=== PATIENT | female | born 1955 | race Caucasian/White ===

== ENCOUNTER 2016-06-28 21:19 | Observation (INO) ==
--- NOTE | 2016-06-28 23:43 | Emergency Department Note ---
Disposition Clinical Impression: Bite by animal Cellulitis Qualifiers: Site of cellulitis: extremity Site of cellulitis of extremity: lower extremity Laterality: left Qualified Code(s): L03.116 - Cellulitis of left lower limb Disposition: Admitted As Inpatient Condition: Fair Time of Disposition: 00:00 Animal Bite HPI - General Chief Complaint: ED Skin/Abscess/Foreign Body Stated Complaint: Cat Scratch~ L Leg Time Seen by Provider: 06/28/16 22:06 Source: patient Limitations: no limitations Nursing Notes Reviewed: Yes Vital Signs Reviewed: Yes - History of Present Illness HPI Narrative: 61-year-old female presents after a Bite at home 2 days ago. Patient reports nausea, vomiting, fever, chills, rigor. Patient has significant tenderness to palpation of the left calf and distal lower extremity as well as large amount of erythema. - Related Data Previous Rx's Medication Instructions Recorded Albuterol Sulfate [Albuterol 1 puff IH Q6HR #1 hfa.aer.ad 02/25/15 Inhaler] Doxycycline 100 mg PO BID #20 capsule 02/25/15 GuaiFENesin ER [Mucinex] 600 mg PO BID #20 tbbp.12hr 02/25/15 PredniSONE 40 mg PO DAILY #4 tablet 02/25/15 Allergies Allergy/AdvReac Type Severity Reaction Status Date / Time codeine Allergy Itching Verified 02/25/15 11:37 doxycycline AdvReac Nausea Verified 07/20/15 12:49 Penicillins AdvReac See Verified 07/20/15 12:49 Comments All systems ED: reviewed and negative except as stated. Constitutional: Reports: fever, weakness. Denies: chills ENT ED: Denies: ear pain, throat pain Cardiovascular: Denies: chest pain, palpitations Respiratory: Denies: cough, dyspnea, wheezes, hemoptysis Gastrointestinal: Reports: nausea, vomiting. Denies: abdominal pain, diarrhea Past Medical History - Past Medical History Attestation: Yes The following information was validated with the patient. Medical history: Reports: arthritis, hepatitis, liver disease, other Surgical history: Reports: , cholecystectomy, orthopedic, other Psychiatric history: Reports: no psych history - Social History Smoking Status: Current every day smoker Smokeless Tobacco Status: No Alcohol use: Reports: none Drug use: Reports: none Physical Exam General: Alert and in no acute distress Skin: Warm, dry, puncture wound to the left anterior distal lower extremity surrounded by significant amount of cellulitis without evidence of induration or fluctuance or crepitus Head: Normocephalic and atraumatic Neck: Supple, trachea midline and no tenderness Cardiovascular: RRR, no murmur, normal perfusion Respiratory: CTAB, no wheezing, cough, or respiratory distress Musculoskeletal: Normal strength, no tenderness, swelling or deformity GI: Soft, nontender, nondistended. Bowel sounds present Neuro: A&O to person, place, time and situation. No focal deficits noted on exam Psychiatric: cooperative and appropriate mood and affect. - General Limitations: no limitations General appearance: alert, in no apparent distress Course Vital Signs Temperature 99.3 F 06/28/16 21:52 Pulse Rate 94 06/28/16 21:52 Respiratory Rate 16 06/28/16 21:52 Blood Pressure 140/87 06/28/16 21:52 O2 Sat by Pulse Oximetry 93 06/28/16 21:52 Temperature 99.3 F 06/28/16 21:52 Pulse Rate 94 06/28/16 21:52 Respiratory Rate 16 06/29/16 00:45 Blood Pressure 135/85 06/29/16 00:45 O2 Sat by Pulse Oximetry 93 06/28/16 21:52 Oxygen Delivery Oxygen Delivery Room Air Animal Bite - MDM Narrative Medical decision making narrative: Patient is allergic to penicillins and doxycycline and will be started on levofloxacin and metronidazole which her second line antibiotics for cat bite. Patient unable to tolerate by mouth intake at home. She will be admitted for IV antibiotics and further observation. - Medical Records Medical records reviewed: Yes I reviewed the patient's medical records. - Lab Data Lab results reviewed: Yes I reviewed the patient's lab results. Result diagrams: 06/29/16 00:03 06/29/16 00:03 Lab Results 06/29/16 06/29/16 Range/Units 00:03 00:03 WBC 9.5 (4.3-11.1) K/mcL RBC 4.77 (3.82-4.97) M/mcL Hgb 15.0 (11.5-15.4) g/dL Hct 45.0 H (35.3-44.9) % MCV 94.3 (83.0-100.0) fL MCH 31.4 (28.0-33.3) pg MCHC 33.3 (31.6-35.5) g/dL RDW 14.6 H (11.5-14.5) % Plt Count 49 L (140-400) K/mcL MPV 11.5 (9.4-12.4) fL Immature Gran % 0.3 (0-4) % Seg Neutrophils % 80.4 % Lymphocytes % 13.1 % Monocytes % 5.7 % Eosinophils % 0.4 % Basophils % 0.1 % Neutrophils # 7.6 (1.6-8.9) K/mcL Lymphocytes # 1.2 (0.6-4.6) K/mcL Monocytes # 0.5 (0.0-1.3) K/mcL Eosinophils # 0.0 (0.0-0.6) K/mcL Basophils # 0.0 (0.0-0.2) K/mcL Sodium 139 (136-145) mEq/L Potassium 3.6 (3.5-4.5) mEq/L Chloride 105 (98-109) mEq/L Carbon Dioxide 25 (19-29) mEq/L BUN 18 (7-20) mg/dL Creatinine 0.68 (0.57-1.11) mg/dL Est GFR ( Amer) > 60 (> 60) Est GFR (Non-Af Amer) > 60 (> 60) BUN/Creatinine Ratio 26 (6-26) Glucose 102 H (70-99) mg/dL Calculated Osmolality 290 (280-300) Calcium 9.0 (8.6-10.8) mg/dL
[2016-06-28] MEDS ORDERED: Levofloxacin 750 MG/150 ML 750 MG/150 ML BAG IVPB ONE (23:51)
[2016-06-28] MEDS ORDERED: 0.9 % Sodium Chloride 1,000 ML IVC ONE (23:51)
[2016-06-28] MEDS ORDERED: MetroNIDAZOLE 500 MG/100 ML 500 MG/100 ML BAG IVPB ONE (23:51)
[2016-06-28] MEDS ORDERED: Td (TENIVAC) Vaccine 0.5 ML VIAL IM ONE (23:51)
[2016-06-28] MEDS ORDERED: *HR* Morphine 2 MG/ML SYRINGE IVP ONE (23:51)
[2016-06-29] MEDS ORDERED: Ondansetron 4 MG/2 ML VIAL IV ONE (00:04)
[2016-06-29 00:11] LABS: Basophils % 0.1 %; Eosinophils % 0.4 %; Immature Granulocytes % 0.3 % (0-4); Lymphocytes % 13.1 %; Mean Corpuscular HGB Conc 33.3 g/dL (31.6-35.5); Mean Corpuscular Hemoglobin 31.4 pg (28.0-33.3); Mean Corpuscular Volume 94.3 fL (83.0-100.0); Mean Platelet Volume 11.5 fL (9.4-12.4); Monocytes # 0.5 K/mcL (0.0-1.3); Monocytes % 5.7 %; Red Blood Count 4.77 M/mcL (3.82-4.97); Red Cell Distribution Width 14.6 % (11.5-14.5); Segmented Neutrophils % 80.4 %
[2016-06-29 00:12] LABS: Lymphocytes # 1.2 K/mcL (0.6-4.6); Neutrophils # 7.6 K/mcL (1.6-8.9); Platelet Count 49 K/mcL (140-400)
[2016-06-29] MEDS ORDERED: Tdap (Boostrix) Vaccine 0.5 ML SYRINGE IM ONE (00:13)
[2016-06-29 00:23] LABS: BUN/Creatinine Ratio 26 (6-26); Blood Urea Nitrogen 18 mg/dL (7-20); Carbon Dioxide 25 mEq/L (19-29); Chloride 105 mEq/L (98-109); Glucose 102 mg/dL (70-99); Osmolality,Calculated 290 (280-300); Potassium 3.6 mEq/L (3.5-4.5); Sodium 139 mEq/L (136-145); eGFR For African Americans > 60 (> 60); eGFR For Non-African Americans > 60 (> 60)
[2016-06-29] MEDS ORDERED: Naloxone 0.4 MG/ML INJ IVP PRN (03:29)
--- NOTE | 2016-06-29 03:51 | Internal Med History&Physical ---
Date of Encounter: 06/29/16 Time of Encounter: 03:00 Assessment and Plan (1) Cellulitis Current visit: Yes Status: Acute Pt has left lower leg cellulitis, secondary to cat bite. Pt was given tetanus vaccine, levofloxacin and metronidazole in emergency department. If the pt is agreeable, will consider vancomycin and zosyn (pt reports yeast infection with penicillins). Qualifiers: Site of cellulitis: extremity Site of cellulitis of extremity: lower extremity Laterality: left Qualified Code(s): L03.116 - Cellulitis of left lower limb (2) Bite by animal Current visit: Yes Status: Acute Pt had a cat bite - cat was apparently not vaccinated. Patient was given tetanus vaccine in the emergency department. (3) Abscess of foot Current visit: Yes Status: Suspected CT scan of the left lower extremity reported 0.8 cm fluid-filled collection with minimal surrounding inflammation along the dorsal lateral aspect of the cuboid - thiw may represent a small abscess. Will consult podiatry for possible intervention. 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 Qualifiers: Hepatic cirrhosis type: unspecified hepatic cirrhosis Ascites presence: with ascites Qualified Code(s): K74.60 - Unspecified cirrhosis of liver (5) Thrombocytopenia Current visit: Yes Status: Chronic Possibly related to cellulitis / infection versus cirrhosis of the liver. Monitor platelet count - if further worsening, consider hematology / oncology consult (6) DVT prophylaxis Current visit: Yes Status: Acute Arixtra, due to thrombocytopenia Internal Medicine - H&P: HPI Chief complaint: Cat bite; Admitted From: Emergency Dept Plans for Post Hospital Care: Home History of present illness: Ms. Sousa is a 61 year old female with h/o Hepatitis and cirrhosis of liver. Apparently her cat (which she has for 8 years and not vaccinated), bit her over the left lower leg on 06/26/16. The following day, she evidently had episodes of nausea and vomiting. On 06/28/16, she noticed redness and subjective fevers and pain. She denies chest pain, shortness of breath, cough, expectation, abdominal pain, dysuria, hematuria, change in bowels. She was evaluated in the ER and was noted to have cellulitis and CT scan of the leg was negative for soft tissue gas - was given levofloxacin and metronidazole. (pt has penicillin listed as allergy, but reports that it causes yeast infection). She is admitted to the hospitalist service for further management. Past Med Surg Social Fam HX - Past Medical History Medical history: arthritis, hepatitis, liver disease, other Psychiatric history: no psych history - Past Surgical History Surgical History: , cholecystectomy, orthopedic, other - Social History Smoking Status: Current every day smoker Packs per day: .5 Smokeless Tobacco Status: No Alcohol use: none Drug use: none - Family History Father Living Status: Hx Family Respiratory Disorders: Yes (COPD) Internal Medicine - H&P: Meds Albuterol Sulfate [Albuterol Inhaler] 1 puff IH Q6HR #1 hfa.aer.ad 02/25/15 [Rx] Doxycycline 100 mg PO BID #20 capsule 02/25/15 [Rx] GuaiFENesin ER [Mucinex] 600 mg PO BID #20 tbbp.12hr 02/25/15 [Rx] PredniSONE 40 mg PO DAILY #4 tablet 02/25/15 [Rx] Allergies codeine Allergy (Verified 02/25/15 11:37) Itching doxycycline Adverse Reaction (Verified 07/20/15 12:49) Nausea Penicillins Adverse Reaction (Verified 07/20/15 12:49) See Comments yeast infection All Systems PM: A 10-system review of systems was performed and is negative for pertinent findings except as documented above in the HPI. - Constitutional Vitals: Temp Pulse Resp BP Pulse Ox 98.8 F 86 15 144/74 94 06/29/16 01:25 06/29/16 01:25 06/29/16 01:25 06/29/16 01:25 06/29/16 01:25 Exam: General: Not in acute distress at the time of my evaluation. Obese HEENT: Oral mucosa is moist. No conjunctival palor or scleral icterus Neck: No obvious neck swellings Lungs: Clear to auscultation Cardiac: Regular rate and rhythm. No significant murmurs Abdomen: Distended - suspect ascites. Bowel sounds present Genitourinary: No fernandes catheter Neurological: Alert and oriented. No gross localizing deficits Psych: Not aggressive or agitated Extremities: B/L Lower extremity edema present. There is redness on the anterior and lateral aspect of the left leg, local warmth and tenderness present. There is bite larry present Skin: No generalized rash Internal Med - H&P Results - Labs CBC & Chem 7: 06/29/16 00:03 06/29/16 00:03 - Impressions ITS Impressions Lower Extremity CT 06/29/16 00:02 IMPRESSION: 1. Subcutaneous edema/inflammation and skin thickening along the anterior aspect of the leg. Please correlate with clinical symptoms of cellulitis. 2. Along the dorsal lateral aspect of the cuboid, there is a 0.8 cm fluid collection with minimal surrounding inflammation. Please correlate with site of patient's bite injury. If that is the site of patient's injury, this may represent a small abscess. 3. No evidence of soft tissue gas. 4. No acute osseous finding. D/ / Stevenson Atkins MD / Stevenson Atkins MD Interpreting Provider: Stevenson Atkins MD
[2016-06-29] MEDS: *HR* Fondaparinux 2.5 MG/0.5 ML SYRINGE SQ SCH (06:04)
[2016-06-29] MEDS: MetroNIDAZOLE 500 MG/100 ML 500 MG/100 ML BAG IVPB SCH ×2 (08:28→15:53)
[2016-06-29] MEDS: Lactobacillus 1 EACH CAP.SPRINK PO SCH ×2 (08:50→20:32)
[2016-06-29] MEDS: Acetaminophen 325 MG TABLET PO PRN ×2 (08:50→18:22)
[2016-06-29] MEDS ORDERED: *HR* Morphine 2 MG/ML SYRINGE IVP PRN (15:06)
--- NOTE | 2016-06-29 15:49 | Event Note ---
Date of Encounter: 06/29/16 Time of Encounter: 09:30 Patient seen and examined. On examination, patient resting asleep in bed. She awakened easily to voice and was alert and oriented 3. She stated she was very tired and wanted to rest. She states pain in her leg is much better. We will continue levofloxacin and Flagyl. On examination, there is no evidence of an abscess noted at this time. Erythema has receded slightly from the pen line from admission. Lower extremity CT consistent with cellulitis. Patient complaining of chronic low back pain and her home medications have been resumed , her OARRS report checked out fine. We will observe overnight and possibly discharge as early as tomorrow pending clinical outcomes. ITS Impressions Lower Extremity CT 06/29/16 00:02 IMPRESSION: 1. Subcutaneous edema/inflammation and skin thickening along the anterior aspect of the leg. Please correlate with clinical symptoms of cellulitis. 2. Along the dorsal lateral aspect of the cuboid, there is a 0.8 cm fluid collection with minimal surrounding inflammation. Please correlate with site of patient's bite injury. If that is the site of patient's injury, this may represent a small abscess. 3. No evidence of soft tissue gas. 4. No acute osseous finding. D/ / 06/29/2016 07:15:09 Stevenson Atkins MD / Alma Rosa Spencer Interpreting Provider: Stevenson Atkins MD
[2016-06-29] MEDS: *HR* OxyCODONE Immed Rel 5 MG TABLET PO SCH (20:32)
[2016-06-30] MEDS: Acetaminophen 325 MG TABLET PO PRN ×2 (00:22→15:29)
[2016-06-30] MEDS ORDERED: Levofloxacin 750 MG/150 ML 750 MG/150 ML BAG IVPB SCH (02:00)
[2016-06-30] MEDS: *HR* Fondaparinux 2.5 MG/0.5 ML SYRINGE SQ SCH (05:45)
[2016-06-30] MEDS: Lactobacillus 1 EACH CAP.SPRINK PO SCH (08:05)
[2016-06-30] MEDS: *HR* OxyCODONE Immed Rel 5 MG TABLET PO SCH (08:05)
[2016-06-30] MEDS: MetroNIDAZOLE 500 MG/100 ML 500 MG/100 ML BAG IVPB SCH ×2 (08:05)
[2016-06-30] MEDS ORDERED: Tiotropium 18 MCG inhalation IH SCH (09:00)
[2016-06-30 11:41] VITALS: BP 143/85
--- NOTE | 2016-06-30 13:51 | Discharge Summary ---
Date of Encounter: 06/30/16 Time of Encounter: 12:30 - Discharge Diagnosis (1) Cellulitis Priority: Primary Status: Acute Comments: Vital left lower extremity. Treated with levofloxacin and Flagyl while admitted. Blood cultures negative. Vital signs remained stable, no indication of sepsis, osteomyelitis, or abscess. She has allergies/intolerances to Doxy- nausea, penicillins-yeast infection. We will send home on Bactrim. Qualifiers: Site of cellulitis: extremity Site of cellulitis of extremity: lower extremity Laterality: left Qualified Code(s): L03.116 - Cellulitis of left lower limb (2) Bite by animal Priority: Primary Status: Acute (3) Chronic pain Priority: Secondary Status: Chronic Comments: OARRS report checked out okay, we will send with short supply pain medication for leg pain (4) Tobacco abuse Priority: Secondary Status: Chronic Comments: Declined counseling (5) Cirrhosis of liver Priority: Secondary Status: Chronic Qualifiers: Hepatic cirrhosis type: unspecified hepatic cirrhosis Ascites presence: with ascites Qualified Code(s): K74.60 - Unspecified cirrhosis of liver (6) Thrombocytopenia Priority: Secondary Status: Chronic Comments: Acute on chronic, follow-up outpatient (7) DVT prophylaxis Priority: Primary Status: Acute Comments: on Arixtra (8) Morbid obesity with BMI of 45.0-49.9, adult Priority: Secondary Status: Chronic - Discharge Medications Prescriptions: OxyCODONE Immed Rel [Roxicodone 5 MG] 5 mg PO BID PRN #12 tablet PRN Reason: Pain Sulfamethoxazole/Trimeth DS [Bactrim DS] 1 each PO BID #20 tablet Home Medications: Albuterol Sulfate [Proair Hfa] 2 puff IH Q4H PRN 06/29/16 [History] Cyclobenzaprine HCl 10 mg PO TID PRN 06/29/16 [History] Oxycodone HCl [Oxaydo] 5 mg PO BID 06/29/16 [History] Tiotropium [Spiriva] 1 cap IH DAILY 06/29/16 [History] OxyCODONE Immed Rel [Roxicodone 5 MG] 5 mg PO BID PRN #12 tablet 06/30/16 [Rx] Sulfamethoxazole/Trimeth DS [Bactrim DS] 1 each PO BID #20 tablet 06/30/16 [Rx] Allergies/Adverse Reactions: Allergies codeine Allergy (Verified 12/19/15 11:37) Itching doxycycline Adverse Reaction (Verified 07/20/15 12:49) Nausea Penicillins Adverse Reaction (Verified 07/20/15 12:49) See Comments yeast infection Date of admission: 06/29/16 00:30 Primary care physician: Zakia Bowie CNP Discharging clinician: Mackenzie Hall Anticipated date of discharge: 06/30/16 - Patient Status Disposition: Home, Self-Care Condition: Fair Functional capacity at discharge: independent ambulation Overall status at discharge: patient is back to baseline - Discharge Instructions Follow Up With: Zakia Bowie CNP [Primary Care Provider] - Additional Instructions: Follow-up with primary care provider within one to 2 weeks - Diet and Activity Activity: increase activity as tolerated Diet: low fat, low cholesterol Hospital course: Ms. Sousa is a 61 year old female with past medical history of hepatitis, cirrhosis. Patient sustained a cat bite from her cat to her left lower leg on . The following day, patient had episodes of nausea and vomiting and 2 days later, she noticed redness with subjective fevers and pain to her left lower extremity. Of note, her cat is 8 years old and has not been vaccinated. Patient denied chest pain, shortness of breath, abdominal pain. Lower extremity CT in the emergency department consistent with cellulitis. No indication of abscess or osteomyelitis. Patient was started on levofloxacin and Flagyl and admitted to the hospitalist service for further evaluation and management. Blood cultures were negative. No leukocytosis. Vital signs remained stable. Thrombocytopenia noted which is chronic for this patient. She was admitted and observed over the course of 2 days. Erythema and edema have lessened greatly on the discharge. She was discharged home on Bactrim. She was discharged home in stable condition with close outpatient follow-up recommended. ITS Impressions Lower Extremity CT 06/29/16 00:02 IMPRESSION: 1. Subcutaneous edema/inflammation and skin thickening along the anterior aspect of the leg. Please correlate with clinical symptoms of cellulitis. 2. Along the dorsal lateral aspect of the cuboid, there is a 0.8 cm fluid collection with minimal surrounding inflammation. Please correlate with site of patient's bite injury. If that is the site of patient's injury, this may represent a small abscess. 3. No evidence of soft tissue gas. 4. No acute osseous finding. D/ / 06/29/2016 07:15:09 Stevenson Atkins MD / Alma Roas Spencer Interpreting Provider: Stevenson Atkins MD - Time Spent with Patient Total time spent providing and/or coordinating discharge services: - Constitutional Vitals: Temp Pulse Resp BP Pulse Ox 97.7 F 77 16 143/85 94 06/30/16 11:38 06/30/16 11:38 06/30/16 11:38 06/30/16 11:38 06/30/16 11:38 General appearance: Present: A&O X 3, morbidly obese, pleasant, no acute distress, answers questions appropriately - Head Head exam: Present: atraumatic, normocephalic - Eye Eye exam: Present: PERRL, conjuntiva pink, sclera anicteric Pupils: Present: PERRL - Neck Neck exam general surgery: Present: supple, trachea midline. Absent: lymphadenopathy - Respiratory Respiratory exam: Present: CTAB. Absent: accessory muscle use, rales, respiratory distress, rhonchi, wheezes - Cardiovascular Cardiovascular exam: Present: RRR, +S1, +S2. Absent: diastolic murmur, gallop, rubs, systolic murmur - GI/Abdominal GI/Abdominal exam: Present: normal bowel sounds, soft, no peritoneal signs. Absent: distended, tenderness - Extremities Exam Extremities exam: Present: warm, radial pulses palpable and symetrical. Absent : calf tenderness, cyanotic, pedal edema - Expanded Lower Extremities Exam Lower Leg exam: Present: erythema, swelling, tenderness Ankle exam: Present: erythema, swelling, tenderness Foot/Toe exam: Present: erythema, swelling, tenderness Neuro vascular tendon exam: Present: no vascular compromise Gait: Present: antalgic - Neurological Exam Neurological exam: Present: alert, CN II-XII intact, oriented X3, no focal deficits, strengths equal and symetr throughout. Absent: pronater drift, facial droop, speech deficit - Skin Skin exam: Present: dry, intact, normal color, warm
== END 2016-06-30 17:57 | disposition home or self-care (01) ==
LOC: EMEROO 21:19 → 3BNU 21:19
PROVIDERS: ADMIT Internal Medicine; ATTEND Nurse Practitioner Family

== ENCOUNTER 2017-04-30 16:34 | Inpatient (IN) ==
[~2017-04-30 16:34] MED LIST: Aminoglycoside Consult 1 EACH MC ONE
[2017-04-30 17:47] LABS: Basophils % 0.4 %; Eosinophils % 0.4 %; Hematocrit 48.9 % (35.3-44.9); Hemoglobin 15.9 g/dL (11.5-15.4); Immature Granulocytes % 0.4 % (0-4); Lymphocytes # 0.4 K/mcL (0.6-4.6); Lymphocytes % 18.4 %; Mean Corpuscular HGB Conc 32.5 g/dL (31.6-35.5); Mean Corpuscular Hemoglobin 31.2 pg (28.0-33.3); Mean Corpuscular Volume 95.9 fL (83.0-100.0); Mean Platelet Volume 11.5 fL (9.4-12.4); Monocytes # 0.2 K/mcL (0.0-1.3); Monocytes % 9.2 %; Neutrophils # 1.7 K/mcL (1.6-8.9); Red Cell Distribution Width 15.6 % (11.5-14.5); Segmented Neutrophils % 71.2 %
[2017-04-30 17:49] LABS: Platelet Count 47 K/mcL (140-400)
[2017-04-30 17:59] LABS: Albumin 3.5 g/dL (3.5-5.7); Bilirubin,Direct 0.4 mg/dL (0.0-0.2); Bilirubin,Total 1.4 mg/dL (0.3-1.0); Calcium 9.4 mg/dL (8.6-10.3); Carbon Dioxide 27 mEq/L (23-29); Chloride 104 mEq/L (98-107); Potassium 4.2 mEq/L (3.5-5.1); Sodium 134 mEq/L (136-145)
[2017-04-30 18:04] LABS: Platelet Estimate Decreased (Normal)
[2017-04-30 18:05] LABS: Alanine Aminotransferase 15 Units/L (7-52); Albumin/Globulin Ratio 0.8 (1.1-2.2); Alkaline Phosphatase 79 Units/L (34-104); Aspartate Amino Transferase 40 Units/L (13-39); BUN/Creatinine Ratio 22 (6-26); Blood Urea Nitrogen 12 mg/dL (8-23); Globulin 4.3 g/dL (2.4-3.5); Glucose 105 mg/dL (70-105); Lipase 27 Units/L (11-82); Osmolality,Calculated 278 (280-300); Total Protein 7.8 g/dL (6.4-8.9); eGFR For African Americans > 60 (> 60); eGFR For Non-African Americans > 60 (> 60)
[2017-04-30] MEDS ORDERED: Ibuprofen 800 MG TABLET PO ONE (19:06)
--- NOTE | 2017-04-30 19:38 | Emergency Department Note ---
Disposition Clinical Impression: Right lower lobe pneumonia, Ascites, Cirrhosis, Leukopenia Disposition: Admitted As Inpatient Condition: Fair Referrals: Lakisha Cunha CNP [Primary Care Provider] - Time of Disposition: 19:47 General Adult HPI - General Chief complaint: ED General Medical Stated complaint: Back Pain/SOB/fever/abd large Time Seen by Provider: 04/30/17 18:43 Source: patient Limitations: no limitations Nursing Notes Reviewed: Yes Vital Signs Reviewed: Yes - History of Present Illness HPI Narrative: 62 Yo F here for cough. Patient states she has been ill for the past 3 days. She admits to cough but no significant sputum production. Sometimes it is clear in color. She admits to some upper back pain associated with the cough but that did not start until today. She denies any chest pain. She denies any syncope or passing out spells. She does have a history of hepatitis with cirrhosis. She is a history of significant ascites that required drainage recently. She admits to some chronic diarrhea issues. Intermittent nausea and vomiting. No other complaints at this time. Pain Scale: 10 - Related Data Home Medications Medication Instructions Recorded Confirmed Albuterol Sulfate [Proair Hfa] 2 puff IH Q4H PRN 06/29/16 06/29/16 Cyclobenzaprine HCl 10 mg PO TID PRN 06/29/16 06/29/16 Oxycodone HCl [Oxaydo] 5 mg PO BID 06/29/16 06/29/16 Tiotropium [Spiriva] 1 cap IH DAILY 06/29/16 06/29/16 Previous Rx's Medication Instructions Recorded OxyCODONE Immed Rel [Roxicodone 5 5 mg PO BID PRN #12 tablet 06/30/16 MG] Sulfamethoxazole/Trimeth DS 1 each PO BID #20 tablet 06/30/16 [Bactrim DS] Allergies Allergy/AdvReac Type Severity Reaction Status Date / Time codeine Allergy Itching Verified 02/25/15 11:37 doxycycline AdvReac Nausea Verified 07/20/15 12:49 Penicillins AdvReac See Verified 07/20/15 12:49 Comments Constitutional: Reports: fever, chills, weakness Eyes: Reports: as per HPI ENT ED: Reports: as per HPI Cardiovascular: Reports: as per HPI, dyspnea on exertion. Denies: chest pain Respiratory: Reports: cough, dyspnea Gastrointestinal: Reports: nausea, vomiting, diarrhea. Denies: abdominal pain Genitourinary: Reports: as per HPI Musculoskeletal: Reports: back pain Integumentary: Reports: as per HPI Neurological: Reports: as per HPI, headache Psychiatric: Reports: as per HPI Endocrine: Reports: as per HPI, fatigue Hematological/Lymphatic: Reports: as per HPI Allergic/Immunologic: Reports: as per HPI Past Medical History - Past Medical History Medical history: Reports: arthritis, hepatitis, liver disease, other Surgical history: Reports: , cholecystectomy, orthopedic, other Psychiatric history: Reports: no psych history - Social History Smoking Status: Current every day smoker Smokeless Tobacco Status: No Alcohol use: Reports: none Drug use: Reports: none Physical Exam - General Limitations: no limitations General appearance: alert - Head Head exam: atraumatic, normocephalic - Eye Eye exam: Present: normal appearance - ENT ENT exam: normal exam - Neck Neck exam: Present: normal inspection - Chest Chest inspection: Present: normal inspection, symmetric chest wall rise - Respiratory Respiratory exam: Present: other (Patient has some crackles and rhonchi heard in the right lung pleitez.) - Cardiovascular Cardiovascular exam: Present: regular rate, normal rhythm, normal heart sounds - Abdominal Exam Abdominal exam: Present: soft, distention, organomegaly (Patient has hepatosplenomegaly. Positive for ascites) - Extremities Exam Extremities exam: Present: normal capillary refill, pedal edema. Absent: calf tenderness - Expanded Lower Extremity Exam Hip/Pelvis exam: Present: normal inspection - Back Exam Back exam: Present: normal inspection - Neurological Exam Neurological exam: Present: alert, oriented X3 - Psychiatric Psychiatric exam: Present: normal affect, normal mood - Skin Skin exam: Present: warm, dry, intact Course Vital Signs Temperature 101.5 F H 04/30/17 17:04 Pulse Rate 95 04/30/17 17:04 Respiratory Rate 18 04/30/17 17:04 Blood Pressure 125/86 04/30/17 17:04 O2 Sat by Pulse Oximetry 95 04/30/17 17:04 Temperature 101.2 F H 04/30/17 19:02 Pulse Rate 95 04/30/17 19:02 Respiratory Rate 16 04/30/17 19:02 Blood Pressure 120/82 04/30/17 19:02 O2 Sat by Pulse Oximetry 96 04/30/17 19:02 Oxygen Delivery Oxygen Delivery Room Air Medical Decision Making - MDM Narrative Medical decision making narrative: Spoke with the hospitalist in regards to admission. Patient has evidence of a right lower lobe pneumonia with a right pleural effusion. Blood cultures ordered. She does have a low white count. I ordered vancomycin and cefepime due to her low white count as well as high fevers in in the setting of cirrhosis. Her vitals are stable. She was given Motrin for fevers. Patient will be admitted to a telemetry bed.. - Medical Records Medical records reviewed: Yes I reviewed the patient's medical records. - Lab Data Lab results reviewed: Yes I reviewed the patient's lab results. Result diagrams: 04/30/17 17:38 04/30/17 17:38 Lab Results 04/30/17 04/30/17 04/30/17 Range/Units 17:38 17:38 17:38 WBC 2.4 L (4.3-11.1) K/mcL RBC 5.10 H (3.82-4.97) M/mcL Hgb 15.9 H (11.5-15.4) g/dL Hct 48.9 H (35.3-44.9) % MCV 95.9 (83.0-100.0) fL MCH 31.2 (28.0-33.3) pg MCHC 32.5 (31.6-35.5) g/dL RDW 15.6 H (11.5-14.5) % Plt Count 47 L (140-400) K/mcL MPV 11.5 (9.4-12.4) fL Immature Gran % 0.4 (0-4) % Seg Neutrophils % 71.2 % Lymphocytes % 18.4 % Monocytes % 9.2 % Eosinophils % 0.4 % Basophils % 0.4 % Neutrophils # 1.7 (1.6-8.9) K/mcL Lymphocytes # 0.4 L (0.6-4.6) K/mcL Monocytes # 0.2 (0.0-1.3) K/mcL Eosinophils # 0.0 (0.0-0.6) K/mcL Basophils # 0.0 (0.0-0.2) K/mcL Platelet Estimate Decreased L (Normal) Sodium 134 L (136-145) mEq/L Potassium 4.2 (3.5-5.1) mEq/L Chloride 104 (98-107) mEq/L Carbon Dioxide 27 (23-29) mEq/L BUN 12 (8-23) mg/dL Creatinine 0.55 L (0.60-1.20) mg/dL Est GFR ( Amer) > 60 (> 60) Est GFR (Non-Af Amer) > 60 (> 60) BUN/Creatinine Ratio 22 (6-26) Glucose 105 (70-105) mg/dL Calculated Osmolality 278 L (280-300) Lactic Acid 0.9 (0.5-2.2) mmol/L Calcium 9.4 (8.6-10.3) mg/dL Total Bilirubin 1.4 H (0.3-1.0) mg/dL Direct Bilirubin 0.4 H (0.0-0.2) mg/dL Indirect Bilirubin 1.0 (0.0-1.2) mg/dL AST 40 H (13-39) Units/L ALT 15 (7-52) Units/L Alkaline Phosphatase 79 (34-104) Units/L Troponin I (< 0.04) ng/mL B-Natriuretic Peptide (Less than 100) pg/mL Serum Total Protein 7.8 (6.4-8.9) g/dL Albumin 3.5 (3.5-5.7) g/dL Globulin 4.3 H (2.4-3.5) g/dL Albumin/Globulin Ratio 0.8 L (1.1-2.2) Lipase 27 (11-82) Units/L 04/30/17 04/30/17 Range/Units 17:38 17:38 WBC (4.3-11.1) K/mcL RBC (3.82-4.97) M/mcL Hgb (11.5-15.4) g/dL Hct (35.3-44.9) % MCV (83.0-100.0) fL MCH (28.0-33.3) pg MCHC (31.6-35.5) g/dL RDW (11.5-14.5) % Plt Count (140-400) K/mcL MPV (9.4-12.4) fL Immature Gran % (0-4) % Seg Neutrophils % % Lymphocytes % % Monocytes % % Eosinophils % % Basophils % % Neutrophils # (1.6-8.9) K/mcL Lymphocytes # (0.6-4.6) K/mcL Monocytes # (0.0-1.3) K/mcL Eosinophils # (0.0-0.6) K/mcL Basophils # (0.0-0.2) K/mcL Platelet Estimate (Normal) Sodium (136-145) mEq/L Potassium (3.5-5.1) mEq/L Chloride (98-107) mEq/L Carbon Dioxide (23-29) mEq/L BUN (8-23) mg/dL Creatinine (0.60-1.20) mg/dL Est GFR ( Amer) (> 60) Est GFR (Non-Af Amer) (> 60) BUN/Creatinine Ratio (6-26) Glucose (70-105) mg/dL Calculated Osmolality (280-300) Lactic Acid (0.5-2.2) mmol/L Calcium (8.6-10.3) mg/dL Total Bilirubin (0.3-1.0) mg/dL Direct Bilirubin (0.0-0.2) mg/dL Indirect Bilirubin (0.0-1.2) mg/dL AST (13-39) Units/L ALT (7-52) Units/L Alkaline Phosphatase (34-104) Units/L Troponin I < 0.03 (< 0.04) ng/mL B-Natriuretic Peptide 163 H (Less than 100) pg/mL Serum Total Protein (6.4-8.9) g/dL Albumin (3.5-5.7) g/dL Globulin (2.4-3.5) g/dL Albumin/Globulin Ratio (1.1-2.2) Lipase (11-82) Units/L - Radiology Data Radiology results reviewed: Yes I reviewed the patient's radiology results. - EKG Data EKG #1 EKG results narrative: EKG shows a rate of 94. No sinus rhythm. Normal axis. MS interval 155. QRS 86. QTC 408.
--- NOTE | 2017-04-30 19:56 | Internal Med History&Physical ---
Date of Encounter: 04/30/17 Time of Encounter: 19:48 Assessment and Plan (1) Sepsis Current visit: Yes Status: Acute Meets sepsis criteria with fever, heart rate in the 90s, leukopenia and pneumonia. Treatment is as below. Lactic acid is normal. Qualifiers: Sepsis type: sepsis due to unspecified organism Qualified Code(s): A41.9 - Sepsis, unspecified organism (2) Community acquired pneumonia Current visit: Yes Status: Acute We will treat as community acquired pneumonia. We will start the patient on Levaquin. She has received vancomycin and cefepime in the ED. Hold off on IV fluids given history of ascites and liver cirrhosis. Lactic acid is normal. We will add nebulizers. O2 as needed. Qualifiers: Laterality: right Lung location: lower lobe of lung Qualified Code(s): J18.1 - Lobar pneumonia, unspecified organism (3) Cirrhosis of liver Current visit: Yes Status: Chronic Due to hepatitis C and B. Does not really follow with anyone from GI. Says she sees someone at [facility] but seems to have not had follow ups for a few years. Not complaint with diuretics as it interferes with work. She is not even sure which diuretic she is on. Continue to monitor. May benefit from outpatient GI evaluation. Qualifiers: Hepatic cirrhosis type: other cirrhosis Qualified Code(s): K74.69 - Other cirrhosis of liver (4) Thrombocytopenia Current visit: No Status: Chronic Chronic. No signs of bleeding. Likely due to cirrhosis. (5) Ascites Current visit: Yes Status: Acute Status post 12.5 L paracentesis on 04/10. Seems to be re-accumulating again. Will order for IR therapeutic paracentesis for tomorrow. Check PT/INR in am. Qualifiers: Ascites type: other type Qualified Code(s): R18.8 - Other ascites (6) Pleural effusion Current visit: Yes Status: Acute right sided. Likely hepatic hyrothoax. Needs liver cirrhosis and ascites better manages or she will continue to have pleural effusion on the right. (7) DVT prophylaxis Current visit: No Status: Acute SCDs Internal Medicine - H&P: HPI Chief complaint: Shortness of breath Admitted From: Home Plans for Post Hospital Care: Home History of present illness: Ms. Sousa is a 62 year old female liver cirrhosis, hepatitis B,C, thrombocytopenia, ascites with recent paracentesis of 12.5 L on 04/10, chronic back pain with previous back epidural injections, who presents with worsening shortness of breath for the last 3-4 days. There is associated nonproductive cough, upper back pain from coughing, and fever. She says the shortness of breath has progressively gotten worse over the last couple days she is unable to do any activity including walking. She also noticed abdominal distention that has worsened over the course of the last week. In the ED, work up including CXR showed new infiltrate. WBC count of 2.4. Platelets of 47 which is chronic. Normal Lactic acid. Given vancomycin and cefepimie in the ED and we were called to admit. Denies headache, blurry vision, nausea, vomiting, chest pain, abdominal pain, urinary symptoms, or neurological symptoms. Past Med Surg Social Fam HX - Past Medical History Medical history: arthritis, hepatitis, liver disease, other Psychiatric history: no psych history - Past Surgical History Surgical History: , cholecystectomy, orthopedic, other - Social History Smoking Status: Current every day smoker Smokeless Tobacco Status: No Alcohol use: none Drug use: none - Family History Father Living Status: Hx Family Respiratory Disorders: Yes (COPD) Internal Medicine - H&P: Meds Albuterol Sulfate [Proair Hfa] 2 puff IH Q4H PRN 06/29/16 [History] Cyclobenzaprine HCl 10 mg PO TID PRN 06/29/16 [History] Oxycodone HCl [Oxaydo] 5 mg PO BID 06/29/16 [History] Tiotropium [Spiriva] 1 cap IH DAILY 06/29/16 [History] OxyCODONE Immed Rel [Roxicodone 5 MG] 5 mg PO BID PRN #12 tablet 06/30/16 [Rx] Sulfamethoxazole/Trimeth DS [Bactrim DS] 1 each PO BID #20 tablet 06/30/16 [Rx] 3 Allergy/AdvReac Type Severity Reaction Status Date / Time codeine Allergy Itching Verified 02/25/15 11:37 doxycycline AdvReac Nausea Verified 07/20/15 12:49 Penicillins AdvReac See Verified 07/20/15 12:49 Comments All Systems PM: A 10-system review of systems was performed and is negative for pertinent findings except as documented above in the HPI. Review of systems: All systems reviewed are negative except for what is mentioned above - Constitutional Vitals: Temp Pulse Resp BP Pulse Ox 101.2 F H 95 16 120/82 96 04/30/17 19:02 04/30/17 19:02 04/30/17 19:02 04/30/17 19:02 04/30/17 19:02 Exam: GEN: NAD HEENT: AT, NC, No cyanosis, oral mucosa is moist, No JVD Lymphatics: No lymphadenoapthy Eyes: Extrocular muscles intact, anicteric CVS:RRR. S1, S2, No m/r/g RESP: Diminished with bibasilar coarse breath sounds ABD: Soft, NT, Distended with flnak dullness. +BS EXT: trace LE edema, No rashes, 2+ DP NEURO: Nonfocal, CN II-XII intact, No focal motor or sensory deficits Psych: Cooperative, Not anxious or depressed Internal Med - H&P Results - Labs CBC & Chem 7: 04/30/17 17:38 04/30/17 17:38 Labs: Short CBC 04/30/17 Range/Units 17:38 WBC 2.4 L (4.3-11.1) K/mcL Hgb 15.9 H (11.5-15.4) g/dL Hct 48.9 H (35.3-44.9) % Plt Count 47 L (140-400) K/mcL Neutrophils # 1.7 (1.6-8.9) K/mcL BMP 04/30/17 17:38 Sodium 134 L Potassium 4.2 Chloride 104 Carbon Dioxide 27 BUN 12 Creatinine 0.55 L Glucose 105 Calcium 9.4 Cardiac Enzymes 04/30/17 Range/Units 17:38 Troponin I < 0.03 (< 0.04) ng/mL Liver Function 04/30/17 Range/Units 17:38 Total Bilirubin 1.4 H (0.3-1.0) mg/dL Direct Bilirubin 0.4 H (0.0-0.2) mg/dL AST 40 H (13-39) Units/L ALT 15 (7-52) Units/L Alkaline Phosphatase 79 (34-104) Units/L Albumin 3.5 (3.5-5.7) g/dL - Impressions ITS Impressions Chest X-Ray 04/30/17 17:14 IMPRESSION: Right lower lobe pneumonia with a right pleural effusion. Follow-up is recommended to ensure resolution D/ / Michael Robertson MD / Michael Robertson MD Interpreting Provider: Michael Robertson MD
[2017-04-30] MEDS ORDERED: Cefepime HCl 2,000 MG in Water for inj. (sterile) 20 ML IVP SCH (20:00)
[2017-04-30] MEDS ORDERED: Cefepime HCl 2,000 MG in Water for inj. (sterile) 20 ML IVP ONE (20:00)
[2017-04-30] MEDS ORDERED: Naloxone 0.4 MG/ML INJ IVP PRN (20:00)
[2017-04-30] MEDS: Ipratropium/Albuterol Neb 3 ML IH SCH ×2 (21:03→23:10)
[2017-04-30 23:08] LABS: Adenovirus Not Detected (Not Detect); Bordetella Pertussis Not Detected (Not Detect); Chlamydophila pneumoniae Not Detected (Not Detect); Coronavirus 229E Not Detected (Not Detect); Coronavirus HKU1 Not Detected (Not Detect); Coronavirus NL63 Not Detected (Not Detect); Coronavirus OC43 Not Detected (Not Detect); Human Metapneumovirus Not Detected (Not Detect); Human Rhinovirus/Enterovirus Not Detected (Not Detect); Influenza A Subtype 2009 H1 Not Detected (Not Detect); Influenza A Untypeable Not Detected (Not Detect); Influenza B Not Detected (Not Detect); Mycoplasma pneumoniae Not Detected (Not Detect); Parainfluenza Virus 1 Not Detected (Not Detect); Parainfluenza Virus 2 Not Detected (Not Detect); Parainfluenza Virus 3 Not Detected (Not Detect); Parainfluenza Virus 4 Not Detected (Not Detect); Respiratory Syncytial Virus Not Detected (Not Detect)
[2017-05-01] MEDS ORDERED: Ketorolac 15 MG/ML VIAL IVP ONE (02:59)
[2017-05-01] MEDS ORDERED: *HR* Promethazine 25 MG/ML VIAL IVP PRN (04:41)
[2017-05-01] MEDS ORDERED: Ondansetron 4 MG/2 ML VIAL IVP ONE (04:42)
[2017-05-01] MEDS: Ipratropium/Albuterol Neb 3 ML IH SCH ×4 (04:57→20:08)
[2017-05-01 06:42] LABS: Hematocrit 42.4 % (35.3-44.9); Red Blood Count 4.51 M/mcL (3.82-4.97); Red Cell Distribution Width 15.9 % (11.5-14.5)
[2017-05-01 06:44] LABS: INR 1.5; Immature Platelets 6.8 % (1.1-6.1); Mean Platelet Volume 11.6 fL (9.4-12.4); Prothrombin Time 16.2 Seconds (9.4-12.1)
[2017-05-01 07:09] LABS: BUN/Creatinine Ratio 30 (6-26); Blood Urea Nitrogen 14 mg/dL (8-23); Calcium 8.8 mg/dL (8.6-10.3); Carbon Dioxide 26 mEq/L (23-29); Chloride 107 mEq/L (98-107); Glucose 125 mg/dL (70-105); Magnesium 1.7 mg/dL (1.6-2.6); Osmolality,Calculated 288 (280-300); Potassium 3.7 mEq/L (3.5-5.1); Sodium 138 mEq/L (136-145); eGFR For African Americans > 60 (> 60); eGFR For Non-African Americans > 60 (> 60)
--- NOTE | 2017-05-01 07:53 | Internal Med Progress Note ---
Date of Encounter: 05/01/17 Time of Encounter: 16:10 - Assessment and plan (1) Community acquired pneumonia Current Visit: Yes Status: Acute Assessment and plan: No organism has been identified. Continue levofloxacin. Follow culture results. Qualifiers: Laterality: right Lung location: lower lobe of lung Qualified Code(s): J18.1 - Lobar pneumonia, unspecified organism (2) Ascites Current Visit: Yes Status: Acute Assessment and plan: Paracentesis planned for today but Postponed for tomorrow due to low platelets per IR recommendations. Resume diuretics. Qualifiers: Ascites type: other type Qualified Code(s): R18.8 - Other ascites (3) Cirrhosis of liver Current Visit: Yes Status: Chronic Assessment and plan: With portal hypertension and splenomegaly along with thrombocytopenia. Chronic condition. Advised to follow up with gastroenterology as outpatient. Patient had previously been following up with debt collection specialist in [place] but has not been able to see them due to distance of travel. Encouraged to reestablish care especially the patient wants to be on the liver transplant list. Qualifiers: Hepatic cirrhosis type: other cirrhosis Qualified Code(s): K74.69 - Other cirrhosis of liver (4) DVT prophylaxis Current Visit: No Status: Acute (5) Pleural effusion Current Visit: Yes Status: Acute Assessment and plan: Right-sided pleural effusion. Concern for parapneumonic effusion versus other etiologies. Consulted IR for possible thoracentesis depending on ultrasound findings. (6) Right lower lobe pneumonia Current Visit: Yes Status: Suspected Assessment and plan: Continue levofloxacin. Qualifiers: Pneumonia type: due to Pneumococcus Qualified Code(s): J13 - Pneumonia due to Streptococcus pneumoniae (7) Sepsis Current Visit: Yes Status: Acute Assessment and plan: On IV antibiotics. Qualifiers: Sepsis type: sepsis due to unspecified organism Qualified Code(s): A41.9 - Sepsis, unspecified organism (8) Thrombocytopenia Current Visit: Yes Status: Chronic Assessment and plan: Platelets 40. Given planned procedure, will transfuse 1 unit packed platelets. - Subjective Interval history: Patient is doing better at this time. Denies any chest pain. Continues to have significant abdominal distention. Shortness of breath is improving. No fever or chills reported overnight. No palpitations. - Constitutional Vitals: Temp Pulse Resp BP Pulse Ox 97.9 F 74 18 113/75 94 05/01/17 06:54 02/22/18 06:54 05/01/17 06:54 05/01/17 06:54 05/01/17 06:54 General appearance: Present: cooperative, A&O X 3, answers questions appropriately - Neck Neck exam general surgery: Present: supple, trachea midline. Absent: lymphadenopathy - Respiratory Respiratory exam: Present: decreased breath sounds (Especially at right base). Absent: accessory muscle use, rales, rhonchi, wheezes - Cardiovascular Cardiovascular exam: Present: RRR, +S1, +S2. Absent: diastolic murmur, gallop, rubs, systolic murmur - GI/Abdominal GI/Abdominal exam: Present: distended, normal bowel sounds, soft, no peritoneal signs. Absent: tenderness Additional comments: Large abdominal ascites - Extremities Exam Extremities exam: Present: warm, radial pulses palpable and symmetrical. Absent : calf tenderness, cyanotic, pedal edema - Neurological Exam Neurological exam: Present: CN II-XII intact, oriented X3, no focal deficits. Absent: facial droop, speech deficit - Skin Skin exam: Present: dry, intact Internal Medicine: Result - Labs CBC & Chem 7: 05/01/17 06:08 05/01/17 06:08 Labs: BMP 05/01/17 06:08 Sodium 138 Potassium 3.7 Chloride 107 Carbon Dioxide 26 BUN 14 Creatinine 0.47 L Glucose 125 H Calcium 8.8 - ABG Interpretation ABG results: PT/INR, D-dimer PT 16.2 Seconds (9.4-12.1) H 05/01/17 06:08 Consult Discharge Plan - Plan Referrals: Lakisha Cunha CNP [Primary Care Provider] -
[2017-05-01 08:04] LABS: Platelet Count 40 K/mcL (140-400)
[2017-05-01 08:55] LABS: Lymphocytes # 0.7 K/mcL (0.6-4.6); Monocytes # 0.1 K/mcL (0.0-1.3); Neutrophils # 1.5 K/mcL (1.6-8.9); Reactive Lymphocytes Present (Not Present)
[2017-05-01 08:57] LABS: Platelet Estimate Decreased (Normal)
[2017-05-01] MEDS ORDERED: Levofloxacin 500 MG/100 ML 500 MG/100 ML BAG IVPB SCH (09:00)
[2017-05-01] MEDS: Levofloxacin 750 MG/150 ML 750 MG/150 ML BAG IVPB SCH (10:15)
[2017-05-01] MEDS: Acetaminophen 325 MG TABLET PO PRN (13:24)
--- NOTE | 2017-05-01 15:22 | Electrocardiograph Report ---
[place] [id number] Test Date: 2017-04-30 Pat Name: Cong Sousa Department: 104 Room: [facility] Gender: F Corporate Travel Coordinator: : 1955 Requested By: Di See Order Number: [id number] Reading MD: Junie Arce Measurements Intervals [place] Rate: 96 P: -6 DC: 168 QRS: 23 QRSD: 84 T: -1 QT: 344 QTc: 398 Interpretive Statements SINUS RHYTHM NONSPECIFIC ST ABNORMALITIES ARTIFACT INFERIOR AND HIGH LATERAL LEADS Electronically Signed On 05-01-2017 15:20:54 EST by Junie Arce
[2017-05-01] MEDS ORDERED: 0.9 % Sodium Chloride 250 ML ONE (18:09)
[2017-05-01] MEDS: Furosemide 20 MG/2 ML VIAL IVP SCH (18:17)
[2017-05-01] MEDS: Spironolactone 25 MG TABLET PO SCH (18:17)
[2017-05-01] MEDS ORDERED: hydrOXYzine pamoate 25 MG CAPSULE PO PRN (18:44)
[2017-05-01] MEDS ORDERED: Albuterol 2.5 MG/3 ML NEBULIZER IH PRN (19:39)
[2017-05-02] MEDS: Ipratropium/Albuterol Neb 3 ML IH SCH ×4 (03:30→22:06)
[2017-05-02 05:20] LABS: Basophils % 0.4 %; Eosinophils % 0.4 %; Immature Granulocytes % 0.4 % (0-4); Mean Corpuscular Hemoglobin 31.3 pg (28.0-33.3); Red Blood Count 4.47 M/mcL (3.82-4.97); Red Cell Distribution Width 15.9 % (11.5-14.5)
[2017-05-02 05:22] LABS: Hematocrit 42.4 % (35.3-44.9); Immature Platelets 8.1 % (1.1-6.1); Lymphocytes # 0.3 K/mcL (0.6-4.6); Lymphocytes % 12.9 %; Mean Corpuscular Volume 94.9 fL (83.0-100.0); Mean Platelet Volume 11.5 fL (9.4-12.4); Monocytes # 0.2 K/mcL (0.0-1.3); Monocytes % 10.3 %; Segmented Neutrophils % 75.6 %
[2017-05-02 05:25] LABS: Neutrophils # 1.7 K/mcL (1.6-8.9); Platelet Count 38 K/mcL (140-400)
[2017-05-02 05:43] LABS: BUN/Creatinine Ratio 33 (6-26); Blood Urea Nitrogen 15 mg/dL (8-23); Calcium 8.8 mg/dL (8.6-10.3); Carbon Dioxide 29 mEq/L (23-29); Chloride 105 mEq/L (98-107); Glucose 114 mg/dL (70-105); Osmolality,Calculated 286 (280-300); Potassium 3.6 mEq/L (3.5-5.1); Sodium 137 mEq/L (136-145); eGFR For African Americans > 60 (> 60); eGFR For Non-African Americans > 60 (> 60)
[2017-05-02 06:02] LABS: Large Platelets Present (Not Present); Platelet Estimate Decreased (Normal); Reactive Lymphocytes Present (Not Present)
[2017-05-02] MEDS ORDERED: 0.9 % Sodium Chloride 250 ML ONE ×2 (08:45→14:57)
[2017-05-02] MEDS: Acetaminophen 325 MG TABLET PO PRN ×2 (11:28→21:12)
[2017-05-02] MEDS: Spironolactone 25 MG TABLET PO SCH (11:28)
[2017-05-02] MEDS: Levofloxacin 750 MG/150 ML 750 MG/150 ML BAG IVPB SCH (11:29)
[2017-05-02] MEDS: Furosemide 20 MG/2 ML VIAL IVP SCH ×2 (11:29→17:07)
--- NOTE | 2017-05-02 12:26 | Internal Med Progress Note ---
Date of Encounter: 05/02/17 Time of Encounter: 08:45 - Assessment and plan (1) Community acquired pneumonia Current Visit: Yes Status: Acute Assessment and plan: Continue current antibiotics. Cultures have been negative. We will continue to follow. Thoracentesis is planned for today. We will look for any signs of empyema. Qualifiers: Laterality: right Lung location: lower lobe of lung Qualified Code(s): J18.1 - Lobar pneumonia, unspecified organism (2) Ascites Current Visit: Yes Status: Acute Assessment and plan: Paracentesis planned for today. We will get cell count and culture. Qualifiers: Ascites type: other type Qualified Code(s): R18.8 - Other ascites (3) Cirrhosis of liver Current Visit: Yes Status: Chronic Assessment and plan: Chronic. With splenomegaly and thrombocytopenia. Placed patient on Lasix and spironolactone along with fluid restriction. Qualifiers: Hepatic cirrhosis type: other cirrhosis Qualified Code(s): K74.69 - Other cirrhosis of liver (4) Pleural effusion Current Visit: Yes Status: Acute Assessment and plan: Right-sided pleural effusion. Thoracentesis plan for today. Parapneumonic effusion versus transudate versus empyema. (5) Right lower lobe pneumonia Current Visit: Yes Status: Suspected Assessment and plan: No organism identified so far. Continue levofloxacin. Qualifiers: Pneumonia type: due to Pneumococcus Qualified Code(s): J13 - Pneumonia due to Streptococcus pneumoniae (6) DVT prophylaxis Current Visit: No Status: Acute Assessment and plan: On SCDs. (7) Sepsis Current Visit: Yes Status: Acute Assessment and plan: Improving. Continue current antibiotics. Await culture results. Qualifiers: Sepsis type: sepsis due to unspecified organism Qualified Code(s): A41.9 - Sepsis, unspecified organism (8) Thrombocytopenia Current Visit: Yes Status: Chronic - Subjective Interval history: Complaining of shortness of breath today. Mostly due to pressure from distended abdomen. Paracentesis was scheduled for today. Patient continues to have low platelet counts. Denies any overt bleeding. - Constitutional Vitals: Temp Pulse Resp BP Pulse Ox 98.2 F 84 16 128/70 93 05/02/17 09:36 05/02/17 09:36 05/02/17 09:36 05/02/17 09:36 05/02/17 09:36 General appearance: Present: cooperative, A&O X 3, answers questions appropriately - Respiratory Respiratory exam: Present: decreased breath sounds (At right base). Absent: accessory muscle use, rales, rhonchi, wheezes - Cardiovascular Cardiovascular exam: Present: RRR, +S1, +S2. Absent: diastolic murmur, gallop, rubs, systolic murmur - GI/Abdominal GI/Abdominal exam: Present: distended ( abdominal ascites), normal bowel sounds , soft, no peritoneal signs. Absent: tenderness - Extremities Exam Extremities exam: Present: warm, radial pulses palpable and symmetrical. Absent : calf tenderness, cyanotic, pedal edema - Neurological Exam Neurological exam: Present: CN II-XII intact, oriented X3, no focal deficits. Absent: facial droop, speech deficit Internal Medicine: Result - Labs CBC & Chem 7: 05/02/17 05:13 05/02/17 05:13 Labs: Short CBC 05/02/17 Range/Units 05:13 WBC 2.3 L (4.3-11.1) K/mcL Hgb 14.0 (11.5-15.4) g/dL Hct 42.4 (35.3-44.9) % Plt Count 38 L (140-400) K/mcL Neutrophils # 1.7 (1.6-8.9) K/mcL BMP 05/02/17 05:13 Sodium 137 Potassium 3.6 Chloride 105 Carbon Dioxide 29 BUN 15 Creatinine 0.46 L Glucose 114 H Calcium 8.8 - ABG Interpretation ABG results: PT/INR, D-dimer PT 16.2 Seconds (9.4-12.1) H 05/01/17 06:08 - Impressions Impressions Chest X-Ray 05/02/17 11:02 IMPRESSION: Small right pleural effusion with slight improvement. The area is associated with right lower lobe airspace disease. No evidence of pneumothorax status post thoracocentesis. Stable prominence of the interstitial markings. D/ : / 05/02/2017 11:29:01 Austen Martinez MD / sandy Interpreting Provider: Austen Martinez MD - VTE Documentation of Mechanical Device: Intermittent pneumatic compression device Consult Discharge Plan - Plan Referrals: Lakisha Cunha, REAL ESTATE SALESPERSON [Primary Care Provider] -
[2017-05-02 12:43] LABS: Hematocrit 42.9 % (35.3-44.9); Hemoglobin 14.3 g/dL (11.5-15.4); Immature Platelets 6.7 % (1.1-6.1); Mean Corpuscular HGB Conc 33.3 g/dL (31.6-35.5); Mean Corpuscular Hemoglobin 31.4 pg (28.0-33.3); Mean Corpuscular Volume 94.1 fL (83.0-100.0); Mean Platelet Volume 10.8 fL (9.4-12.4); Red Blood Count 4.56 M/mcL (3.82-4.97); Red Cell Distribution Width 15.9 % (11.5-14.5)
--- NOTE | 2017-05-02 13:00 | IR Procedure Note ---
Date of procedure: 05/02/17 Consent Obtained: Written consent Timeout: Correct patient and procedure verified, Correct site verified, Time out performed, Skin prep completed Indications: rt effusion Procedure Performed: rt thoracentesis Was there an orthopedic assistant present: Yes Motion Picture Camera Lens Technician: Vikram Solis Site/Technique: right, bloody Results/Findings: moderate, bloody Estimated blood loss (cc): 2 Complications: None; Tolerated procedure well Post Procedure Treatment Plan: CXR Specimen: none
[2017-05-02 13:03] LABS: RBC,Peritoneal Fluid 0.002 M/mcL
[2017-05-02 14:14] LABS: Appearance of Peritoneal Fl CLEAR (Clear)
[2017-05-02 14:15] LABS: Appearance of Body Fluid Clear (Clear)
[2017-05-02 14:26] LABS: Volume of Body Fluid 2000 mL
[2017-05-02] MEDS: Albumin 25% 25gram/100mL 25 GM/100 ML IV.SOLN IVPB SCH (15:36)
--- NOTE | 2017-05-02 18:01 | Electrocardiograph Report ---
[place] [id number] Test Date: 2017-04-30 Pat Name: Cong Sousa Department: 104 Room: [facility] Gender: F Nurse Specialist: : 1955 Requested By: Temo Zhao Order Number: [id number] Reading MD: Vince Gonzalez DO Measurements Intervals [place] Rate: 94 P: 0 WI: 155 QRS: 12 QRSD: 86 T: 1 QT: 356 QTc: 408 Interpretive Statements SINUS RHYTHM Electronically Signed On 05-02-2017 17:59:46 EST by Vince Gonzalez DO
[2017-05-02] MEDS ORDERED: Methyl Salicylate/Menthol 28 GM TUBE TP PRN (23:21)
[2017-05-03] MEDS: Albumin 25% 25gram/100mL 25 GM/100 ML IV.SOLN IVPB SCH (00:19)
[2017-05-03] MEDS: Sennosides 8.6 MG TABLET PO SCH ×2 (00:24→08:06)
[2017-05-03] MEDS: Ipratropium/Albuterol Neb 3 ML IH SCH ×2 (04:20→09:35)
[2017-05-03] MEDS: Acetaminophen 325 MG TABLET PO PRN (04:55)
[2017-05-03] MEDS: Furosemide 20 MG/2 ML VIAL IVP SCH (08:05)
[2017-05-03] MEDS: Spironolactone 25 MG TABLET PO SCH (08:06)
[2017-05-03 08:31] LABS: Basophils % 0.5 %; Eosinophils % 1.4 %; Immature Granulocytes % 0.5 % (0-4)
[2017-05-03 08:32] LABS: Hematocrit 40.3 % (35.3-44.9); Hemoglobin 13.2 g/dL (11.5-15.4); Immature Platelets 7.5 % (1.1-6.1); Lymphocytes # 0.4 K/mcL (0.6-4.6); Lymphocytes % 19.9 %; Mean Corpuscular HGB Conc 32.8 g/dL (31.6-35.5); Mean Corpuscular Hemoglobin 30.9 pg (28.0-33.3); Mean Corpuscular Volume 94.4 fL (83.0-100.0); Mean Platelet Volume 11.7 fL (9.4-12.4); Monocytes # 0.2 K/mcL (0.0-1.3); Monocytes % 10.9 %; Neutrophils # 1.4 K/mcL (1.6-8.9); Nucleated Red Blood Cells 0.9 /100 WBC (0); Red Blood Count 4.27 M/mcL (3.82-4.97); Red Cell Distribution Width 15.8 % (11.5-14.5); Segmented Neutrophils % 66.8 %
[2017-05-03 08:36] LABS: Platelet Count 37 K/mcL (140-400)
[2017-05-03 08:57] LABS: BUN/Creatinine Ratio 29 (6-26); Blood Urea Nitrogen 12 mg/dL (8-23); Carbon Dioxide 31 mEq/L (23-29); Chloride 101 mEq/L (98-107); Potassium 3.3 mEq/L (3.5-5.1); Sodium 138 mEq/L (136-145)
[2017-05-03 08:58] LABS: Glucose 111 mg/dL (70-105); Osmolality,Calculated 286 (280-300); eGFR For African Americans > 60 (> 60); eGFR For Non-African Americans > 60 (> 60)
[2017-05-03] MEDS ORDERED: levoFLOXacin 750 MG TABLET PO SCH (09:00)
[2017-05-03 09:13] LABS: Platelet Estimate Decreased (Normal)
--- NOTE | 2017-05-03 10:02 | Discharge Summary ---
- NOTES TO OUTPATIENT PROVIDER Notes to Outpatient Provider: Referred patient to gastroenterology. She also has previously followed with a rental sales associate in [place] but has not been able to make it to her appointments due to distance involved. Orders not resulted at time of discharge: Pending orders 05/02/17 10:00 Culture,Body Fluid [RM] Stat Date of Encounter: 05/03/17 Time of Encounter: 10:00 - Discharge Diagnosis (1) Community acquired pneumonia Priority: Primary Status: Acute Qualifiers: Laterality: right Lung location: lower lobe of lung Qualified Code(s): J18.1 - Lobar pneumonia, unspecified organism (2) Ascites Priority: Secondary Status: Acute Qualifiers: Ascites type: other type Qualified Code(s): R18.8 - Other ascites (3) Cirrhosis of liver Priority: Secondary Status: Chronic Qualifiers: Hepatic cirrhosis type: other cirrhosis Qualified Code(s): K74.69 - Other cirrhosis of liver (4) Pleural effusion Priority: Secondary Status: Acute (5) Right lower lobe pneumonia Priority: Secondary Status: Acute Qualifiers: Pneumonia type: due to unspecified organism Qualified Code(s): J18.1 - Lobar pneumonia, unspecified organism (6) DVT prophylaxis Priority: Secondary Status: Acute (7) Sepsis Priority: Secondary Status: Acute Qualifiers: Sepsis type: sepsis due to unspecified organism Qualified Code(s): A41.9 - Sepsis, unspecified organism (8) Thrombocytopenia Priority: Secondary Status: Chronic Hospital course: Ms. Sousa is a 62 year old female patient with history of cirrhosis of the liver , COPD was hospitalized here with pneumonia and increased abdominal ascites. She was started on treatment with IV antibiotics. She also had right lower lobe pleural effusion. Patient underwent thoracentesis and paracentesis yesterday. Pleural and peritoneal fluid analysis so far do not show any signs of acute infection. Patient is clinically feeling much better. She is stable to be discharged home on oral antibiotics. She is advised to follow up with gastroenterology and hematology to further manage her cirrhosis. She will be discharged on diuretic agents and on fluid restriction diet. Patient also has thrombocytopenia related to his liver cirrhosis. She did receive platelet transfusion here due to procedures done here. Discharge discussed with: patient - Time Spent with Patient Total time spent providing and/or coordinating discharge services: Greater than 30 minutes (32 min) - Discharge Medications Prescriptions: Furosemide [Lasix] 20 mg PO BID #60 tablet levoFLOXacin [Levaquin] 750 mg PO DAILY #10 tablet Spironolactone [Aldactone] 25 mg PO DAILY #30 tablet Home Medications: Albuterol Sulfate [Proair Hfa] 2 puff IH Q4H PRN 06/29/16 [History] Acetaminophen [Tylenol] 500 mg PO Q6H PRN 04/30/17 [History] Budesonide/Formoterol 160/4.5 [Symbicort 160/4.5] 2 puff IH BIDR 04/30/17 [ History] Furosemide [Lasix] 20 mg PO BID #60 tablet 05/03/17 [Rx] Spironolactone [Aldactone] 25 mg PO DAILY #30 tablet 05/03/17 [Rx] levoFLOXacin [Levaquin] 750 mg PO DAILY #10 tablet 05/03/17 [Rx] Allergies/Adverse Reactions: 3 Allergy/AdvReac Type Severity Reaction Status Date / Time codeine Allergy Itching Verified 02/25/15 11:37 doxycycline AdvReac Nausea Verified 07/20/15 12:49 Penicillins AdvReac See Verified 07/20/15 12:49 Comments Date of admission: 04/30/17 20:27 Primary care physician: Lakisha Cunha CNP Consults: 04/30/17 23:11 Consult to Nutrition [CONS] Routine Comment: Consulting Provider: NUTRITION Reason for Dietary Consult: MST Score 05/02/17 07:00 Consult to Interventional Radiology [CONS] Routine Consulting Provider: Radiology Interventional Cols Reason for Consult: possible paracentesis Call Completed: Yes Consult to Interventional Radiology [CONS] Routine Consulting Provider: Radiology Interventional Cols Reason for Consult: possible thoracentesis Call Completed: Yes Discharging clinician: Temo Zhao Anticipated date of discharge: 05/03/17 - Constitutional Vitals: Temp Pulse Resp BP Pulse Ox 97.8 F 78 12 94/62 93 05/03/17 06:39 05/03/17 06:39 05/03/17 09:37 05/03/17 06:39 05/03/17 09:37 General appearance: Present: cooperative, A&O X 3, answers questions appropriately - Neck Neck exam general surgery: Present: supple, trachea midline. Absent: lymphadenopathy - Respiratory Respiratory exam: Present: prolonged expiratory phase, wheezes. Absent: accessory muscle use, rales, rhonchi - Cardiovascular Cardiovascular exam: Present: RRR, +S1, +S2. Absent: diastolic murmur, gallop, rubs, systolic murmur - GI/Abdominal GI/Abdominal exam: Present: distended, normal bowel sounds, soft, no peritoneal signs. Absent: tenderness Additional comments: Abdominal ascites - Extremities Exam Extremities exam: Present: warm, radial pulses palpable and symmetrical. Absent : calf tenderness, cyanotic, pedal edema - Patient Status Disposition: Home, Self-Care Condition: Good Functional capacity at discharge: independent ambulation Overall status at discharge: patient is progressing back to baseline - Discharge Instructions Instructions: Pneumonia (DC) Follow Up With: Lakisha Cunha CNP [Primary Care Provider] - (web request sent on 05/02/17 ) Yue Quigley MD [Partnered Physician] - (Within one week for ascites and cirrhosis) - Diet and Activity Activity: increase activity as tolerated Diet: low fat, low cholesterol, low salt diet - VTE Documentation of Mechanical Device: Graduated compression elastic hosiery
[2017-05-03 10:41] VITALS: BP 104/70
== END 2017-05-03 13:15 | disposition home or self-care (01) | DRG 871 ==
LOC: EMEROO 16:34 → 2ANU 20:27
PROVIDERS: ADMIT Pediatrics; ATTEND Internal Medicine

== ENCOUNTER 2017-07-04 11:27 | Inpatient (IN) ==
[2017-07-04] MEDS ORDERED: Aspirin 81 MG TAB.CHEW PO ONE (11:43)
--- NOTE | 2017-07-04 12:04 | Emergency Department Note ---
Disposition Clinical Impression: Hepatic encephalopathy, Increased ammonia level Disposition: Admitted As Inpatient Condition: Good Time of Disposition: 16:56 General Adult HPI - General Chief complaint: ED General Medical Stated complaint: doesnt feel good Time Seen by Provider: 07/04/17 11:31 Source: patient, EMS Limitations: no limitations Nursing Notes Reviewed: Yes Vital Signs Reviewed: Yes - History of Present Illness HPI Narrative: Complaining of chest pain. Pain in the center of her chest. States it feels like she has been hit. No radiation. Began last night. Did try Suboxone help with the pain but states it still there. I did whenever she was at rest. Pain Scale: 7 - Related Data Home Medications Medication Instructions Recorded Confirmed Albuterol Sulfate [Proair Hfa] 2 puff IH Q4H PRN 06/29/16 07/04/17 Budesonide/Formoterol 160/4.5 2 puff IH BIDR 04/30/17 07/04/17 [Symbicort 160/4.5] Lactulose 30 ml PO BID 05/08/17 07/04/17 Cholecalciferol (Vitamin D3) 50,000 unit PO QWEEK 07/04/17 07/04/17 [Vitamin D3] Furosemide [Lasix] 40 mg PO BID 07/04/17 07/04/17 Spironolactone [Aldactone] 50 mg PO BID 07/04/17 07/04/17 Tenofovir Disoproxil Fumarate 300 mg PO DAILY 07/04/17 07/04/17 [Viread] Zinc Sulfate 220 mg PO TID 07/04/17 07/04/17 Allergies Allergy/AdvReac Type Severity Reaction Status Date / Time doxycycline AdvReac Nausea Verified 05/14/17 09:06 Penicillins AdvReac See Verified 05/14/17 09:06 Comments All systems ED: reviewed and negative except as stated. Constitutional: Denies: fever, chills ENT ED: Denies: congestion Cardiovascular: Reports: chest pain. Denies: palpitations, dyspnea on exertion , edema Respiratory: Reports: cough, dyspnea Gastrointestinal: Denies: abdominal pain, nausea, vomiting, diarrhea Musculoskeletal: Denies: back pain, neck pain Neurological: Reports: weakness Past Medical History - Past Medical History Attestation: Yes The following information was validated with the patient. Source: patient Medical history: Reports: arthritis, cirrhosis, COPD, hepatitis, liver disease, other Surgical history: Reports: , cholecystectomy, orthopedic, other Psychiatric history: Reports: no psych history - Social History Smoking Status: Current every day smoker Smokeless Tobacco Status: No Alcohol use: Reports: none Drug use: Reports: none Physical Exam - General Limitations: no limitations General appearance: alert, in no apparent distress - Head Head exam: atraumatic, normocephalic, normal inspection - Eye Eye exam: Present: normal appearance, PERRL, EOMI, other (Pupils are constricted.) - ENT ENT exam: normal exam, normal oropharynx, mucous membranes moist - Neck Neck exam: Present: normal inspection, full ROM, trachea midline - Chest Chest inspection: Present: normal inspection, symmetric chest wall rise - Respiratory Respiratory exam: Present: normal lung sounds bilaterally - Cardiovascular Cardiovascular exam: Present: normal rhythm, tachycardia, normal heart sounds - Abdominal Exam Abdominal exam: Present: soft, Non-Tender, other (She has a soft palpable mass approximately an inch below her umbilicus. This is approximately 3 inches in diameter. It is mobile. Patient states is been there for several years.). Absent: distention, guarding, rigidity, organomegaly - Extremities Exam Extremities exam: Present: normal inspection, full ROM, normal capillary refill. Absent: tenderness, pedal edema - Neurological Exam Neurological exam: Present: alert, oriented X3 - Psychiatric Psychiatric exam: Present: normal affect, normal mood - Skin Skin exam: Present: warm, dry, intact, normal color. Absent: rash Course Course Narrative: Female patient but in by EMS for chest pain. Patient states this started last night. Denies any radiation but does report dyspnea. She states that her shortness of breath is chronic. She states that she did take part of her daughter Suboxone to help with the pain. He is also reporting generalized weakness. She states that occasionally she feels dizzy. Patient is alert and oriented 3 at this time. Her speech is sluggish. Her pupils are constricted but do react to light. She has an NIH of 0. Lung sounds are clear heart is normal. Her abdomen is soft and nontender. Patient does have history of hepatic disease. Patient reports the pain is in the center of her chest as an aching nature. She was able to sleep even though it was present last night. She states she was at rest whenever it began. We will get a chest x-ray and professional basic lab work. Her EKG shows no signs of acute ischemia. We will also get a CT patient's head due to her stating that she feels like she falls to the left greater she is walking. He has good heel to [place]. She is acting appropriate at this time however his speech is sluggish. - Reevaluation(s) Reevaluation #1: Reevaluated. She denies any chest pain at this time however she quickly falls asleep while talking to me. Easily aroused by painful stimuli. She startles on arousal. Time: 13:12 Reevaluation #2: Given 2 mg of Narcan. Her pupils are still constricted. She is insistent she took nothing other than a quarter of a Suboxone. She is unaware of what the Suboxone dose was. She quickly falls asleep on talking to her. She is easily aroused by light touch to her leg. However when she falls asleep she does have periods of apnea. Has no lateralizing deficits Her head CT was normal. We will add on an ammonia level and get an ABG. Time: 13:23 Reevaluation #3: Patient's ammonia levels are elevated. Will start patient on lactulose and admit her to the hospital. Time: 15:59 - Consultations Consultation #1: Dr Burton accepted Pt in stable condition. Time: 16:15 Vital Signs Temperature 98.2 F 07/04/17 11:30 Pulse Rate 110 07/04/17 11:30 Respiratory Rate 12 07/04/17 11:30 Blood Pressure 115/104 07/04/17 11:30 O2 Sat by Pulse Oximetry 94 07/04/17 11:30 Temperature 98.2 F 07/04/17 11:30 Pulse Rate 85 07/04/17 16:22 Respiratory Rate 16 07/04/17 16:22 Blood Pressure 120/86 07/04/17 16:22 O2 Sat by Pulse Oximetry 96 07/04/17 16:22 Oxygen Delivery Oxygen Delivery Nasal Cannula Medical Decision Making - Lab Data Lab results reviewed: Yes I reviewed the patient's lab results. Result diagrams: 07/04/17 12:04 07/04/17 12:04 Lab Results 07/04/17 07/04/17 07/04/17 Range/Units 12:04 12:04 12:04 WBC 4.0 L (4.3-11.1) K/mcL RBC 4.52 (3.82-4.97) M/mcL Hgb 14.8 (11.5-15.4) g/dL Hct 44.9 (35.3-44.9) % MCV 99.3 (83.0-100.0) fL MCH 32.7 (28.0-33.3) pg MCHC 33.0 (31.6-35.5) g/dL RDW 15.9 H (11.5-14.5) % Plt Count 62 L (140-400) K/mcL MPV 11.6 (9.4-12.4) fL Immature Gran % 0.0 (0-4) % Seg Neutrophils % 70.1 % Lymphocytes % 21.8 % Monocytes % 6.9 % Eosinophils % 1.0 % Basophils % 0.2 % Neutrophils # 2.8 (1.6-8.9) K/mcL Lymphocytes # 0.9 (0.6-4.6) K/mcL Monocytes # 0.3 (0.0-1.3) K/mcL Eosinophils # 0.0 (0.0-0.6) K/mcL Basophils # 0.0 (0.0-0.2) K/mcL Immature Plt Fraction 4.7 (1.1-6.1) % PT 13.8 H (9.4-12.1) Seconds INR 1.3 APTT 29.9 (26.0-36.0) Seconds Sample Site ABG pH (7.32-7.45) pH Units ABG pCO2 (35-45) mmHg ABG pO2 (85-104) mmHg ABG HCO3 (21-27) mEq/L ABG Total CO2 (20-26) mEq/L ABG O2 Saturation (95-98) % ABG Base Excess (-2 to 3) mEq/L Gilmer Test O2 Delivery Device Inspired O2 (1-15=lpm [id number]=%) Sodium 138 (136-145) mEq/L Potassium 4.1 (3.5-5.1) mEq/L Chloride 106 (98-107) mEq/L Carbon Dioxide 28 (23-29) mEq/L BUN 18 (8-23) mg/dL Creatinine 0.71 (0.60-1.20) mg/dL Est GFR ( Amer) > 60 (> 60) Est GFR (Non-Af Amer) > 60 (> 60) BUN/Creatinine Ratio 25 (6-26) Glucose 174 H (70-105) mg/dL Calculated Osmolality 292 (280-300) Calcium 9.2 (8.6-10.3) mg/dL Total Bilirubin 0.8 (0.3-1.0) mg/dL Direct Bilirubin 0.2 (0.0-0.2) mg/dL Indirect Bilirubin 0.6 (0.0-1.2) mg/dL AST 39 (13-39) Units/L ALT 25 (7-52) Units/L Alkaline Phosphatase 76 (34-104) Units/L Ammonia (16-53) mcmol/L Troponin I < 0.03 (< 0.04) ng/mL Serum Total Protein 7.0 (6.4-8.9) g/dL Albumin 3.2 L (3.5-5.7) g/dL Globulin 3.8 H (2.4-3.5) g/dL Albumin/Globulin Ratio 0.8 L (1.1-2.2) Specimen Rejected 07/04/17 07/04/17 07/04/17 Range/Units 13:40 14:20 15:03 WBC (4.3-11.1) K/mcL RBC (3.82-4.97) M/mcL Hgb (11.5-15.4) g/dL Hct (35.3-44.9) % MCV (83.0-100.0) fL MCH (28.0-33.3) pg MCHC (31.6-35.5) g/dL RDW (11.5-14.5) % Plt Count (140-400) K/mcL MPV (9.4-12.4) fL Immature Gran % (0-4) % Seg Neutrophils % % Lymphocytes % % Monocytes % % Eosinophils % % Basophils % % Neutrophils # (1.6-8.9) K/mcL Lymphocytes # (0.6-4.6) K/mcL Monocytes # (0.0-1.3) K/mcL Eosinophils # (0.0-0.6) K/mcL Basophils # (0.0-0.2) K/mcL Immature Plt Fraction (1.1-6.1) % PT (9.4-12.1) Seconds INR APTT (26.0-36.0) Seconds Sample Site R Radial ABG pH 7.35 (7.32-7.45) pH Units ABG pCO2 57 H (35-45) mmHg ABG pO2 115 H (85-104) mmHg ABG HCO3 31 H (21-27) mEq/L ABG Total CO2 33 H (20-26) mEq/L ABG O2 Saturation 98 (95-98) % ABG Base Excess 4 H (-2 to 3) mEq/L Gilmer Test Positive O2 Delivery Device Cannula Inspired O2 32.0 (1-15=lpm [id number]=%) Sodium (136-145) mEq/L Potassium (3.5-5.1) mEq/L Chloride (98-107) mEq/L Carbon Dioxide (23-29) mEq/L BUN (8-23) mg/dL Creatinine (0.60-1.20) mg/dL Est GFR ( Amer) (> 60) Est GFR (Non-Af Amer) (> 60) BUN/Creatinine Ratio (6-26) Glucose (70-105) mg/dL Calculated Osmolality (280-300) Calcium (8.6-10.3) mg/dL Total Bilirubin (0.3-1.0) mg/dL Direct Bilirubin (0.0-0.2) mg/dL Indirect Bilirubin (0.0-1.2) mg/dL AST (13-39) Units/L ALT (7-52) Units/L Alkaline Phosphatase (34-104) Units/L Ammonia 94 H (16-53) mcmol/L Troponin I (< 0.04) ng/mL Serum Total Protein (6.4-8.9) g/dL Albumin (3.5-5.7) g/dL Globulin (2.4-3.5) g/dL Albumin/Globulin Ratio (1.1-2.2) Specimen Rejected Hemolyzed - Radiology Data Radiology results reviewed: Yes I reviewed the patient's radiology results. Chest X-Ray 07/04/17 11:43 IMPRESSION: Small right pleural effusion with right basilar atelectasis or infiltrate. D/ / 07/04/2017 12:35:09 Ramakrishna Zuniga MD / [email or web address] Interpreting Provider: Ramakrishna Zuniga MD - EKG Data EKG #1 EKG attestation: Yes I reviewed and interpreted this EKG. EKG results narrative: Sinus tachycardia at a rate of 111. CA interval is 160. Fenestration is 86. QT is 331. QTC is 397. No signs of acute ischemia. Good R-wave progression. No change from previous EKG dated 04/30/2017.
--- NOTE | 2017-07-04 12:14 | Emergency Department Note ---
START Narrative - START START: Bedside ultrasound preformed at the request of Dr. Mistry and Dr. Zaman. Images uploaded to PACS. Please see their note for further patient information. Procedure: Ultrasound of soft tissue of abdomen Indication: lesion to abdomen / soft small raised area concerning for possible hernia. Located infraumbilical and midline. 3 cm x3 cm soft, non erythematous and nonreducible. Has been present for "years" per patient. Views: soft tissue of abdomen as well as brief evaluation of ascites Findings: Prominent arterial and venous blood vessels underlying the area in question. No evidence of anurysm seen on exam. No cobblestoning or abcess identified. Small amount of ascites in the RUQ. No significant ascites in the lower quadrants. Impression: Skin lesion with no acute sign of infection; underlying prominent blood vessels Minimal ascites
[2017-07-04 12:20] LABS: Basophils % 0.2 %; Hematocrit 44.9 % (35.3-44.9); Hemoglobin 14.8 g/dL (11.5-15.4); Immature Platelets 4.7 % (1.1-6.1); Lymphocytes # 0.9 K/mcL (0.6-4.6); Lymphocytes % 21.8 %; Mean Corpuscular Hemoglobin 32.7 pg (28.0-33.3); Mean Corpuscular Volume 99.3 fL (83.0-100.0); Mean Platelet Volume 11.6 fL (9.4-12.4); Monocytes # 0.3 K/mcL (0.0-1.3); Monocytes % 6.9 %; Red Blood Count 4.52 M/mcL (3.82-4.97); Red Cell Distribution Width 15.9 % (11.5-14.5)
[2017-07-04 12:22] LABS: INR 1.3; Prothrombin Time 13.8 Seconds (9.4-12.1)
[2017-07-04 12:25] LABS: Activated Partial Thrombo Time 29.9 Seconds (26.0-36.0)
[2017-07-04 12:30] LABS: Neutrophils # 2.8 K/mcL (1.6-8.9); Platelet Count 62 K/mcL (140-400); Segmented Neutrophils % 70.1 %
[2017-07-04 12:35] LABS: Troponin I < 0.03 ng/mL (< 0.04)
[2017-07-04 12:38] LABS: BUN/Creatinine Ratio 25 (6-26); Blood Urea Nitrogen 18 mg/dL (8-23); Calcium 9.2 mg/dL (8.6-10.3); Carbon Dioxide 28 mEq/L (23-29); Chloride 106 mEq/L (98-107); Glucose 174 mg/dL (70-105); Osmolality,Calculated 292 (280-300); Potassium 4.1 mEq/L (3.5-5.1); Sodium 138 mEq/L (136-145); eGFR For African Americans > 60 (> 60); eGFR For Non-African Americans > 60 (> 60)
[2017-07-04 13:43] LABS: ABG Base Excess 4 mEq/L (-2 to 3); ABG HCO3 31 mEq/L (21-27); ABG Oxygen Saturation 98 % (95-98); ABG PCO2 57 mmHg (35-45); ABG PH 7.35 pH Units (7.32-7.45); ABG PO2 115 mmHg (85-104); ABG TCO2 33 mEq/L (20-26)
[2017-07-04 14:42] LABS: Alanine Aminotransferase 25 Units/L (7-52); Albumin 3.2 g/dL (3.5-5.7); Albumin/Globulin Ratio 0.8 (1.1-2.2); Alkaline Phosphatase 76 Units/L (34-104); Aspartate Amino Transferase 39 Units/L (13-39); Bilirubin,Direct 0.2 mg/dL (0.0-0.2); Bilirubin,Indirect 0.6 mg/dL (0.0-1.2); Bilirubin,Total 0.8 mg/dL (0.3-1.0); Globulin 3.8 g/dL (2.4-3.5)
[2017-07-04] MEDS ORDERED: Lactulose Oral Soln 20 GM/30 ML UDC PO ONE (15:57)
--- NOTE | 2017-07-04 17:28 | Emergency Department Note ---
Disposition Clinical Impression: Hepatic encephalopathy, Increased ammonia level Disposition: Admitted As Inpatient Condition: Good General Adult HPI - General Chief complaint: ED General Medical Stated complaint: doesnt feel good Time Seen by Provider: 07/04/17 11:31 Source: patient, EMS Limitations: no limitations - History of Present Illness Pain Scale: 7 - Related Data Home Medications Medication Instructions Recorded Confirmed Albuterol Sulfate [Proair Hfa] 2 puff IH Q4H PRN 06/29/16 07/04/17 Budesonide/Formoterol 160/4.5 2 puff IH BIDR 04/30/17 07/04/17 [Symbicort 160/4.5] Lactulose 30 ml PO BID 05/08/17 07/04/17 Cholecalciferol (Vitamin D3) 50,000 unit PO QWEEK 07/04/17 07/04/17 [Vitamin D3] Furosemide [Lasix] 40 mg PO BID 07/04/17 07/04/17 Spironolactone [Aldactone] 50 mg PO BID 07/04/17 07/04/17 Tenofovir Disoproxil Fumarate 300 mg PO DAILY 07/04/17 07/04/17 [Viread] Zinc Sulfate 220 mg PO TID 07/04/17 07/04/17 Allergies Allergy/AdvReac Type Severity Reaction Status Date / Time doxycycline AdvReac Nausea Verified 05/14/17 09:06 Penicillins AdvReac See Verified 05/14/17 09:06 Comments Constitutional: Denies: fever, chills ENT ED: Denies: congestion Cardiovascular: Reports: chest pain. Denies: palpitations, dyspnea on exertion , edema Respiratory: Reports: cough, dyspnea Gastrointestinal: Denies: abdominal pain, nausea, vomiting, diarrhea Musculoskeletal: Denies: back pain, neck pain Neurological: Reports: weakness Past Medical History - Past Medical History Medical history: Reports: arthritis, cirrhosis, COPD, hepatitis, liver disease, other Surgical history: Reports: , cholecystectomy, orthopedic, other Psychiatric history: Reports: no psych history - Social History Smoking Status: Current every day smoker Smokeless Tobacco Status: No Alcohol use: Reports: none Drug use: Reports: none Physical Exam - General Limitations: no limitations General appearance: alert, in no apparent distress Course Vital Signs Temperature 98.2 F 07/04/17 11:30 Pulse Rate 110 07/04/17 11:30 Respiratory Rate 12 07/04/17 11:30 Blood Pressure 115/104 07/04/17 11:30 O2 Sat by Pulse Oximetry 94 07/04/17 11:30 Temperature 98.2 F 07/04/17 11:30 Pulse Rate 85 07/04/17 16:22 Respiratory Rate 16 07/04/17 16:22 Blood Pressure 120/86 07/04/17 16:22 O2 Sat by Pulse Oximetry 96 07/04/17 16:22 Oxygen Delivery Oxygen Delivery Nasal Cannula Medical Decision Making - Lab Data Result diagrams: 07/04/17 12:04 07/04/17 12:04 Lab Results 07/04/17 07/04/17 07/04/17 Range/Units 12:04 12:04 12:04 WBC 4.0 L (4.3-11.1) K/mcL RBC 4.52 (3.82-4.97) M/mcL Hgb 14.8 (11.5-15.4) g/dL Hct 44.9 (35.3-44.9) % MCV 99.3 (83.0-100.0) fL MCH 32.7 (28.0-33.3) pg MCHC 33.0 (31.6-35.5) g/dL RDW 15.9 H (11.5-14.5) % Plt Count 62 L (140-400) K/mcL MPV 11.6 (9.4-12.4) fL Immature Gran % 0.0 (0-4) % Seg Neutrophils % 70.1 % Lymphocytes % 21.8 % Monocytes % 6.9 % Eosinophils % 1.0 % Basophils % 0.2 % Neutrophils # 2.8 (1.6-8.9) K/mcL Lymphocytes # 0.9 (0.6-4.6) K/mcL Monocytes # 0.3 (0.0-1.3) K/mcL Eosinophils # 0.0 (0.0-0.6) K/mcL Basophils # 0.0 (0.0-0.2) K/mcL Immature Plt Fraction 4.7 (1.1-6.1) % PT 13.8 H (9.4-12.1) Seconds INR 1.3 APTT 29.9 (26.0-36.0) Seconds Sample Site ABG pH (7.32-7.45) pH Units ABG pCO2 (35-45) mmHg ABG pO2 (85-104) mmHg ABG HCO3 (21-27) mEq/L ABG Total CO2 (20-26) mEq/L ABG O2 Saturation (95-98) % ABG Base Excess (-2 to 3) mEq/L Gilmer Test O2 Delivery Device Inspired O2 (1-15=lpm lh21-180=%) Sodium 138 (136-145) mEq/L Potassium 4.1 (3.5-5.1) mEq/L Chloride 106 (98-107) mEq/L Carbon Dioxide 28 (23-29) mEq/L BUN 18 (8-23) mg/dL Creatinine 0.71 (0.60-1.20) mg/dL Est GFR ( Amer) > 60 (> 60) Est GFR (Non-Af Amer) > 60 (> 60) BUN/Creatinine Ratio 25 (6-26) Glucose 174 H (70-105) mg/dL Calculated Osmolality 292 (280-300) Calcium 9.2 (8.6-10.3) mg/dL Total Bilirubin 0.8 (0.3-1.0) mg/dL Direct Bilirubin 0.2 (0.0-0.2) mg/dL Indirect Bilirubin 0.6 (0.0-1.2) mg/dL AST 39 (13-39) Units/L ALT 25 (7-52) Units/L Alkaline Phosphatase 76 (34-104) Units/L Ammonia (16-53) mcmol/L Troponin I < 0.03 (< 0.04) ng/mL Serum Total Protein 7.0 (6.4-8.9) g/dL Albumin 3.2 L (3.5-5.7) g/dL Globulin 3.8 H (2.4-3.5) g/dL Albumin/Globulin Ratio 0.8 L (1.1-2.2) Specimen Rejected 07/04/17 07/04/17 07/04/17 Range/Units 13:40 14:20 15:03 WBC (4.3-11.1) K/mcL RBC (3.82-4.97) M/mcL Hgb (11.5-15.4) g/dL Hct (35.3-44.9) % MCV (83.0-100.0) fL MCH (28.0-33.3) pg MCHC (31.6-35.5) g/dL RDW (11.5-14.5) % Plt Count (140-400) K/mcL MPV (9.4-12.4) fL Immature Gran % (0-4) % Seg Neutrophils % % Lymphocytes % % Monocytes % % Eosinophils % % Basophils % % Neutrophils # (1.6-8.9) K/mcL Lymphocytes # (0.6-4.6) K/mcL Monocytes # (0.0-1.3) K/mcL Eosinophils # (0.0-0.6) K/mcL Basophils # (0.0-0.2) K/mcL Immature Plt Fraction (1.1-6.1) % PT (9.4-12.1) Seconds INR APTT (26.0-36.0) Seconds Sample Site R Radial ABG pH 7.35 (7.32-7.45) pH Units ABG pCO2 57 H (35-45) mmHg ABG pO2 115 H (85-104) mmHg ABG HCO3 31 H (21-27) mEq/L ABG Total CO2 33 H (20-26) mEq/L ABG O2 Saturation 98 (95-98) % ABG Base Excess 4 H (-2 to 3) mEq/L Gilmer Test Positive O2 Delivery Device Cannula Inspired O2 32.0 (1-15=lpm al40-238=%) Sodium (136-145) mEq/L Potassium (3.5-5.1) mEq/L Chloride (98-107) mEq/L Carbon Dioxide (23-29) mEq/L BUN (8-23) mg/dL Creatinine (0.60-1.20) mg/dL Est GFR ( Amer) (> 60) Est GFR (Non-Af Amer) (> 60) BUN/Creatinine Ratio (6-26) Glucose (70-105) mg/dL Calculated Osmolality (280-300) Calcium (8.6-10.3) mg/dL Total Bilirubin (0.3-1.0) mg/dL Direct Bilirubin (0.0-0.2) mg/dL Indirect Bilirubin (0.0-1.2) mg/dL AST (13-39) Units/L ALT (7-52) Units/L Alkaline Phosphatase (34-104) Units/L Ammonia 94 H (16-53) mcmol/L Troponin I (< 0.04) ng/mL Serum Total Protein (6.4-8.9) g/dL Albumin (3.5-5.7) g/dL Globulin (2.4-3.5) g/dL Albumin/Globulin Ratio (1.1-2.2) Specimen Rejected Hemolyzed Attestation Statement - Attestation Attestation: I examined this patient and my medical decision-making was reviewed with the Resident Physician. I agree with the documented findings, disposition and treatment plan as described except to the extent set forth below. Patient to the ED with a chief complaint of chest pain. She has had some dyspnea associated with it as well. Started yesterday. States she took a family member Suboxone for the pain. On arrival here the patient appears drowsy with small pupils. Lungs clear heart regular. Plan. The patient's workup here is unremarkable for any cardiac condition. No ischemic changes on EKG. Patient received a dose of Narcan with no response. She was arousable. We decided check an ammonia level and ABG. ABG does not show hypercapnia but she does have an elevated ammonia level from her chronic liver disease. She will be given some lactulose and admitted to medicine.
--- NOTE | 2017-07-04 18:56 | Electrocardiograph Report ---
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
--- NOTE | 2017-07-04 19:21 | Internal Med History&Physical ---
Date of Encounter: 07/04/17 Time of Encounter: 19:35 Internal Medicine - H&P: HPI Admitted From: Home Plans for Post Hospital Care: Home History of present illness: Ms. Sousa is a 62 year old female with hx of hepatitis and ascites. Pt reports she had paracentesis in apr and in may. She presented to ED today due to AMS. Pt presented with AMS. She apparently took one of her daughter's suboxone due to chest pain. Past Med Surg Social Fam HX - Past Medical History Medical history: arthritis, cirrhosis, COPD, hepatitis, liver disease, other Psychiatric history: no psych history - Past Surgical History Surgical History: , cholecystectomy, orthopedic, other - Social History Smoking Status: Current every day smoker Smokeless Tobacco Status: No Alcohol use: none Drug use: none - Family History Father Living Status: Hx Family Respiratory Disorders: Yes (COPD) Internal Medicine - H&P: Meds Albuterol Sulfate [Proair Hfa] 2 puff IH Q4H PRN 06/29/16 [History] Budesonide/Formoterol 160/4.5 [Symbicort 160/4.5] 2 puff IH BIDR 04/30/17 [ History] Lactulose 30 ml PO BID 05/08/17 [History] Cholecalciferol (Vitamin D3) [Vitamin D3] 50,000 unit PO QWEEK 07/04/17 [History ] Furosemide [Lasix] 40 mg PO BID 07/04/17 [History] Spironolactone [Aldactone] 50 mg PO BID 07/04/17 [History] Tenofovir Disoproxil Fumarate [Viread] 300 mg PO DAILY 07/04/17 [History] Zinc Sulfate 220 mg PO TID 07/04/17 [History] 3 Allergy/AdvReac Type Severity Reaction Status Date / Time doxycycline AdvReac Nausea Verified 05/14/17 09:06 Penicillins AdvReac See Verified 05/14/17 09:06 Comments All Systems PM: A 10-system review of systems was performed and is negative for pertinent findings except as documented above in the HPI. - Constitutional Vitals: Temp Pulse Resp BP Pulse Ox 97.8 F 90 16 110/72 96 07/04/17 19:02 07/04/17 19:02 07/04/17 19:02 07/04/17 19:02 07/04/17 19:02 General appearance: Present: A&O X 3 Exam: Pt drowsy but coherent when she is awake. - Head Head exam: Present: atraumatic, normocephalic - Eye Eye exam: Present: PERRL, conjuntiva pink, sclera anicteric Pupils: Present: PERRL - Neck Neck exam general surgery: Present: supple, trachea midline. Absent: lymphadenopathy - Respiratory Respiratory exam: Absent: accessory muscle use, rales, rhonchi, wheezes Additional comments: Bi-basilar crackles - Cardiovascular Cardiovascular exam: Present: RRR, +S1, +S2. Absent: diastolic murmur, gallop, rubs, systolic murmur - GI/Abdominal GI/Abdominal exam: Present: normal bowel sounds, soft, no peritoneal signs. Absent: distended, tenderness - Extremities Exam Extremities exam: Present: pedal edema. Absent: tenderness - Neurological Exam Neurological exam: Present: CN II-XII intact, oriented X3, no focal deficits. Absent: pronater drift, facial droop, speech deficit - Skin Skin exam: Present: dry, intact Internal Med - H&P Results - Labs CBC & Chem 7: 07/04/17 12:04 07/04/17 12:04 - Assessment and plan (1) Hepatic encephalopathy Current Visit: Yes Status: Acute Assessment and plan: Will check abdominal US to see if pt needs therapeutic paracentesis. Given lactulose in ED and will check ammonia level in am. (2) Cirrhosis of liver Current Visit: No Status: Chronic Assessment and plan: Hx hepatitis. Follow up out pt with PCP. Qualifiers: Hepatic cirrhosis type: other cirrhosis Qualified Code(s): K74.69 - Other cirrhosis of liver (3) Ascites Current Visit: No Status: Acute Assessment and plan: Will check abdominal US Qualifiers: Ascites type: other type Qualified Code(s): R18.8 - Other ascites (4) Increased ammonia level Current Visit: Yes Status: Acute Assessment and plan: Given lactulose in ED and will check ammonia level in am. (5) Thrombocytopenia Current Visit: No Status: Chronic Assessment and plan: Will monitor BMP daily - Time Spent With Patient Total time spent is greater than 50% in coordination of care (as documented) at patient's floor/unit and/or counseling patient:
[2017-07-04] MEDS ORDERED: Naloxone 0.4 MG/ML INJ IVP PRN (19:30)
[2017-07-04] MEDS: Furosemide 40 MG TABLET PO SCH (21:04)
[2017-07-04] MEDS: Zinc Sulfate 220 MG CAPSULE PO SCH (21:04)
[2017-07-04] MEDS: Lactulose Oral Soln 20 GM/30 ML UDC PO SCH (21:04)
[2017-07-04] MEDS: Budesonide/Formoterol 160/4.5 MDI IH SCH (22:46)
[2017-07-05] MEDS ORDERED: Acetaminophen 325 MG TABLET PO PRN (03:01)
[2017-07-05] MEDS ORDERED: Acetaminophen 325 MG TABLET PO ONE (04:25)
[2017-07-05 06:08] LABS: ABG Base Excess 7 mEq/L (-2 to 3); ABG HCO3 34 mEq/L (21-27); ABG Oxygen Saturation 94 % (95-98); ABG PCO2 54 mmHg (35-45); ABG PH 7.41 pH Units (7.32-7.45); ABG PO2 74 mmHg (85-104); ABG TCO2 36 mEq/L (20-26)
[2017-07-05 06:38] LABS: Basophils % 0.5 %
[2017-07-05 06:40] LABS: Eosinophils # 0.1 K/mcL (0.0-0.6); Eosinophils % 2.6 %; Hematocrit 42.4 % (35.3-44.9); Hemoglobin 13.9 g/dL (11.5-15.4); Immature Granulocytes % 0.2 % (0-4); Immature Platelets 3.6 % (1.1-6.1); Lymphocytes # 1.1 K/mcL (0.6-4.6); Lymphocytes % 26.4 %; Mean Corpuscular HGB Conc 32.8 g/dL (31.6-35.5); Mean Corpuscular Hemoglobin 33.3 pg (28.0-33.3); Mean Corpuscular Volume 101.4 fL (83.0-100.0); Mean Platelet Volume 11.1 fL (9.4-12.4); Monocytes # 0.4 K/mcL (0.0-1.3); Neutrophils # 2.6 K/mcL (1.6-8.9); Red Blood Count 4.18 M/mcL (3.82-4.97); Red Cell Distribution Width 16.5 % (11.5-14.5); Segmented Neutrophils % 61.3 %
[2017-07-05 06:47] LABS: Platelet Count 55 K/mcL (140-400)
[2017-07-05 06:56] LABS: Alanine Aminotransferase 23 Units/L (7-52); Albumin/Globulin Ratio 0.8 (1.1-2.2); Alkaline Phosphatase 74 Units/L (34-104); Aspartate Amino Transferase 37 Units/L (13-39); BUN/Creatinine Ratio 24 (6-26); Bilirubin,Direct 0.3 mg/dL (0.0-0.2); Bilirubin,Indirect 0.5 mg/dL (0.0-1.2); Bilirubin,Total 0.8 mg/dL (0.3-1.0); Blood Urea Nitrogen 16 mg/dL (8-23); Calcium 8.9 mg/dL (8.6-10.3); Carbon Dioxide 30 mEq/L (23-29); Chloride 104 mEq/L (98-107); Globulin 3.8 g/dL (2.4-3.5); Glucose 131 mg/dL (70-105); Osmolality,Calculated 289 (280-300); Potassium 3.9 mEq/L (3.5-5.1); Sodium 138 mEq/L (136-145); Total Protein 6.8 g/dL (6.4-8.9); eGFR For African Americans > 60 (> 60); eGFR For Non-African Americans > 60 (> 60)
[2017-07-05] MEDS: Lactulose Oral Soln 20 GM/30 ML UDC PO SCH ×4 (09:10→20:21)
[2017-07-05] MEDS: Zinc Sulfate 220 MG CAPSULE PO SCH ×3 (09:10→20:21)
[2017-07-05] MEDS: Tenofovir Disoproxil Fumarate 300 MG TABLET PO SCH (10:28)
[2017-07-05] MEDS: Furosemide 40 MG TABLET PO SCH ×2 (10:28→17:38)
[2017-07-05] MEDS: Budesonide/Formoterol 160/4.5 MDI IH SCH ×2 (11:11→20:18)
--- NOTE | 2017-07-05 12:00 | Internal Med Progress Note ---
Date of Encounter: 07/05/17 Time of Encounter: 11:45 - Assessment and plan (1) Hepatic encephalopathy Current Visit: Yes Status: Acute Assessment and plan: Suspect hepatic encephalopathy as the etiology of reported confusion on admission. We will increase the lactulose to 4 times a day and selective twice as she is not making much bowel movements. Other etiology to consider is Suboxone or substance abuse. Urine toxicology will be sent. (2) Cirrhosis of liver Current Visit: No Status: Chronic Assessment and plan: Evidence of portal hypertension. Plan: continue Lasix and spironolactone. She will follow with GI outpatient record Qualifiers: Hepatic cirrhosis type: other cirrhosis Qualified Code(s): K74.69 - Other cirrhosis of liver (3) Hepatitis C Current Visit: Yes Status: Acute Qualifiers: Viral hepatitis chronicity: chronic Hepatic coma status: with hepatic coma Qualified Code(s): B18.2 - Chronic viral hepatitis C (4) Musculoskeletal chest pain Current Visit: Yes Status: Acute Assessment and plan: Pain is exacerbated by movement. Prior CTA chest shows aneurysmal dilatation of the ascending aorta. Given clinical stability, ascending aortic dissection is unlikely. - Time Spent With Patient Total time spent is greater than 50% in coordination of care (as documented) at patient's floor/unit and/or counseling patient: 25 - 35 minutes - Subjective Interval history: She reports no new complaints but falls asleep during this interview. No events noted. Per her nurse, she is more communicative now. On further questioning, patient reports substernal pain exacerbated by movement for which she took Suboxone. She was noted to be pale at work and advised to go to the hospital. He denies any new complaints. - Constitutional Vitals: Temp Pulse Resp BP Pulse Ox 98.1 F 84 16 106/73 93 07/05/17 11:30 07/05/17 11:30 07/05/17 11:30 07/05/17 11:30 07/05/17 11:30 General appearance: Present: A&O X 3 Exam: Physical exam Gen: Comfortable, laying in bed, in no visible distress, somnolent HEENT: Normocephalic, atraumatic. No conjunctival icterus. Moist oral mucosa. Neck: Supple Lungs: Clear to auscultation, no foreign sounds Heart: Normal S1-S2, no murmurs rubs or gallops Abdomen: Normoactive bowel sounds, distended, no guarding rigidity or tenderness Extremities: No edema clubbing or cyanosis Neuro: Alert oriented 3, no focal deficits Skin: No skin lesions Internal Medicine: Result - Labs CBC & Chem 7: 07/05/17 06:25 07/05/17 06:25 Labs: Short CBC 07/05/17 07/05/17 07/05/17 Range/Units 06:04 06:25 06:25 WBC 4.2 L (4.3-11.1) K/mcL RBC 4.18 (3.82-4.97) M/mcL Hgb 13.9 (11.5-15.4) g/dL Hct 42.4 (35.3-44.9) % MCV 101.4 H (83.0-100.0) fL MCH 33.3 (28.0-33.3) pg MCHC 32.8 (31.6-35.5) g/dL RDW 16.5 H (11.5-14.5) % Plt Count 55 L (140-400) K/mcL MPV 11.1 (9.4-12.4) fL Immature Gran % 0.2 (0-4) % Seg Neutrophils % 61.3 % Lymphocytes % 26.4 % Monocytes % 9.0 % Eosinophils % 2.6 % Basophils % 0.5 % Neutrophils # 2.6 (1.6-8.9) K/mcL Lymphocytes # 1.1 (0.6-4.6) K/mcL Monocytes # 0.4 (0.0-1.3) K/mcL Eosinophils # 0.1 (0.0-0.6) K/mcL Basophils # 0.0 (0.0-0.2) K/mcL Immature Plt Fraction 3.6 (1.1-6.1) % Sample Site R Radial ABG pH 7.41 (7.32-7.45) pH Units ABG pCO2 54 H (35-45) mmHg ABG pO2 74 L (85-104) mmHg ABG HCO3 34 H (21-27) mEq/L ABG Total CO2 36 H (20-26) mEq/L ABG O2 Saturation 94 L (95-98) % ABG Base Excess 7 H (-2 to 3) mEq/L Inspired O2 21.0 (1-15=lpm dp34-255=%) Sodium 138 (136-145) mEq/L Potassium 3.9 (3.5-5.1) mEq/L Chloride 104 (98-107) mEq/L Carbon Dioxide 30 H (23-29) mEq/L BUN 16 (8-23) mg/dL Creatinine 0.68 (0.60-1.20) mg/dL Est GFR ( Amer) > 60 (> 60) Est GFR (Non-Af Amer) > 60 (> 60) BUN/Creatinine Ratio 24 (6-26) Glucose 131 H (70-105) mg/dL Calculated Osmolality 289 (280-300) Calcium 8.9 (8.6-10.3) mg/dL Total Bilirubin 0.8 (0.3-1.0) mg/dL Direct Bilirubin 0.3 H (0.0-0.2) mg/dL Indirect Bilirubin 0.5 (0.0-1.2) mg/dL AST 37 (13-39) Units/L ALT 23 (7-52) Units/L Alkaline Phosphatase 74 (34-104) Units/L Ammonia (16-53) mcmol/L Serum Total Protein 6.8 (6.4-8.9) g/dL Albumin 3.0 L (3.5-5.7) g/dL Globulin 3.8 H (2.4-3.5) g/dL Albumin/Globulin Ratio 0.8 L (1.1-2.2) 07/05/17 Range/Units 06:25 WBC (4.3-11.1) K/mcL RBC (3.82-4.97) M/mcL Hgb (11.5-15.4) g/dL Hct (35.3-44.9) % MCV (83.0-100.0) fL MCH (28.0-33.3) pg MCHC (31.6-35.5) g/dL RDW (11.5-14.5) % Plt Count (140-400) K/mcL MPV (9.4-12.4) fL Immature Gran % (0-4) % Seg Neutrophils % % Lymphocytes % % Monocytes % % Eosinophils % % Basophils % % Neutrophils # (1.6-8.9) K/mcL Lymphocytes # (0.6-4.6) K/mcL Monocytes # (0.0-1.3) K/mcL Eosinophils # (0.0-0.6) K/mcL Basophils # (0.0-0.2) K/mcL Immature Plt Fraction (1.1-6.1) % Sample Site ABG pH (7.32-7.45) pH Units ABG pCO2 (35-45) mmHg ABG pO2 (85-104) mmHg ABG HCO3 (21-27) mEq/L ABG Total CO2 (20-26) mEq/L ABG O2 Saturation (95-98) % ABG Base Excess (-2 to 3) mEq/L Inspired O2 (1-15=lpm ye29-764=%) Sodium (136-145) mEq/L Potassium (3.5-5.1) mEq/L Chloride (98-107) mEq/L Carbon Dioxide (23-29) mEq/L BUN (8-23) mg/dL Creatinine (0.60-1.20) mg/dL Est GFR ( Amer) (> 60) Est GFR (Non-Af Amer) (> 60) BUN/Creatinine Ratio (6-26) Glucose (70-105) mg/dL Calculated Osmolality (280-300) Calcium (8.6-10.3) mg/dL Total Bilirubin (0.3-1.0) mg/dL Direct Bilirubin (0.0-0.2) mg/dL Indirect Bilirubin (0.0-1.2) mg/dL AST (13-39) Units/L ALT (7-52) Units/L Alkaline Phosphatase (34-104) Units/L Ammonia 106 H (16-53) mcmol/L Serum Total Protein (6.4-8.9) g/dL Albumin (3.5-5.7) g/dL Globulin (2.4-3.5) g/dL Albumin/Globulin Ratio (1.1-2.2) BMP 07/05/17 06:25 Sodium 138 Potassium 3.9 Chloride 104 Carbon Dioxide 30 H BUN 16 Creatinine 0.68 Glucose 131 H Calcium 8.9 Liver Function 07/05/17 Range/Units 06:25 Total Bilirubin 0.8 (0.3-1.0) mg/dL Direct Bilirubin 0.3 H (0.0-0.2) mg/dL AST 37 (13-39) Units/L ALT 23 (7-52) Units/L Alkaline Phosphatase 74 (34-104) Units/L Albumin 3.0 L (3.5-5.7) g/dL - ABG Interpretation ABG results: ABG ABG pH 7.41 pH Units (7.32-7.45) 07/05/17 06:04 ABG pCO2 54 mmHg (35-45) H 07/05/17 06:04 ABG pO2 74 mmHg (85-104) L 07/05/17 06:04 ABG O2 Saturation 94 % (95-98) L 07/05/17 06:04 PT/INR, D-dimer PT 13.8 Seconds (9.4-12.1) H 07/04/17 12:04 - Impressions Impressions Abdomen Ultrasound 07/05/17 06:00 IMPRESSION: Redemonstration of cirrhosis. Trace ascites identified in the left lower quadrant. D/ / 07/05/2017 11:34:52 Curtis Medrano MD / isabel Interpreting Provider: Curtis Medrano MD Consult Discharge Plan - Plan Referrals: Lakisha Cunha, [employer] [Primary Care Provider] -
[2017-07-05 14:03] LABS: Bilirubin,Urine Negative (Negative); Blood,Urine Negative (Negative); Clarity,Urine Clear (Clear); Color,Urine Yellow (Yellow); Glucose,Urine (UA) Normal (Normal); Ketones,Urine Negative (Negative); Leukocyte Esterase,Urine Negative (Negative); Nitrite,Urine Negative (Negative); PH,Urine 5.5 pH Units (5.0-8.0); Protein,Urine Negative (Neg-Trace); Specific Gravity,Urine 1.018 (1.010-1.025); Urobilinogen,Urine Normal (Normal)
[2017-07-05 15:22] LABS: Amphetamine Screen,Urine Negative ng/mL (Cutoff=1000); Barbiturate Screen,Urine Negative ng/mL (Cutoff=200); Benzodiazepines Screen,Urine Negative ng/mL (Cutoff=200); Cannabinoid Screen,Urine Positive ng/mL (Cutoff = 50); Cocaine Screen,Urine Negative ng/mL (Cutoff= 300); Opiate Screen,Urine Negative ng/mL (Cutoff=300); Phencyclidine Screen,Urine Negative ng/mL (Cutoff=25)
[2017-07-06 05:57] LABS: Hematocrit 41.9 % (35.3-44.9); Mean Corpuscular Volume 100.2 fL (83.0-100.0); Red Blood Count 4.18 M/mcL (3.82-4.97); Red Cell Distribution Width 15.9 % (11.5-14.5)
[2017-07-06 05:59] LABS: Eosinophils # 0.1 K/mcL (0.0-0.6); Hemoglobin 13.8 g/dL (11.5-15.4); Immature Granulocytes % 0.2 % (0-4); Immature Platelets 4.4 % (1.1-6.1); Lymphocytes % 21.9 %; Mean Corpuscular HGB Conc 32.9 g/dL (31.6-35.5); Mean Platelet Volume 11.5 fL (9.4-12.4); Monocytes # 0.4 K/mcL (0.0-1.3); Monocytes % 7.7 %; Neutrophils # 3.1 K/mcL (1.6-8.9); Segmented Neutrophils % 68.2 %
[2017-07-06 06:03] LABS: Platelet Count 51 K/mcL (140-400)
[2017-07-06 06:17] LABS: Alanine Aminotransferase 21 Units/L (7-52); Albumin 2.9 g/dL (3.5-5.7); Albumin/Globulin Ratio 0.8 (1.1-2.2); Alkaline Phosphatase 70 Units/L (34-104); Aspartate Amino Transferase 36 Units/L (13-39); BUN/Creatinine Ratio 22 (6-26); Bilirubin,Direct 0.3 mg/dL (0.0-0.2); Bilirubin,Indirect 0.8 mg/dL (0.0-1.2); Bilirubin,Total 1.1 mg/dL (0.3-1.0); Blood Urea Nitrogen 13 mg/dL (8-23); Carbon Dioxide 34 mEq/L (23-29); Chloride 103 mEq/L (98-107); Globulin 3.7 g/dL (2.4-3.5); Glucose 102 mg/dL (70-105); Osmolality,Calculated 290 (280-300); Potassium 4.4 mEq/L (3.5-5.1); Sodium 140 mEq/L (136-145); Total Protein 6.6 g/dL (6.4-8.9); eGFR For African Americans > 60 (> 60); eGFR For Non-African Americans > 60 (> 60)
[2017-07-06] MEDS: Budesonide/Formoterol 160/4.5 MDI IH SCH ×2 (07:38→20:52)
[2017-07-06] MEDS: Zinc Sulfate 220 MG CAPSULE PO SCH ×3 (08:49→21:16)
[2017-07-06] MEDS: Tenofovir Disoproxil Fumarate 300 MG TABLET PO SCH (08:49)
[2017-07-06] MEDS: Furosemide 40 MG TABLET PO SCH ×2 (08:49→17:58)
[2017-07-06] MEDS: Lactulose Oral Soln 20 GM/30 ML UDC PO SCH ×5 (08:49→21:24)
--- NOTE | 2017-07-06 10:49 | Discharge Summary ---
- NOTES TO OUTPATIENT PROVIDER Notes to Outpatient Provider: Dr. Tolbert within the next month Date of Encounter: 07/06/17 Time of Encounter: 10:30 - Discharge Diagnosis (1) Hepatic encephalopathy Priority: Primary Status: Acute Assessment and Plan: Suspect hepatic encephalopathy as the etiology of reported confusion on admission. We will increase the lactulose to 4 times a day and titrate to 2 bowel movements per day. Other etiology to consider is Suboxone or substance abuse with marijuana in urine toxicology. (2) Marijuana abuse Priority: Primary Status: Acute (3) Cirrhosis of liver Priority: Secondary Status: Chronic Assessment and Plan: Evidence of portal hypertension. Plan: continue Lasix and spironolactone. She will follow with GI outpatient ( Dr. Tolbert). Qualifiers: Hepatic cirrhosis type: other cirrhosis Qualified Code(s): K74.69 - Other cirrhosis of liver (4) Hepatitis C Priority: Secondary Status: Acute Qualifiers: Viral hepatitis chronicity: chronic Hepatic coma status: with hepatic coma Qualified Code(s): B18.2 - Chronic viral hepatitis C (5) Musculoskeletal chest pain Priority: Secondary Status: Acute Assessment and Plan: Pain is exacerbated by movement. Prior CTA chest shows aneurysmal dilatation of the ascending aorta. Given clinical stability, ascending aortic dissection is unlikely. Hospital course: Ms. Sousa is a 62 year old female with known hepatitis C and cirrhosis with portal hypertension requiring multiple prior paracentesis presented to the emergency room after she was noted to be lethargic and pale at work. She had been experiencing chest pain exacerbated by movement for which she took her daughter Suboxone prior to her presentation. In addition, she is on lactulose for hepatic encephalopathy and was not having adequate bowel movements. In the emergency room, her encephalopathy was suspected but urine toxicology was sent as well. Urine toxicology showed marijuana. It is possible that Suboxone could cause the reported lethargy as well as she would metabolize any drugs slowly. Date of hospitalization we have increased the lactulose 4 times a day to target to bowel movements in 24 hours. Her mental status has cleared and she is medically stable for discharge. We have recommended close follow-up with Dr. Tolbert in clinic for her cirrhosis and hepatitis C. Discharge discussed with: patient - Time Spent with Patient Total time spent providing and/or coordinating discharge services: Greater than 30 minutes - Discharge Medications Home Medications: Albuterol Sulfate [Proair Hfa] 2 puff IH Q4H PRN 06/29/16 [History] Budesonide/Formoterol 160/4.5 [Symbicort 160/4.5] 2 puff IH BIDR 04/30/17 [ History] Lactulose 30 ml PO QID 05/08/17 [History] Cholecalciferol (Vitamin D3) [Vitamin D3] 50,000 unit PO QWEEK 07/04/17 [History ] Furosemide [Lasix] 40 mg PO BID 07/04/17 [History] Spironolactone [Aldactone] 50 mg PO BID 07/04/17 [History] Tenofovir Disoproxil Fumarate [Viread] 300 mg PO DAILY 07/04/17 [History] Zinc Sulfate 220 mg PO TID 07/04/17 [History] Allergies/Adverse Reactions: 3 Allergy/AdvReac Type Severity Reaction Status Date / Time doxycycline AdvReac Nausea Verified 05/14/17 09:06 Penicillins AdvReac See Verified 05/14/17 09:06 Comments Date of admission: 07/04/17 16:44 Primary care physician: Lakisha Cunha CNP Discharging clinician: Paz Villavicencio Anticipated date of discharge: 07/06/17 - Constitutional Vitals: Temp Pulse Resp BP Pulse Ox 97.4 F L 72 14 101/67 93 07/06/17 07:25 07/06/17 07:25 07/06/17 07:25 07/06/17 07:25 07/06/17 07:25 General appearance: Present: A&O X 3 Exam: Physical exam Gen: Comfortable, laying in bed, in no visible distress HEENT: Normocephalic, atraumatic. No conjunctival icterus. Moist oral mucosa. Neck: Supple Lungs: Clear to auscultation, no foreign sounds Heart: Normal S1-S2, no murmurs rubs or gallops Abdomen: Normoactive bowel sounds, distended, no guarding rigidity or tenderness Extremities: No edema clubbing or cyanosis Neuro: Alert oriented 3, no focal deficits Skin: No skin lesions - Patient Status Disposition: Home, Self-Care Condition: Good Functional capacity at discharge: independent ambulation Overall status at discharge: patient is back to baseline - Discharge Instructions Follow Up With: Lakisha Cunha CNP [Primary Care Provider] - Matt Tolbert MD [Partnered Physician] - Additional Instructions: Follow-up with Dr. Tolbert within next 4 weeks. Use lactulose 2-4 times a day to target 2 bowel movements over 24 hours. - Diet and Activity Activity: resume usual activities as tolerated Diet: advance to your usual diet
[2017-07-07 07:28] VITALS: BP 96/63
[2017-07-07] MEDS: Budesonide/Formoterol 160/4.5 MDI IH SCH (07:43)
[2017-07-07] MEDS ORDERED: *HR* Enoxaparin 40 MG/0.4 ML SYRINGE SQ ONE (09:35)
--- NOTE | 2017-07-07 09:48 | Internal Med Progress Note ---
Date of Encounter: 07/07/17 Time of Encounter: 09:30 - Assessment and plan (1) Hepatic encephalopathy Current Visit: Yes Status: Acute Assessment and plan: Suspect hepatic encephalopathy as the etiology of reported confusion on admission. We will increase the lactulose to 4 times a day and titrate to 2 bowel movements per day. Other etiology to consider is Suboxone or substance abuse with marijuana in urine toxicology. Patient wishes to go home today. She was medically stable stable for discharge yesterday but refused discharge. Feeling better and wants to go home. Please see discharge summary from yesterday. (2) Marijuana abuse Current Visit: Yes Status: Acute (3) Cirrhosis of liver Current Visit: No Status: Chronic Qualifiers: Hepatic cirrhosis type: other cirrhosis Qualified Code(s): K74.69 - Other cirrhosis of liver (4) Hepatitis C Current Visit: Yes Status: Acute Qualifiers: Viral hepatitis chronicity: chronic Hepatic coma status: with hepatic coma Qualified Code(s): B18.2 - Chronic viral hepatitis C (5) Musculoskeletal chest pain Current Visit: Yes Status: Acute - Time Spent With Patient Total time spent is greater than 50% in coordination of care (as documented) at patient's floor/unit and/or counseling patient: less than 15 minutes - Subjective Interval history: She reports feeling better and wishes to go home today. - Constitutional Vitals: Temp Pulse Resp BP Pulse Ox 97.6 F 77 17 96/63 97 07/07/17 07:26 07/07/17 07:26 07/07/17 07:43 07/07/17 07:26 07/07/17 07:43 General appearance: Present: A&O X 3 Exam: Physical exam Gen: Comfortable, laying in bed, in no visible distress, somnolent HEENT: Normocephalic, atraumatic. No conjunctival icterus. Moist oral mucosa. Neck: Supple Lungs: Clear to auscultation, no foreign sounds Heart: Normal S1-S2, no murmurs rubs or gallops Abdomen: Normoactive bowel sounds, distended, no guarding rigidity or tenderness Extremities: No edema clubbing or cyanosis Neuro: Alert oriented 3, no focal deficits Skin: No skin lesions Internal Medicine: Result - Labs CBC & Chem 7: 07/06/17 05:42 07/06/17 05:42 - ABG Interpretation ABG results: ABG ABG pH 7.41 pH Units (7.32-7.45) 07/05/17 06:04 ABG pCO2 54 mmHg (35-45) H 07/05/17 06:04 ABG pO2 74 mmHg (85-104) L 07/05/17 06:04 ABG O2 Saturation 94 % (95-98) L 07/05/17 06:04 PT/INR, D-dimer PT 13.8 Seconds (9.4-12.1) H 07/04/17 12:04 Consult Discharge Plan - Plan Instructions: Lactulose (By mouth), Cirrhosis (DC) Additional Instructions: Follow-up with Dr. Tolbert within next 4 weeks. Use lactulose 2-4 times a day to target 2 bowel movements over 24 hours. Referrals: Matt Tolbert MD [Partnered Physician] - Lakisha Cunha CNP [Primary Care Provider] -
[2017-07-07] MEDS: Lactulose Oral Soln 20 GM/30 ML UDC PO SCH (10:22)
[2017-07-07] MEDS: Tenofovir Disoproxil Fumarate 300 MG TABLET PO SCH (10:22)
[2017-07-07] MEDS: Zinc Sulfate 220 MG CAPSULE PO SCH (10:22)
[2017-07-07] MEDS: Furosemide 40 MG TABLET PO SCH (10:22)
== END 2017-07-07 14:25 | disposition home or self-care (01) | DRG 442 ==
LOC: EMEROO 11:27 → 2ANU 11:27
PROVIDERS: ADMIT Internal Medicine; ATTEND Internal Medicine

== ENCOUNTER 2017-12-01 18:38 | Inpatient (IN) ==
--- NOTE | 2017-12-01 19:14 | Emergency Department Note ---
Disposition Clinical Impression: Ascites, Chronic hepatitis, SOB (shortness of breath), Pleural effusion Disposition: Admitted As Inpatient Condition: Fair Time of Disposition: 20:37 SOB HPI - General Chief Complaint: ED Shortness of Breath/Dyspnea Stated Complaint: ELLIS Time Seen by Provider: 12/01/17 19:01 Nursing Notes Reviewed: Yes Vital Signs Reviewed: Yes - History of Present Illness 62-year-old female with history of ascites and COPD presents for evaluation of dyspnea. Onset 3 days ago. Patient describes feeling of abdominal fullness and the need to make a concerted effort to take a deep inspiration. Her daughter at bedside notes a change in her chronic cough which is now productive with discolored sputum and worsening of her wheeze. PMH: Hepatitis, cirrhosis, COPD ROS: Positive: As above Negative: fever, chills, nausea, vomiting, chest pain, palpitations, unusual back pain, dysuria, diarrhea - Related Data Home Medications Medication Instructions Recorded Confirmed Albuterol Sulfate [Proair Hfa] 2 puff IH Q4H PRN 06/29/16 12/01/17 Budesonide/Formoterol 160/4.5 2 puff IH BIDR 04/30/17 12/01/17 [Symbicort 160/4.5] Lactulose 30 ml PO QID 05/08/17 12/01/17 Cholecalciferol (Vitamin D3) 50,000 unit PO QWEEK 07/04/17 12/01/17 [Vitamin D3] Furosemide [Lasix] 40 mg PO BID 07/04/17 12/01/17 Spironolactone [Aldactone] 50 mg PO BID 07/04/17 12/01/17 Zinc Sulfate 220 mg PO TID 07/04/17 12/01/17 Allergies Allergy/AdvReac Type Severity Reaction Status Date / Time doxycycline AdvReac Nausea Verified 05/14/17 09:06 Penicillins AdvReac See Verified 05/14/17 09:06 Comments All systems ED: reviewed and negative except as stated. Review of Systems: As Per HPI Past Medical History - Past Medical History Medical history: Reports: arthritis, cirrhosis, COPD, hepatitis, liver disease, other Surgical history: Reports: , cholecystectomy, orthopedic, other Psychiatric history: Reports: no psych history - Social History Smoking Status: Current every day smoker Smokeless Tobacco Status: No Alcohol use: Reports: none Drug use: Reports: none Physical Exam Vital Signs Reviewed General: Patient is alert, oriented, and in no acute distress. Head: atraumatic, normocephalic Eye: normal appearance, no scleral icterus, no conjunctival injection ENT: mucous membranes moist, normal external ear exam Neck: normal inspection, trachea midline, full ROM Chest: normal inspection, symmetric chest rise Respiratory: Good respiratory effort. Prolonged respiratory phase. Air entry equal bilaterally with scattered wheeze. No crackles or rhonchi. Cardiovascular: Regular rate and rhythm. No clicks, rubs, gallops, or murmors. Normal heart sounds. Abdomen: Bowel sounds present normoactive x-4 quadrants. Abdomen is soft, nondistended, and nontender. No guarding or rebound. Fluid wave is present. Musculoskeletal: Spontaneously moving all extremities. Skin: warm, dry, intact. Neuro: Alert and oriented x4. Sensation light touch intact. Psych: Patient's affect is appropriate for situation. Course Course Narrative: Clinical concern is for ascites limiting diaphragmatic excursion. We will also evaluate cardiopulmonary for alternate expirations or dyspnea. Serum hematology shows leukocytopenia. Patient does have thrombocytopenia which is expected given her chronic hepatic disease. Albumin is low. Slight elevation of bilirubin. No elevation in hepatic enzymes. Normal INR. Chest x-ray read by radiology as small right pleural effusion. Low clinical suspicion for pneumonia. I discussed the above the patient. She did want to go home. We discussed the option of doing nothing or doing something. If nothing were to be done, she would go home and her symptoms would not improve likely resulting in a return to the emergency department. If she were to do something, recommend admission for interventional radiology paracentesis tomorrow. Other strong clinical suspicion that her abdominal ascites is causing her to have poor diaphragmatic excursion as the primary cause of her dyspnea. Patient agrees. She agrees to admission for continued evaluation and management. I discussed the above with the admitting hospitalist. He agrees to accept the patient for continued evaluation monitoring. I placed consultation to interventional radiology Chest X-Ray 12/01/17 18:47 IMPRESSION: Small moderate-sized right pleural effusion, new when compared to the previous exam, with adjacent airspace disease. Pneumonia with a parapneumonic effusion would be the primary differential consideration. Asymmetric edema remains a less likely consideration. D/ / Raymond Braga MD / Raymond Braga MD Interpreting Provider: Raymond Braga MD Vital Signs Temperature 98.5 F 12/01/17 18:43 Pulse Rate 89 12/01/17 18:43 Respiratory Rate 15 12/01/17 18:43 Blood Pressure 132/81 12/01/17 18:43 O2 Sat by Pulse Oximetry 95 12/01/17 18:43 Temperature 98.6 F 12/01/17 23:54 Pulse Rate 80 12/01/17 23:54 Respiratory Rate 15 12/01/17 23:54 Blood Pressure 129/89 12/01/17 23:54 O2 Sat by Pulse Oximetry 94 12/01/17 23:54 Oxygen Delivery Oxygen Delivery Room Air Shortness of Breath/Dyspnea - Lab Data Result diagrams: 12/01/17 19:52 12/01/17 19:52 Lab Results 12/01/17 12/01/17 12/01/17 Range/Units 19:52 19:52 19:52 WBC 3.2 L (4.3-11.1) K/mcL RBC 4.72 (3.82-4.97) M/mcL Hgb 15.3 (11.5-15.4) g/dL Hct 45.9 H (35.3-44.9) % MCV 97.2 (83.0-100.0) fL MCH 32.4 (28.0-33.3) pg MCHC 33.3 (31.6-35.5) g/dL RDW 14.6 H (11.5-14.5) % Plt Count 42 L (140-400) K/mcL MPV 11.2 (9.4-12.4) fL Immature Plt Fraction 8.4 H (1.1-6.1) % PT (9.4-12.1) Seconds INR Sodium 139 (136-145) mEq/L Potassium 4.2 (3.5-5.1) mEq/L Chloride 106 (98-107) mEq/L Carbon Dioxide 30 H (23-29) mEq/L BUN 17 (8-23) mg/dL Creatinine 0.45 L (0.60-1.20) mg/dL Est GFR ( Amer) > 60 (> 60) Est GFR (Non-Af Amer) > 60 (> 60) BUN/Creatinine Ratio 38 H (6-26) Glucose 116 H (70-105) mg/dL Calculated Osmolality 291 (280-300) Lactic Acid 1.1 (0.5-2.2) mmol/L Calcium 9.3 (8.6-10.3) mg/dL Total Bilirubin 1.3 H (0.3-1.0) mg/dL Direct Bilirubin 0.4 H (0.0-0.2) mg/dL Indirect Bilirubin 0.9 (0.0-1.2) mg/dL AST 27 (13-39) Units/L ALT 12 (7-52) Units/L Alkaline Phosphatase 64 (34-104) Units/L Troponin I < 0.03 (< 0.04) ng/mL B-Natriuretic Peptide (Less than 100) pg/mL Serum Total Protein 6.8 (6.4-8.9) g/dL Albumin 3.2 L (3.5-5.7) g/dL Globulin 3.6 H (2.4-3.5) g/dL Albumin/Globulin Ratio 0.9 L (1.1-2.2) 12/01/17 12/01/17 Range/Units 19:52 19:52 WBC (4.3-11.1) K/mcL RBC (3.82-4.97) M/mcL Hgb (11.5-15.4) g/dL Hct (35.3-44.9) % MCV (83.0-100.0) fL MCH (28.0-33.3) pg MCHC (31.6-35.5) g/dL RDW (11.5-14.5) % Plt Count (140-400) K/mcL MPV (9.4-12.4) fL Immature Plt Fraction (1.1-6.1) % PT 14.2 H (9.4-12.1) Seconds INR 1.3 Sodium (136-145) mEq/L Potassium (3.5-5.1) mEq/L Chloride (98-107) mEq/L Carbon Dioxide (23-29) mEq/L BUN (8-23) mg/dL Creatinine (0.60-1.20) mg/dL Est GFR ( Amer) (> 60) Est GFR (Non-Af Amer) (> 60) BUN/Creatinine Ratio (6-26) Glucose (70-105) mg/dL Calculated Osmolality (280-300) Lactic Acid (0.5-2.2) mmol/L Calcium (8.6-10.3) mg/dL Total Bilirubin (0.3-1.0) mg/dL Direct Bilirubin (0.0-0.2) mg/dL Indirect Bilirubin (0.0-1.2) mg/dL AST (13-39) Units/L ALT (7-52) Units/L Alkaline Phosphatase (34-104) Units/L Troponin I (< 0.04) ng/mL B-Natriuretic Peptide 219 H (Less than 100) pg/mL Serum Total Protein (6.4-8.9) g/dL Albumin (3.5-5.7) g/dL Globulin (2.4-3.5) g/dL Albumin/Globulin Ratio (1.1-2.2)
--- NOTE | 2017-12-01 20:09 | Emergency Department Note ---
Disposition Clinical Impression: Ascites, Chronic hepatitis, SOB (shortness of breath), Pleural effusion Disposition: Admitted As Inpatient Condition: Fair Referrals: Lakisha Cunha CNP [Primary Care Provider] - Forms: ED Satisfaction Letter General Adult HPI - General Chief complaint: ED Shortness of Breath/Dyspnea Stated complaint: ELLIS Time Seen by Provider: 12/01/17 19:01 - History of Present Illness Pain Scale: 0 - Related Data Home Medications Medication Instructions Recorded Confirmed Albuterol Sulfate [Proair Hfa] 2 puff IH Q4H PRN 06/29/16 12/01/17 Budesonide/Formoterol 160/4.5 2 puff IH BIDR 04/30/17 12/01/17 [Symbicort 160/4.5] Lactulose 30 ml PO QID 05/08/17 12/01/17 Cholecalciferol (Vitamin D3) 50,000 unit PO QWEEK 07/04/17 12/01/17 [Vitamin D3] Furosemide [Lasix] 40 mg PO BID 07/04/17 12/01/17 Spironolactone [Aldactone] 50 mg PO BID 07/04/17 12/01/17 Zinc Sulfate 220 mg PO TID 07/04/17 12/01/17 Allergies Allergy/AdvReac Type Severity Reaction Status Date / Time doxycycline AdvReac Nausea Verified 05/14/17 09:06 Penicillins AdvReac See Verified 05/14/17 09:06 Comments Past Medical History - Past Medical History Medical history: Reports: arthritis, cirrhosis, COPD, hepatitis, liver disease, other Surgical history: Reports: , cholecystectomy, orthopedic, other Psychiatric history: Reports: no psych history - Social History Smoking Status: Current every day smoker Smokeless Tobacco Status: No Alcohol use: Reports: none Drug use: Reports: none Course Vital Signs Temperature 98.5 F 12/01/17 18:43 Pulse Rate 89 12/01/17 18:43 Respiratory Rate 15 12/01/17 18:43 Blood Pressure 132/81 12/01/17 18:43 O2 Sat by Pulse Oximetry 95 12/01/17 18:43 Temperature 98.5 F 12/01/17 20:41 Pulse Rate 89 12/01/17 20:41 Respiratory Rate 15 12/01/17 20:41 Blood Pressure 132/81 12/01/17 20:41 O2 Sat by Pulse Oximetry 95 12/01/17 20:41 Oxygen Delivery Oxygen Delivery Room Air Medical Decision Making - Lab Data Result diagrams: 12/01/17 19:52 12/01/17 19:52 Lab Results 12/01/17 12/01/17 12/01/17 Range/Units 19:52 19:52 19:52 WBC 3.2 L (4.3-11.1) K/mcL RBC 4.72 (3.82-4.97) M/mcL Hgb 15.3 (11.5-15.4) g/dL Hct 45.9 H (35.3-44.9) % MCV 97.2 (83.0-100.0) fL MCH 32.4 (28.0-33.3) pg MCHC 33.3 (31.6-35.5) g/dL RDW 14.6 H (11.5-14.5) % Plt Count 42 L (140-400) K/mcL MPV 11.2 (9.4-12.4) fL Immature Plt Fraction 8.4 H (1.1-6.1) % PT (9.4-12.1) Seconds INR Sodium 139 (136-145) mEq/L Potassium 4.2 (3.5-5.1) mEq/L Chloride 106 (98-107) mEq/L Carbon Dioxide 30 H (23-29) mEq/L BUN 17 (8-23) mg/dL Creatinine 0.45 L (0.60-1.20) mg/dL Est GFR ( Amer) > 60 (> 60) Est GFR (Non-Af Amer) > 60 (> 60) BUN/Creatinine Ratio 38 H (6-26) Glucose 116 H (70-105) mg/dL Calculated Osmolality 291 (280-300) Lactic Acid 1.1 (0.5-2.2) mmol/L Calcium 9.3 (8.6-10.3) mg/dL Total Bilirubin 1.3 H (0.3-1.0) mg/dL Direct Bilirubin 0.4 H (0.0-0.2) mg/dL Indirect Bilirubin 0.9 (0.0-1.2) mg/dL AST 27 (13-39) Units/L ALT 12 (7-52) Units/L Alkaline Phosphatase 64 (34-104) Units/L Troponin I < 0.03 (< 0.04) ng/mL B-Natriuretic Peptide (Less than 100) pg/mL Serum Total Protein 6.8 (6.4-8.9) g/dL Albumin 3.2 L (3.5-5.7) g/dL Globulin 3.6 H (2.4-3.5) g/dL Albumin/Globulin Ratio 0.9 L (1.1-2.2) 12/01/17 12/01/17 Range/Units 19:52 19:52 WBC (4.3-11.1) K/mcL RBC (3.82-4.97) M/mcL Hgb (11.5-15.4) g/dL Hct (35.3-44.9) % MCV (83.0-100.0) fL MCH (28.0-33.3) pg MCHC (31.6-35.5) g/dL RDW (11.5-14.5) % Plt Count (140-400) K/mcL MPV (9.4-12.4) fL Immature Plt Fraction (1.1-6.1) % PT 14.2 H (9.4-12.1) Seconds INR 1.3 Sodium (136-145) mEq/L Potassium (3.5-5.1) mEq/L Chloride (98-107) mEq/L Carbon Dioxide (23-29) mEq/L BUN (8-23) mg/dL Creatinine (0.60-1.20) mg/dL Est GFR ( Amer) (> 60) Est GFR (Non-Af Amer) (> 60) BUN/Creatinine Ratio (6-26) Glucose (70-105) mg/dL Calculated Osmolality (280-300) Lactic Acid (0.5-2.2) mmol/L Calcium (8.6-10.3) mg/dL Total Bilirubin (0.3-1.0) mg/dL Direct Bilirubin (0.0-0.2) mg/dL Indirect Bilirubin (0.0-1.2) mg/dL AST (13-39) Units/L ALT (7-52) Units/L Alkaline Phosphatase (34-104) Units/L Troponin I (< 0.04) ng/mL B-Natriuretic Peptide 219 H (Less than 100) pg/mL Serum Total Protein (6.4-8.9) g/dL Albumin (3.5-5.7) g/dL Globulin (2.4-3.5) g/dL Albumin/Globulin Ratio (1.1-2.2) Attestation Statement - Attestation Attestation: 62-year-old female with a history of hepatitis and cirrhosis presents to the ER for difficulty breathing and increasing abdominal distention. She has had previous paracentesis in the past. She states now affecting her breathing and came to the ER for evaluation. She thought she might need her belly drained again. She had been following at the [facility]. She is been compliant with her medications. She states she has had her ascites fluid drained from the hospital before. She denies fevers. She denies any new abdominal pain complaints. She is able to get around okay at home. She is able to walk more than 20 foot without getting short of breath. We will check screening lab work. Her chest x-rays shows haziness in the costophrenic angles bilaterally consistent with most likely pleural effusion.
[2017-12-01 20:12] LABS: Hematocrit 45.9 % (35.3-44.9); Hemoglobin 15.3 g/dL (11.5-15.4); Immature Platelets 8.4 % (1.1-6.1); Mean Corpuscular HGB Conc 33.3 g/dL (31.6-35.5); Mean Corpuscular Hemoglobin 32.4 pg (28.0-33.3); Mean Corpuscular Volume 97.2 fL (83.0-100.0); Mean Platelet Volume 11.2 fL (9.4-12.4); Red Blood Count 4.72 M/mcL (3.82-4.97); Red Cell Distribution Width 14.6 % (11.5-14.5)
[2017-12-01 20:18] LABS: INR 1.3; Prothrombin Time 14.2 Seconds (9.4-12.1)
[2017-12-01 20:33] LABS: Alanine Aminotransferase 12 Units/L (7-52); Albumin 3.2 g/dL (3.5-5.7); Albumin/Globulin Ratio 0.9 (1.1-2.2); Alkaline Phosphatase 64 Units/L (34-104); Aspartate Amino Transferase 27 Units/L (13-39); BUN/Creatinine Ratio 38 (6-26); Bilirubin,Direct 0.4 mg/dL (0.0-0.2); Bilirubin,Indirect 0.9 mg/dL (0.0-1.2); Bilirubin,Total 1.3 mg/dL (0.3-1.0); Blood Urea Nitrogen 17 mg/dL (8-23); Calcium 9.3 mg/dL (8.6-10.3); Carbon Dioxide 30 mEq/L (23-29); Chloride 106 mEq/L (98-107); Globulin 3.6 g/dL (2.4-3.5); Glucose 116 mg/dL (70-105); Osmolality,Calculated 291 (280-300); Potassium 4.2 mEq/L (3.5-5.1); Sodium 139 mEq/L (136-145); Total Protein 6.8 g/dL (6.4-8.9); eGFR For Non-African Americans > 60 (> 60)
[2017-12-01] MEDS ORDERED: Levofloxacin 750 MG/150 ML 750 MG/150 ML BAG IVPB STA (20:35)
[2017-12-01 20:41] LABS: Troponin I < 0.03 ng/mL (< 0.04)
[2017-12-02] MEDS: traMADol 50 MG TABLET PO PRN ×3 (00:41→17:52)
--- NOTE | 2017-12-02 07:54 | Internal Med History&Physical ---
Date of Encounter: 12/02/17 Time of Encounter: 07:51 Internal Medicine - H&P: HPI Chief complaint: Shortness of Breath Admitted From: Home Plans for Post Hospital Care: Home History of present illness: Ms. Sousa is a 62 year old female who presented to the emergency department with chief complaint of shortness of breath. The patient had been experiencing worsening shortness of breath for approximately 3-4 days associated with a productive cough with yellow sputum. The patient states that her ascites has been reaccumulating and is to the point where it is limiting her breathing currently. The patient is required paracentesis in the past. Chest x-ray revealed a small to moderate-sized right-sided pleural effusion and adjacent airspace disease due to this in conjunction with the patient's history the patient was started on IV antibiotics for pneumonia. Patient denies any abdominal pain, nausea, vomiting, diarrhea. Patient denies any chest pain, palpitations, blurry vision, double vision, headache. IR has been counseled to for paracentesis. Patient denies any fevers, sick contacts, recent travel. Patient's she follows up with Dr. Tolbert for her hepatitis and cirrhosis. Past Med Surg Social Fam HX - Past Medical History Medical history: arthritis, cirrhosis, COPD, hepatitis, liver disease, other Additional medical history: hep.C&B Psychiatric history: no psych history - Past Surgical History Surgical History: , cholecystectomy, orthopedic, other Additional surgical history: bilateral knees - Social History Smoking Status: Current every day smoker Smokeless Tobacco Status: No Alcohol use: none Drug use: none - Family History Father History Unknown: Yes Name: Alvin Family Member Ethnicity: Non- Living Status: Age at : 85 Hx Family Respiratory Disorders: Yes (copd) Mother Name: Vero Age: 80 Family Member Ethnicity: Non- Living Status: Still Living Internal Medicine - H&P: Meds Albuterol Sulfate [Proair Hfa] 2 puff IH Q4H PRN 06/29/16 [History] Budesonide/Formoterol 160/4.5 [Symbicort 160/4.5] 2 puff IH BIDR 04/30/17 [ History] Lactulose 30 ml PO QID 05/08/17 [History] Cholecalciferol (Vitamin D3) [Vitamin D3] 50,000 unit PO QWEEK 07/04/17 [History ] Furosemide [Lasix] 40 mg PO BID 07/04/17 [History] Spironolactone [Aldactone] 50 mg PO BID 07/04/17 [History] Zinc Sulfate 220 mg PO TID 07/04/17 [History] 3 Allergy/AdvReac Type Severity Reaction Status Date / Time doxycycline AdvReac Nausea Verified 05/14/17 09:06 Penicillins AdvReac See Verified 05/14/17 09:06 Comments All Systems PM: A 10-system review of systems was performed and is negative for pertinent findings except as documented above in the HPI. Review of systems: 10 point review of systems is obtained and is otherwise negative other than described in history of present illness - Constitutional Vitals: Temp Pulse Resp BP Pulse Ox 97.8 F 84 18 131/84 94 12/02/17 07:35 12/02/17 07:35 12/02/17 07:35 12/02/17 07:35 12/02/17 07:35 Exam: Constitutional: No acute distress, Alert Psych: AAO x 3 HEENT: NCAT, EOMI Neck: supple, no JVD Cardio: regular rate and rhythm, +s1s2, no murmurs/rubs/gallops, no JVD Resp: decreased breath sounds in right base with faint expiratory wheezes Abd: soft, non tender, distended, protuberant with positive fluid wave, positive bowel sounds, no gaurding/reboud/ridgitity Extremities: no clubbing/cyanosis/edema appreciated Neuro: no focal deficits appreciated Lymph: no cervical/supraclavicular adenopahty apprecitated Internal Med - H&P Results - Labs CBC & Chem 7: 12/01/17 19:52 12/01/17 19:52 - Assessment and plan (1) Community acquired bacterial pneumonia Current Visit: Yes Status: Acute Assessment and plan: -3 to 4 day history of progressive shortness of breath with productive cough and imaging findings consistent with pneumonia and possible parapneumonic effusion -Continue IV Levaquin -Order sputum culture -May need thoracentesis for pleural effusion however will evaluate post paracentesis -If thoracentesis not performed there will need repeat imaging as an outpatient post antibiotic treatment to ensure resolution (2) Ascites Current Visit: Yes Status: Acute Assessment and plan: -Patient with recurrent ascites that is limiting her diaphragmatic excursion that is contributing to her shortness of breath -Parecentesis ordered with appropriate labs/cytology Qualifiers: Ascites type: other type Qualified Code(s): R18.8 - Other ascites (3) Pleural effusion Current Visit: Yes Status: Acute Assessment and plan: -right sided effusion -likely parapneumonic versus due to cirrhosis -Continue antibiotics for pneumonia -Evaluate need for thoracentesis tomorrow, may not need if symptoms improve after paracentesis however will need imaging to ensure resolution post antibiotic treatment (4) Chronic hepatitis Current Visit: Yes Status: Acute Assessment and plan: -Chronic -follows with Dr. Tolbert (5) Morbid obesity with BMI of 45.0-49.9, adult Current Visit: No Status: Chronic Assessment and plan: -lifestyle modifications encouraged (6) Thrombocytopenia Current Visit: No Status: Chronic Assessment and plan: -chronic due to cirrhosis -stable (7) Tobacco abuse Current Visit: No Status: Chronic Assessment and plan: -tobacco cessation encouraged (8) DVT prophylaxis Current Visit: No Status: Acute Assessment and plan: sub q heparin - Time Spent With Patient Total time spent is greater than 50% in coordination of care (as documented) at patient's floor/unit and/or counseling patient: Greater than 35 minutes
[2017-12-02] MEDS: Furosemide 40 MG TABLET PO SCH (08:53)
[2017-12-02] MEDS: Cholecalciferol (D-3) 1,000 UNIT TABLET PO SCH (08:53)
[2017-12-02] MEDS: Zinc Sulfate 220 MG CAPSULE PO SCH ×2 (09:00→16:14)
[2017-12-02] MEDS: Lactulose Oral Soln 20 GM/30 ML UDC PO SCH ×3 (09:00→16:14)
[2017-12-02] MEDS: Budesonide/Formoterol 160/4.5 1 PUFF INH IH SCH ×2 (11:07→19:52)
[2017-12-02] MEDS: *HR* Heparin 5,000 UNIT/ML VIAL SQ SCH (17:52)
[2017-12-02] MEDS: Levofloxacin 750 MG/150 ML 750 MG/150 ML BAG IVPB SCH (20:00)
[2017-12-03] MEDS: Zinc Sulfate 220 MG CAPSULE PO SCH ×2 (00:15→09:19)
[2017-12-03] MEDS: Furosemide 40 MG TABLET PO SCH ×2 (00:16→09:19)
[2017-12-03] MEDS: Lactulose Oral Soln 20 GM/30 ML UDC PO SCH ×5 (00:16→22:21)
[2017-12-03] MEDS ORDERED: Neosporin OINT 1 APPL PACKET TP ONE (00:55)
[2017-12-03 03:24] LABS: Basophils % 0.3 %; Mean Corpuscular HGB Conc 33.7 g/dL (31.6-35.5); Mean Platelet Volume 11.7 fL (9.4-12.4); Red Cell Distribution Width 14.5 % (11.5-14.5)
[2017-12-03 03:25] LABS: Eosinophils # 0.1 K/mcL (0.0-0.6); Eosinophils % 1.6 %; Hematocrit 42.7 % (35.3-44.9); Hemoglobin 14.4 g/dL (11.5-15.4); Immature Granulocytes % 0.3 % (0-4); Immature Platelets 8.9 % (1.1-6.1); Lymphocytes # 0.6 K/mcL (0.6-4.6); Lymphocytes % 18.9 %; Mean Corpuscular Hemoglobin 32.4 pg (28.0-33.3); Mean Corpuscular Volume 96.2 fL (83.0-100.0); Monocytes # 0.3 K/mcL (0.0-1.3); Monocytes % 9.6 %; Neutrophils # 2.2 K/mcL (1.6-8.9); Red Blood Count 4.44 M/mcL (3.82-4.97); Segmented Neutrophils % 69.3 %
[2017-12-03 03:26] LABS: Platelet Count 36 K/mcL (140-400)
[2017-12-03 03:45] LABS: BUN/Creatinine Ratio 21 (6-26); Blood Urea Nitrogen 12 mg/dL (8-23); Calcium 8.9 mg/dL (8.6-10.3); Carbon Dioxide 30 mEq/L (23-29); Chloride 103 mEq/L (98-107); Glucose 110 mg/dL (70-105); Magnesium 1.7 mg/dL (1.6-2.6); Osmolality,Calculated 284 (280-300); Phosphorous 3.6 mg/dL (2.7-4.5); Potassium 3.9 mEq/L (3.5-5.1); Sodium 137 mEq/L (136-145); eGFR For Non-African Americans > 60 (> 60)
[2017-12-03] MEDS: traMADol 50 MG TABLET PO PRN ×2 (04:15→15:46)
[2017-12-03] MEDS: *HR* Heparin 5,000 UNIT/ML VIAL SQ SCH (06:49)
[2017-12-03] MEDS: Budesonide/Formoterol 160/4.5 1 PUFF INH IH SCH ×2 (08:07→21:47)
[2017-12-03] MEDS: Cholecalciferol (D-3) 1,000 UNIT TABLET PO SCH (09:22)
[2017-12-03] MEDS: Levofloxacin 750 MG/150 ML 750 MG/150 ML BAG IVPB SCH (09:22)
[2017-12-03 14:28] LABS: Hematocrit 37.7 % (35.3-44.9); Hemoglobin 13.1 g/dL (11.5-15.4)
[2017-12-03] MEDS: Ondansetron 4 MG/2 ML VIAL IVP PRN ×2 (15:38→19:28)
[2017-12-03] MEDS ORDERED: SODIUM CHLORIDE/NAHCO3/KCL/PEG 4,000 ML SOLN.RECON PO ONE (16:51)
[2017-12-03] MEDS ORDERED: Polyethylene Glycol 3350 255 GM POWDER PO PRN (16:53)
[2017-12-03] MEDS ORDERED: Furosemide 40 MG TABLET PO SCH (17:00)
[2017-12-03] MEDS ORDERED: 0.9 % Sodium Chloride 1,000 ML ONE ×4 (17:13→20:06)
[2017-12-03] MEDS ORDERED: 0.9 % Sodium Chloride 250 ML ONE (17:30)
[2017-12-03] MEDS ORDERED: Pantoprazole 40 MG VIAL IVP ONE (17:32)
[2017-12-03 17:55] LABS: Eosinophils % 0.4 %; Red Cell Distribution Width 14.9 % (11.5-14.5)
[2017-12-03 17:57] LABS: Basophils % 0.1 %; Hematocrit 31.8 % (35.3-44.9); Hemoglobin 10.3 g/dL (11.5-15.4); Immature Granulocytes % 0.9 % (0-4); Immature Platelets 11.7 % (1.1-6.1); Lymphocytes # 1.6 K/mcL (0.6-4.6); Lymphocytes % 14.1 %; Mean Corpuscular HGB Conc 32.4 g/dL (31.6-35.5); Mean Corpuscular Hemoglobin 31.7 pg (28.0-33.3); Mean Corpuscular Volume 97.8 fL (83.0-100.0); Monocytes # 0.5 K/mcL (0.0-1.3); Monocytes % 4.9 %; Neutrophils # 8.8 K/mcL (1.6-8.9); Platelet Count 101 K/mcL (140-400); Red Blood Count 3.25 M/mcL (3.82-4.97); Segmented Neutrophils % 79.6 %
[2017-12-03 18:00] LABS: INR 1.7; Prothrombin Time 18.9 Seconds (9.4-12.1)
[2017-12-03] MEDS ORDERED: 0.9 % Sodium Chloride 2,000 ML ONE (18:20)
[2017-12-03] MEDS ORDERED: Octreotide 50 MCG/ML SYRINGE IVP ONE (18:46)
[2017-12-03] MEDS: Norepinephrine 4 MG in D5% in Water 250 ML IVC SCH (19:00)
--- NOTE | 2017-12-03 19:08 | General Surgery Procedure Note ---
Date of procedure: 12/03/17 Pre-op diagnosis: Acute GI hemorrhage, hypotension; request for central line Post-op diagnosis: same Procedure: Placement 16 cm, 7-Indonesian, 3 lumen central line via right subclavian vein Complications: None apparent Anesthesia: local (5 mL 1% lidocaine) Surgeon: Donnie Aviles Estimated blood loss (cc): 0 Pathology: none sent Condition: critical Disposition: ICU (Called urgently for central venous access for this acutely hypotensive patient. Surgical consent was obtained from the patient's daughter. The patient was in steep Trendelenburg. The patient was awake and alert enough to give verbal consent for the procedure. The right infraclavicular chest was prepped and draped in usual sterile fashion. The surgeon was gowned, gloved, capped and mask. A whole body drape was placed. 5 mL of 1% lidocaine with 1 100,000 epinephrine was infiltrated into the infraclavicular chest. Using an 18-gauge needle, the right subclavian vein was located without difficulty. At no time was aspirated. The technique described by Seldinger, a guidewire was inserted, the needle extracted. Contract was incised and dilated. A 16 cm, 7Fr, 3 lumen central venous catheter was passed over the guidewire. The catheter was secured to the infraclavicular chest with 3-0 silk. The guidewire was extracted. The 3 ports aspirated easily for blood and were flushed with saline. A dry sterile dressing was applied. The patient had bilateral equal breath sounds at the completion of the line placement. Chest x-ray was also obtained demonstrating no evidence of a pneumothorax with appropriate positioning of the central venous line.)
[2017-12-03] MEDS: Octreotide 400 MCG in 0.9 % Sodium Chloride 100 ML IVC SCH (19:15)
[2017-12-03] MEDS: Pantoprazole 40 MG in 0.9 % Sodium Chloride Mini Bag 100 ML IVC SCH ×2 (19:30→23:30)
[2017-12-03 19:52] LABS: BUN/Creatinine Ratio 16 (6-26); Blood Urea Nitrogen 16 mg/dL (8-23); Calcium 7.6 mg/dL (8.6-10.3); Carbon Dioxide 25 mEq/L (23-29); Chloride 109 mEq/L (98-107); Glucose 133 mg/dL (70-105); Osmolality,Calculated 293 (280-300); Potassium 4.5 mEq/L (3.5-5.1); Sodium 140 mEq/L (136-145); eGFR For Non-African Americans 54 (> 60)
[2017-12-03] MEDS ORDERED: 0.9 % Sodium Chloride 500 ML ONE ×2 (20:05→21:48)
[2017-12-03] MEDS ORDERED: *HR* Promethazine 25 MG/ML VIAL ONE (20:53)
[2017-12-03] MEDS ORDERED: *HR* Promethazine 25 MG/ML VIAL IVP ONE (20:55)
--- NOTE | 2017-12-03 20:58 | Event Note ---
Date of Encounter: 12/03/17 Time of Encounter: 17:00 Notified by nursing staff approximately 1700 that patient was hypotensive; IV fluid bolus was ordered. Nurse shortly thereafter reported that she seemed lethargic. On assessment of the patient she was found on the toilet incoherent, pale and appeared diaphoretic with bloody stool; a rapid response was called. Patient was fluid resuscitated and patient placed in the Trendelenburg position. IV fluid resuscitation was continued and patient was transfused blood due to drop in hemoglobin which was now 10.3 from 13.1 earlier this morning. General surgery was curbside for a stat central line which was placed and Levophed was started due to hemorrhagic shock secondary to lower GI bleed. Patient was transferred to the ICU and GI was notified of patients deteriorating condition due to lower GI bleed. In the ICU, patient received over 5 L of fluids, 4 units of packed red blood cells, 6 packs of platelets and 2 FFP while on vasopressor Levophed.
--- NOTE | 2017-12-03 20:58 | Internal Med Progress Note ---
Hospitalist Progress Note - Encounter Date of Encounter: 12/03/17 Time of Encounter: 11:00 - Subjective Interval History: Patient this morning complaining of right lower abdominal discomfort. Nurse also reported of a new onset of bloody diarrhea this morning. Discussed with GI with recommendations for colonoscopy on 12/04/17. - Exam Vitals: Temp Pulse Resp BP Pulse Ox 98.1 F 116 15 88/54 96 12/03/17 20:47 12/03/17 20:47 12/03/17 20:47 12/03/17 20:47 12/03/17 20:47 Exam: Gen.: Nonacute distress, alert and oriented 3 ENT: Mucosal membranes moist Respiratory: Lungs are clear to auscultation bilaterally without any wheezing rhonchi or rales Cardiovascular: Normal S1 and S2 regular rate rhythm no murmurs rubs or gallops Abdomen: Soft, distended with right lower quadrant tenderness to palpation Extremities: No lower extremity edema Skin: Pale - Assessment and Plan (1) Lower GI hemorrhage Current Visit: Yes Status: Acute Assessment and Plan: Nurse reported earlier this morning of a new onset of bloody diarrhea Hemoglobin was 13.1 Discussed with GI with recommendations for colonoscopy on 12/04/17 (2) Ascites Current Visit: Yes Status: Acute Assessment and Plan: Abdominal ultrasound on 12/02/17 showed no significant ascites No further intervention at this time Patient to continue Lasix and Aldactone (3) Thrombocytopenia Current Visit: No Status: Chronic Assessment and Plan: Secondary to chronic cirrhosis; platelets stable Continue to monitor (4) Chronic hepatitis Current Visit: Yes Status: Acute Assessment and Plan: Patient with history of hepatitis B and C per daughter who is at bedside (5) Community acquired bacterial pneumonia Current Visit: Yes Status: Acute Assessment and Plan: Chest x-ray showed small moderate size right pleural effusion and adjacent airspace disease with concerns for pneumonia Patient without leukocytosis and afebrile without any upper respiratory symptoms Continue IV Levaquin (6) Pleural effusion Current Visit: Yes Status: Acute Assessment and Plan: Right sided effusion as aboves Continue antibiotics for pneumonia Continue to monitor (7) Tobacco abuse Current Visit: No Status: Chronic Assessment and Plan: Tobacco cessation encouraged (8) Morbid obesity with BMI of 45.0-49.9, adult Current Visit: No Status: Chronic Assessment and Plan: Lifestyle modifications encouraged (9) DVT prophylaxis Current Visit: No Status: Acute Assessment and Plan: sub q heparin - Time Spent with Patient Total time spent is greater than 50% in coordination of care (as documented) at patient's floor/unit and/or counseling patient: Internal Medicine: Result - Labs CBC & Chem 7: 12/04/17 06:50 12/03/17 19:04 Labs: Short CBC 12/03/17 12/03/17 12/03/17 Range/Units 02:39 13:59 17:42 WBC 3.1 L 11.1 D (4.3-11.1) K/mcL Hgb 14.4 13.1 10.3 L D (11.5-15.4) g/dL Hct 42.7 37.7 31.8 L (35.3-44.9) % Plt Count 36 L 101 L D (140-400) K/mcL Neutrophils # 2.2 8.8 (1.6-8.9) K/mcL BMP 12/03/17 12/03/17 02:39 19:04 Sodium 137 140 Potassium 3.9 4.5 Chloride 103 109 H Carbon Dioxide 30 H 25 BUN 12 16 Creatinine 0.58 L 1.03 Glucose 110 H 133 H Calcium 8.9 7.6 L - ABG Interpretation ABG results: PT/INR, D-dimer PT 18.9 Seconds (9.4-12.1) H 12/03/17 17:42 - Impressions Impressions Chest X-Ray 12/03/17 18:35 IMPRESSION: Central line as described. No pneumothorax Asymmetric interstitial prominence, right greater than left. This is age indeterminate D/ / Justin Maloney / Justin Maloney Interpreting Provider: Justin Maloney Consult Discharge Plan - Plan Referrals: Lakisha Cunha, TMR TEACHER [Primary Care Provider] - (2) Ascites Qualifiers: Ascites type: other type Qualified Code(s): R18.8 - Other ascites
[2017-12-03 21:44] LABS: ABG Base Excess -7 mEq/L (-2 to 3); ABG HCO3 20 mEq/L (21-27); ABG Oxygen Saturation 90 % (95-98); ABG PCO2 44 mmHg (35-45); ABG PH 7.26 pH Units (7.32-7.45); ABG PO2 66 mmHg (85-104); ABG TCO2 21 mEq/L (20-26)
[2017-12-03] MEDS ORDERED: Ringers Solution, Lactated 1,000 ML IVC ONE (22:19)
[2017-12-03] MEDS: *HR* Buprenorphine HCl 2 MG SUBLINGUAL TABLET SL SCH (22:21)
--- NOTE | 2017-12-04 00:33 | Procedure Note ---
Date of procedure: 12/04/17 Pre-op diagnosis: Hypotension, GI bleed Post-op diagnosis: same Procedure: Arterial line placement: Written consent was obtained from the patient. The left and right wrists were surveyed using ultrasound and the right wrist was deemed to be suitable target. The patient was cleaned and draped in the usual sterile fashion. Under ultrasound guidance the introducer needle was advanced into the right radial artery. Bright red, pulsatile blood flow was returned. The guidewire was advanced through the needle and into the artery without resistance. A small breezy in the skin was made and the arterial line catheter was advanced over the guidewire and into the artery. The guidewire was removed intact. The catheter was hooked up to a pressure transduction system which revealed an arterial waveform. The catheter was then sutured in place and sterile dressing was applied. The patient tolerated the procedure well, there were no immediate competitions. Dr. Megan Garcia assisted with the procedure. Anesthesia: local (3cc 1% lidocaine) Surgeon: Michael Duran Was there an research program assistant present: Yes Internet Marketing Consultant: Megan Garcia Estimated blood loss (cc): 5 Specimen: none Condition: critical Disposition: ICU
[2017-12-04 01:33] LABS: INR 1.6; Prothrombin Time 17.9 Seconds (9.4-12.1)
[2017-12-04] MEDS ORDERED: Ringers Solution, Lactated 1,000 ML IVC ONE ×2 (02:54→06:26)
[2017-12-04] MEDS ORDERED: Ringers Solution, Lactated 1,000 ML ONE ×2 (03:05→06:27)
[2017-12-04] MEDS: Pantoprazole 40 MG in 0.9 % Sodium Chloride Mini Bag 100 ML IVC SCH ×5 (04:40→23:13)
[2017-12-04 07:05] LABS: Hematocrit 26.1 % (35.3-44.9); Hemoglobin 8.9 g/dL (11.5-15.4)
[2017-12-04] MEDS: Levofloxacin 750 MG/150 ML 750 MG/150 ML BAG IVPB SCH (08:18)
--- NOTE | 2017-12-04 08:54 | Gastroenterology Consult Note ---
<Natalya Naqvi - Last Filed: 12/04/17 15:19> Date of Encounter: 12/04/17 Time of Encounter: 08:20 - Assessment and plan (1) Lower GI hemorrhage Current Visit: Yes Status: Acute Assessment and plan: G.I. bleed in setting of liver cirrhosis, hepatitis B and C. Etiology may be diverticulosis. Unlikely ischemic colitis or varicele bleed. Yesterday hemoglobin dropped from 13.1 to 10.3. She had had a large bloody bowel movement and was noted to be hypotensive requiring stat central line placement and started on levophed then transferred to the ICU. She received 5 L of IVF, 4 units PRBC, 2 packs of plasma, 1 pack of platelets. She was started on octreotide drip and protonix drip. While receiving the blood transfusions she was noted to have another large bloody bowel movement and 2 small bloody bowel movements. HSe had non bloody emesis yesterday. -Colonoscopy 07/05/[address] Quigley: 1 nonbleeding polyp in ascending colon and 2 nonbleeding polyps in sigmoid colon. -Hemoglobin 8.9 and hematocrit 26.1 -INR 1.6 PT 17.9 -lactic acid 1.5 (2.7) -BP 97/59 tachycardic 106, no longer requiring vasopressor support -1 moderate sized liquid bright red blood stool this morning Plan: -will observe the patient today and monitor for continued bleeding. EGD tomorrow , NPO midnight. Colonoscopy Friday. -clear liquid diet -STAT nuclear medicine bleeding scan to determine where the bleeding is. -ordered 1 unit PRBC -ordered 2 units FFP -continue Protonix -stop octreotide -monitor H&H, transfuse as needed -hold NSAIDs (2) Anemia Current Visit: Yes Status: Acute Assessment and plan: Normocytic anemia secondary to G.I. bleed Hemoglobin 8.9 and hematocrit 26.1 -Plan as above Qualifiers: Anemia type: unspecified type Qualified Code(s): D64.9 - Anemia, unspecified (3) Thrombocytopenia Current Visit: No Status: Chronic Assessment and plan: Thrombocytopenia secondary to liver cirrhosis. Platelets 101 transfused 1 unit platelets -will continue to monitor (4) Ascites Current Visit: Yes Status: Acute Assessment and plan: Likely secondary to his liver cirrhosis. Not concerning for SPB. No fever, chills, abdominal pain. Abdominal ultrasound demonstrated a small amount of ascites. s/p Paracentesis by interventional radiology -peritoneal fluid studies pending -Continue Aldactone and Lasix Qualifiers: Ascites type: other type Qualified Code(s): R18.8 - Other ascites (5) Cirrhosis of liver Current Visit: No Status: Chronic Assessment and plan: Cirrhosis of liver secondary to hepatitis B & C. She has a hepatology at the [facility] in [place] for which she is on the liver transplant list. MELD score 10 AST 27 ALT 12 alkaline phosphatase 64 INR 1.6 PT 17.9 total bilirubin 1.3 direct bilirubin 0.4 and direct bilirubin 0.9 -Continue Aldactone and Lasix Qualifiers: Hepatic cirrhosis type: unspecified hepatic cirrhosis Ascites presence: with ascites Qualified Code(s): K74.60 - Unspecified cirrhosis of liver; R18.8 - Other ascites (6) Increased ammonia level Current Visit: No Status: Acute Assessment and plan: Secondary to liver cirrhosis. Elevated ammonia level 125. Patient is alert and oriented times 3 with no hepatic encephalopathy. -Continue lactulose (7) Chronic hepatitis Current Visit: Yes Status: Acute Assessment and plan: Patient reported known history of hepatitis B and C. 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 She denies current use of drugs. -The patient did report that she takes Subutex a few times a week that she gets from a friend. She is not prescribed this. She should not be taking this as she is on the liver transplant list. (8) Community acquired bacterial pneumonia Current Visit: Yes Status: Acute Assessment and plan: Chest x-ray demonstrated pneumonia with right pleural effusion currently being treated with antibiotics. -Management per primary team - Time Spent With Patient Total time spent is greater than 50% in coordination of care (as documented) at patient's floor/unit and/or counseling patient: GI History of Present Illness - Data of Consult Patient: known to practice within the last 3 years Consult date: 12/03/17 Requesting Physician: John Mo - Consult Narrative Reason for consult: new bright red rectal bleeding History of present illness: Ms. Sousa is a 62 year old female with a PMH of COPD, cirrhosis, hepatitis B&C who presented to [facility] due to shortness of breath and cough and was found to have pneumonia with right-sided pleural effusion. Gastroenterology was consulted 12/03/2017 due to hemorrhagic shock secondary to new onset bright red rectal bleeding yesterday from for G.I. bleed. At that time she had a bloody bowel movement and her hemoglobin dropped from 13.1 to 10.3, and she was noted to be hypotensive requiring stat central line placement and started on levophed then transferred to the ICU. She received 5 L of IVF, 4 units PRBC, 2 packs of plasma, 1 pack of platelets. While receiving the blood transfusions she was noted to have another large bloody bowel movement and 2 small bloody bowel movements. Abdominal ultrasound demonstrated ascites for which interventional radiology performed a paracentesis with peritoneal studies pending. Upon examination of the patient she stated that she has never had melena or hematechezia before. She reported that she felt fine today and denied dizziness , lightheadedness, abdominal pain, nausea, vomiting, fever, chills. The patient sees a display director at the [facility] in [place] and is on the liver transplant list. She denies taking NSAIDS, alcohol. She does admit to taking subutex a few times a week that she gets from a friend and is not prescribed it. She denies current drug use but 30 years ago she used to use IV drugs injecting cocaine. Last colonoscopy was on 07/05/[address] Quigley which demonstrated one non-bleeding polyp in the ascending colon, to nonbleeding polyps in the sigmoid colon. Colonoscopy: 07/05/2015 Past Med Surg Social Fam HX - Past Medical History Attestation: Yes The following information was validated with the patient. Source: patient Medical history: arthritis, cirrhosis, COPD, hepatitis, liver disease, other Additional medical history: hep.C&B Psychiatric history: no psych history - Past Surgical History Surgical History: , cholecystectomy, orthopedic, other Additional surgical history: bilateral knees - Social History Smoking Status: Current every day smoker Smokeless Tobacco Status: No Alcohol use: none Drug use: none - Family History Father History Unknown: Yes Name: Alvin Family Member Ethnicity: Non- Living Status: Age at : 85 Hx Family Respiratory Disorders: Yes (copd) Mother Name: Vero Age: 80 Family Member Ethnicity: Non- Living Status: Still Living - Gastrointestinal Gastrointestinal: Present: hematochezia. Absent: abdominal pain, coffee ground emesis, hematemesis - Constitutional Constitutional: fatigue - Respiratory Respiratory IM: Present: cough, dyspnea, wheezing. Absent: hemoptysis - Neurological ROS Neurological GI: Absent: confusion, headache(s) - Hematologic/Lymphatic Hematologic/Lymphatic pediatric: Absent: easy bleeding - Musculoskeletal Musculoskeletal ROS GI: Present: back pain - Integumentary Integumentary GI: Absent: jaundice, rash - Endocrine Endocrine IM: Present: fatigue - Constitutional Vitals: Temp Pulse Resp BP Pulse Ox 99.4 F 104 12 91/60 97 12/04/17 08:00 12/04/17 08:00 12/04/17 08:00 12/04/17 08:00 12/04/17 08:00 Exam: Gen.: Vitals noted. No acute distress. AAOx3 HEENT: oropharynx clear, Normocephalic, atraumatic, no jaundice or scleral icterus Neck: Supple. No adenopathy. Cardiac: tachycardic, systolic murmur Pulmonary: bilaterally rales and rhonchi, equal chest expansion Abdomen: soft, nontender, Bowel sounds noted, no guarding Extremities: non pitting BLE edema, nontender calf Neuro: A&Ox3, moves all extremities, no focal deficits Psych: Appropriate mood and behavior Results - Labs CBC & Chem 7: 12/04/17 06:50 12/03/17 19:04 Labs: Last Result Calcium 7.6 mg/dL (8.6-10.3) L 12/03/17 19:04 Troponin I < 0.03 ng/mL (< 0.04) 12/01/17 19:52 Entire Visit Hgb 8.9 g/dL (11.5-15.4) L D 12/04/17 06:50 Hct 26.1 % (35.3-44.9) L 12/04/17 06:50 PT 17.9 Seconds (9.4-12.1) H 12/04/17 01:07 Total Bilirubin 1.3 mg/dL (0.3-1.0) H 12/01/17 19:52 AST 27 Units/L (13-39) 12/01/17 19:52 ALT 12 Units/L (7-52) 12/01/17 19:52 - ABG ABG results: ABG ABG pH 7.26 pH Units (7.32-7.45) L 12/03/17 21:40 ABG pCO2 44 mmHg (35-45) 12/03/17 21:40 ABG pO2 66 mmHg (85-104) L 12/03/17 21:40 ABG O2 Saturation 90 % (95-98) L 12/03/17 21:40 PT/INR, D-dimer PT 17.9 Seconds (9.4-12.1) H 12/04/17 01:07 - Impressions Impressions Chest X-Ray 12/03/17 18:35 IMPRESSION: Central line as described. No pneumothorax Asymmetric interstitial prominence, right greater than left. This is age indeterminate D/ / Justin Maloney / Justin Maloney Interpreting Provider: Justin Maloney Consult Discharge Plan - Plan Referrals: Lakisha Cunha, AUDIO VIDEO TECHNICIAN [Primary Care Provider] - <Matt Tolbert - Last Filed: 12/08/17 00:37> Date of Encounter: 12/04/17 - Time Spent With Patient Total time spent is greater than 50% in coordination of care (as documented) at patient's floor/unit and/or counseling patient: GI History of Present Illness - Data of Consult Patient: known to practice within the last 3 years Requesting Physician: John Mo - Consult Narrative History of present illness: Ms. Sousa is a 62 year old female - Constitutional Vitals: Temp Pulse Resp BP Pulse Ox 98.1 F 93 18 105/77 98 12/07/17 16:31 12/07/17 16:31 12/07/17 20:01 12/07/17 16:31 12/07/17 20:01 Results - Labs CBC & Chem 7: 12/07/17 11:50 12/07/17 11:50 Labs: Last Result Calcium 8.5 mg/dL (8.6-10.3) L 12/07/17 11:50 Troponin I < 0.03 ng/mL (< 0.04) 12/01/17 19:52 Entire Visit Hgb 9.6 g/dL (11.5-15.4) L 12/07/17 11:50 Hct 29.4 % (35.3-44.9) L 12/07/17 11:50 PT 17.9 Seconds (9.4-12.1) H 12/04/17 01:07 Total Bilirubin 1.3 mg/dL (0.3-1.0) H 12/01/17 19:52 AST 27 Units/L (13-39) 12/01/17 19:52 ALT 12 Units/L (7-52) 12/01/17 19:52 Ammonia 116 mcmol/L (16-53) H 12/06/17 06:34 - ABG ABG results: ABG ABG pH 7.26 pH Units (7.32-7.45) L 12/03/17 21:40 ABG pCO2 44 mmHg (35-45) 12/03/17 21:40 ABG pO2 66 mmHg (85-104) L 12/03/17 21:40 ABG O2 Saturation 90 % (95-98) L 12/03/17 21:40 PT/INR, D-dimer PT 17.9 Seconds (9.4-12.1) H 12/04/17 01:07 - Attending Attestation Patient presented with shortness of breath and hematochezia but, then developed several episodes of hematochezia and then hypotension on pressor support and transfer to ICU. She has cirrhosis and has had an extensive workup at the [facility] in [place] a few months ago. Bleeding appears to be LGI in origin. Plan closely monitor today and plan EGD friday and colonoscopy on Friday. 4 units of packed cells (eventually a total of 5) 2 units of FFP initially - will recommend two more today for elevated INR given to patient. Ischemic colitis, neoplasm, AVM, C difficile in differential.. I examined this patient and my medical decision-making was reviewed with the Resident Physician. I agree with the documented findings, disposition and treatment plan as described except to the extent set forth below.
[2017-12-04] MEDS: Cholecalciferol (D-3) 1,000 UNIT TABLET PO SCH (09:07)
[2017-12-04] MEDS: Lactulose Oral Soln 20 GM/30 ML UDC PO SCH ×5 (09:07→19:44)
[2017-12-04] MEDS: Zinc Sulfate 220 MG CAPSULE PO SCH (09:07)
[2017-12-04] MEDS: *HR* Buprenorphine HCl 2 MG SUBLINGUAL TABLET SL SCH (09:07)
[2017-12-04] MEDS: Octreotide 400 MCG in 0.9 % Sodium Chloride 100 ML IVC SCH (09:23)
[2017-12-04] MEDS: Budesonide/Formoterol 160/4.5 1 PUFF INH IH SCH ×2 (09:27→21:18)
[2017-12-04] MEDS ORDERED: 0.9 % Sodium Chloride 1,000 ML ONE (09:47)
--- NOTE | 2017-12-04 10:03 | Pulmonology History & Physical ---
Date of Encounter: 12/04/17 History of Present Illness HPI: Ms. Sousa is a 62 year old female Past Med Surg Social Fam HX - Past Medical History Medical history: arthritis, cirrhosis, COPD, hepatitis, liver disease, other Additional medical history: hep.C&B Psychiatric history: no psych history - Past Surgical History Surgical History: , cholecystectomy, orthopedic, other Additional surgical history: bilateral knees - Social History Smoking Status: Current every day smoker Smokeless Tobacco Status: No Alcohol use: none Drug use: none - Family History Father History Unknown: Yes Name: Alvin Family Member Ethnicity: Non- Living Status: Age at : 85 Hx Family Respiratory Disorders: Yes (copd) Mother Name: Vero Age: 80 Family Member Ethnicity: Non- Living Status: Still Living Medications and Allergies Albuterol Sulfate [Proair Hfa] 2 puff IH Q4H PRN 06/29/16 [History] Budesonide/Formoterol 160/4.5 [Symbicort 160/4.5] 2 puff IH BIDR 04/30/17 [ History] Lactulose 30 ml PO QID 05/08/17 [History] Cholecalciferol (Vitamin D3) [Vitamin D3] 50,000 unit PO QWEEK 07/04/17 [History ] Furosemide [Lasix] 40 mg PO BID 07/04/17 [History] Spironolactone [Aldactone] 50 mg PO BID 07/04/17 [History] Zinc Sulfate 220 mg PO DAILY 07/04/17 [History] 3 Allergy/AdvReac Type Severity Reaction Status Date / Time doxycycline AdvReac Nausea Verified 05/14/17 09:06 Penicillins AdvReac See Verified 05/14/17 09:06 Comments All Systems: The remainder of the systems were reviewed and are negative Physical Examination Vital Signs: Vital Signs, Last 4 Hours Temp Pulse Resp BP Pulse Ox 12/04/17 10:00 106 12 89/55 96 12/04/17 09:28 14 96 12/04/17 09:00 108 14 89/63 96 12/04/17 08:00 99.4 F 104 12 91/60 97 12/04/17 07:00 102 12 97/65 98 Results - Laboratory Findings CBC and BMP: 12/04/17 06:50 12/03/17 19:04 ABG ABG pH 7.26 pH Units (7.32-7.45) L 12/03/17 21:40 ABG pCO2 44 mmHg (35-45) 12/03/17 21:40 ABG pO2 66 mmHg (85-104) L 12/03/17 21:40 ABG O2 Saturation 90 % (95-98) L 12/03/17 21:40 PT/INR, D-dimer PT 17.9 Seconds (9.4-12.1) H 12/04/17 01:07 Abnormal lab findings: Abnormal lab results RBC 3.25 M/mcL (3.82-4.97) L 12/03/17 17:42 Hgb 8.9 g/dL (11.5-15.4) L D 12/04/17 06:50 Hct 26.1 % (35.3-44.9) L 12/04/17 06:50 RDW 14.9 % (11.5-14.5) H 12/03/17 17:42 Plt Count 101 K/mcL (140-400) L D 12/03/17 17:42 Immature Plt Fraction 11.7 % (1.1-6.1) H 12/03/17 17:42 PT 17.9 Seconds (9.4-12.1) H 12/04/17 01:07 ABG pH 7.26 pH Units (7.32-7.45) L 12/03/17 21:40 ABG pO2 66 mmHg (85-104) L 12/03/17 21:40 ABG HCO3 20 mEq/L (21-27) L 12/03/17 21:40 ABG O2 Saturation 90 % (95-98) L 12/03/17 21:40 ABG Base Excess -7 mEq/L (-2 to 3) L 12/03/17 21:40 Chloride 109 mEq/L (98-107) H 12/03/17 19:04 Est GFR (Non-Af Amer) 54 (> 60) L 12/03/17 19:04 Glucose 133 mg/dL (70-105) H 12/03/17 19:04 POC Glucose 135 mg/dL (70-99) H 12/04/17 04:09 Calcium 7.6 mg/dL (8.6-10.3) L 12/03/17 19:04 Total Bilirubin 1.3 mg/dL (0.3-1.0) H 12/01/17 19:52 Direct Bilirubin 0.4 mg/dL (0.0-0.2) H 12/01/17 19:52 Ammonia 125 mcmol/L (16-53) H 12/04/17 09:12 Albumin 2.9 g/dL (3.5-5.7) L 12/02/17 07:58 Globulin 3.6 g/dL (2.4-3.5) H 12/01/17 19:52 Albumin/Globulin Ratio 0.9 (1.1-2.2) L 12/01/17 19:52
--- NOTE | 2017-12-04 10:46 | Pulmonology Consult Note ---
<Terrance Conde S - Last Filed: 12/04/17 16:28> Date of Encounter: 12/04/17 Time of Encounter: 08:30 Assessment and Plan (1) Lower GI hemorrhage Current Visit: Yes Status: Acute Hgb 12 > 8.9 INR 1.6 BP 97/59, HR 109 Gastroenterology on consult Ordered nuclear med scan to see source of bleeding Likely EGD tomorrow with colonoscopy to follow NPO at midnight Ordered 1 unit PRBC Ordered 2 units FFP Continue protonix Discontinued octreotide hold NSAIDS (2) Hypotension Current Visit: Yes Status: Acute BP 105/74 Likely 2/2 GI bleed Nuclear med scan to determine source of bleed Continue levophed Will give IV fluids if needed Qualifiers: Hypotension type: hypotension due to hypovolemia Qualified Code(s): I95.89 - Other hypotension; E86.1 - Hypovolemia (3) Ascites Current Visit: Yes Status: Acute IR was consulted for paracentesis upon arrival Patient has history of ascites with paracentesis in April 2017 Qualifiers: Ascites type: other type Qualified Code(s): R18.8 - Other ascites (4) Chronic hepatitis Current Visit: Yes Status: Acute Patient has history of Hep B and C Gastroenterology on consult Ammonia elevated at 125 Continue lactulose AST and ALT within normal limits No jaundice or scleral icterus on exam (5) Pleural effusion Current Visit: Yes Status: Acute CXR consistent with right sided small/moderate pleural effusion Patient saturating at 98% on 2L nasal cannula Patient denies SOB now Will continue to monitor for now, may consider thoracentesis if condition worsens (6) SOB (shortness of breath) Current Visit: Yes Status: Acute Patient on 2L NC saturating at 98% Continue albuterol PRN Continue symbicort BID Patient denies SOB now (7) Community acquired pneumonia Current Visit: No Status: Acute Chief complaint of SOB with productive cough CXR showed right sied pleural effusion with adjacent airspace disease WBC 11.1 today On IV levaquin day 3 Qualifiers: Laterality: right Lung location: lower lobe of lung Qualified Code(s): J18.1 - Lobar pneumonia, unspecified organism (8) Thrombocytopenia Current Visit: No Status: Chronic Likely secondary to cirrhosis Platelets 101 Transfused 1 unit of platelets Continue to monitor (9) Systolic murmur Current Visit: Yes Status: Acute Ordered echo Patient on 2L NC Denies SOB, CP (10) Anemia Current Visit: Yes Status: Acute Hgb 12 > 8.9 today Likely 2/2 acute GI bleed Ordered 1 unit PRBCs Qualifiers: Anemia type: unspecified type Qualified Code(s): D64.9 - Anemia, unspecified (11) DVT prophylaxis Current Visit: No Status: Acute SCDs History of Present Illness Consult date: 12/04/17 Requesting physician: Vick Masters Reason for consult: other (GI bleed with hypotension) Chief complaint: Shortness of breath History of present illness: 62 year old female with PMHx of liver cirrhosis, hep B + C, history of ascites with paracentesis (04/27), and COPD presented to ED with chief complaint of SOB on 12/01. CXR showed small/moderate right side pleural effusion. Patient was started on IV antibiotics for pneumonia. Patient has recurrence of ascites, and IR was consulted for paracentesis. On patient's second day in hospital, she became acutely hypotensive and was given 1L fluid bolus. Nurse noted later patient was diaphoretic with large amount of blood in stool. Surgery consulted for placement of central line and started patient on levophed. Patient was transferred to ICU, and patient received over 5 liters of IV fluids, 4 units of packed red blood cells, 6 packs of platelets, and 2 FFP. GI was consulted for acute GI hemorrhage and started on octreotide and protonix. Patient is lethargic but arousable in ICU. She is resting well on 2L NC. She admits to generalized fatigue. She denies fevers/chills, WILL, SOB, CP, abdominal pain, n/v, and numbness/tingling. Past Med Surg Social Fam HX - Past Medical History Medical history: arthritis, cirrhosis, COPD, hepatitis, liver disease, other Additional medical history: hep.C&B Psychiatric history: no psych history - Past Surgical History Surgical History: , cholecystectomy, orthopedic, other Additional surgical history: bilateral knees - Social History Smoking Status: Current every day smoker Smokeless Tobacco Status: No Alcohol use: none Drug use: none - Family History Father History Unknown: Yes Name: Alvin Family Member Ethnicity: Non- Living Status: Age at : 85 Hx Family Respiratory Disorders: Yes (copd) Mother Name: Vero Age: 80 Family Member Ethnicity: Non- Living Status: Still Living Medications and Allergies Albuterol Sulfate [Proair Hfa] 2 puff IH Q4H PRN 06/29/16 [History] Budesonide/Formoterol 160/4.5 [Symbicort 160/4.5] 2 puff IH BIDR 04/30/17 [ History] Lactulose 30 ml PO QID 05/08/17 [History] Cholecalciferol (Vitamin D3) [Vitamin D3] 50,000 unit PO QWEEK 07/04/17 [History ] Furosemide [Lasix] 40 mg PO BID 07/04/17 [History] Spironolactone [Aldactone] 50 mg PO BID 07/04/17 [History] Zinc Sulfate 220 mg PO DAILY 07/04/17 [History] 3 Allergy/AdvReac Type Severity Reaction Status Date / Time doxycycline AdvReac Nausea Verified 05/14/17 09:06 Penicillins AdvReac See Verified 05/14/17 09:06 Comments All Systems: The remainder of the systems were reviewed and are negative - Constitutional Constitutional: fatigue - Gastrointestinal Gastrointestinal: hematochezia Physical Examination Vital Signs: Vital Signs, Last 4 Hours Temp Pulse Resp BP Pulse Ox 12/04/17 10:00 106 12 89/55 96 12/04/17 09:55 98.3 F 106 12 97/59 97 12/04/17 09:28 14 96 12/04/17 09:00 108 14 89/63 96 12/04/17 08:00 99.4 F 104 12 91/60 97 12/04/17 07:00 102 12 97/65 98 General appearance: lethargic Eyes: nonicteric Effort: normal Auscultation: bilateral: rales Cardiovascular: regular rate and rhythm, murmur noted (Systolic) Gastrointestinal: non-tender, other (distended abdomen) Integumentary: normal Extremities: no cyanosis, edema (+1 pitting edema in lower extremities bilaterally) Musculoskeletal: no deformities normal mental status mood appropriate, affect normal Results - Laboratory Findings CBC and BMP: 12/04/17 06:50 12/03/17 19:04 ABG ABG pH 7.26 pH Units (7.32-7.45) L 12/03/17 21:40 ABG pCO2 44 mmHg (35-45) 12/03/17 21:40 ABG pO2 66 mmHg (85-104) L 12/03/17 21:40 ABG O2 Saturation 90 % (95-98) L 12/03/17 21:40 PT/INR, D-dimer PT 17.9 Seconds (9.4-12.1) H 12/04/17 01:07 Abnormal lab findings: Abnormal lab results RBC 3.25 M/mcL (3.82-4.97) L 12/03/17 17:42 Hgb 8.9 g/dL (11.5-15.4) L D 12/04/17 06:50 Hct 26.1 % (35.3-44.9) L 12/04/17 06:50 RDW 14.9 % (11.5-14.5) H 12/03/17 17:42 Plt Count 101 K/mcL (140-400) L D 12/03/17 17:42 Immature Plt Fraction 11.7 % (1.1-6.1) H 12/03/17 17:42 PT 17.9 Seconds (9.4-12.1) H 12/04/17 01:07 ABG pH 7.26 pH Units (7.32-7.45) L 12/03/17 21:40 ABG pO2 66 mmHg (85-104) L 12/03/17 21:40 ABG HCO3 20 mEq/L (21-27) L 12/03/17 21:40 ABG O2 Saturation 90 % (95-98) L 12/03/17 21:40 ABG Base Excess -7 mEq/L (-2 to 3) L 12/03/17 21:40 Chloride 109 mEq/L (98-107) H 12/03/17 19:04 Est GFR (Non-Af Amer) 54 (> 60) L 12/03/17 19:04 Glucose 133 mg/dL (70-105) H 12/03/17 19:04 POC Glucose 135 mg/dL (70-99) H 12/04/17 04:09 Calcium 7.6 mg/dL (8.6-10.3) L 12/03/17 19:04 Total Bilirubin 1.3 mg/dL (0.3-1.0) H 12/01/17 19:52 Direct Bilirubin 0.4 mg/dL (0.0-0.2) H 12/01/17 19:52 Ammonia 125 mcmol/L (16-53) H 12/04/17 09:12 Albumin 2.9 g/dL (3.5-5.7) L 12/02/17 07:58 Globulin 3.6 g/dL (2.4-3.5) H 12/01/17 19:52 Albumin/Globulin Ratio 0.9 (1.1-2.2) L 12/01/17 19:52 - Diagnostic Findings Chest x-ray: report reviewed, image reviewed - Clinical Findings Intake & Output: Intake & Output 12/03/17 12/04/17 12/04/17 23:59 07:59 15:59 Intake Total 7853.1 / 7853.1 1100 / 1100 204 / 204 Output Total 470 / 470 150 / 150 Balance 7853.1 / 7853.1 630 / 630 54 / 54 Weight 95.2 kg Consult Discharge Plan - Plan Referrals: Lakisha Cunha, LEAD APPLICATIONS DEVELOPER [Primary Care Provider] - <Vick Masters - Last Filed: 12/04/17 20:33> Date of Encounter: 12/04/17 All Systems: The remainder of the systems were reviewed and are negative Physical Examination Vital Signs: Vital Signs, Last 4 Hours Temp Pulse Resp BP Pulse Ox 12/04/17 10:00 106 12 89/55 96 12/04/17 09:55 98.3 F 106 12 97/59 97 12/04/17 09:28 14 96 12/04/17 09:00 108 14 89/63 96 12/04/17 08:00 99.4 F 104 12 91/60 97 12/04/17 07:00 102 12 97/65 98 Results - Laboratory Findings CBC and BMP: 12/04/17 18:10 12/03/17 19:04 ABG ABG pH 7.26 pH Units (7.32-7.45) L 12/03/17 21:40 ABG pCO2 44 mmHg (35-45) 12/03/17 21:40 ABG pO2 66 mmHg (85-104) L 12/03/17 21:40 ABG O2 Saturation 90 % (95-98) L 12/03/17 21:40 PT/INR, D-dimer PT 17.9 Seconds (9.4-12.1) H 12/04/17 01:07 Abnormal lab findings: Abnormal lab results RBC 3.25 M/mcL (3.82-4.97) L 12/03/17 17:42 Hgb 8.9 g/dL (11.5-15.4) L D 12/04/17 06:50 Hct 26.1 % (35.3-44.9) L 12/04/17 06:50 RDW 14.9 % (11.5-14.5) H 12/03/17 17:42 Plt Count 101 K/mcL (140-400) L D 12/03/17 17:42 Immature Plt Fraction 11.7 % (1.1-6.1) H 12/03/17 17:42 PT 17.9 Seconds (9.4-12.1) H 12/04/17 01:07 ABG pH 7.26 pH Units (7.32-7.45) L 12/03/17 21:40 ABG pO2 66 mmHg (85-104) L 12/03/17 21:40 ABG HCO3 20 mEq/L (21-27) L 12/03/17 21:40 ABG O2 Saturation 90 % (95-98) L 12/03/17 21:40 ABG Base Excess -7 mEq/L (-2 to 3) L 12/03/17 21:40 Chloride 109 mEq/L (98-107) H 12/03/17 19:04 Est GFR (Non-Af Amer) 54 (> 60) L 12/03/17 19:04 Glucose 133 mg/dL (70-105) H 12/03/17 19:04 POC Glucose 135 mg/dL (70-99) H 12/04/17 04:09 Calcium 7.6 mg/dL (8.6-10.3) L 12/03/17 19:04 Total Bilirubin 1.3 mg/dL (0.3-1.0) H 12/01/17 19:52 Direct Bilirubin 0.4 mg/dL (0.0-0.2) H 12/01/17 19:52 Ammonia 125 mcmol/L (16-53) H 12/04/17 09:12 Albumin 2.9 g/dL (3.5-5.7) L 12/02/17 07:58 Globulin 3.6 g/dL (2.4-3.5) H 12/01/17 19:52 Albumin/Globulin Ratio 0.9 (1.1-2.2) L 12/01/17 19:52 - Clinical Findings Intake & Output: Intake & Output 12/03/17 12/04/17 12/04/17 23:59 07:59 15:59 Intake Total 7853.1 / 7853.1 1100 / 1100 204 / 204 Output Total 470 / 470 150 / 150 Balance 7853.1 / 7853.1 630 / 630 54 / 54 Weight 95.2 kg - Attending Attestation I examined this patient and my medical decision-making was reviewed with the Resident Physician. I agree with the documented findings, disposition and treatment plan as described except to the extent set forth below. Patient seen and examined. Labs, radiology, chart personally reviewed. 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 GI: Nutrition per dietary and GI prophylaxis per routine. Discussed with GI and bleeding scan and also to have endoscopy, upper and lower. Heme: DVT prophylaxis per routine. Monitor H&H and mechanical DVT prophylaxis because of the bleeding. ID: Continue antibiotics and plan to de-escalation. Empiric treatment with antibiotic can improve the outcome. Renal; urine out put and renal funtion reviewed Endorcine: blood glucose is monitored Lines: all lines checked and no evidence of infections Skin: skin care to prevent pressure ulcers per nursing routine care Thanks for consultation.
[2017-12-04] MEDS: Ondansetron 4 MG/2 ML VIAL IVP PRN (13:13)
[2017-12-04] MEDS: traMADol 50 MG TABLET PO PRN (16:25)
[2017-12-04 18:29] LABS: Hematocrit 26.7 % (35.3-44.9)
[2017-12-04] MEDS: Norepinephrine 4 MG in D5% in Water 250 ML IVC SCH (19:44)
[2017-12-04 23:33] LABS: Hematocrit 26.3 % (35.3-44.9); Hemoglobin 8.8 g/dL (11.5-15.4)
[2017-12-05] MEDS: traMADol 50 MG TABLET PO PRN ×3 (00:16→16:01)
[2017-12-05] MEDS: Pantoprazole 40 MG in 0.9 % Sodium Chloride Mini Bag 100 ML IVC SCH ×4 (04:03→22:00)
[2017-12-05] MEDS: Ondansetron 4 MG/2 ML VIAL IVP PRN (04:07)
[2017-12-05 06:14] LABS: Hematocrit 25.1 % (35.3-44.9); Hemoglobin 8.4 g/dL (11.5-15.4)
--- NOTE | 2017-12-05 07:10 | Pulmonology Progress Note ---
<GuerreroVick M - Last Filed: 12/05/17 10:10> Date of Encounter: 12/05/17 Objective PUL Vital signs: Last Vital Signs Temp 98.2 F 12/05/17 03:33 Pulse 92 12/05/17 06:00 Resp 16 12/05/17 07:30 BP 111/61 12/05/17 06:00 Pulse Ox 95 12/05/17 07:30 Results - Laboratory Findings CBC and BMP: 12/05/17 05:50 12/05/17 07:45 ABG ABG pH 7.26 pH Units (7.32-7.45) L 12/03/17 21:40 ABG pCO2 44 mmHg (35-45) 12/03/17 21:40 ABG pO2 66 mmHg (85-104) L 12/03/17 21:40 ABG O2 Saturation 90 % (95-98) L 12/03/17 21:40 PT/INR, D-dimer PT 17.9 Seconds (9.4-12.1) H 12/04/17 01:07 Abnormal lab findings: Abnormal lab results RBC 2.83 M/mcL (3.82-4.97) L 12/05/17 05:50 Hgb 8.4 g/dL (11.5-15.4) L 12/05/17 05:50 Hct 25.1 % (35.3-44.9) L 12/05/17 05:50 RDW 17.0 % (11.5-14.5) H 12/05/17 05:50 Plt Count 44 K/mcL (140-400) L D 12/05/17 05:50 PT 17.9 Seconds (9.4-12.1) H 12/04/17 01:07 ABG pH 7.26 pH Units (7.32-7.45) L 12/03/17 21:40 ABG pO2 66 mmHg (85-104) L 12/03/17 21:40 ABG HCO3 20 mEq/L (21-27) L 12/03/17 21:40 ABG O2 Saturation 90 % (95-98) L 12/03/17 21:40 ABG Base Excess -7 mEq/L (-2 to 3) L 12/03/17 21:40 BUN 25 mg/dL (8-23) H 12/05/17 07:45 BUN/Creatinine Ratio 35 (6-26) H 12/05/17 07:45 Glucose 116 mg/dL (70-105) H 12/05/17 07:45 POC Glucose 135 mg/dL (70-99) H 12/04/17 04:09 Calcium 8.4 mg/dL (8.6-10.3) L 12/05/17 07:45 Total Bilirubin 1.3 mg/dL (0.3-1.0) H 12/01/17 19:52 Direct Bilirubin 0.4 mg/dL (0.0-0.2) H 12/01/17 19:52 Ammonia 125 mcmol/L (16-53) H 12/04/17 09:12 Albumin 2.9 g/dL (3.5-5.7) L 12/02/17 07:58 Globulin 3.6 g/dL (2.4-3.5) H 12/01/17 19:52 Albumin/Globulin Ratio 0.9 (1.1-2.2) L 12/01/17 19:52 - Clinical Findings Intake & Output: Intake & Output 12/04/17 12/05/17 12/05/17 23:59 07:59 15:59 Intake Total 860 / 860 100 / 100 100 / 100 Output Total 750 / 750 300 / 300 Balance 110 / 110 -200 / -200 100 / 100 Weight 100.9 kg Consult Discharge Plan - Plan Referrals: Lakisha Cunha, FIRE TRUCK DRIVER [Primary Care Provider] - - Attending Attestation I examined this patient and my medical decision-making was reviewed with the Resident Physician. I agree with the documented findings, disposition and treatment plan as described except to the extent set forth below. Patient seen and examined. Labs, radiology, chart personally reviewed. 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 Patient endoscopy by GI and liver cirrhosis management deferred to GI team. Patient remained stable to be transferred to the floor Heme: DVT prophylaxis per routine. H&H remain relatively stable.. Mechanical DVT prophylaxis. Thrombocytopnea, will need transfusion. ID: Continue antibiotics and plan to de-escalation. Start pt on Rifaxmin Renal; urine out put and renal funtion reviewed Endorcine: blood glucose is monitored Lines: all lines checked and no evidence of infections Skin: skin care to prevent pressure ulcers per nursing routine care <Terrance Conde S - Last Filed: 12/05/17 11:36> Date of Encounter: 12/05/17 Time of Encounter: 09:00 Assessment and Plan (1) Lower GI hemorrhage Current Visit: Yes Status: Acute Hgb 8.9 > 8.4 Platelets 101 > 44, transfused 2 units of platelets INR 1.6 BP 99/58, HR 96 Gastroenterology on consult Nuclear med scan was negative for active bleed EGD showed small varices with no active bleed Colonoscopy tomorrow NPO at midnight Had 1 unit PRBC yesterday Had 2 units FFP yesterday Continue protonix Discontinued octreotide hold NSAIDS Will be transferred to floor (2) Hypotension Current Visit: Yes Status: Acute BP 105/74 Likely 2/2 GI bleed Nuclear med scan negative EGD negative for bleed Colonoscopy scheduled for tomorrow Patient didn't need levophed yesterday Will give IV fluids if needed Qualifiers: Hypotension type: hypotension due to hypovolemia Qualified Code(s): I95.89 - Other hypotension; E86.1 - Hypovolemia (3) Ascites Current Visit: Yes Status: Acute IR was consulted for paracentesis upon arrival Patient has history of ascites with paracentesis in April 2017 May do paracentesis in ICU if warranted Qualifiers: Ascites type: other type Qualified Code(s): R18.8 - Other ascites (4) Chronic hepatitis Current Visit: Yes Status: Acute Patient has history of Hep B and C Gastroenterology on consult Ammonia elevated at 125 Patient refusing to take lactulose Added rifaximin 600 mg BID AST and ALT within normal limits No jaundice or scleral icterus on exam (5) Pleural effusion Current Visit: Yes Status: Acute CXR (12/03) consistent with right sided small/moderate pleural effusion Patient saturating at 96% on 1L nasal cannula Patient denies SOB now Will continue to monitor for now (6) SOB (shortness of breath) Current Visit: Yes Status: Acute Patient on 1L NC saturating at 96% Continue albuterol PRN Continue symbicort BID Patient denies SOB now (7) Community acquired pneumonia Current Visit: No Status: Acute Chief complaint of SOB with productive cough CXR showed right sied pleural effusion with adjacent airspace disease WBC 6.7 today On IV levaquin day 4 Qualifiers: Laterality: right Lung location: lower lobe of lung Qualified Code(s): J18.1 - Lobar pneumonia, unspecified organism (8) Thrombocytopenia Current Visit: No Status: Chronic Likely secondary to cirrhosis Platelets 101 > 44 today Transfused 2 unit of platelets today (1 unit transfused yesterday) Continue to monitor (9) Systolic murmur Current Visit: Yes Status: Acute Echo showed EF >70%, mild L vent hypertrophy, mild mitral regurgitation Denies SOB, CP (10) Anemia Current Visit: Yes Status: Acute Hgb 8.8 > 8.4 today Likely 2/2 acute GI bleed Given 1 unit PRBCs this morning Qualifiers: Anemia type: unspecified type Qualified Code(s): D64.9 - Anemia, unspecified (11) DVT prophylaxis Current Visit: No Status: Acute SCDs Subjective Principal diagnosis: GI hemorrhage Interval history: 62 year old female with PMHx of Hep B + C, liver cirrhosis, ascites s/p paracentesis (04/2017), and COPD presented to [place] with CC of SOB. Patient was transferred to ICU after episode of acute GI hemorrhage and hypotension. Patient had bloody stool yesterday evening and another bloody stool this AM. Patient had EGD this morning. Patient is still very drowsy from procedure this morning. She is resting well on 1L NC. She denies SOB. Objective PUL Vital signs: Last Vital Signs Temp 98.2 F 12/05/17 03:33 Pulse 92 12/05/17 06:00 Resp 12 12/05/17 06:00 BP 111/61 12/05/17 06:00 Pulse Ox 97 12/05/17 06:00 General appearance: no acute distress, asleep Eyes: nonicteric Effort: normal Auscultation: bilateral: rales Cardiovascular: regular rate and rhythm Gastrointestinal: soft, non-tender, other (distended) Integumentary: normal Extremities: no cyanosis, no edema Musculoskeletal: no deformities normal mental status Results - Laboratory Findings CBC and BMP: 12/05/17 05:50 12/05/17 07:45 ABG ABG pH 7.26 pH Units (7.32-7.45) L 12/03/17 21:40 ABG pCO2 44 mmHg (35-45) 12/03/17 21:40 ABG pO2 66 mmHg (85-104) L 12/03/17 21:40 ABG O2 Saturation 90 % (95-98) L 12/03/17 21:40 PT/INR, D-dimer PT 17.9 Seconds (9.4-12.1) H 12/04/17 01:07 Abnormal lab findings: Abnormal lab results RBC 3.25 M/mcL (3.82-4.97) L 12/03/17 17:42 Hgb 8.4 g/dL (11.5-15.4) L 12/05/17 05:50 Hct 25.1 % (35.3-44.9) L 12/05/17 05:50 RDW 14.9 % (11.5-14.5) H 12/03/17 17:42 Plt Count 101 K/mcL (140-400) L D 12/03/17 17:42 Immature Plt Fraction 11.7 % (1.1-6.1) H 12/03/17 17:42 PT 17.9 Seconds (9.4-12.1) H 12/04/17 01:07 ABG pH 7.26 pH Units (7.32-7.45) L 12/03/17 21:40 ABG pO2 66 mmHg (85-104) L 12/03/17 21:40 ABG HCO3 20 mEq/L (21-27) L 12/03/17 21:40 ABG O2 Saturation 90 % (95-98) L 12/03/17 21:40 ABG Base Excess -7 mEq/L (-2 to 3) L 12/03/17 21:40 Chloride 109 mEq/L (98-107) H 12/03/17 19:04 Est GFR (Non-Af Amer) 54 (> 60) L 12/03/17 19:04 Glucose 133 mg/dL (70-105) H 12/03/17 19:04 POC Glucose 135 mg/dL (70-99) H 12/04/17 04:09 Calcium 7.6 mg/dL (8.6-10.3) L 12/03/17 19:04 Total Bilirubin 1.3 mg/dL (0.3-1.0) H 12/01/17 19:52 Direct Bilirubin 0.4 mg/dL (0.0-0.2) H 12/01/17 19:52 Ammonia 125 mcmol/L (16-53) H 12/04/17 09:12 Albumin 2.9 g/dL (3.5-5.7) L 12/02/17 07:58 Globulin 3.6 g/dL (2.4-3.5) H 12/01/17 19:52 Albumin/Globulin Ratio 0.9 (1.1-2.2) L 12/01/17 19:52 - Clinical Findings Intake & Output: Intake & Output 12/04/17 12/04/17 12/05/17 15:59 23:59 07:59 Intake Total 438 / 1092 860 / 860 100 / 100 Output Total 750 / 750 300 / 300 Balance 438 / 942 110 / 110 -200 / -200 Weight 100.9 kg
[2017-12-05] MEDS: Budesonide/Formoterol 160/4.5 1 PUFF INH IH SCH ×2 (08:05→22:50)
[2017-12-05] MEDS: Cholecalciferol (D-3) 1,000 UNIT TABLET PO SCH (08:08)
[2017-12-05] MEDS: Lactulose Oral Soln 20 GM/30 ML UDC PO SCH ×5 (08:08→22:52)
[2017-12-05] MEDS: Zinc Sulfate 220 MG CAPSULE PO SCH (08:08)
[2017-12-05] MEDS: Levofloxacin 750 MG/150 ML 750 MG/150 ML BAG IVPB SCH (08:09)
--- NOTE | 2017-12-05 08:13 | Pre-Sedation Evaluation ---
Pre-sedation evaluation - Pre-sedation checklist Date of procedure: 12/04/17 Procedure: radio frequency ablation Recent Vitals: Last Vital Signs Temp 98.2 F 12/05/17 03:33 Pulse 92 12/05/17 06:00 Resp 16 12/05/17 07:30 BP 111/61 12/05/17 06:00 Pulse Ox 95 12/05/17 07:30 H&P (including ROS) documented in medical record: Yes Previous reaction to sedatives/anesthetics: No Dietary Status: NPO 6 hours prior to procedure Dentition: dentures removed ASA Classification *see protocol: CLASS III-Severe systemic disease Plan of Care: Pt appropriate candidate for procedure/moderate/conscious sedation , Risks/benefits of procedure/sedation discussed w/ patient/family Cardiac Registry (Cardio Only) - Functional Capacity - Clincal Frailty Scale
[2017-12-05] MEDS ORDERED: Tetracaine/Benzocaine/Butamben 1 SPRAY AEROSOL MM ONE (08:14)
[2017-12-05] MEDS ORDERED: *HR* Midazolam HCl 5 MG/5 ML VIAL IVP ONE ×2 (08:14→08:18)
[2017-12-05] MEDS ORDERED: *HR* FentaNYL (PF) 100 MCG/2 ML VIAL IVP ONE (08:14)
[2017-12-05] MEDS ORDERED: Simethicone 40 MG/0.6 ML MLS IR ONE (08:14)
[2017-12-05] MEDS ORDERED: *HR* FentaNYL (PF) 100 MCG/2 ML VIAL ONE (08:18)
[2017-12-05 08:24] LABS: BUN/Creatinine Ratio 35 (6-26); Blood Urea Nitrogen 25 mg/dL (8-23); Calcium 8.4 mg/dL (8.6-10.3); Carbon Dioxide 29 mEq/L (23-29); Chloride 107 mEq/L (98-107); Glucose 116 mg/dL (70-105); Osmolality,Calculated 295 (280-300); Potassium 4.1 mEq/L (3.5-5.1); Sodium 140 mEq/L (136-145); eGFR For Non-African Americans > 60 (> 60)
[2017-12-05 09:03] LABS: Mean Corpuscular HGB Conc 32.6 g/dL (31.6-35.5); Mean Corpuscular Hemoglobin 30.7 pg (28.0-33.3); Mean Corpuscular Volume 94.3 fL (83.0-100.0); Red Blood Count 2.83 M/mcL (3.82-4.97)
[2017-12-05 09:04] LABS: Basophils % 0.3 %; Eosinophils # 0.1 K/mcL (0.0-0.6); Eosinophils % 1.3 %; Lymphocytes # 1.3 K/mcL (0.6-4.6); Lymphocytes % 19.1 %; Mean Platelet Volume 12.1 fL (9.4-12.4); Monocytes # 0.6 K/mcL (0.0-1.3); Monocytes % 8.8 %; Neutrophils # 4.7 K/mcL (1.6-8.9); Platelet Count 44 K/mcL (140-400); Segmented Neutrophils % 69.8 %
[2017-12-05] MEDS ORDERED: 0.9 % Sodium Chloride 250 ML ONE ×2 (10:24→13:33)
[2017-12-05] MEDS ORDERED: SODIUM CHLORIDE/NAHCO3/KCL/PEG 4,000 ML SOLN.RECON PO ONE ×2 (11:00→15:30)
[2017-12-05] MEDS ORDERED: Ondansetron 4 MG/2 ML VIAL IVP PRN (14:16)
[2017-12-05] MEDS ORDERED: Polyethylene Glycol 3350 255 GM POWDER PO PRN (14:16)
[2017-12-06] MEDS: Pantoprazole 40 MG in 0.9 % Sodium Chloride Mini Bag 100 ML IVC SCH ×3 (03:14→18:49)
[2017-12-06] MEDS: Budesonide/Formoterol 160/4.5 1 PUFF INH IH SCH ×2 (08:15→20:25)
[2017-12-06 08:46] LABS: Mean Platelet Volume 11.2 fL (9.4-12.4); Red Cell Distribution Width 16.4 % (11.5-14.5)
[2017-12-06 08:48] LABS: Basophils % 0.3 %; Eosinophils # 0.2 K/mcL (0.0-0.6); Eosinophils % 2.4 %; Hematocrit 31.8 % (35.3-44.9); Hemoglobin 10.4 g/dL (11.5-15.4); Immature Granulocytes % 0.3 % (0-4); Immature Platelets 6.1 % (1.1-6.1); Lymphocytes # 1.8 K/mcL (0.6-4.6); Lymphocytes % 28.4 %; Mean Corpuscular HGB Conc 32.7 g/dL (31.6-35.5); Mean Corpuscular Hemoglobin 30.7 pg (28.0-33.3); Mean Corpuscular Volume 93.8 fL (83.0-100.0); Monocytes # 0.5 K/mcL (0.0-1.3); Monocytes % 7.1 %; Neutrophils # 3.9 K/mcL (1.6-8.9); Nucleated Red Blood Cells 0.3 /100 WBC (0); Red Blood Count 3.39 M/mcL (3.82-4.97); Segmented Neutrophils % 61.5 %
--- NOTE | 2017-12-06 08:54 | Internal Med Progress Note ---
Hospitalist Progress Note - Encounter Date of Encounter: 12/06/17 Time of Encounter: 11:00 - Subjective Interval History: Patient scheduled for colonoscopy today for evaluation of lower GI bleeding - Exam Vitals: Temp Pulse Resp BP Pulse Ox 98.5 F 87 16 116/82 95 12/06/17 07:19 12/06/17 07:19 12/06/17 08:18 12/06/17 07:19 12/06/17 08:18 Exam: Gen.: Nonacute distress, alert and oriented 3 ENT: Mucosal membranes moist Respiratory: Lungs are clear to auscultation bilaterally without any wheezing rhonchi or rales Cardiovascular: Normal S1 and S2 regular rate rhythm no murmurs rubs or gallops Abdomen: Soft, distended with right lower quadrant tenderness to palpation Extremities: No lower extremity edema Skin: Pale - Assessment and Plan (1) Lower GI hemorrhage Current Visit: Yes Status: Acute Assessment and Plan: Patient developed diffuse lower GI bleed on 12/03/17 which resulted in hemorrhagic shock Patient was managed in the ICU and stabilized EGD on 12/05/17 showed esophageal varices will follow-up bleeding in addition to portal hypertensive gastropathy Colonoscopy scheduled for today (2) Hemorrhagic shock Current Visit: Yes Status: Acute Assessment and Plan: Now resolved On 12/03/17 patient came hypotensive which did not respond to fluid resuscitation 5 L of fluids, 4 units of packed red blood cells, 6 packs of platelets and 2 FFP while on vasopressor Levophed. Patient was stabilized hemodynamically in the ICU (3) Ascites Current Visit: Yes Status: Acute Assessment and Plan: Abdominal ultrasound on 12/02/17 showed no significant ascites No further intervention at this time Patient to continue Aldactone (4) Thrombocytopenia Current Visit: No Status: Chronic Assessment and Plan: Secondary to chronic cirrhosis; platelets stable Continue to monitor (5) Chronic hepatitis Current Visit: Yes Status: Acute Assessment and Plan: Patient with history of hepatitis B and C (6) Community acquired bacterial pneumonia Current Visit: Yes Status: Acute Assessment and Plan: Chest x-ray showed small moderate size right pleural effusion and adjacent airspace disease with concerns for pneumonia Patient without leukocytosis and afebrile without any upper respiratory symptoms Continue day 5 IV Levaquin (7) Pleural effusion Current Visit: Yes Status: Acute Assessment and Plan: Right sided effusion Continue antibiotics for pneumonia Continue to monitor (8) Tobacco abuse Current Visit: No Status: Chronic Assessment and Plan: Tobacco cessation encouraged (9) Morbid obesity with BMI of 45.0-49.9, adult Current Visit: No Status: Chronic Assessment and Plan: Lifestyle modifications encouraged (10) DVT prophylaxis Current Visit: No Status: Acute Assessment and Plan: SCDs - Time Spent with Patient Total time spent is greater than 50% in coordination of care (as documented) at patient's floor/unit and/or counseling patient: Internal Medicine: Result - Labs CBC & Chem 7: 12/06/17 06:34 12/06/17 06:34 Labs: Short CBC 12/05/17 Range/Units 05:50 WBC 6.7 (4.3-11.1) K/mcL Plt Count 44 L D (140-400) K/mcL Neutrophils # 4.7 (1.6-8.9) K/mcL - ABG Interpretation ABG results: ABG ABG pH 7.26 pH Units (7.32-7.45) L 12/03/17 21:40 ABG pCO2 44 mmHg (35-45) 12/03/17 21:40 ABG pO2 66 mmHg (85-104) L 12/03/17 21:40 ABG O2 Saturation 90 % (95-98) L 12/03/17 21:40 PT/INR, D-dimer PT 17.9 Seconds (9.4-12.1) H 12/04/17 01:07 Consult Discharge Plan - Plan Referrals: Lakisha Cunha, MEDICAL PLANNER [Primary Care Provider] - (3) Ascites Qualifiers: Ascites type: other type Qualified Code(s): R18.8 - Other ascites
[2017-12-06 08:55] LABS: Platelet Count 74 K/mcL (140-400)
[2017-12-06 09:04] LABS: BUN/Creatinine Ratio 36 (6-26); Blood Urea Nitrogen 21 mg/dL (8-23); Calcium 8.9 mg/dL (8.6-10.3); Carbon Dioxide 27 mEq/L (23-29); Chloride 105 mEq/L (98-107); Glucose 96 mg/dL (70-105); Osmolality,Calculated 289 (280-300); Potassium 3.6 mEq/L (3.5-5.1); Sodium 138 mEq/L (136-145); eGFR For Non-African Americans > 60 (> 60)
[2017-12-06] MEDS: Zinc Sulfate 220 MG CAPSULE PO SCH (11:14)
[2017-12-06] MEDS: Cholecalciferol (D-3) 1,000 UNIT TABLET PO SCH (11:14)
[2017-12-06] MEDS: Lactulose Oral Soln 20 GM/30 ML UDC PO SCH ×3 (11:28→16:11)
--- NOTE | 2017-12-06 11:52 | Electrocardiograph Report ---
[place] [address] Test Date: 2017-12-01 Pat Name: Cong Sousa Department: 104 Room: [facility] Gender: F Glass Curvature Gauger: FABIENNE : 1955 Requested By: Manda Ponce Order Number: [id number] Reading MD: Vince Gonzalez Measurements Intervals [place] Rate: 85 P: -12 [place]: 157 QRS: 11 QRSD: 84 T: 0 QT: 386 QTc: 428 Interpretive Statements SINUS RHYTHM Electronically Signed On 12-06-2017 11:50:49 EDT by Vince Gonzalez
--- NOTE | 2017-12-06 14:02 | Anesthesia Evaluation PreOp ---
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 SERVICE History: Denies Any Significant HX Other Medical History: Hepatic (Cirrhosis, Hepatitis) Anesthesia History: No Prior Anesthetic Complications Alcohol Use: none Drug use: none Medications and Allergies Albuterol Sulfate [Proair Hfa] 2 puff IH Q4H PRN 06/29/16 [History] Budesonide/Formoterol 160/4.5 [Symbicort 160/4.5] 2 puff IH BIDR 04/30/17 [ History] Lactulose 30 ml PO QID 05/08/17 [History] Cholecalciferol (Vitamin D3) [Vitamin D3] 50,000 unit PO QWEEK 07/04/17 [History ] Furosemide [Lasix] 40 mg PO BID 07/04/17 [History] Spironolactone [Aldactone] 50 mg PO BID 07/04/17 [History] Zinc Sulfate 220 mg PO DAILY 07/04/17 [History] 3 Allergy/AdvReac Type Severity Reaction Status Date / Time doxycycline AdvReac Nausea Verified 05/14/17 09:06 Penicillins AdvReac See Verified 05/14/17 09:06 Comments - Meds/Allergy Pre-op Review Medications Reviewed: Yes Allergies Reviewed: Yes Beta Blockers on Current Med List: No Anesthesia Results - Labs 12/06/17 06:34 12/06/17 06:34 - Imaging EKG: report reviewed (SB) Additional studies: ECHO EF 70%, mild diastolic dysfunction Anesthesia Exam O2 Sat Weight 102.5 kg Weight 102.2 kg O2 Sat by Pulse Oximetry 93 O2 Sat by Pulse Oximetry 95 O2 Sat by Pulse Oximetry 97 O2 Sat by Pulse Oximetry 93 O2 Sat by Pulse Oximetry 95 O2 Sat by Pulse Oximetry 94 O2 Sat by Pulse Oximetry 98 O2 Sat by Pulse Oximetry 98 Vital Signs Temp Pulse Resp BP Pulse Ox 98.5 F 89 15 132/81 95 12/01/17 18:43 12/01/17 18:43 12/01/17 18:43 12/01/17 18:43 12/01/17 18:43 Height: 5'4 Weight: 225 lbs NPO (# of Hours): MN Pain Scale: 0 - HEENT Pupil (Motor): Pupils equal, EOMI Mallampati: II Denture Type: Upper: Complete - [employer]IEF DISPATCHER SERVICE LOC: Oriented [employer] Motor: Normal RUE, Normal LUE, Normal RLE, Normal LLE, Normal Face [employer] Sensory: Normal: RUE, LUE, RLE, LLE, Face - Cardiac Rhythm: Regular Murmur: None JVD: No Carotid Bruit: No - Pulmonary Breath Sounds: bilateral Clear Respiratory Effort: Symmetrical Anesthesia Assess/Plan ASA Score: 3 (Hepatitis Cirrhosis) Modified Yolanda Scale for Level of Consciousness: Cooperative, oriented, and tranquil Anesthetic Plan: MAC Monitoring Plan: Standard Monitors Recovery Plan: Other (Discussed MAC, agrees to proceed)
[2017-12-06] MEDS ORDERED: 0.9 % Sodium Chloride 500 ML IVC SCH (14:15)
[2017-12-06] MEDS ORDERED: Propofol 500 MG/50 ML INFUS..BTL ONE (14:32)
[2017-12-06] MEDS ORDERED: Lidocaine -MPF 2% 2 ML VIAL ONE (14:32)
[2017-12-06] MEDS: *HR* Buprenorphine HCl 2 MG SUBLINGUAL TABLET SL SCH ×2 (15:57→16:08)
[2017-12-06] MEDS: Levofloxacin 750 MG/150 ML 750 MG/150 ML BAG IVPB SCH (16:06)
[2017-12-07] MEDS: Pantoprazole 40 MG in 0.9 % Sodium Chloride Mini Bag 100 ML IVC SCH ×5 (01:28→22:19)
[2017-12-07] MEDS: Budesonide/Formoterol 160/4.5 1 PUFF INH IH SCH ×2 (07:45→20:01)
--- NOTE | 2017-12-07 09:35 | Internal Med Progress Note ---
Hospitalist Progress Note - Encounter Date of Encounter: 12/07/17 Time of Encounter: 11:00 - Subjective Interval History: Patient's hemoglobin stable this morning Diet will be advanced as tolerated today - Exam Vitals: Temp Pulse Resp BP Pulse Ox 98.5 F 89 16 107/70 98 12/07/17 07:40 12/07/17 07:40 12/07/17 07:40 12/07/17 07:40 12/07/17 07:40 Exam: Gen.: Nonacute distress, alert and oriented 3 ENT: Mucosal membranes moist Respiratory: Lungs are clear to auscultation bilaterally without any wheezing rhonchi or rales Cardiovascular: Normal S1 and S2 regular rate rhythm no murmurs rubs or gallops Abdomen: Soft, distended with right lower quadrant tenderness to palpation Extremities: No lower extremity edema Skin: Pale - Assessment and Plan (1) Lower GI hemorrhage Current Visit: Yes Status: Acute Assessment and Plan: Patient developed diffuse lower GI bleed on 12/03/17 which resulted in hemorrhagic shock Patient was managed in the ICU and stabilized EGD on 12/05/17 showed esophageal varices will follow-up bleeding in addition to portal hypertensive gastropathy Colonoscopy on 12/06/17 showed 2 nonbleeding colonic angiodysplastic lesions which were treated with bipolar cautery in addition to a single solitary ulcer and the descending colon Will continue to monitor H&H (2) Hemorrhagic shock Current Visit: Yes Status: Acute Assessment and Plan: Now resolved On 12/03/17 patient came hypotensive which did not respond to fluid resuscitation 5 L of fluids, 4 units of packed red blood cells, 6 packs of platelets and 2 FFP while on vasopressor Levophed. Patient was stabilized hemodynamically in the ICU (3) Ascites Current Visit: Yes Status: Acute Assessment and Plan: Abdominal ultrasound on 12/02/17 showed no significant ascites No further intervention at this time Patient to continue Aldactone (4) Thrombocytopenia Current Visit: No Status: Chronic Assessment and Plan: Secondary to chronic cirrhosis; platelets stable Continue to monitor (5) Chronic hepatitis Current Visit: Yes Status: Acute Assessment and Plan: Patient with history of hepatitis B and C (6) Community acquired bacterial pneumonia Current Visit: Yes Status: Acute Assessment and Plan: Chest x-ray showed small moderate size right pleural effusion and adjacent airspace disease with concerns for pneumonia Patient without leukocytosis and afebrile without any upper respiratory symptoms Continue day 5 IV Levaquin (7) Pleural effusion Current Visit: Yes Status: Acute Assessment and Plan: Right sided effusion Continue antibiotics for pneumonia Continue to monitor (8) Tobacco abuse Current Visit: No Status: Chronic Assessment and Plan: Tobacco cessation encouraged (9) Morbid obesity with BMI of 45.0-49.9, adult Current Visit: No Status: Chronic Assessment and Plan: Lifestyle modifications encouraged (10) DVT prophylaxis Current Visit: No Status: Acute Assessment and Plan: SCDs - Time Spent with Patient Total time spent is greater than 50% in coordination of care (as documented) at patient's floor/unit and/or counseling patient: Internal Medicine: Result - Labs CBC & Chem 7: 12/07/17 11:50 12/07/17 11:50 - ABG Interpretation ABG results: ABG ABG pH 7.26 pH Units (7.32-7.45) L 12/03/17 21:40 ABG pCO2 44 mmHg (35-45) 12/03/17 21:40 ABG pO2 66 mmHg (85-104) L 12/03/17 21:40 ABG O2 Saturation 90 % (95-98) L 12/03/17 21:40 PT/INR, D-dimer PT 17.9 Seconds (9.4-12.1) H 12/04/17 01:07 Consult Discharge Plan - Plan Referrals: Lakisha Cunha, PSYCHIATRIC LPN [Primary Care Provider] - (3) Ascites Qualifiers: Ascites type: other type Qualified Code(s): R18.8 - Other ascites
[2017-12-07] MEDS: Lactulose Oral Soln 20 GM/30 ML UDC PO SCH ×5 (09:37→21:31)
[2017-12-07] MEDS: Levofloxacin 750 MG/150 ML 750 MG/150 ML BAG IVPB SCH (09:38)
[2017-12-07] MEDS: Zinc Sulfate 220 MG CAPSULE PO SCH (09:38)
[2017-12-07] MEDS: Cholecalciferol (D-3) 1,000 UNIT TABLET PO SCH (09:38)
[2017-12-07] MEDS: *HR* Buprenorphine HCl 2 MG SUBLINGUAL TABLET SL SCH (09:43)
[2017-12-07] MEDS: traMADol 50 MG TABLET PO PRN (10:12)
[2017-12-07 12:05] LABS: Basophils % 0.2 %; Eosinophils # 0.1 K/mcL (0.0-0.6); Eosinophils % 2.1 %; Hematocrit 29.4 % (35.3-44.9); Hemoglobin 9.6 g/dL (11.5-15.4); Immature Granulocytes % 0.5 % (0-4); Lymphocytes # 1.1 K/mcL (0.6-4.6); Lymphocytes % 26.2 %; Mean Corpuscular HGB Conc 32.7 g/dL (31.6-35.5); Mean Corpuscular Hemoglobin 31.3 pg (28.0-33.3); Mean Corpuscular Volume 95.8 fL (83.0-100.0); Mean Platelet Volume 11.1 fL (9.4-12.4); Monocytes # 0.3 K/mcL (0.0-1.3); Monocytes % 8.1 %; Neutrophils # 2.6 K/mcL (1.6-8.9); Red Blood Count 3.07 M/mcL (3.82-4.97); Red Cell Distribution Width 16.4 % (11.5-14.5); Segmented Neutrophils % 62.9 %
[2017-12-07 12:06] LABS: Platelet Count 53 K/mcL (140-400)
[2017-12-07 12:29] LABS: BUN/Creatinine Ratio 29 (6-26); Blood Urea Nitrogen 17 mg/dL (8-23); Calcium 8.5 mg/dL (8.6-10.3); Carbon Dioxide 28 mEq/L (23-29); Chloride 106 mEq/L (98-107); Glucose 156 mg/dL (70-105); Osmolality,Calculated 293 (280-300); Potassium 3.5 mEq/L (3.5-5.1); Sodium 139 mEq/L (136-145); eGFR For Non-African Americans > 60 (> 60)
--- NOTE | 2017-12-07 14:51 | Electrocardiograph Report ---
[address] [address] Test Date: 2017-12-03 Pat Name: Cong Sousa Department: 113 Room: [facility]8 Gender: F Risk Management Internship: [id number] : 1955 Requested By: John Mo Order Number: [id number] Reading MD: Rajat Antunez Measurements Intervals [place] Rate: 104 P: 35 [place]: 124 QRS: 35 QRSD: 87 T: 13 QT: 364 QTc: 424 Interpretive Statements SINUS TACHYCARDIA Electronically Signed On 12-07-2017 14:50:08 EDT by Rajat Antunez
[2017-12-08] MEDS: Pantoprazole 40 MG in 0.9 % Sodium Chloride Mini Bag 100 ML IVC SCH ×5 (03:13→21:48)
[2017-12-08] MEDS: Acetaminophen 325 MG TABLET PO PRN ×2 (05:03→15:48)
[2017-12-08] MEDS: Budesonide/Formoterol 160/4.5 1 PUFF INH IH SCH ×2 (11:04→21:35)
[2017-12-08 11:18] LABS: Hematocrit 28.7 % (35.3-44.9); Hemoglobin 10.3 g/dL (11.5-15.4); Immature Platelets 8.1 % (1.1-6.1); Mean Corpuscular HGB Conc 35.9 g/dL (31.6-35.5); Mean Corpuscular Volume 94.7 fL (83.0-100.0); Mean Platelet Volume 12.9 fL (9.4-12.4); Nucleated Red Blood Cells 0.7 /100 WBC (0); Red Blood Count 3.03 M/mcL (3.82-4.97); Red Cell Distribution Width 16.9 % (11.5-14.5)
[2017-12-08] MEDS: Levofloxacin 750 MG/150 ML 750 MG/150 ML BAG IVPB SCH (11:20)
[2017-12-08] MEDS: *HR* Buprenorphine HCl 2 MG SUBLINGUAL TABLET SL SCH (11:21)
[2017-12-08] MEDS: Cholecalciferol (D-3) 1,000 UNIT TABLET PO SCH (11:21)
[2017-12-08] MEDS: Zinc Sulfate 220 MG CAPSULE PO SCH (11:21)
[2017-12-08 11:24] LABS: Platelet Count 33 K/mcL (140-400)
[2017-12-08] MEDS: Lactulose Oral Soln 20 GM/30 ML UDC PO SCH ×3 (11:31→21:47)
[2017-12-08 12:05] LABS: Lymphocytes # 0.5 K/mcL (0.6-4.6); Monocytes # 0.2 K/mcL (0.0-1.3); Neutrophils # 3.5 K/mcL (1.6-8.9); Platelet Estimate Decreased (Normal)
[2017-12-08 12:46] LABS: BUN/Creatinine Ratio 26 (6-26); Blood Urea Nitrogen 13 mg/dL (8-23); Calcium 8.8 mg/dL (8.6-10.3); Carbon Dioxide 29 mEq/L (23-29); Chloride 107 mEq/L (98-107); Glucose 159 mg/dL (70-105); Osmolality,Calculated 293 (280-300); Potassium 3.9 mEq/L (3.5-5.1); Sodium 140 mEq/L (136-145); eGFR For Non-African Americans > 60 (> 60)
--- NOTE | 2017-12-08 14:13 | Discharge Summary ---
- NOTES TO OUTPATIENT PROVIDER Notes to Outpatient Provider: Follow-up with primary care provider to monitor hemoglobin for acute blood loss anemia Date of Encounter: 12/08/17 Time of Encounter: 11:00 - Discharge Diagnosis (1) Lower GI hemorrhage Priority: Primary Status: Acute (2) Hemorrhagic shock Priority: Primary Status: Acute (3) Ascites Priority: Secondary Status: Acute Qualifiers: Ascites type: other type Qualified Code(s): R18.8 - Other ascites (4) Thrombocytopenia Priority: Secondary Status: Chronic (5) Chronic hepatitis Priority: Secondary Status: Acute (6) Community acquired bacterial pneumonia Priority: Secondary Status: Acute (7) Pleural effusion Priority: Secondary Status: Acute (8) Tobacco abuse Priority: Secondary Status: Chronic (9) Morbid obesity with BMI of 45.0-49.9, adult Priority: Secondary Status: Chronic Hospital course: Patient is a 62-year-old female with past medical history significant for cirrhosis due to hepatitis B/C who presented to the ER on 12/04/17 due to shortness of breath. During patients hospital stay she developed lower GI bleed which resulted in hemorrhagic shock. She did not respond to fluid resuscitation and so was placed on vasopressor and transferred to the intensive care unit. She was given multiple transfusions of packed red blood cells, platelets and FFP. She became hemodynamically stable and vasopressors were discontinued. GI was consulted. EGD on 12/05/17 showed esophageal varices will follow-up bleeding in addition to portal hypertensive gastropathy Colonoscopy on 12/06/17 showed 2 nonbleeding colonic angiodysplastic lesions which were treated with bipolar cautery in addition to a single solitary ulcer and the descending colon. Patient remained hemodynamically stable and would be discharged to all up with primary care provider. She will also complete a course of oral antibiotics for pneumonia treated her hospital stay. - Time Spent with Patient Total time spent providing and/or coordinating discharge services: Less than 30 minutes - Discharge Medications Prescriptions: Levofloxacin [Levaquin] 750 mg PO DAILY 3 Days #3 tablet Omeprazole [PriLOSEC] 40 mg PO DAILY #30 cap Home Medications: Albuterol Sulfate [Proair Hfa] 2 puff IH Q4H PRN 06/29/16 [History] Budesonide/Formoterol 160/4.5 [Symbicort 160/4.5] 2 puff IH BIDR 04/30/17 [ History] Lactulose 30 ml PO QID 05/08/17 [History] Cholecalciferol (Vitamin D3) [Vitamin D3] 50,000 unit PO QWEEK 07/04/17 [History ] Furosemide [Lasix] 40 mg PO BID 07/04/17 [History] Spironolactone [Aldactone] 50 mg PO BID 07/04/17 [History] Zinc Sulfate 220 mg PO DAILY 07/04/17 [History] Levofloxacin [Levaquin] 750 mg PO DAILY 3 Days #3 tablet 12/08/17 [Rx] Omeprazole [PriLOSEC] 40 mg PO DAILY #30 cap 12/08/17 [Rx] Allergies/Adverse Reactions: 3 Allergy/AdvReac Type Severity Reaction Status Date / Time doxycycline AdvReac Nausea Verified 05/14/17 09:06 Penicillins AdvReac See Verified 05/14/17 09:06 Comments Date of admission: 12/04/17 13:04 Primary care physician: Lakisha Cunha CNP Consults: 12/08/17 12:36 Consult to Surgery [CONS] Routine Consulting Provider: Donnie Aviles Reason for Consult: for charting purposes when in icu Call Completed: Yes - Constitutional Vitals: Temp Pulse Resp BP Pulse Ox 98.7 F 84 16 105/74 97 12/08/17 11:00 12/08/17 11:00 12/08/17 11:04 12/08/17 11:00 12/08/17 11:04 General appearance: Present: A&O X 3 Exam: Skin: Pale - Patient Status Disposition: Home, Self-Care Condition: Fair - Discharge Instructions Follow Up With: Lakisha Cunha CNP [Primary Care Provider] - 12/11/17 1:00 pm - VTE Documentation of Mechanical Device: Intermittent pneumatic compression device
[2017-12-08] MEDS: traMADol 50 MG TABLET PO PRN (21:45)
[2017-12-09] MEDS: Pantoprazole 40 MG in 0.9 % Sodium Chloride Mini Bag 100 ML IVC SCH (04:22)
[2017-12-09] MEDS: Budesonide/Formoterol 160/4.5 1 PUFF INH IH SCH (08:37)
[2017-12-09 08:57] VITALS: BP 103/66
[2017-12-09] MEDS ORDERED: levoFLOXacin 750 MG TABLET PO SCH (09:00)
--- NOTE | 2017-12-09 09:45 | Internal Med Progress Note ---
Hospitalist Progress Note - Encounter Date of Encounter: 12/09/17 Time of Encounter: 09:43 - Subjective Interval History: Patient seen and examined this morning. No acute overnight events. Was planned for discharge but held as she did not feel well. Complains of headache for past few days. No weakness, numbness, chest pain, shortness of breath, Bowel or bladder complains. Has not had BM today. Denied lactulose for constipation. Has been tolerating regular diet. Ambulating well. - Exam Vitals: Temp Pulse Resp BP Pulse Ox 98.2 F 102 16 103/66 100 12/09/17 08:03 12/09/17 08:03 12/09/17 08:38 12/09/17 08:03 12/09/17 08:38 Exam: Gen.: Nonacute distress, alert and oriented 3 ENT: Mucosal membranes moist Respiratory: Lungs are clear to auscultation bilaterally without any wheezing rhonchi or rales Cardiovascular: Normal S1 and S2 regular rate rhythm. Systolic murmurs present Abdomen: Soft, Mildly distended. No tenderness. Extremities: No lower extremity edema - Assessment and Plan (1) Thrombocytopenia Current Visit: No Status: Chronic (2) Morbid obesity with BMI of 45.0-49.9, adult Current Visit: No Status: Chronic (3) Tobacco abuse Current Visit: No Status: Chronic (4) Pleural effusion Current Visit: Yes Status: Acute (5) Chronic hepatitis Current Visit: Yes Status: Acute (6) Community acquired bacterial pneumonia Current Visit: Yes Status: Acute (7) Ascites Current Visit: Yes Status: Acute (8) Lower GI hemorrhage Current Visit: Yes Status: Acute (9) Hemorrhagic shock Current Visit: Yes Status: Acute - Summary of Assessment and Plan Summary of Assessment and Plan: 62F with PMHx of cirrhosis due to hepatitis B/C who presented to the ER on 12/04 due to shortness of breath. She completed a course of oral antibiotics for pneumonia during her hospital stay. She developed lower GI bleed which resulted in hemorrhagic shock while in hospital. Was manged in ICU with vasopressor, multiple transfusions of PRBC, platelets and FFP. She became hemodynamically stable and vasopressors were discontinued. She had EGD on 12/05/17 showed esophageal varices will follow-up bleeding in addition to portal hypertensive gastropathy. Colonoscopy on 12/06/17 showed 2 nonbleeding colonic angiodysplastic lesions which were treated. Patient remained hemodynamically stable, ambulating well and tolerating diet and would be discharged today. - Time Spent with Patient Total time spent is greater than 50% in coordination of care (as documented) at patient's floor/unit and/or counseling patient: Internal Medicine: Result - Labs CBC & Chem 7: 12/08/17 10:31 12/08/17 12:18 Labs: Short CBC 12/08/17 Range/Units 10:31 WBC 4.2 L (4.3-11.1) K/mcL Hgb 10.3 L (11.5-15.4) g/dL Hct 28.7 L (35.3-44.9) % Plt Count 33 L (140-400) K/mcL Neutrophils # 3.5 (1.6-8.9) K/mcL BMP 12/08/17 12:18 Sodium 140 Potassium 3.9 Chloride 107 Carbon Dioxide 29 BUN 13 Creatinine 0.50 L Glucose 159 H Calcium 8.8 - ABG Interpretation ABG results: ABG ABG pH 7.26 pH Units (7.32-7.45) L 12/03/17 21:40 ABG pCO2 44 mmHg (35-45) 12/03/17 21:40 ABG pO2 66 mmHg (85-104) L 12/03/17 21:40 ABG O2 Saturation 90 % (95-98) L 12/03/17 21:40 PT/INR, D-dimer PT 17.9 Seconds (9.4-12.1) H 12/04/17 01:07 - Impressions Impressions Chest/Abdomen X-ray 12/08/17 18:41 IMPRESSION: 1. New right basilar atelectasis versus pneumonia. 2. Nonobstructive bowel gas pattern. D/ / Orlin Toro MD / Orlin Toro MD Interpreting Provider: Orlin Toro MD - VTE Documentation of Mechanical Device: Intermittent pneumatic compression device Consult Discharge Plan - Plan Referrals: Lakisha Cunha, CRIME VICTIM SPECIALIST [Primary Care Provider] - 12/11/17 1:00 pm Prescriptions: Levofloxacin [Levaquin] 750 mg PO DAILY 3 Days #3 tablet Omeprazole [PriLOSEC] 40 mg PO DAILY #30 cap (7) Ascites Qualifiers: Ascites type: other type Qualified Code(s): R18.8 - Other ascites
[2017-12-09] MEDS: Lactulose Oral Soln 20 GM/30 ML UDC PO SCH (10:22)
[2017-12-09] MEDS: Cholecalciferol (D-3) 1,000 UNIT TABLET PO SCH (10:22)
[2017-12-09] MEDS: Zinc Sulfate 220 MG CAPSULE PO SCH (10:23)
[2017-12-09] MEDS: traMADol 50 MG TABLET PO PRN (10:26)
== END 2017-12-09 17:55 | disposition home or self-care (01) | DRG 377 ==
LOC: 3ANU 18:38 → EMEROOARM 18:38 → SUATTDRO 23:18 → 3ANU 23:24 → ICNU 12-03 18:47 → SUATTDRO 12-04 13:04 → 2ANU 12-05 14:31 → ICNU 12-05 14:39 → 2NENU 12-05 15:27
PROVIDERS: ADMIT Pediatrics; ATTEND Internal Medicine
PROC: ENDOCBX (2017-12-06 14:15)

== ENCOUNTER 2018-04-21 07:40 | Inpatient (IN) ==
[2018-04-21] MEDS ORDERED: methylPREDNISolone 125 MG/2 ML VIAL IVP ONE (08:06)
[2018-04-21] MEDS ORDERED: Ipratropium/Albuterol Neb 3 ML IH ONE (08:06)
[2018-04-21 08:16] LABS: Basophils % 0.3 %; Immature Granulocytes % 0.3 % (0-4); Red Cell Distribution Width 16.4 % (11.5-14.5)
[2018-04-21 08:18] LABS: Eosinophils # 0.1 K/mcL (0.0-0.6); Eosinophils % 2.4 %; Hematocrit 43.8 % (35.3-44.9); Hemoglobin 14.5 g/dL (11.5-15.4); Immature Platelets 5.6 % (1.1-6.1); Lymphocytes # 0.8 K/mcL (0.6-4.6); Lymphocytes % 25.4 %; Mean Corpuscular HGB Conc 33.1 g/dL (31.6-35.5); Mean Corpuscular Hemoglobin 31.3 pg (28.0-33.3); Mean Corpuscular Volume 94.4 fL (83.0-100.0); Mean Platelet Volume 11.4 fL (9.4-12.4); Monocytes # 0.2 K/mcL (0.0-1.3); Monocytes % 7.1 %; Neutrophils # 1.9 K/mcL (1.6-8.9); Red Blood Count 4.64 M/mcL (3.82-4.97); Segmented Neutrophils % 64.5 %
[2018-04-21 08:21] LABS: Platelet Count 45 K/mcL (140-400)
[2018-04-21] MEDS ORDERED: Aspirin 81 MG TAB.CHEW PO ONE (08:22)
--- NOTE | 2018-04-21 08:24 | Emergency Department Note ---
Disposition Clinical Impression: Pneumonia Qualifiers: Pneumonia type: due to unspecified organism Laterality: right Lung location: unspecified part of lung Qualified Code(s): J18.9 - Pneumonia, unspecified organism Chest pain Qualifiers: Chest pain type: unspecified Qualified Code(s): R07.9 - Chest pain, unspecified Disposition: Admitted As Inpatient Condition: Fair Referrals: Lakisha Cunha PRODUCTION SUPPORT DEVELOPER [Primary Care Provider] - Forms: ED Satisfaction Letter Time of Disposition: 10:42 SOB HPI - General Chief Complaint: ED Shortness of Breath/Dyspnea Stated Complaint: ELLIS/CP Time Seen by Provider: 04/21/18 07:56 Source: patient, EMS Mode of arrival: EMS Limitations: no limitations Nursing Notes Reviewed: Yes Vital Signs Reviewed: Yes - History of Present Illness Alert and oriented nontoxic-appearing 63-year-old female with a history of COPD "non-oxygen dependent" presents for 2 days worth of worsening shortness of breath and substernal nonradiating chest discomfort. Both chest pain and shortness of breath are worse with any type of exertion. The symptoms are s omewhat alleviated by rest. She does describe a mild cough that is occasionally productive of a greenish colored sputum. She denies any fever or chills. She does complain of some nausea but denies any vomiting. She denies any abdominal pain. She denies any diaphoretic episodes. She is a current daily smoker. She describes chest pain as a pressure. She was given a single breathing treatment in the squad in route to the hospital. She states that she believes both the common a some oxygen and the breathing treatment did improve her work of breathing. Pt Subjective Complaint: shortness of breath, chest pain Onset (ago): day(s) Severity: moderate Consistency/Duration: gradually worsening Improves with: oxygen Worsens with: exertion Known history of: COPD Associated symptoms: Reports: chest pain, cough, sputum production, nausea/vomiting (Nausea without vomiting). Denies: pain with inspiration, fever, wheezing, hemoptysis, diaphoresis, abdominal pain Treatment prior to arrival: oxygen Cough present: Yes Cough Description: Involuntary - Related Data Home oxygen amount: none Home Medications Medication Instructions Recorded Confirmed Albuterol Sulfate [Proair Hfa] 2 puff IH Q4H PRN 06/29/16 12/01/17 Budesonide/Formoterol 160/4.5 2 puff IH BIDR 04/30/17 12/01/17 [Symbicort 160/4.5] Lactulose 30 ml PO QID 05/08/17 12/01/17 Cholecalciferol (Vitamin D3) 50,000 unit PO QWEEK 07/04/17 12/01/17 [Vitamin D3] Furosemide [Lasix] 40 mg PO BID 07/04/17 12/01/17 Spironolactone [Aldactone] 50 mg PO BID 07/04/17 12/01/17 Zinc Sulfate 220 mg PO DAILY 07/04/17 12/03/17 Previous Rx's Medication Instructions Recorded Levofloxacin [Levaquin] 750 mg PO DAILY 3 Days #3 tablet 12/08/17 Omeprazole [PriLOSEC] 40 mg PO DAILY #30 cap 12/08/17 Nicotine Patch [Nicoderm] 14 mg TD DAILY 30 Days #30 12/09/17 patch.td24 Tramadol HCl [Ultram] 50 mg PO BID PRN 2 Days #4 tab 12/09/17 Ondansetron ODT [Zofran ODT] 4 mg SL Q6HR #10 tab.rapdis 03/11/18 Albuterol Sulfate [Albuterol 2 puff IH Q4HR #1 inhaler 03/17/18 Inhaler] Amoxicillin/Clavulanate [Augmentin] 875 mg PO BIDWM #20 tablet 03/17/18 Fluconazole [Diflucan] 200 mg PO ONCE #1 tablet 03/17/18 predniSONE [Prednisone] 50 mg PO DAILY #5 tablet 03/17/18 Allergies Allergy/AdvReac Type Severity Reaction Status Date / Time doxycycline AdvReac Nausea Verified 05/14/17 09:06 Penicillins AdvReac See Verified 05/14/17 09:06 Comments All systems ED: reviewed and negative except as stated. Review of Systems: As Per HPI Constitutional: Denies: fever, chills, weakness, weight change Eyes: Denies: eye pain, eye discharge, vision change ENT ED: Denies: ear pain, throat pain, dental pain, hearing loss, epistaxis, congestion, dysphagia Cardiovascular: Reports: as per HPI, chest pain, dyspnea on exertion. Denies: palpitations, edema, syncope Respiratory: Reports: as per HPI, cough, dyspnea, sputum production. Denies: wheezes, hemoptysis, stridor Gastrointestinal: Denies: abdominal pain, nausea, vomiting, diarrhea, constipation, hematemesis, melena, hematochezia Genitourinary: Denies: dysuria, frequency, hematuria, discharge Musculoskeletal: Denies: back pain, neck pain, arthralgia, myalgia Integumentary: Denies: rash, abrasion, lesions Neurological: Denies: headache, weakness, numbness, paresthesias, confusion, abnormal gait, vertigo Psychiatric: Denies: anxiety, depression, suicidal thoughts, homicidal thoughts, auditory hallucinations, visual hallucinations Endocrine: Denies: fatigue Hematological/Lymphatic: Denies: easy bleeding, easy bruising Allergic/Immunologic: Denies: facial swelling, urticaria Past Medical History - Past Medical History Attestation: Yes The following information was validated with the patient. Source: patient, nursing notes reviewed Medical history: Reports: arthritis, cirrhosis, COPD, hepatitis, liver disease, other Surgical history: Reports: , cholecystectomy, orthopedic, other Psychiatric history: Reports: no psych history - Social History Smoking Status: Former smoker Smokeless Tobacco Status: No Alcohol use: Reports: none Drug use: Reports: none Physical Exam - General Limitations: no limitations General appearance: alert, in no apparent distress - Head Head exam: atraumatic, normocephalic, normal inspection - Eye Eye exam: Present: normal appearance, PERRL. Absent: nystagmus - ENT ENT exam: mucous membranes moist - Neck Neck exam: Present: normal inspection, full ROM - Chest Chest inspection: Present: normal inspection, symmetric chest wall rise - Respiratory Respiratory exam: Present: normal lung sounds bilaterally. Absent: respiratory distress, wheezes, stridor, accessory muscle use, prolonged expiratory phase - Cardiovascular Cardiovascular exam: Present: regular rate, normal rhythm, normal heart sounds - Abdominal Exam Abdominal exam: Present: soft, Non-Tender, normal bowel sounds - Extremities Exam Extremities exam: Present: normal inspection, full ROM - Neurological Exam Neurological exam: Present: alert, oriented X3 - Psychiatric Psychiatric exam: Present: normal affect, normal mood - Skin Skin exam: Present: warm, dry, intact, normal color. Absent: rash Course Course Narrative: The patient was given a trial of 3 tablets of sublingual nitroglycerin without improvement in her chest discomfort. Chest discomfort likely the result of her right sided pneumonia. She will be admitted to the hospitalist service for further management. I discussed this patient's case with Dr. Wilkerson, ED attending. Dr. Wilkerson has had a [id number] evaluation with the patient and agrees with this plan. 1040: I have spoken with the admitting hospitalist who has accepted the patient for admission to the hospitalist care. Vital Signs Temperature 98.0 F 04/21/18 07:48 Pulse Rate 88 04/21/18 07:48 Respiratory Rate 20 04/21/18 07:48 Blood Pressure 130/91 04/21/18 07:48 O2 Sat by Pulse Oximetry 98 04/21/18 07:48 Temperature 98.0 F 04/21/18 07:48 Pulse Rate 97 04/21/18 10:28 Respiratory Rate 17 04/21/18 10:28 Blood Pressure 112/58 04/21/18 10:28 O2 Sat by Pulse Oximetry 94 04/21/18 10:30 Oxygen Delivery Oxygen Delivery Nasal Cannula Shortness of Breath/Dyspnea - Medical Records Medical records reviewed: Yes I reviewed the patient's medical records. - Lab Data Lab results reviewed: Yes I reviewed the patient's lab results. Result diagrams: 04/21/18 08:00 04/21/18 08:00 Lab Results 04/21/18 04/21/18 04/21/18 Range/Units 08:00 08:00 08:00 WBC 3.0 L (4.3-11.1) K/mcL RBC 4.64 (3.82-4.97) M/mcL Hgb 14.5 (11.5-15.4) g/dL Hct 43.8 (35.3-44.9) % MCV 94.4 (83.0-100.0) fL MCH 31.3 (28.0-33.3) pg MCHC 33.1 (31.6-35.5) g/dL RDW 16.4 H (11.5-14.5) % Plt Count 45 L (140-400) K/mcL MPV 11.4 (9.4-12.4) fL Immature Gran % 0.3 (0-4) % Seg Neutrophils % 64.5 % Lymphocytes % 25.4 % Monocytes % 7.1 % Eosinophils % 2.4 % Basophils % 0.3 % Neutrophils # 1.9 (1.6-8.9) K/mcL Lymphocytes # 0.8 (0.6-4.6) K/mcL Monocytes # 0.2 (0.0-1.3) K/mcL Eosinophils # 0.1 (0.0-0.6) K/mcL Basophils # 0.0 (0.0-0.2) K/mcL Immature Plt Fraction 5.6 (1.1-6.1) % PT 13.1 H (9.4-12.1) Seconds INR 1.2 APTT 33.3 (26.0-36.0) Seconds Sodium 139 (136-145) mEq/L Potassium 4.2 (3.5-5.1) mEq/L Chloride 108 H (98-107) mEq/L Carbon Dioxide 25 (23-29) mEq/L BUN 15 (8-23) mg/dL Creatinine 0.58 L (0.60-1.20) mg/dL Est GFR ( Amer) > 60 (> 60) Est GFR (Non-Af Amer) > 60 (> 60) BUN/Creatinine Ratio 26 (6-26) Glucose 109 H (70-105) mg/dL Calculated Osmolality 289 (280-300) Lactic Acid (0.5-2.2) mmol/L Calcium 9.1 (8.6-10.3) mg/dL Troponin I < 0.03 (< 0.04) ng/mL B-Natriuretic Peptide (Less than 100) pg/mL Urine Color (Yellow) Urine Clarity (Clear) Urine pH (5.0-8.0) pH Units Ur Specific [place] (1.010-1.025) Urine Protein (Neg-Trace) mg/dL Urine Glucose (UA) (Normal) mg/dL Urine Ketones (Negative) mg/dL Urine Blood (Negative) Urine Nitrite (Negative) Urine Bilirubin (Negative) Urine Urobilinogen (Normal) mg/dL Ur Leukocyte Esterase (Negative) Ur Culture Indicated? (NO) 04/21/18 04/21/18 04/21/18 Range/Units 08:00 08:32 09:29 WBC (4.3-11.1) K/mcL RBC (3.82-4.97) M/mcL Hgb (11.5-15.4) g/dL Hct (35.3-44.9) % MCV (83.0-100.0) fL MCH (28.0-33.3) pg MCHC (31.6-35.5) g/dL RDW (11.5-14.5) % Plt Count (140-400) K/mcL MPV (9.4-12.4) fL Immature Gran % (0-4) % Seg Neutrophils % % Lymphocytes % % Monocytes % % Eosinophils % % Basophils % % Neutrophils # (1.6-8.9) K/mcL Lymphocytes # (0.6-4.6) K/mcL Monocytes # (0.0-1.3) K/mcL Eosinophils # (0.0-0.6) K/mcL Basophils # (0.0-0.2) K/mcL Immature Plt Fraction (1.1-6.1) % PT (9.4-12.1) Seconds INR APTT (26.0-36.0) Seconds Sodium (136-145) mEq/L Potassium (3.5-5.1) mEq/L Chloride (98-107) mEq/L Carbon Dioxide (23-29) mEq/L BUN (8-23) mg/dL Creatinine (0.60-1.20) mg/dL Est GFR ( Amer) (> 60) Est GFR (Non-Af Amer) (> 60) BUN/Creatinine Ratio (6-26) Glucose (70-105) mg/dL Calculated Osmolality (280-300) Lactic Acid 0.8 (0.5-2.2) mmol/L Calcium (8.6-10.3) mg/dL Troponin I (< 0.04) ng/mL B-Natriuretic Peptide 289 H (Less than 100) pg/mL Urine Color Yellow (Yellow) Urine Clarity Clear (Clear) Urine pH 7.0 (5.0-8.0) pH Units Ur Specific [place] 1.015 (1.010-1.025) Urine Protein Negative (Neg-Trace) mg/dL Urine Glucose (UA) Normal (Normal) mg/dL Urine Ketones Negative (Negative) mg/dL Urine Blood Negative (Negative) Urine Nitrite Negative (Negative) Urine Bilirubin Negative (Negative) Urine Urobilinogen Normal (Normal) mg/dL Ur Leukocyte Esterase Negative (Negative) Ur Culture Indicated? NO (NO) - Radiology Data Radiology results reviewed: Yes I reviewed the patient's radiology results. - EKG Data EKG attestation: Yes I reviewed and interpreted this EKG. EKG results narrative: EKG shows a sinus rhythm at a rate of 87 bpm. TX interval 147, QRS duration 88, PT/QTc interval 370/446. No ectopy noted. No ST elevation. No significant change in morphology when compared to an EKG dated from 03/17/18. Attestation Statement - Attestation Attestation: Medical screening examination/treatment/procedure(s) were conducted as a shared visit with non-physician practitioner(s) and myself. I personally evaluated the patient during the encounter. Patient presenting for evaluation of chest pain shortness of breath right shoulder plain and productive cough. Patient has a history of COPD not oxygen dependent presenting with hypoxia and oxygen requirement. Patient on my evaluation are he has had breathing treatments with significant improvement. Patient without significant wheezing. Chest x-ray concerning for pneumonia. No recent hospitalization. Consistent with productive yellow sputum. Steroids, breathing treatments, antibiotics given. Patient will be admitted for further evaluation.
[2018-04-21 08:25] LABS: INR 1.2; Prothrombin Time 13.1 Seconds (9.4-12.1)
[2018-04-21 08:28] LABS: Activated Partial Thrombo Time 33.3 Seconds (26.0-36.0)
[2018-04-21 08:29] LABS: BUN/Creatinine Ratio 26 (6-26); Blood Urea Nitrogen 15 mg/dL (8-23); Calcium 9.1 mg/dL (8.6-10.3); Carbon Dioxide 25 mEq/L (23-29); Chloride 108 mEq/L (98-107); Glucose 109 mg/dL (70-105); Osmolality,Calculated 289 (280-300); Potassium 4.2 mEq/L (3.5-5.1); Sodium 139 mEq/L (136-145); Troponin I < 0.03 ng/mL (< 0.04); eGFR For Non-African Americans > 60 (> 60)
[2018-04-21] MEDS ORDERED: cefTRIAXone 1,000 MG in 0.9 % Sodium Chloride Mini Bag 100 ML IVPB ONE (08:44)
[2018-04-21] MEDS ORDERED: Azithromycin 500 MG in D5% in Water 250 ML IVPB ONE (08:44)
[2018-04-21] MEDS ORDERED: Nitroglycerin 0.4 MG TAB.SUBL SL PRN (09:09)
[2018-04-21 09:53] LABS: Bilirubin,Urine Negative (Negative); Blood,Urine Negative (Negative); Clarity,Urine Clear (Clear); Color,Urine Yellow (Yellow); Glucose,Urine (UA) Normal (Normal); Ketones,Urine Negative (Negative); Leukocyte Esterase,Urine Negative (Negative); Nitrite,Urine Negative (Negative); Protein,Urine Negative (Neg-Trace); Specific Gravity,Urine 1.015 (1.010-1.025); Urobilinogen,Urine Normal (Normal)
[2018-04-21] MEDS ORDERED: Naloxone 0.4 MG/ML INJ IVP PRN (13:13)
--- NOTE | 2018-04-21 13:25 | Internal Med History&Physical ---
Date of Encounter: 04/21/18 Time of Encounter: 13:22 Internal Medicine - H&P: HPI Admitted From: Home Plans for Post Hospital Care: Home History of present illness: Ms. Sousa is a 63 year old female with a history of liver cirrhosis, hepatitis C, and COPD "non-oxygen dependent" presents for 2 days worth of worsening shortness of breath and substernal nonradiating chest discomfort. Both chest pain and shortness of breath are worse with any type of exertion. The symptoms are somewhat alleviated by rest. She does describe a mild cough that is occasionally productive of a greenish colored sputum. She denies any fever or chills. She does complain of some nausea but denies any vomiting. She denies any abdominal pain. She denies any diaphoretic episodes. She is a current daily smoker. She describes chest pain as a pressure. She was given a single breathing treatment in the squad in route to the hospital. She states that she believes both oxygen and the breathing treatment did improve her work of breathing. At the ED, her vital signs were stable,labs were unremarkable in comparison to her baseline. CXR showed right sided PNA and mild right pleural effusion. Pt will be admitted for further treatment. Pt wishes full code. Past Med Surg Social Fam HX - Past Medical History Medical history: arthritis, cirrhosis, COPD, hepatitis, liver disease, other Additional medical history: hep.C&B Psychiatric history: no psych history - Past Surgical History Surgical History: , cholecystectomy, orthopedic, other Additional surgical history: bilateral knees - Social History Smoking Status: Former smoker Smokeless Tobacco Status: No Alcohol use: none Drug use: none - Family History Father Family Member Ethnicity: Non- Living Status: Hx Family Respiratory Disorders: Yes (copd) Mother Family Member Ethnicity: Non- Living Status: Still Living Internal Medicine - H&P: Meds Albuterol Sulfate [Proair Hfa] 2 puff IH Q4H PRN 06/29/16 [History] Budesonide/Formoterol 160/4.5 [Symbicort 160/4.5] 2 puff IH BIDR 04/30/17 [History] Spironolactone [Aldactone] 150 mg PO DAILY 07/04/17 [History] Acetaminophen [Tylenol] 650 mg PO Q6HR PRN 04/21/18 [History] Lactulose 10 gm PO BID 04/21/18 [History] Allergy/AdvReac Type Severity Reaction Status Date / Time doxycycline AdvReac Nausea Verified 04/21/18 16:17 Penicillins AdvReac See Verified 04/21/18 16:17 Comments All Systems PM: A 10-system review of systems was performed and is negative for pertinent findings except as documented above in the HPI. Review of systems: REVIEW OF SYSTEMS: CONSTITUTIONAL: No weight loss, fever, chills, weakness or fatigue. HEENT: Eyes: No visual loss, blurred vision, double vision or yellow sclerae. Ears, Nose, Throat: No hearing loss, sneezing, congestion, runny nose or sore throat. SKIN: No rash or itching. CARDIOVASCULAR: No chest pain, chest pressure or chest discomfort. No palpitations or edema. RESPIRATORY: see HPI. GASTROINTESTINAL: No anorexia, nausea, vomiting or diarrhea. No abdominal pain or blood. GENITOURINARY: No dysuria, urgency, or frequency. NEUROLOGICAL: No headache, dizziness, syncope, paralysis, ataxia, numbness or tingling in the extremities. No change in bowel or bladder control. MUSCULOSKELETAL: No muscle, back pain, joint pain or stiffness. HEMATOLOGIC: No anemia, bleeding or bruising. LYMPHATICS: No enlarged nodes. No history of splenectomy. PSYCHIATRIC: No history of depression or anxiety. ENDOCRINOLOGIC: No reports of sweating, cold or heat intolerance. No polyuria or polydipsia. - Constitutional Vitals: Temp Pulse Resp BP Pulse Ox 98.0 F 107 22 113/74 97 04/21/18 07:48 04/21/18 13:03 04/21/18 13:03 04/21/18 13:03 04/21/18 13:03 General appearance: Present: cooperative, A&O X 3, answers questions appropriately Exam: PHYSICAL EXAMINATION: GENERAL APPEARANCE: The patient is alert, oriented and in no acute distress. HEENT: Head is normocephalic. The sinuses are nontender. Pupils are equal and reactive. The nares are patent. Oropharynx clear without lesions. NECK: Supple without lymphadenopathy. HEART: Regular rate and rhythm. LUNGS: crackle heard on the right side of lung. ABDOMEN: Soft, nontender, distended with good bowel sounds heard. Inguinal area is normal. EXTREMITIES: Without cyanosis, clubbing or edema. NEUROLOGICAL: Gross nonfocal. SKIN: Warm and dry without any rash. Internal Med - H&P Results - Labs CBC & Chem 7: 04/21/18 08:00 04/21/18 08:00 Labs: Short CBC 04/21/18 Range/Units 08:00 WBC 3.0 L (4.3-11.1) K/mcL Hgb 14.5 (11.5-15.4) g/dL Hct 43.8 (35.3-44.9) % Plt Count 45 L (140-400) K/mcL Neutrophils # 1.9 (1.6-8.9) K/mcL BMP 04/21/18 08:00 Sodium 139 Potassium 4.2 Chloride 108 H Carbon Dioxide 25 BUN 15 Creatinine 0.58 L Glucose 109 H Calcium 9.1 Cardiac Enzymes 04/21/18 Range/Units 08:00 Troponin I < 0.03 (< 0.04) ng/mL Urine 04/21/18 Range/Units 09:29 Urine Color Yellow (Yellow) Urine Clarity Clear (Clear) Urine pH 7.0 (5.0-8.0) pH Units Ur Specific [place] 1.015 (1.010-1.025) Urine Protein Negative (Neg-Trace) mg/dL Urine Glucose (UA) Normal (Normal) mg/dL - Impressions ITS Impressions Chest X-Ray 04/21/18 08:06 IMPRESSION: Patchy opacification of the right mid to lower lung field suggestive of pneumonia. Mild right pleural effusion. RECOMMENDATIONS: Radiographic follow-up to resolution. D/ / Savita Chung MD / Savita Chung MD Interpreting Provider: Savita Chung MD - Assessment and plan (1) Right lower lobe pneumonia Current Visit: Yes Status: Acute Assessment and plan: 63 year old female presented with 2 days of cough up with yellowish mucus with chest pain. CXR showed right side infiltrates suspicious PNA. Sputum Cx, Legionella, and pneumoncocus antigen ordered. Continue current abx with Rocephin and Zithromax. Qualifiers: Pneumonia type: due to unspecified organism Qualified Code(s): J18.1 - Lobar pneumonia, unspecified organism (2) COPD (chronic obstructive pulmonary disease) Current Visit: No Status: Chronic Assessment and plan: Continue home meds. Qualifiers: COPD type: unspecified COPD Qualified Code(s): J44.9 - Chronic obstructive pulmonary disease, unspecified (3) Cirrhosis of liver Current Visit: No Status: Chronic Assessment and plan: Abdomen distended, suspicious for large amount of ascites, last paracentesis was in 01/2018 per medical record. Continue home meds including lasix and aldactone. will consult GI if Paracentesis is needed. Qualifiers: Hepatic cirrhosis type: unspecified hepatic cirrhosis Ascites presence: with ascites Qualified Code(s): K74.60 - Unspecified cirrhosis of liver; R18.8 - Other ascites (4) Thrombocytopenia Current Visit: No Status: Chronic Assessment and plan: stable, secondary to liver cirrhosis. (5) Hepatitis C Current Visit: No Status: Acute Assessment and plan: will defer to GI to manage. Qualifiers: Viral hepatitis chronicity: chronic Hepatic coma status: with hepatic coma Qualified Code(s): B18.2 - Chronic viral hepatitis C (6) DVT prophylaxis Current Visit: No Status: Acute Assessment and plan: SCDs. - Time Spent With Patient Total time spent is greater than 50% in coordination of care (as documented) at patient's floor/unit and/or counseling patient: Greater than 35 minutes
--- NOTE | 2018-04-21 18:25 | Electrocardiograph Report ---
[place] [id number] Test Date: 2018-04-21 Pat Name: Cong Sousa Department: [id number] Room: 2S8 Gender: F Coding Spec: : 1955 Requested By: Kamron Cueva Order Number: [id number] Reading MD: Leeann Pineda Measurements Intervals [place] Rate: 87 P: -11 WI: 147 QRS: 54 QRSD: 88 T: 13 QT: 370 QTc: 446 Interpretive Statements Sinus rhythm Low voltage, extremity and precordial leads Electronically Signed On 04-21-2018 18:23:40 EST by Leeann Pineda
[2018-04-21] MEDS: traMADol 50 MG TABLET PO PRN (20:19)
[2018-04-22] MEDS: traMADol 50 MG TABLET PO PRN ×3 (03:12→20:07)
[2018-04-22] MEDS ORDERED: *HR* Promethazine 25 MG/ML VIAL IVP PRN (03:19)
[2018-04-22] MEDS: cefTRIAXone 2,000 MG in Water for inj. (sterile) 20 ML 20 ML IVP SCH (09:38)
[2018-04-22] MEDS: Azithromycin 500 MG in D5% in Water 250 ML IVPB SCH (09:39)
[2018-04-22 10:00] LABS: Basophils % 0.2 %; Immature Granulocytes % 0.2 % (0-4); Mean Corpuscular HGB Conc 33.3 g/dL (31.6-35.5); Mean Corpuscular Volume 95.9 fL (83.0-100.0)
[2018-04-22 10:02] LABS: Eosinophils # 0.1 K/mcL (0.0-0.6); Eosinophils % 0.8 %; Hemoglobin 13.3 g/dL (11.5-15.4); Immature Platelets 6.2 % (1.1-6.1); Lymphocytes # 0.9 K/mcL (0.6-4.6); Lymphocytes % 13.9 %; Mean Corpuscular Hemoglobin 31.9 pg (28.0-33.3); Mean Platelet Volume 12.4 fL (9.4-12.4); Monocytes # 0.4 K/mcL (0.0-1.3); Monocytes % 6.5 %; Neutrophils # 5.2 K/mcL (1.6-8.9); Red Blood Count 4.17 M/mcL (3.82-4.97); Red Cell Distribution Width 16.4 % (11.5-14.5); Segmented Neutrophils % 78.4 %
[2018-04-22 10:03] LABS: Platelet Count 47 K/mcL (140-400)
[2018-04-22 10:13] LABS: Alanine Aminotransferase 19 Units/L (7-52); Albumin 3.1 g/dL (3.5-5.7); Albumin/Globulin Ratio 0.9 (1.1-2.2); Alkaline Phosphatase 63 Units/L (34-104); Aspartate Amino Transferase 36 Units/L (13-39); BUN/Creatinine Ratio 33 (6-26); Bilirubin,Total 0.8 mg/dL (0.3-1.0); Blood Urea Nitrogen 19 mg/dL (8-23); Calcium 9.2 mg/dL (8.6-10.3); Carbon Dioxide 27 mEq/L (23-29); Chloride 108 mEq/L (98-107); Globulin 3.6 g/dL (2.4-3.5); Glucose 158 mg/dL (70-105); Osmolality,Calculated 292 (280-300); Potassium 4.1 mEq/L (3.5-5.1); Sodium 138 mEq/L (136-145); Total Protein 6.7 g/dL (6.4-8.9); eGFR For Non-African Americans > 60 (> 60)
--- NOTE | 2018-04-22 13:51 | Internal Med Progress Note ---
Hospitalist Progress Note - Encounter Date of Encounter: 04/22/18 Time of Encounter: 13:50 - Subjective Interval History: Patient was seen and examined at bedside currently sitting on the side of the bed, she is complaining of abdominal distention and discomfort. Patient does have a history of cirrhosis and ascites. Denies any shortness of breath at this time but does admit when she is home she does get short of breath on exertion. She is to have oxygen however she returned the tanks because she was not using them-she states that she wishes she would have the oxygen. - Exam Vitals: Temp Pulse Resp BP Pulse Ox 97.6 F 91 19 126/96 99 04/22/18 10:30 04/22/18 10:30 04/22/18 10:30 04/22/18 10:30 04/22/18 10:30 Exam: PHYSICAL EXAMINATION: GENERAL APPEARANCE: The patient is alert, oriented and in no acute distress. HEENT: Head is normocephalic. The sinuses are nontender. Pupils are equal and reactive. The nares are patent. Oropharynx clear without lesions. NECK: Supple without lymphadenopathy. HEART: Regular rate and rhythm. LUNGS: Faint crackle heard on the right side of lung. ABDOMEN: Soft, nontender, distended with good bowel sounds heard. Inguinal area is normal. EXTREMITIES: Without cyanosis, clubbing or edema. NEUROLOGICAL: Gross nonfocal. SKIN: Warm and dry without any rash. - Assessment and Plan (1) Right lower lobe pneumonia Current Visit: Yes Status: Acute Assessment and Plan: 63 year old female presented with 2 days of cough up with yellowish mucus with chest pain. CXR showed right side infiltrates suspicious PNA. Sputum Cx, Legionella, and pneumoncocus antigen ordered. Continue current abx with Rocephin and Zithromax. 04/22 She does have nonproductive cough at this time chest x-ray does show infiltrate suspicious for pneumonia Legionella and strep pneumonia are negative We will continue with Rocephin and Zithromax Oxygen as needed-patient may require a 6 minute walk test prior to discharge (2) Cirrhosis of liver Current Visit: No Status: Chronic Assessment and Plan: Abdomen distended, suspicious for large amount of ascites, last paracentesis was in 01/2018 per medical record. Continue home meds including lasix and aldactone. will consult GI if Paracentesis is needed. 213 Abdomen distended-last paracentesis was 01/2018 per medical record Continue home medications including Lasix and Aldactone-hepatic panel is stable Patient is complaining of discomfort and having difficulty breathing we will consult IR for paracentesis (3) Thrombocytopenia Current Visit: No Status: Chronic Assessment and Plan: stable, secondary to liver cirrhosis. 04/22 Secondary to liver psoriases we will continue to monitor currently stable (4) DVT prophylaxis Current Visit: No Status: Acute Assessment and Plan: SCDs. (5) Hepatitis C Current Visit: No Status: Acute Assessment and Plan: History of cirrhosis of liver secondary to hepatitis A, B, and C. Hepatology at [facility] in [place] which she is on a liver transplant list Continue with Aldactone and Lasix Hepatic panel is stable at this time (6) COPD (chronic obstructive pulmonary disease) Current Visit: No Status: Chronic Assessment and Plan: Patient does not require oxygen at home at this time she states that she did not have it however did not use it very often and returned her tanks-currently she is requiring 2 L nasal cannula she may require a 6 minute walk prior to discharge We will continue with bronchodilators no wheezing at this time - Time Spent with Patient Total time spent is greater than 50% in coordination of care (as documented) at patient's floor/unit and/or counseling patient: Internal Medicine: Result - Labs CBC & Chem 7: 04/22/18 09:36 04/22/18 09:36 Labs: Short CBC 04/22/18 Range/Units 09:36 WBC 6.6 D (4.3-11.1) K/mcL Hgb 13.3 (11.5-15.4) g/dL Hct 40.0 (35.3-44.9) % Plt Count 47 L (140-400) K/mcL Neutrophils # 5.2 (1.6-8.9) K/mcL BMP 04/22/18 09:36 Sodium 138 Potassium 4.1 Chloride 108 H Carbon Dioxide 27 BUN 19 Creatinine 0.58 L Glucose 158 H Calcium 9.2 Liver Function 04/22/18 Range/Units 09:36 Total Bilirubin 0.8 (0.3-1.0) mg/dL AST 36 (13-39) Units/L ALT 19 (7-52) Units/L Alkaline Phosphatase 63 (34-104) Units/L Albumin 3.1 L (3.5-5.7) g/dL - ABG Interpretation ABG results: PT/INR, D-dimer PT 13.1 Seconds (9.4-12.1) H 04/21/18 08:00 Consult Discharge Plan - Plan Referrals: Lakisha Cunha, RN DIABETES [Primary Care Provider] - (1) Right lower lobe pneumonia Qualifiers: Pneumonia type: due to unspecified organism Qualified Code(s): J18.1 - Lobar pneumonia, unspecified organism (2) Cirrhosis of liver Qualifiers: Hepatic cirrhosis type: unspecified hepatic cirrhosis Ascites presence: with ascites Qualified Code(s): K74.60 - Unspecified cirrhosis of liver; R18.8 - Other ascites (5) Hepatitis C Qualifiers: Viral hepatitis chronicity: chronic Hepatic coma status: with hepatic coma Qualified Code(s): B18.2 - Chronic viral hepatitis C (6) COPD (chronic obstructive pulmonary disease) Qualifiers: COPD type: unspecified COPD Qualified Code(s): J44.9 - Chronic obstructive pulmonary disease, unspecified
[2018-04-22] MEDS: Ipratropium/Albuterol Neb 3 ML IH SCH ×2 (15:39→21:59)
[2018-04-22] MEDS: Acetaminophen 325 MG TABLET PO PRN (16:03)
--- NOTE | 2018-04-22 16:29 | IR Progress Note ---
Patient reports: no new complaints Vital Signs: Vital Signs/O2 Sat, Most Current Temp Pulse Resp BP Pulse Ox 98.2 F 91 17 125/65 96 04/22/18 15:25 04/22/18 15:25 04/22/18 15:42 04/22/18 15:25 04/22/18 15:42 Recent Labs: Lab Results 04/22/18 04/22/18 04/21/18 09:36 09:36 08:32 WBC 6.6 D RBC 4.17 Hgb 13.3 Hct 40.0 MCV 95.9 MCH 31.9 MCHC 33.3 RDW 16.4 H Plt Count 47 L MPV 12.4 Neutrophils # 5.2 Lymphocytes # 0.9 Monocytes # 0.4 Eosinophils # 0.1 Basophils # 0.0 Sodium 138 Potassium 4.1 Chloride 108 H Carbon Dioxide 27 BUN 19 Creatinine 0.58 L Est GFR ( Amer) > 60 Est GFR (Non-Af Amer) > 60 BUN/Creatinine Ratio 33 H Glucose 158 H Lactic Acid 0.8 Calcium 9.2 04/21/18 04/21/18 08:00 08:00 WBC 3.0 L RBC 4.64 Hgb 14.5 Hct 43.8 MCV 94.4 MCH 31.3 MCHC 33.1 RDW 16.4 H Plt Count 45 L MPV 11.4 Neutrophils # 1.9 Lymphocytes # 0.8 Monocytes # 0.2 Eosinophils # 0.1 Basophils # 0.0 Sodium 139 Potassium 4.2 Chloride 108 H Carbon Dioxide 25 BUN 15 Creatinine 0.58 L Est GFR ( Amer) > 60 Est GFR (Non-Af Amer) > 60 BUN/Creatinine Ratio 26 Glucose 109 H Lactic Acid Calcium 9.1 Assessment and Plan Went and scanned pt today. Minimal rim of ascites seen around liver, less than 1cm in thickness between anterior peritoneal wall and bowel. Therefore did not perform given small window for safe access. Scanned left abdomen, and no fluid seen that appears simple. Question of loculated ascites in the left abdomen. This would be best evaluated with CT imaging of the abdomen and pelvis. It did not appear to be fluid that would drain well with a catheter placement, so none was done.
[2018-04-22] MEDS: Lactulose Oral Soln 20 GM/30 ML UDC PO SCH (23:50)
[2018-04-23] MEDS: Ipratropium/Albuterol Neb 3 ML IH SCH ×4 (03:54→23:26)
[2018-04-23] MEDS: traMADol 50 MG TABLET PO PRN ×2 (04:14→16:00)
--- NOTE | 2018-04-23 05:49 | Event Note ---
Date of Encounter: 04/22/18 Time of Encounter: 19:59 Alerted by patient's nurse IONA Dial that patient stated she was not receiving her lactulose while being here. Nurse reported abdomen was swollen and IR stated it was not fluid. Nurse stated patient never had ammonia level drawn. Stat ammonia ordered which was 100. Stat CT of the abdomen and pelvis ordered before starting lactulose. CT showed moderate to large right pleural effusion with dependent consolidation including complete consolidation of right lower lobe, likely passive atelectasis. Pneumonia cannot be excluded. Cirrhotic morphology liver with evidence of portal venous hypertension including splenomegaly, small amount of abdominopelvic ascites and mesenteric edema. 3.2 cm left adnexal cyst which was present in not definitely changed since prior studies including 2013, almost certainly benign. Sonography could be considered based on current recommendations. 3.2 cm probably benign ovarian cyst recommended prompt follow-up with pelvic US. Lactulose ordered and administered at 23:50. Nurse instructed to continue monitoring patient closely and alert me immediately of any adverse changes.
[2018-04-23 06:28] LABS: Immature Granulocytes % 0.2 % (0-4)
[2018-04-23 06:30] LABS: Basophils % 0.5 %; Eosinophils # 0.1 K/mcL (0.0-0.6); Eosinophils % 2.3 %; Hematocrit 41.5 % (35.3-44.9); Hemoglobin 13.4 g/dL (11.5-15.4); Immature Platelets 4.8 % (1.1-6.1); Lymphocytes % 23.4 %; Mean Corpuscular HGB Conc 32.3 g/dL (31.6-35.5); Mean Corpuscular Hemoglobin 31.6 pg (28.0-33.3); Mean Corpuscular Volume 97.9 fL (83.0-100.0); Mean Platelet Volume 11.6 fL (9.4-12.4); Monocytes # 0.3 K/mcL (0.0-1.3); Monocytes % 7.4 %; Neutrophils # 2.9 K/mcL (1.6-8.9); Red Blood Count 4.24 M/mcL (3.82-4.97); Red Cell Distribution Width 16.8 % (11.5-14.5); Segmented Neutrophils % 66.2 %
[2018-04-23 06:37] LABS: Platelet Count 45 K/mcL (140-400)
[2018-04-23 06:42] LABS: BUN/Creatinine Ratio 33 (6-26); Blood Urea Nitrogen 18 mg/dL (8-23); Carbon Dioxide 28 mEq/L (23-29); Chloride 107 mEq/L (98-107); Glucose 98 mg/dL (70-105); Osmolality,Calculated 290 (280-300); Potassium 4.2 mEq/L (3.5-5.1); Sodium 139 mEq/L (136-145); eGFR For Non-African Americans > 60 (> 60)
[2018-04-23] MEDS: cefTRIAXone 2,000 MG in Water for inj. (sterile) 20 ML 20 ML IVP SCH (09:37)
[2018-04-23] MEDS: Lactulose Oral Soln 20 GM/30 ML UDC PO SCH ×2 (09:37→22:14)
[2018-04-23] MEDS: Azithromycin 500 MG in D5% in Water 250 ML IVPB SCH (09:38)
[2018-04-23] MEDS ORDERED: Furosemide 20 MG/2 ML VIAL IVP ONE (14:34)
--- NOTE | 2018-04-23 16:04 | Internal Med Progress Note ---
Hospitalist Progress Note - Encounter Date of Encounter: 04/23/18 Time of Encounter: 16:04 - Subjective Interval History: Patient was seen and examined at bedside currently standing using any oxygen at this time sensor stable denies any chest pain or shortness of breath continues to complain of abdominal fullness CT of abdomen results discussed with the patient who verbalized understanding. I discussed treatment plan with the patient who agreed with plan. - Exam Vitals: Temp Pulse Resp BP Pulse Ox 98.3 F 87 16 141/87 93 04/23/18 11:04/23/18 11:04/23/18 11:04/23/18 11:04/23/18 11:00 Exam: PHYSICAL EXAMINATION: GENERAL APPEARANCE: The patient is alert, oriented and in no acute distress. Obese HEENT: Head is normocephalic. The sinuses are nontender. Pupils are equal and reactive. The nares are patent. Oropharynx clear without lesions. NECK: Supple without lymphadenopathy. HEART: Regular rate and rhythm. LUNGS: Faint crackle heard on the right side of lung. ABDOMEN: Soft nontender, distended with good bowel sounds heard. Inguinal area is normal. EXTREMITIES: Without cyanosis, clubbing or edema. NEUROLOGICAL: Gross nonfocal. SKIN: Warm and dry without any rash. - Assessment and Plan (1) Right lower lobe pneumonia Current Visit: Yes Status: Acute Assessment and Plan: 63 year old female presented with 2 days of cough up with yellowish mucus with chest pain. CXR showed right side infiltrates suspicious PNA. Sputum Cx, Legionella, and pneumoncocus antigen ordered. Continue current abx with Rocephin and Zithromax. 04/22 She does have nonproductive cough at this time chest x-ray does show infiltrate suspicious for pneumonia Legionella and strep pneumonia are negative We will continue with Rocephin and Zithromax Oxygen as needed-patient may require a 6 minute walk test prior to discharge CT of abdomen and pelvis did show a moderate to large pleural effusion with dependent consolidation including complete consolidation of right lower lobe likely passive atelectasis pneumonia cannot be excluded continue with Rocephin and Zithromax Oxygen as needed-6 minute walk prior to discharge for qualification of home oxygen (2) Cirrhosis of liver Current Visit: No Status: Chronic Assessment and Plan: Abdomen distended, suspicious for large amount of ascites, last paracentesis was in 01/2018 per medical record. Continue home meds including lasix and aldactone. will consult GI if Paracentesis is needed. 04/22 Abdomen distended-last paracentesis was 01/2018 per medical record Continue home medications including Lasix and Aldactone-hepatic panel is stable Patient is complaining of discomfort and having difficulty breathing we will consult IR for paracentesis 04/23 Evaluated by IR-abdomen scanned with no fluid seen CT of abdomen/pelvis obtained Cirrhotic morphology liver with evidence of portal venous hypertension including splenomegaly, small amount of abdominopelvic ascites and mesenteric edema. We will continue with Aldactone and lactulose -IV Lasix for now and resume home Lasix once discharged (3) Thrombocytopenia Current Visit: No Status: Chronic Assessment and Plan: stable, secondary to liver cirrhosis. 04/22 Secondary to liver psoriases we will continue to monitor currently stable 04/23 Secondary to liver cirrhosis -currently stable -no signs or symptoms of bleeding (4) DVT prophylaxis Current Visit: No Status: Acute Assessment and Plan: SCDs. (5) Hepatitis C Current Visit: No Status: Acute Assessment and Plan: History of cirrhosis of liver secondary to hepatitis A, B, and C. Hepatology at [facility] in [place] which she is on a liver transplant list Continue with Aldactone and Lasix Hepatic panel is stable at this time (6) COPD (chronic obstructive pulmonary disease) Current Visit: No Status: Chronic Assessment and Plan: Patient does not require oxygen at home at this time she states that she did not have it however did not use it very often and returned her tanks-currently she is requiring 2 L nasal cannula she may require a 6 minute walk prior to discharge We will continue with bronchodilators no wheezing at this time 04/23 No wheezing at this time continue with bronchodilators as well as oxygen support (7) Pleural effusion Current Visit: No Status: Acute Assessment and Plan: 1 CT of abdomen and pelvis did reveal a moderate to large right pleural effusion as well as dependent consolidation including complete consolidation right lower lobe. The left lung base is clear. We will give IV Lasix and diuresed patient overnight and reassess in a.m. Continue with oxygen support Also obtain cardiac echo - Time Spent with Patient Total time spent is greater than 50% in coordination of care (as documented) at patient's floor/unit and/or counseling patient: Internal Medicine: Result - Labs CBC & Chem 7: 04/23/18 06:03 04/23/18 06:03 Labs: Short CBC 04/23/18 Range/Units 06:03 WBC 4.4 (4.3-11.1) K/mcL Hgb 13.4 (11.5-15.4) g/dL Hct 41.5 (35.3-44.9) % Plt Count 45 L (140-400) K/mcL Neutrophils # 2.9 (1.6-8.9) K/mcL BMP 04/23/18 06:03 Sodium 139 Potassium 4.2 Chloride 107 Carbon Dioxide 28 BUN 18 Creatinine 0.54 L Glucose 98 Calcium 9.0 - ABG Interpretation ABG results: PT/INR, D-dimer PT 13.1 Seconds (9.4-12.1) H 04/21/18 08:00 - Impressions Impressions Abdomen/Pelvis/Transvag US 04/22/18 13:51 IMPRESSION: Suspected loculated ascites seen within the patient's left abdomen, though this would be better assessed with CT imaging as differentiating this with adjacent bowel is very difficult. Very thin rim of simple appearing ascites in the right abdomen, though too small to safely access for paracentesis. No procedure was performed. D/ / Ramakrishna Thompson MD / Ramakrishna Thompson MD Interpreting Provider: Ramakrishna Thompson MD Abdomen/Pelvis CT 04/22/18 21:01 IMPRESSION: [id number] right pleural effusion with dependent consolidation including complete consolidation of right lower lobe, likely passive atelectasis. Pneumonia cannot be excluded. Cirrhotic morphology liver with evidence of portal venous hypertension including splenomegaly, small amount of abdominopelvic ascites and mesenteric edema. 3.2 cm left adnexal cyst which was present in not definitely changed since prior studies including 2013, almost certainly benign. Sonography could be considered based on current recommendations. See below. RECOMMENDATIONS: 3.2 cm probably benign ovarian cyst Recommend prompt follow-up with pelvic US. Reference: J Am Bryon Radiol 2013;10:[id number] D/ / Darby Meyer Cha, MD / Darby Meyer Cha, MD Interpreting Provider: Darby Meyer Cha, MD Consult Discharge Plan - Plan Referrals: Lakisha Cunha CNP [Primary Care Provider] - (1) Right lower lobe pneumonia Qualifiers: Pneumonia type: due to unspecified organism Qualified Code(s): J18.1 - Lobar pneumonia, unspecified organism (2) Cirrhosis of liver Qualifiers: Hepatic cirrhosis type: unspecified hepatic cirrhosis Ascites presence: with ascites Qualified Code(s): K74.60 - Unspecified cirrhosis of liver; R18.8 - Other ascites (5) Hepatitis C Qualifiers: Viral hepatitis chronicity: chronic Hepatic coma status: with hepatic coma Qualified Code(s): B18.2 - Chronic viral hepatitis C (6) COPD (chronic obstructive pulmonary disease) Qualifiers: COPD type: unspecified COPD Qualified Code(s): J44.9 - Chronic obstructive pulmonary disease, unspecified
[2018-04-23] MEDS: Acetaminophen 325 MG TABLET PO PRN (22:13)
[2018-04-24] MEDS: Ipratropium/Albuterol Neb 3 ML IH SCH ×4 (04:00→23:42)
[2018-04-24] MEDS: traMADol 50 MG TABLET PO PRN ×3 (04:37→16:49)
[2018-04-24 07:20] LABS: Mean Corpuscular HGB Conc 33.3 g/dL (31.6-35.5); Mean Corpuscular Hemoglobin 32.1 pg (28.0-33.3); Mean Corpuscular Volume 96.3 fL (83.0-100.0); Mean Platelet Volume 10.7 fL (9.4-12.4); Red Blood Count 4.05 M/mcL (3.82-4.97); Red Cell Distribution Width 16.3 % (11.5-14.5)
[2018-04-24 07:21] LABS: Platelet Count 44 K/mcL (140-400)
[2018-04-24 07:32] LABS: BUN/Creatinine Ratio 32 (6-26); Blood Urea Nitrogen 18 mg/dL (8-23); Calcium 9.2 mg/dL (8.6-10.3); Carbon Dioxide 32 mEq/L (23-29); Chloride 102 mEq/L (98-107); Glucose 98 mg/dL (70-105); Osmolality,Calculated 288 (280-300); Potassium 4.1 mEq/L (3.5-5.1); Sodium 138 mEq/L (136-145); eGFR For Non-African Americans > 60 (> 60)
[2018-04-24] MEDS: cefTRIAXone 2,000 MG in Water for inj. (sterile) 20 ML 20 ML IVP SCH (08:45)
[2018-04-24] MEDS: Azithromycin 500 MG in D5% in Water 250 ML IVPB SCH (08:50)
[2018-04-24] MEDS: Lactulose Oral Soln 20 GM/30 ML UDC PO SCH ×2 (08:56→19:54)
[2018-04-24] MEDS ORDERED: Furosemide 20 MG/2 ML VIAL IVP SCH (09:00)
--- NOTE | 2018-04-24 10:57 | Discharge Summary ---
- NOTES TO OUTPATIENT PROVIDER Notes to Outpatient Provider: follow up with cardiology - started on Lasix 40 mg daily-qualified for home oxygen Orders not resulted at time of discharge: Pending orders 04/25/18 04:00 BMP [Basic Metabolic Panel] AM 0400 CBC no Diff [Complete Blood Count w/o Diff] [HEME] AM 0400 04/26/18 04:00 BMP [Basic Metabolic Panel] AM 0400 CBC no Diff [Complete Blood Count w/o Diff] [HEME] AM 0400 Date of Encounter: 04/24/18 Time of Encounter: 10:51 - Discharge Diagnosis (1) Right lower lobe pneumonia Status: Acute Qualifiers: Pneumonia type: due to unspecified organism Qualified Code(s): J18.1 - Lobar pneumonia, unspecified organism (2) Cirrhosis of liver Status: Chronic Qualifiers: Hepatic cirrhosis type: unspecified hepatic cirrhosis Ascites presence: with ascites Qualified Code(s): K74.60 - Unspecified cirrhosis of liver; R18.8 - Other ascites (3) Thrombocytopenia Status: Chronic (4) DVT prophylaxis Status: Acute (5) Hepatitis C Status: Acute Qualifiers: Viral hepatitis chronicity: chronic Hepatic coma status: with hepatic coma Qualified Code(s): B18.2 - Chronic viral hepatitis C (6) COPD (chronic obstructive pulmonary disease) Status: Chronic Qualifiers: COPD type: unspecified COPD Qualified Code(s): J44.9 - Chronic obstructive pulmonary disease, unspecified (7) Pleural effusion Status: Acute Hospital course: Ms. Sousa is a 63 year old female - Time Spent with Patient Total time spent providing and/or coordinating discharge services: - Discharge Medications Home Medications: Albuterol Sulfate [Proair Hfa] 2 puff IH Q4H PRN 06/29/16 [History] Budesonide/Formoterol 160/4.5 [Symbicort 160/4.5] 2 puff IH BIDR 04/30/17 [History] Spironolactone [Aldactone] 150 mg PO DAILY 07/04/17 [History] Acetaminophen [Tylenol] 650 mg PO Q6HR PRN 04/21/18 [History] Lactulose 10 gm PO BID 04/21/18 [History] Allergies/Adverse Reactions: Allergy/AdvReac Type Severity Reaction Status Date / Time doxycycline AdvReac Nausea Verified 04/21/18 16:17 Penicillins AdvReac See Verified 04/21/18 16:17 Comments Date of admission: 04/21/18 10:53 Primary care physician: Lakisha Cunha CNP Consults: 04/21/18 13:27 Consult to Nurse Navigator [CONS] Routine Comment: PNEUMONIA - Constitutional Vitals: Temp Pulse Resp BP Pulse Ox 98.7 F 86 20 127/85 95 04/24/18 07:35 04/24/18 07:35 04/24/18 10:06 04/24/18 07:35 04/24/18 10:06 General appearance: Present: cooperative, A&O X 3, answers questions appropriately - Patient Status Condition: Fair - Discharge Instructions Follow Up With: Lakisha Cunha CNP [Primary Care Provider] -
--- NOTE | 2018-04-24 11:20 | Internal Med Progress Note ---
Hospitalist Progress Note - Encounter Date of Encounter: 04/24/18 Time of Encounter: 11:20 - Subjective Interval History: Patient was seen and examined at bedside-complains of shortness of breath on exertion. Discussed treatment plan with the patient patient expressed concern about discharge plans -she states she is too weak and feels unsafe to go home. Express that she lives by herself and that she is too weak to take care of herself. She would like to be evaluated by physical therapy and possible home health - Exam Vitals: Temp Pulse Resp BP Pulse Ox 98.9 F 88 16 126/81 94 04/24/18 11:07 04/24/18 11:07 04/24/18 11:07 04/24/18 11:07 04/24/18 11:07 Exam: PHYSICAL EXAMINATION: GENERAL APPEARANCE: The patient is alert, oriented and in no acute distress. Obese HEENT: Head is normocephalic. The sinuses are nontender. Pupils are equal and reactive. The nares are patent. Oropharynx clear without lesions. NECK: Supple without lymphadenopathy. HEART: Regular rate and rhythm. LUNGS: Faint crackle heard on the right side of lung.-no wheezing ABDOMEN: Soft nontender, distended with good bowel sounds heard. Inguinal area is normal. EXTREMITIES: Without cyanosis, clubbing or edema. NEUROLOGICAL: Gross nonfocal. SKIN: Warm and dry without any rash. - Assessment and Plan (1) Right lower lobe pneumonia Current Visit: Yes Status: Acute Assessment and Plan: 63 year old female presented with 2 days of cough up with yellowish mucus with chest pain. CXR showed right side infiltrates suspicious PNA. Sputum Cx, Legionella, and pneumoncocus antigen ordered. Continue current abx with Rocephin and Zithromax. CT of abdomen and pelvis did show a moderate to large pleural effusion with dependent consolidation including complete consolidation of right lower lobe likely passive atelectasis pneumonia cannot be excluded continue with Rocephin and Zithromax Patient is requiring oxygen supplementation normally she does not require oxygen at home-oxygen saturations are in the upper 80s low 90s on room air -6 minute walk was performed and she did qualify for home oxygen- (2) Cirrhosis of liver Current Visit: No Status: Chronic Assessment and Plan: Evaluated by IR-abdomen scanned with no fluid seen CT of abdomen/pelvis obtained Cirrhotic morphology liver with evidence of portal venous hypertension including splenomegaly, small amount of abdominopelvic ascites and mesenteric edema. We will continue with Aldactone and lactulose -IV Lasix for now and resume home Lasix once discharged Hepatic panel was stable (3) Thrombocytopenia Current Visit: No Status: Chronic Assessment and Plan: Secondary to liver cirrhosis -currently stable -no signs or symptoms of bleeding (4) DVT prophylaxis Current Visit: No Status: Acute Assessment and Plan: SCDs. (5) Hepatitis C Current Visit: No Status: Acute Assessment and Plan: History of cirrhosis of liver secondary to hepatitis A, B, and C. Hepatology at [facility] in [place] which she is on a liver transplant list Continue with Aldactone and Lasix Hepatic panel is stable at this time (6) COPD (chronic obstructive pulmonary disease) Current Visit: No Status: Chronic Assessment and Plan: No wheezing at this time continue with bronchodilators as well as oxygen support She did qualify for home O2 (7) Pleural effusion Current Visit: No Status: Acute Assessment and Plan: 1 CT of abdomen and pelvis did reveal a moderate to large right pleural effusion as well as dependent consolidation including complete consolidation right lower lobe. The left lung base is clear. We will continue with IV Lasix and convert to oral upon discharge Continue with oxygen support Cardiac echo LVEF 65-70%. Basal sigmoid septum. Mild left ventricular diastolic dysfunction. Mildly dilated left atrium. Normal right ventricular structure and function. Mild tricuspid regurgitation. No pulmonary hypertension. Small pericardial effusion without echocardiographic evidence of tamponade. (8) Respiratory failure with hypoxia Current Visit: Yes Status: Acute Assessment and Plan: Secondary to pleural effusion and COPD/pneumonia-continue with oxygen support- qualifies for home oxygen Continue with antibiotics and diuretics - Time Spent with Patient Total time spent is greater than 50% in coordination of care (as documented) at patient's floor/unit and/or counseling patient: Internal Medicine: Result - Labs CBC & Chem 7: 04/24/18 06:51 04/24/18 06:51 Labs: Short CBC 04/24/18 Range/Units 06:51 WBC 3.5 L (4.3-11.1) K/mcL Hgb 13.0 (11.5-15.4) g/dL Hct 39.0 (35.3-44.9) % Plt Count 44 L (140-400) K/mcL BMP 04/24/18 06:51 Sodium 138 Potassium 4.1 Chloride 102 Carbon Dioxide 32 H BUN 18 Creatinine 0.57 L Glucose 98 Calcium 9.2 - ABG Interpretation ABG results: PT/INR, D-dimer PT 13.1 Seconds (9.4-12.1) H 04/21/18 08:00 - Impressions Impressions Echocardiogram 04/23/18 15:57 Impressions: LVEF 65-70%. Basal sigmoid septum. Mild left ventricular diastolic dysfunction. Mildly dilated left atrium. Normal right ventricular structure and function. Mild tricuspid regurgitation. No pulmonary hypertension. Small pericardial effusion without echocardiographic evidence of tamponade. Left Ventricular Wall Motion: Rest Echo Findings All wall segments showed normal motion. Findings: Study Quality * Technically adequate exam. ECG Findings * Normal sinus rhythm. Left Ventricle * LVEF 65-70%. * Normal LV chamber size and systolic function. * Mild left ventricular diastolic dysfunction. * Basal sigmoid septum. Right Ventricle * Normal right ventricular structure and function. Left Atrium * Mildly dilated left atrium. Right Atrium * Normal right atrial size. Interatrial Septum * Interatrial septum not well evaluated. Aortic Valve * Trileaflet aortic valve. * Normal aortic valve structure. * No aortic stenosis. Elevated LVOT mean gradient 6 mmHg due to sigmoidal basal septum. * No aortic regurgitation. Mitral Valve * Mild mitral annular calcification * Trace mitral regurgitation. * No mitral stenosis. Tricuspid Valve * Normal tricuspid valve structure. * Trace tricuspid regurgitation. * Mild tricuspid regurgitation. * Estimated RVSP is 30 mmHg. * Estimated RA pressure is 3 mmHg. * No pulmonary hypertension. Pulmonic Valve * Pulmonic valve is not well visualized. * No pulmonic stenosis. * Mild pulmonic regurgitation. Aorta * Normally sized aortic root. Pericardium * There is a small pericardial effusion present, 0.7 cm posterior to RA. * There is no echocardiographic evidence of tamponade. * Excessive respiratory variation is present. IVC * Normal IVC dimensions and inspiratory collapse. Consult Discharge Plan - Plan Referrals: Vince Gonzalez DO [Partnered Physician] - 04/30/18 1:15 pm (Please arrive 15 minutes before your appointment.) Lakisha Cunha, MARLYN [Primary Care Provider] - 04/28/18 10:35 am (1) Right lower lobe pneumonia Qualifiers: Pneumonia type: due to unspecified organism Qualified Code(s): J18.1 - Lobar pneumonia, unspecified organism (2) Cirrhosis of liver Qualifiers: Hepatic cirrhosis type: unspecified hepatic cirrhosis Ascites presence: with ascites Qualified Code(s): K74.60 - Unspecified cirrhosis of liver; R18.8 - Other ascites (5) Hepatitis C Qualifiers: Viral hepatitis chronicity: chronic Hepatic coma status: with hepatic coma Qualified Code(s): B18.2 - Chronic viral hepatitis C (6) COPD (chronic obstructive pulmonary disease) Qualifiers: COPD type: unspecified COPD Qualified Code(s): J44.9 - Chronic obstructive pulmonary disease, unspecified (8) Respiratory failure with hypoxia Qualifiers: Chronicity: acute on chronic Qualified Code(s): J96.21 - Acute and chronic respiratory failure with hypoxia
[2018-04-24] MEDS ORDERED: *HR* Metoprolol 5 MG/5 ML VIAL IVP ONE (11:46)
[2018-04-24] MEDS: Furosemide 20 MG/2 ML VIAL IVP SCH (16:49)
[2018-04-24] MEDS: Acetaminophen 325 MG TABLET PO PRN (19:54)
[2018-04-25] MEDS: traMADol 50 MG TABLET PO PRN ×2 (00:04→06:00)
[2018-04-25] MEDS: Acetaminophen 325 MG TABLET PO PRN (03:19)
[2018-04-25] MEDS: Ipratropium/Albuterol Neb 3 ML IH SCH ×2 (05:07→11:05)
[2018-04-25 05:49] LABS: Red Blood Count 4.28 M/mcL (3.82-4.97); Red Cell Distribution Width 16.1 % (11.5-14.5)
[2018-04-25 05:51] LABS: Hematocrit 41.7 % (35.3-44.9); Hemoglobin 13.4 g/dL (11.5-15.4); Immature Platelets 6.7 % (1.1-6.1); Mean Corpuscular HGB Conc 32.1 g/dL (31.6-35.5); Mean Corpuscular Hemoglobin 31.3 pg (28.0-33.3); Mean Corpuscular Volume 97.4 fL (83.0-100.0); Mean Platelet Volume 12.4 fL (9.4-12.4)
[2018-04-25 06:08] LABS: BUN/Creatinine Ratio 31 (6-26); Blood Urea Nitrogen 21 mg/dL (8-23); Calcium 9.6 mg/dL (8.6-10.3); Carbon Dioxide 34 mEq/L (23-29); Chloride 98 mEq/L (98-107); Glucose 100 mg/dL (70-105); Osmolality,Calculated 285 (280-300); Potassium 4.1 mEq/L (3.5-5.1); Sodium 136 mEq/L (136-145); eGFR For Non-African Americans > 60 (> 60)
[2018-04-25 06:51] VITALS: BP 107/65
[2018-04-25] MEDS: Furosemide 20 MG/2 ML VIAL IVP SCH (08:16)
[2018-04-25] MEDS: cefTRIAXone 2,000 MG in Water for inj. (sterile) 20 ML 20 ML IVP SCH (08:16)
[2018-04-25] MEDS: Lactulose Oral Soln 20 GM/30 ML UDC PO SCH (08:16)
[2018-04-25] MEDS: Azithromycin 500 MG in D5% in Water 250 ML IVPB SCH (10:46)
--- NOTE | 2018-04-25 11:54 | Discharge Summary ---
- NOTES TO OUTPATIENT PROVIDER Notes to Outpatient Provider: SOB - pleural effusion, tx of pneumonia- cont azithromycin, breathing treatments patient did qualify for home oxygen-chest x- ray as outpatient to monitor pleural effusion. Follow-up with cardiology. Home health nursing Orders not resulted at time of discharge: Pending orders 04/26/18 04:00 BMP [Basic Metabolic Panel] AM 0400 CBC no Diff [Complete Blood Count w/o Diff] [HEME] AM 0400 Date of Encounter: 04/25/18 Time of Encounter: 11:39 - Discharge Diagnosis (1) Right lower lobe pneumonia Priority: Primary Status: Acute Qualifiers: Pneumonia type: due to unspecified organism Qualified Code(s): J18.1 - Lobar pneumonia, unspecified organism (2) Cirrhosis of liver Priority: Secondary Status: Chronic Qualifiers: Hepatic cirrhosis type: unspecified hepatic cirrhosis Ascites presence: with ascites Qualified Code(s): K74.60 - Unspecified cirrhosis of liver; R18.8 - Other ascites (3) Thrombocytopenia Priority: Secondary Status: Chronic (4) Hepatitis C Priority: Secondary Status: Acute Qualifiers: Viral hepatitis chronicity: chronic Hepatic coma status: with hepatic coma Qualified Code(s): B18.2 - Chronic viral hepatitis C (5) COPD (chronic obstructive pulmonary disease) Priority: Secondary Status: Chronic Qualifiers: COPD type: unspecified COPD Qualified Code(s): J44.9 - Chronic obstructive pulmonary disease, unspecified (6) Pleural effusion Priority: Secondary Status: Acute (7) Respiratory failure with hypoxia Priority: Secondary Status: Acute Qualifiers: Chronicity: acute on chronic Qualified Code(s): J96.21 - Acute and chronic respiratory failure with hypoxia Hospital course: Ms. Sousa is a 63 year old female past medical history of liver cirrhosis hepatitis C and COPD non-oxygen dependent Presented to [facility] ED with with 2 days of worsening shortness of breath and substernal chest discomfort with cough. Shortness of breath is worse on exertion. She does report a mild cough that produces a green-colored sputum she is a current smoker does not use any oxygen at home states that she used to have oxygen however she returned to the company since she did not use it very often. Patient is a current smoker Chest x-ray did show right-sided pneumonia and mild right pleural effusion patient was hypoxic on room air with sats 80s . She was given to breathing treatments oxygen and IV Rocephin and Zithromax Lasix IV CT of abdomen was obtained due to patient complaining of abdominal fullness which did show moderate to large right pleural effusion and dependent consolidation including complete consolidation right lower lobe likely passive atelectasis pneumonia cannot be excluded cirrhotic morphology liver with evidence of portal venous hypertension including splenomegaly small amount abdominal pelvic ascites and mesenteric edema 3.2 cm left adnexal cyst unchanged from prior studies echocardiogram was completed which did show EF of 65-70% basal sigmoid septum mid left ventricular diastolic dysfunction mild dilated left atrium normal right ventricular structure and function. Mild tricuspid regurgitation no pulmonary hypertension small pericardial effusion without echographic evidence of Tampanode patient did qualify for home oxygen for respiratory status did improve patient express concern about safety at home due to weakness she was evaluated by PT and OT and social work professor to establish home health advised patient that she will be discharged home on oxygen with DuoNeb times Lasix and azithromycin. Advised patient to stop smoking advised patient to follow-up with primary care provider as well as cardiology she has appointment with them next week. Patient verbalized understanding currently hemodynamically stable and ready for discharge. Discharge discussed with: patient, nurse Time spent discussing smoking cessation with patient: 3 to 10 minutes - Time Spent with Patient Total time spent providing and/or coordinating discharge services: Less than 30 minutes - Discharge Medications Prescriptions: Ipratropium/Albuterol Neb [Duoneb] 3 ml IH Q6HR PRN #30 inhsol PRN Reason: Shortness Of Breath/Wheezing Azithromycin 250 mg PO DAILY #3 tablet Furosemide [Lasix] 40 mg PO DAILY #30 tab GuaiFENesin ER [Mucinex] 600 mg PO BID #14 tbbp.12hr Home Medications: Albuterol Sulfate [Proair Hfa] 2 puff IH Q4H PRN 06/29/16 [History] Budesonide/Formoterol 160/4.5 [Symbicort 160/4.5] 2 puff IH BIDR 04/30/17 [History] Spironolactone [Aldactone] 150 mg PO DAILY 07/04/17 [History] Acetaminophen [Tylenol] 650 mg PO Q6HR PRN 04/21/18 [History] Lactulose 10 gm PO BID 04/21/18 [History] Azithromycin 250 mg PO DAILY #3 tablet 04/25/18 [Rx] Furosemide [Lasix] 40 mg PO DAILY #30 tab 04/25/18 [Rx] GuaiFENesin ER [Mucinex] 600 mg PO BID #14 tbbp.12hr 04/25/18 [Rx] Ipratropium/Albuterol Neb [Duoneb] 3 ml IH Q6HR PRN #30 inhsol 04/25/18 [Rx] Allergies/Adverse Reactions: Allergy/AdvReac Type Severity Reaction Status Date / Time doxycycline AdvReac Nausea Verified 04/21/18 16:17 Penicillins AdvReac See Verified 04/21/18 16:17 Comments Date of admission: 04/24/18 14:41 Primary care physician: Lakisha Cunha CNP Consults: 04/21/18 13:27 Consult to Nurse Navigator [CONS] Routine Comment: PNEUMONIA 04/24/18 11:18 Consult to Physical Therapy [CONS] Routine Comment: Evaluate, develop and implement POC Reason for Consult: would like to have HH states she does not feel safe taking care of herself Does patient have active BEDREST order?: No Is patient medically & hemodynamically stable?: Yes Patient assessed for mobility or mobilized this visit?: Yes Consult to Tub Puller [CONS] Routine Reason for SW Consult: would like Discharging clinician: Natalya Wang Anticipated date of discharge: 04/25/18 - Constitutional Vitals: Temp Pulse Resp BP Pulse Ox 98.3 F 87 16 107/65 94 04/25/18 06:45 04/25/18 06:45 04/25/18 06:45 04/25/18 06:45 04/25/18 06:45 General appearance: Present: cooperative, A&O X 3, answers questions appropriately Exam: . - Head Head exam: Present: atraumatic, normocephalic - Eye Eye exam: Present: PERRL, conjuntiva pink, sclera anicteric Pupils: Present: PERRL - Neck Neck exam general surgery: Present: supple, trachea midline. Absent: lymphadenopathy - Respiratory Respiratory exam: Present: CTAB. Absent: accessory muscle use, rales, rhonchi, wheezes Additional comments: Faint crackle in right lower lobe - Cardiovascular Cardiovascular exam: Present: RRR, +S1, +S2. Absent: diastolic murmur, gallop, rubs, systolic murmur - GI/Abdominal GI/Abdominal exam: Present: normal bowel sounds, soft, no peritoneal signs. Absent: distended, tenderness - Extremities Exam Extremities exam: Present: warm, radial pulses palpable and symmetrical. Absent: calf tenderness, cyanotic, pedal edema - Neurological Exam Neurological exam: Present: CN II-XII intact, oriented X3, no focal deficits. Absent: pronater drift, facial droop, speech deficit - Skin Skin exam: Present: dry, intact - Patient Status Disposition: Home Health Service Condition: Fair Functional capacity at discharge: independent ambulation Overall status at discharge: patient is back to baseline - Ambulatory Orders Ambulatory Orders: Basic Metabolic Panel [CHEM] Time Frame: 04/28/18, Facility: [facility], Location: Lab - Discharge Instructions Instructions: Furosemide (By mouth), Guaifenesin (By mouth), Azithromycin (By mouth), Pneumonia (DC) Follow Up With: Vince Gonzalez DO [Partnered Physician] - 04/30/18 9:45 am (Please arrive 15 minutes before your appointment.) Lakisha Cunha CNP [Primary Care Provider] - 04/28/18 10:35 am Additional Instructions: Please call [facility] at [phone] to have your concentrator and supplies delivered. - Diet and Activity Activity: increase activity as tolerated Diet: advance to your usual diet
--- NOTE | 2018-04-25 13:01 | Physician Discharge Referral ---
Home Health/Hosp Referral Info Transfer to: Home Health Attending Provider: Walker Provider in Charge Post Discharge: PCP - Diagnosis (1) Right lower lobe pneumonia Priority: Primary Status: Acute (2) Cirrhosis of liver Priority: Secondary Status: Chronic (3) Thrombocytopenia Priority: Secondary Status: Chronic (4) Hepatitis C Priority: Secondary Status: Acute (5) COPD (chronic obstructive pulmonary disease) Priority: Secondary Status: Chronic (6) Pleural effusion Priority: Secondary Status: Acute (7) Respiratory failure with hypoxia Priority: Primary Status: Acute - Respiratory Orders Oxygen / L per min (2L NC cont Chem 7- 04/28/2018) Smoking Cessation: Smoking cessation has been advised. For more information, call the [employer] Quit Line at 6-637-AIEZ-NOW. - Diet/Nutrition Diet/Nutrition Orders: Cardiac - Activity Activity Orders: Up ad jonathan - Services Needed Following services are medically necessary services: Nursing - Transfer Medications Prescriptions: Ipratropium/Albuterol Neb [Duoneb] 3 ml IH Q6HR PRN #30 inhsol PRN Reason: Shortness Of Breath/Wheezing Azithromycin 250 mg PO DAILY #3 tablet Furosemide [Lasix] 40 mg PO DAILY #30 tab GuaiFENesin ER [Mucinex] 600 mg PO BID #14 tbbp.12hr Home Medications: Albuterol Sulfate [Proair Hfa] 2 puff IH Q4H PRN 06/29/16 [History] Budesonide/Formoterol 160/4.5 [Symbicort 160/4.5] 2 puff IH BIDR 04/30/17 [History] Spironolactone [Aldactone] 150 mg PO DAILY 07/04/17 [History] Acetaminophen [Tylenol] 650 mg PO Q6HR PRN 04/21/18 [History] Lactulose 10 gm PO BID 04/21/18 [History] Azithromycin 250 mg PO DAILY #3 tablet 04/25/18 [Rx] Furosemide [Lasix] 40 mg PO DAILY #30 tab 04/25/18 [Rx] GuaiFENesin ER [Mucinex] 600 mg PO BID #14 tbbp.12hr 04/25/18 [Rx] Ipratropium/Albuterol Neb [Duoneb] 3 ml IH Q6HR PRN #30 inhsol 04/25/18 [Rx] Allergies/Adverse Reactions: Allergy/AdvReac Type Severity Reaction Status Date / Time doxycycline AdvReac Nausea Verified 04/21/18 16:17 Penicillins AdvReac See Verified 04/21/18 16:17 Comments Certification: Further, I certify that my clinical findings support that this patient is homebound (i.e. absences from home require considerable and taxing effort and are for medical reasons or latter-day services or infrequently or short duration when for other reasons) because: Homebound Reason: Severity of cardiac or pulmonary status limits activity tolerance Attestation: My signature below is to certify that this patient is under my care and that I, or nurse practitioner, or a physician's facility assistant working with me, has a [id number] encounter with this patient.
== END 2018-04-25 14:07 | disposition home health service (06) | DRG 193 ==
LOC: EMEROOARM 07:40 → 2SOUTHHOLD 07:40 → 3BNU 04-25 02:57
PROVIDERS: ADMIT Internal Medicine; ATTEND Internal Medicine

== ENCOUNTER 2018-06-18 07:24 | Observation (INO) ==
[2018-06-18] MEDS: Ringers Solution, Lactated 500 ML IVC SCH (08:08)
[2018-06-18 08:33] LABS: Basophils % 0.3 %
[2018-06-18 08:35] LABS: Eosinophils # 0.2 K/mcL (0.0-0.6); Hematocrit 42.2 % (35.3-44.9); Hemoglobin 14.2 g/dL (11.5-15.4); Immature Platelets 5.2 % (1.1-6.1); Lymphocytes # 0.8 K/mcL (0.6-4.6); Lymphocytes % 25.1 %; Mean Corpuscular HGB Conc 33.6 g/dL (31.6-35.5); Mean Corpuscular Hemoglobin 32.7 pg (28.0-33.3); Mean Corpuscular Volume 97.2 fL (83.0-100.0); Mean Platelet Volume 11.7 fL (9.4-12.4); Monocytes # 0.3 K/mcL (0.0-1.3); Platelet Count 43 K/mcL (140-400); Red Blood Count 4.34 M/mcL (3.82-4.97); Segmented Neutrophils % 61.6 %
[2018-06-18 08:40] LABS: INR 1.3; Prothrombin Time 14.8 Seconds (9.4-12.1)
[2018-06-18] MEDS ORDERED: 0.9 % Sodium Chloride 500 ML ONE ×2 (09:40→15:50)
[2018-06-18] MEDS ORDERED: Heparin 1,000 UNITS/500 mL 500 ML ONE ×2 (09:40→14:20)
[2018-06-18] MEDS ORDERED: *HR* Vasopressin 20 UNIT/ML VIAL ONE (09:57)
[2018-06-18] MEDS ORDERED: Clindamycin 600 MG/50 ML 600 MG/50 ML IV.SOLN IVPB STA (10:03)
[2018-06-18] MEDS ORDERED: *HR* FentaNYL (PF) 100 MCG/2 ML VIAL IVP ONE (10:03)
[2018-06-18] MEDS ORDERED: *HR* Midazolam HCl 2 MG/2 ML VIAL IVP ONE (10:03)
--- NOTE | 2018-06-18 10:03 | Anesthesia Evaluation PreOp ---
Date of Encounter: 06/18/18 Time of Encounter: 10:00 - Past History Planned Operation: TIPS Cardiac History: Denies any Significant Hx Pulmonary History: Smoker, COPD (O2 dependent), Other (pleural effusion) N[employer]SE [employer]CHOOL History: Denies Any Significant HX Other Medical History: Hepatic (Chronic Hep B, C. Ascites, Encephalopathy, portal hypertension), Other (Obese, Splenomegaly, Thrombocytopenia) Anesthesia History: No Prior Anesthetic Complications, Past Anesthesia (GB, T&A, CTR, Simba. TKR, Colonoscopy, EGD, c/s) : No Alcohol Use: none Drug use: none Medications and Allergies Albuterol Sulfate [Proair Hfa] 2 puff IH Q4H PRN 06/29/16 [History] Budesonide/Formoterol 160/4.5 [Symbicort 160/4.5] 2 puff IH BIDR 04/30/17 [History] Spironolactone [Aldactone] 150 mg PO DAILY 07/04/17 [History] Acetaminophen [Tylenol] 650 mg PO Q6HR PRN 04/21/18 [History] Lactulose 10 gm PO BID 04/21/18 [History] Azithromycin 250 mg PO DAILY #3 tablet 04/25/18 [Rx] Furosemide [Lasix] 40 mg PO DAILY #30 tab 04/25/18 [Rx] GuaiFENesin ER [Mucinex] 600 mg PO BID #14 tbbp.12hr 04/25/18 [Rx] Ipratropium/Albuterol Neb [Duoneb] 3 ml IH Q6HR PRN #30 inhsol 04/25/18 [Rx] Allergy/AdvReac Type Severity Reaction Status Date / Time doxycycline AdvReac Nausea Verified 04/21/18 16:17 Penicillins AdvReac See Verified 04/21/18 16:17 Comments - Meds/Allergy Pre-op Review Medications Reviewed: Yes Allergies Reviewed: Yes Beta Blockers on Current Med List: No Anesthesia Results - Labs 06/18/18 08:13 Laboratory Tests 06/15/18 06/18/18 06/18/18 14:15 08:13 08:13 WBC 3.2 L Hgb 14.2 Hct 42.2 Plt Count 43 L INR 1.3 Sodium 141 Potassium 4.4 Chloride 107 Carbon Dioxide 29 BUN 16 Creatinine 0.61 - Imaging EKG: report reviewed (SR) Additional studies: Dobutamine Stress Echo No Doppler Name: Cong Sousa Date of Study: 05/06/2018 Impressions: Appropriate increase in LVEF with stress. Pharmacologic stress ECG is negative for ischemia at the level of heart rate achieved. Findings: Stress Echocardiogram * Normal sinus rhythm on baseline ECG. * No arrhythmias during exercise or recovery. * No chest pain during stress procedure. * Pharmacologic stress ECG is negative for ischemia at the level of heart rate achieved. * The patient demonstrated a normal blood pressure response. * Appropriate increase in LVEF with stress. Resting Echocardiogram * LVEF 65%. Platelets infusing @ 12:00 will proceed with TIPS Anesthesia Exam O2 Sat Height 1.6 m Height 1.6 m Weight 99.79 kg Weight 99.79 kg O2 Sat by Pulse Oximetry 95 Vital Signs Temp Pulse Resp BP Pulse Ox 98.6 F 94 18 101/71 95 06/18/18 07:40 06/18/18 07:40 06/18/18 07:40 06/18/18 07:40 06/18/18 07:40 NPO (# of Hours): > 8 hrs Pain Scale: 0 Pain Scale Used: Numeric (1 - 10) - HEENT Pupil (Motor): Pupils equal, EOMI Mallampati: III Teeth: Missing Denture Type: Upper: Complete, Lower: Complete Oral Opening: Greater than 3 - [employer]SE [employer] LOC: Oriented [employer]SE [employer] Motor: Normal RUE, Normal LUE, Normal RLE, Normal LLE, Normal Face [employer] Sensory: Normal: RUE, LUE, RLE, LLE, Face - Cardiac Rhythm: Regular Murmur: None JVD: No Carotid Bruit: No - Pulmonary Breath Sounds: bilateral Clear Respiratory Effort: Symmetrical Anesthesia Assess/Plan ASA Score: 3 Level of consciousness: Cooperative Anesthetic Plan: General Autologous Blood: Yes Monitoring Plan: Standard Monitors Recovery Plan: PACU
[2018-06-18] MEDS ORDERED: *HR* FentaNYL (PF) 100 MCG/2 ML VIAL ONE (10:05)
[2018-06-18] MEDS ORDERED: *HR* Midazolam HCl 2 MG/2 ML VIAL ONE (10:06)
--- NOTE | 2018-06-18 10:06 | History & Physical Report ---
Date of Encounter: 06/18/18 Time of Encounter: 10:00 24 Hour HP Update - Instructions Instructions: If the History and Physical is less than 30 days old and was completed prior to A.M. admission and or procedure and has NOT been updated on calendar day of procedure please complete this update prior to performing procedure. - Update Patient reports changes in Medical Condition: No Changes in examination, assessment, or condition: No Changes in Medication: No Preop tests/diagnostics Reviewed: Yes Pre-Op MRSA Screen: Negative Surgery Remains Indicated: Yes Consent for Planned Operative Procedure(s) Verified: Yes - Pre-Operative Checklist Preoperative Checklist Indicated: Yes Prophylactic Antibiotic Ordered: Yes Is VTE Prophylaxis Indicated?: NO
[2018-06-18] MEDS ORDERED: Isovue-300 50 ML VIAL IVP ONE ×3 (14:54→14:55)
[2018-06-18] MEDS ORDERED: Ondansetron 4 MG/2 ML VIAL IVP PRN (15:21)
[2018-06-18] MEDS ORDERED: Acetaminophen 325 MG TABLET PO PRN (15:21)
[2018-06-18] MEDS ORDERED: Naloxone 0.4 MG/ML INJ IVP PRN (15:21)
--- NOTE | 2018-06-18 15:21 | IR Procedure Note ---
Date of procedure: 06/18/18 Consent Obtained: Written consent Timeout: Correct patient and procedure verified, Correct site verified, Time out performed, Skin prep completed Local anesthetic: Lidocaine 1% Indications: cirrhosis, hepatic hydrothorax Procedure Performed: TIPS Was there an property assistant present: No Site/Technique: right hepatic vein to right portal vein, excellent flow in the TIPS Results/Findings: Excellent flow in the TIPS Estimated blood loss (cc): 16 Complications: None; Tolerated procedure well Post Procedure Treatment Plan: Admited for observation Specimen: none
[2018-06-18] MEDS ORDERED: *HR* Labetalol 20 MG/4 ML SYRINGE IVP PRN (15:23)
[2018-06-18] MEDS ORDERED: *HR* Promethazine 25 MG/ML VIAL IVP PRN (15:23)
[2018-06-18] MEDS ORDERED: Ondansetron 4 MG/2 ML VIAL IVP ONE (15:23)
[2018-06-18] MEDS ORDERED: Albuterol 2.5 MG/3 ML NEBULIZER IH ONE (15:23)
[2018-06-18] MEDS ORDERED: Ondansetron 4 MG/2 ML VIAL ONE (15:23)
[2018-06-18] MEDS ORDERED: *HR* HYDROmorphone (PF) 1 MG/ML SYRINGE IVP PRN (15:23)
[2018-06-18] MEDS ORDERED: *HR* OxyCODONE Immed Rel 5 MG TABLET PO PRN (15:23)
[2018-06-18] MEDS ORDERED: *HR* Promethazine 25 MG/ML VIAL ONE (15:36)
--- NOTE | 2018-06-18 15:48 | Internal Med History&Physical ---
Date of Encounter: 06/18/18 Time of Encounter: 15:40 Internal Medicine - H&P: HPI Chief complaint: s/p TIPS Admitted From: Direct Admit History of present illness: Cong Sousa is a 63 F w hx decompensated cirrhosis c/b hepatic hydrothorax who underwent planned elective TIPS today 06/18 by IR, and they have requested overnight observation for this patient. Pt in no distress or pain following procedure, but was fairly nauseated afterward. IR physician does note procedure was technically difficult but without complications. On my interview, patient still a bit groggy although is able to eat some crackers without difficulty, and says her nausea has started to improve enough to allow her to eat light snack food. Her back is a bit achy but otherwise denies complaints. She says her neck, site of entry for procedure, feels OK. No CP or SOB. She does state that she regularly takes her lactulose despite bad taste, although her mother is present at bedside and says that she does not take this regularly. Past medical, surgical, social, and family histories reviewed and updated as below. Past Med Surg Social Fam HX - Past Medical History Medical history: arthritis, cirrhosis, COPD, hepatitis, hypertension, liver disease, other Additional medical history: hep.C&B. osteoarthritis. lumbar pain. splenomegaly. lumbar and acral arthritis. dyspea on exertion. plueral effusion. tobacco dependency. portal hypertension Psychiatric history: no psych history - Past Surgical History Surgical History: , cholecystectomy, knee replacement, orthopedic, other, other Additional surgical history: bilateral knees - tonsils and adenoids - CTR - colonoscopy - egd. plueral effusion drainage - Social History Smoking Status: Current every day smoker Smokeless Tobacco Status: No Alcohol use: none Drug use: none - Family History Father Family Member Ethnicity: Non- Living Status: Hx Family Respiratory Disorders: Yes (copd) Mother Family Member Ethnicity: Non- Living Status: Still Living Internal Medicine - H&P: Meds Albuterol Sulfate [Proair Hfa] 2 puff IH Q4H PRN 06/29/16 [History] Budesonide/Formoterol 160/4.5 [Symbicort 160/4.5] 2 puff IH BIDR 04/30/17 [History] Spironolactone [Aldactone] 150 mg PO DAILY 07/04/17 [History] Acetaminophen [Tylenol] 650 mg PO Q6HR PRN 04/21/18 [History] Lactulose 10 gm PO BID 04/21/18 [History] Azithromycin 250 mg PO DAILY #3 tablet 04/25/18 [Rx] Furosemide [Lasix] 40 mg PO DAILY #30 tab 04/25/18 [Rx] GuaiFENesin ER [Mucinex] 600 mg PO BID #14 tbbp.12hr 04/25/18 [Rx] Ipratropium/Albuterol Neb [Duoneb] 3 ml IH Q6HR PRN #30 inhsol 04/25/18 [Rx] Allergy/AdvReac Type Severity Reaction Status Date / Time doxycycline AdvReac Nausea Verified 04/21/18 16:17 Penicillins AdvReac See Verified 04/21/18 16:17 Comments All Systems PM: A 10-system review of systems was performed and is negative for pertinent findings except as documented above in the HPI. - Constitutional Vitals: Temp Pulse Resp BP Pulse Ox 97.9 F 83 18 117/78 97 06/18/18 12:36 06/18/18 12:36 06/18/18 12:36 06/18/18 12:36 06/18/18 12:36 Exam: General: NAD, decent eye contact, chronically ill appearing Head: Atraumatic, normocephalic. Face symmetric Eyes: EOMI, sclerae with mild icterus ENT: Mucous membranes moist. Normal oral mucosa and poor dentition. Trachea midline. Thoracic: No visible chest wall deformities. Mildly diminished aeration, no wheezing or crackles Cardio: Normal S1 and S2, regular rate and rhythm, no murmurs. Abdomen: Soft, nontender, large but not distended Extremities: Warm, well perfused. DP pulses 2+ b/l. No clubbing, cyanosis. Trace nonpitting edema in b/l LE Skin: Intact. No rashes, bruises, or ulcers Neuro: Mild drowsiness, fully oriented. Decent memory, decent concentration. Speech fluent. CN II-XII grossly intact. Strength 5/5 in b/l UE and LE Internal Med - H&P Results - Labs CBC & Chem 7: 06/18/18 08:13 06/18/18 16:50 Labs: Short CBC 06/18/18 Range/Units 08:13 WBC 3.2 L (4.3-11.1) K/mcL Hgb 14.2 (11.5-15.4) g/dL Hct 42.2 (35.3-44.9) % Plt Count 43 L (140-400) K/mcL Neutrophils # 2.0 (1.6-8.9) K/mcL - Summary of Assessment and Plan Summary of Assessment and Plan: Cong Sousa is a 63 F w hx decompensated cirrhosis, COPD, who is admitted for obs after TIPS procedure followed by nausea. 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 W s/sx portal HTN including ascites, splenomegaly, thrombocytopenia. Underwent TIPS today. - daily MELD labs (bmp, LFT, inr) - HE: high risk due to underlying TIPS, will check ammonia levels and increase home lactulose - Diuretics: continue home lasix 40, resume home rao at 100 daily Nausea: supportive care with zofran and phenergan prn Acute hypoxic respiratory failure: post-operatively, requiring 2L O2 to maintain sats >88%, not on home O2 - supplemental O2, wean as able - IS - walk test prior to d/c COPD: not in exacerbation, continue home RONI, LABA/ICS, chronic azithro Obesity: BMI 39 Smoker: nicotine patch offered PPx: SCDs FEN: cardiac 1.5L, no MIVF Lines: PIV Consults: IR Code: Full Dispo: Obs overnight following procedure, anticipate d/c tomorrow, will be homegoing - VTE Reasons for not Prescribing Prophylaxis: Medical contraindication
[2018-06-18] MEDS ORDERED: *HR* OxyCODONE Immed Rel 5 MG TABLET PO ONE (16:00)
[2018-06-18] MEDS ORDERED: Nicotine 21 MG PATCH.TD24 TD PRN (16:06)
--- NOTE | 2018-06-18 16:17 | Anesthesia Evaluation Post Op ---
Date of Encounter: 06/18/18 Time of Encounter: 16:16 - Vital Signs Vital Signs: Vital Signs/O2 Sat, Most Current Temp Pulse Resp BP Pulse Ox 99.3 F 103 22 141/62 96 06/18/18 15:10 06/18/18 15:20 06/18/18 15:20 06/18/18 15:10 06/18/18 15:20 - Lungs Lungs: Clear Ascult./Percussion - Airway Airway: Non-obstructed - Cardiovascular Regular Rate - Mental Status Mental Status: Alert & Oriented, Answers Appropriately - Pain Pain Scale: 0 Pain Scale used: Numeric (1 - 10) - Nausea Vomiting Nausea Vomiting: Not Present - Hydration Hydration: Ice chips, Has not voided - Discharge PostOp Status: Transfer Patient to floor
[2018-06-18 17:21] LABS: Alanine Aminotransferase 21 Units/L (7-52); Albumin 3.1 g/dL (3.5-5.7); Albumin/Globulin Ratio 0.9 (1.1-2.2); Alkaline Phosphatase 65 Units/L (34-104); Aspartate Amino Transferase 48 Units/L (13-39); BUN/Creatinine Ratio 23 (6-26); Bilirubin,Total 1.5 mg/dL (0.3-1.0); Blood Urea Nitrogen 13 mg/dL (8-23); Carbon Dioxide 29 mEq/L (23-29); Chloride 104 mEq/L (98-107); Globulin 3.6 g/dL (2.4-3.5); Glucose 120 mg/dL (70-105); Magnesium 1.6 mg/dL (1.6-2.6); Osmolality,Calculated 287 (280-300); Sodium 138 mEq/L (136-145); Total Protein 6.7 g/dL (6.4-8.9); eGFR For Non-African Americans > 60 (> 60)
[2018-06-18] MEDS: Budesonide/Formoterol 160/4.5 1 PUFF INH IH SCH (19:18)
[2018-06-18] MEDS: Lactulose Oral Soln 20 GM/30 ML UDC PO SCH (20:23)
[2018-06-19] MEDS: Ringers Solution, Lactated 500 ML IVC SCH (03:53)
[2018-06-19] MEDS: Budesonide/Formoterol 160/4.5 1 PUFF INH IH SCH (07:27)
[2018-06-19 07:36] LABS: Hematocrit 40.3 % (35.3-44.9); Hemoglobin 13.5 g/dL (11.5-15.4); Immature Platelets 6.8 % (1.1-6.1); Mean Corpuscular HGB Conc 33.5 g/dL (31.6-35.5); Mean Corpuscular Hemoglobin 32.4 pg (28.0-33.3); Mean Corpuscular Volume 96.6 fL (83.0-100.0); Mean Platelet Volume 11.9 fL (9.4-12.4); Red Blood Count 4.17 M/mcL (3.82-4.97); Red Cell Distribution Width 13.8 % (11.5-14.5)
[2018-06-19 07:42] LABS: INR 1.4
[2018-06-19 07:56] LABS: Albumin 2.7 g/dL (3.5-5.7); BUN/Creatinine Ratio 24 (6-26); Blood Urea Nitrogen 13 mg/dL (8-23); Calcium 8.8 mg/dL (8.6-10.3); Carbon Dioxide 26 mEq/L (23-29); Chloride 107 mEq/L (98-107); Glucose 159 mg/dL (70-105); Osmolality,Calculated 295 (280-300); Phosphorous 2.8 mg/dL (2.7-4.5); Potassium 4.4 mEq/L (3.5-5.1); Sodium 141 mEq/L (136-145); eGFR For Non-African Americans > 60 (> 60)
[2018-06-19 07:58] LABS: Alanine Aminotransferase 37 Units/L (7-52); Albumin 2.7 g/dL (3.5-5.7); Albumin/Globulin Ratio 0.8 (1.1-2.2); Alkaline Phosphatase 58 Units/L (34-104); Aspartate Amino Transferase 79 Units/L (13-39); BUN/Creatinine Ratio 23 (6-26); Bilirubin,Direct 0.3 mg/dL (0.0-0.2); Bilirubin,Indirect 0.7 mg/dL (0.0-1.2); Blood Urea Nitrogen 13 mg/dL (8-23); Calcium 8.7 mg/dL (8.6-10.3); Carbon Dioxide 26 mEq/L (23-29); Chloride 107 mEq/L (98-107); Globulin 3.2 g/dL (2.4-3.5); Glucose 159 mg/dL (70-105); Magnesium 1.9 mg/dL (1.6-2.6); Osmolality,Calculated 295 (280-300); Phosphorous 2.8 mg/dL (2.7-4.5); Potassium 4.4 mEq/L (3.5-5.1); Sodium 141 mEq/L (136-145); Total Protein 5.9 g/dL (6.4-8.9); eGFR For Non-African Americans > 60 (> 60)
--- NOTE | 2018-06-19 07:58 | Internal Med Progress Note ---
Hospitalist Progress Note - Encounter Date of Encounter: 06/19/18 - Exam Vitals: Temp Pulse Resp BP Pulse Ox 97.7 F 87 18 101/53 96 06/19/18 07:16 06/19/18 07:16 06/19/18 07:29 06/19/18 07:16 06/19/18 07:29 - Time Spent with Patient Total time spent is greater than 50% in coordination of care (as documented) at patient's floor/unit and/or counseling patient: Internal Medicine: Result - Labs CBC & Chem 7: 06/19/18 06:43 06/19/18 06:43 Labs: Short CBC 06/18/18 06/19/18 Range/Units 08:13 06:43 WBC 3.2 L 8.2 D (4.3-11.1) K/mcL Hgb 14.2 13.5 (11.5-15.4) g/dL Hct 42.2 40.3 (35.3-44.9) % Plt Count 43 L 44 L (140-400) K/mcL Neutrophils # 2.0 (1.6-8.9) K/mcL BMP 06/18/18 06/19/18 16:50 06:43 Sodium 138 141 Potassium 4.0 4.4 Chloride 104 107 Carbon Dioxide 29 26 BUN 13 13 Creatinine 0.57 L 0.55 L Glucose 120 H 159 H Calcium 9.0 8.8 Liver Function 06/18/18 06/19/18 Range/Units 16:50 06:43 Total Bilirubin 1.5 H (0.3-1.0) mg/dL AST 48 H (13-39) Units/L ALT 21 (7-52) Units/L Alkaline Phosphatase 65 (34-104) Units/L Albumin 3.1 L 2.7 L (3.5-5.7) g/dL - ABG Interpretation ABG results: PT/INR, D-dimer PT 16.0 Seconds (9.4-12.1) H 06/19/18 06:43 - Impressions Impressions Guidance Ultrasound 06/18/18 00:00 IMPRESSION: Successful placement of a Transjugular Intrahepatic Portosystemic Shunt RECOMMENDATIONS: Baseline TIPS ultrasound with color flow doppler and velocity measurements in one week D/ / 06/18/2018 16:33:02 Loulou Cunha MD / clare Interpreting Provider: Loulou Cunha MD Percutaneous Transhepatic Portography 06/18/18 00:00 IMPRESSION: Successful placement of a Transjugular Intrahepatic Portosystemic Shunt RECOMMENDATIONS: Baseline TIPS ultrasound with color flow doppler and velocity measurements in one week D/ / 06/18/2018 16:33:02 Loulou Cunha MD / clare Interpreting Provider: Loulou Cunha MD - VTE Reasons for not Prescribing Prophylaxis: Medical contraindication Consult Discharge Plan - Plan Referrals: Lakisha Cunha CNP [Primary Care Provider] -
--- NOTE | 2018-06-19 08:00 | Discharge Summary ---
<Tray Franco S - Last Filed: 06/19/18 11:04> - NOTES TO OUTPATIENT PROVIDER Notes to Outpatient Provider: Follow up with PCP in 1 week. Orders not resulted at time of discharge: Pending orders 06/19/18 06:43 Ammonia AM 0400 Date of Encounter: 06/19/18 Time of Encounter: 09:09 - Discharge Diagnosis (1) S/P TIPS (transjugular intrahepatic portosystemic shunt) Priority: Primary Status: Acute (2) Liver failure Priority: Secondary Status: Chronic Qualifiers: Liver failure chronicity: chronic Hepatic coma status: without hepatic coma Qualified Code(s): K72.10 - Chronic hepatic failure without coma (3) COPD (chronic obstructive pulmonary disease) Priority: Secondary Status: Chronic Qualifiers: COPD type: chronic bronchitis Chronic bronchitis type: unspecified Qualified Code(s): J42 - Unspecified chronic bronchitis (4) DVT prophylaxis Priority: Secondary Status: Acute (5) Hepatitis C Priority: Secondary Status: Chronic Qualifiers: Viral hepatitis chronicity: chronic Hepatic coma status: with hepatic coma Qualified Code(s): B18.2 - Chronic viral hepatitis C (6) Chronic hepatitis Priority: Secondary Status: Chronic (7) Ascites Priority: Secondary Status: Chronic Qualifiers: Ascites type: other type Qualified Code(s): R18.8 - Other ascites Hospital course: Ms. Sousa is a 63 year old female with PMH of COPD, cirrhosis, arthritis, HTN, liver disease, and hepatitis C. She has decompensated liver cirrhosis with hepatic hydrothorax due to hepatitis C from past hx of IVDU. She underwent TIPS on 06/18 with IR and was requested to have admission overnight for observation. Pt in no distress or pain following procedure. There were no complications. She did report some nausea after. She did also say that the IR physician said that the procedure was difficult but there were no complications. She is in no acute distress this morning and is feeling ok. She denies any chest pain, increasing SOB, N/V/D or abdominal pain. All labs are unremarkable including ammonia. AST 79, ALT 37. INR 1.4. CBC and BMP unremarkable. She is stable for discharge and is home going. Prescription for zofran given. Discharge discussed with: patient, nurse Time spent discussing smoking cessation with patient: 3 to 10 minutes - Time Spent with Patient Total time spent providing and/or coordinating discharge services: Time spent: Less than 30 minutes - Discharge Medications Prescriptions: New Ondansetron HCl [Zofran] 4 mg PO Q8HR PRN 7 Days #21 tab PRN Reason: Nausea Continue Albuterol Sulfate [Proair Hfa] 2 puff IH Q4H PRN PRN Reason: Shortness Of Breath Budesonide/Formoterol 160/4.5 [Symbicort 160/4.5] 2 puff IH BIDR Spironolactone [Aldactone] 150 mg PO DAILY Lactulose 10 gm PO BID Acetaminophen [Tylenol] 650 mg PO Q6HR PRN PRN Reason: Pain Ipratropium/Albuterol Neb [Duoneb] 3 ml IH Q6HR PRN #30 inhsol PRN Reason: Shortness Of Breath/Wheezing Furosemide [Lasix] 40 mg PO DAILY #30 tab GuaiFENesin ER [Mucinex] 600 mg PO BID #14 tbbp.12hr Home Medications: Albuterol Sulfate [Proair Hfa] 2 puff IH Q4H PRN 06/29/16 [History] Budesonide/Formoterol 160/4.5 [Symbicort 160/4.5] 2 puff IH BIDR 04/30/17 [History] Spironolactone [Aldactone] 150 mg PO DAILY 07/04/17 [History] Acetaminophen [Tylenol] 650 mg PO Q6HR PRN 04/21/18 [History] Lactulose 10 gm PO BID 04/21/18 [History] Furosemide [Lasix] 40 mg PO DAILY #30 tab 04/25/18 [Rx] GuaiFENesin ER [Mucinex] 600 mg PO BID #14 tbbp.12hr 04/25/18 [Rx] Ipratropium/Albuterol Neb [Duoneb] 3 ml IH Q6HR PRN #30 inhsol 04/25/18 [Rx] Ondansetron HCl [Zofran] 4 mg PO Q8HR PRN 7 Days #21 tab 06/19/18 [Rx] Allergies/Adverse Reactions: Allergy/AdvReac Type Severity Reaction Status Date / Time doxycycline AdvReac Nausea Verified 04/21/18 16:17 Penicillins AdvReac See Verified 04/21/18 16:17 Comments Date of admission: 06/18/18 16:38 Primary care physician: Lakisha Cunha CNP Discharging clinician: Tray Franco Anticipated date of discharge: 06/19/18 - Constitutional Vitals: Temp Pulse Resp BP Pulse Ox 97.7 F 87 18 101/53 96 06/19/18 07:16 06/19/18 07:16 06/19/18 07:29 06/19/18 07:16 06/19/18 07:29 Exam: General: NAD, decent eye contact, chronically ill appearing Head: Atraumatic, normocephalic. Face symmetric Eyes: EOMI, sclerae with mild icterus ENT: Mucous membranes moist. Normal oral mucosa and poor dentition. Trachea midline. Thoracic: No visible chest wall deformities. Mildly diminished aeration, no wheezing or crackles Cardio: Normal S1 and S2, regular rate and rhythm, no murmurs. Abdomen: Soft, nontender, large but not distended Extremities: Warm, well perfused. DP pulses 2+ b/l. No clubbing, cyanosis. Trace nonpitting edema in b/l LE Skin: Intact. No rashes, bruises, or ulcers Neuro: Mild drowsiness, fully oriented. Decent memory, decent concentration. Speech fluent. CN II-XII grossly intact. Strength 5/5 in b/l UE and LE - Patient Status Disposition: Home, Self-Care Condition: Good Functional capacity at discharge: uses cane/walker Overall status at discharge: patient is progressing back to baseline - Discharge Instructions Instructions: Ondansetron (By mouth), How to Stop Smoking (GEN), Chronic Obstructive Pulmonary Disease (DC) Follow Up With: Lakisha Cunha CNP [Primary Care Provider] - 06/26/18 - Diet and Activity Activity: increase activity as tolerated Diet: low fat, low cholesterol, low salt diet, other (fluid restriction ) - VTE Reasons for not Prescribing Prophylaxis: Medical contraindication <Stu Regan - Last Filed: 06/19/18 17:15> Date of Encounter: 06/19/18 Hospital course: Ms. Sousa is a 63 year old female - Time Spent with Patient Total time spent providing and/or coordinating discharge services: Date of admission: 06/18/18 16:38 Primary care physician: Lakisha Cunha CNP Consults: 06/19/18 09:30 Consult to Nurse Navigator [CONS] Routine Comment: copd - Constitutional Vitals: Temp Pulse Resp BP Pulse Ox 97.8 F 84 16 106/54 97 06/19/18 10:42 06/19/18 10:42 06/19/18 10:42 06/19/18 10:42 06/19/18 11:25 - Attending Attestation I examined this patient and my medical decision-making was reviewed with the Resident Physician. I agree with the documented findings, disposition and treatment plan as described except to the extent set forth below.
[2018-06-19] MEDS: Lactulose Oral Soln 20 GM/30 ML UDC PO SCH (08:13)
[2018-06-19] MEDS ORDERED: Furosemide 20 MG TABLET PO SCH (09:00)
[2018-06-19] MEDS ORDERED: Azithromycin 250 MG TABLET PO SCH (09:00)
[2018-06-19 10:44] VITALS: BP 106/54
== END 2018-06-19 14:18 | disposition home or self-care (01) ==
LOC: 2ANU 07:24 → INTRAD 07:24 → SUATTDRO 16:38
PROVIDERS: ADMIT Internal Medicine; ATTEND Internal Medicine

== ENCOUNTER 2018-09-06 14:17 | Inpatient (IN) ==
[2018-09-06 15:27] LABS: Basophils % 0.3 %; Eosinophils # 0.1 K/mcL (0.0-0.6); Hematocrit 42.1 % (35.3-44.9); Hemoglobin 13.9 g/dL (11.5-15.4); Lymphocytes # 0.8 K/mcL (0.6-4.6); Lymphocytes % 27.9 %; Mean Corpuscular Hemoglobin 32.9 pg (28.0-33.3); Mean Corpuscular Volume 99.8 fL (83.0-100.0); Monocytes # 0.2 K/mcL (0.0-1.3); Monocytes % 5.1 %; Neutrophils # 1.9 K/mcL (1.6-8.9); Red Blood Count 4.22 M/mcL (3.82-4.97); Red Cell Distribution Width 14.7 % (11.5-14.5); Segmented Neutrophils % 63.7 %
[2018-09-06 15:28] LABS: Platelet Count 44 K/mcL (140-400); Platelet Estimate Decreased (Normal)
[2018-09-06 15:37] LABS: INR 1.4; Prothrombin Time 16.4 Seconds (9.4-12.1)
--- NOTE | 2018-09-06 15:41 | Emergency Department Note ---
Disposition Clinical Impression: Increased ammonia level, Pleural effusion, Elevated brain natriuretic peptide (BNP) level Cirrhosis Qualifiers: Hepatic cirrhosis type: unspecified hepatic cirrhosis Ascites presence: unspecified Qualified Code(s): K74.60 - Unspecified cirrhosis of liver Disposition: Admitted As Inpatient Condition: Fair Time of Disposition: 17:07 General Adult HPI - General Chief complaint: ED Shortness of Breath/Dyspnea Stated complaint: ELLIS Time Seen by Provider: 09/06/18 14:35 Source: patient, family Limitations: no limitations - History of Present Illness Pain Scale: 0 - Related Data Home Medications Medication Instructions Recorded Confirmed Albuterol Sulfate [Proair Hfa] 2 puff IH Q4H PRN 06/29/16 09/06/18 Budesonide/Formoterol 160/4.5 2 puff IH BIDR 04/30/17 09/06/18 [Symbicort 160/4.5] Spironolactone [Aldactone] 150 mg PO DAILY 07/04/17 09/06/18 Acetaminophen [Tylenol] 650 mg PO Q6HR PRN 04/21/18 04/21/18 Lactulose 10 gm PO BID 04/21/18 09/06/18 Previous Rx's Medication Instructions Recorded Furosemide [Lasix] 40 mg PO DAILY #30 tab 04/25/18 Ipratropium/Albuterol Neb [Duoneb] 3 ml IH Q6HR PRN #30 inhsol 04/25/18 Allergies Allergy/AdvReac Type Severity Reaction Status Date / Time doxycycline AdvReac Nausea Verified 04/21/18 16:17 Penicillins AdvReac See Verified 04/21/18 16:17 Comments Past Medical History - Past Medical History Medical history: Reports: arthritis, cirrhosis, COPD, hepatitis, liver disease, other Surgical history: Reports: cholecystectomy Psychiatric history: Reports: no psych history - Social History Smoking Status: Current every day smoker Smokeless Tobacco Status: No Alcohol use: Reports: none Drug use: Reports: none Physical Exam - General Limitations: no limitations General appearance: alert, in no apparent distress Course Vital Signs Temperature 98.1 F 09/06/18 14:22 Pulse Rate 68 09/06/18 14:22 Respiratory Rate 20 09/06/18 14:22 Blood Pressure 93/66 09/06/18 14:22 O2 Sat by Pulse Oximetry 99 09/06/18 14:22 Temperature 98.1 F 09/06/18 14:22 Pulse Rate 69 09/06/18 17:32 Respiratory Rate 18 09/06/18 17:00 Blood Pressure 112/77 09/06/18 17:32 O2 Sat by Pulse Oximetry 100 09/06/18 17:32 Oxygen Delivery Oxygen Delivery Room Air Medical Decision Making - Lab Data Result diagrams: 09/06/18 15:06 09/06/18 15:06 Lab Results 09/06/18 09/06/18 09/06/18 Range/Units 15:04 15:06 15:06 WBC 3.0 L (4.3-11.1) K/mcL RBC 4.22 (3.82-4.97) M/mcL Hgb 13.9 (11.5-15.4) g/dL Hct 42.1 (35.3-44.9) % MCV 99.8 (83.0-100.0) fL MCH 32.9 (28.0-33.3) pg MCHC 33.0 (31.6-35.5) g/dL RDW 14.7 H (11.5-14.5) % Plt Count 44 L (140-400) K/mcL MPV 11.0 (9.4-12.4) fL Immature Gran % 0.0 (0-4) % Seg Neutrophils % 63.7 % Lymphocytes % 27.9 % Monocytes % 5.1 % Eosinophils % 3.0 % Basophils % 0.3 % Neutrophils # 1.9 (1.6-8.9) K/mcL Lymphocytes # 0.8 (0.6-4.6) K/mcL Monocytes # 0.2 (0.0-1.3) K/mcL Eosinophils # 0.1 (0.0-0.6) K/mcL Basophils # 0.0 (0.0-0.2) K/mcL Platelet Estimate Decreased L (Normal) PT (9.4-12.1) Seconds INR Sodium 140 (136-145) mEq/L Potassium 4.5 (3.5-5.1) mEq/L Chloride 108 H (98-107) mEq/L Carbon Dioxide 26 (23-29) mEq/L BUN 14 (8-23) mg/dL Creatinine 0.66 (0.60-1.20) mg/dL Est GFR ( Amer) > 60 (> 60) Est GFR (Non-Af Amer) > 60 (> 60) BUN/Creatinine Ratio 21 (6-26) Glucose 142 H (70-105) mg/dL Calculated Osmolality 293 (280-300) Calcium 8.7 (8.6-10.3) mg/dL Total Bilirubin 1.9 H (0.3-1.0) mg/dL Direct Bilirubin 0.6 H (0.0-0.2) mg/dL Indirect Bilirubin 1.3 H (0.0-1.2) mg/dL AST 46 H (13-39) Units/L ALT 23 (7-52) Units/L Alkaline Phosphatase 76 (34-104) Units/L Ammonia 140 H (16-53) mcmol/L Troponin I < 0.03 (< 0.04) ng/mL B-Natriuretic Peptide (Less than 100) pg/mL Serum Total Protein 5.8 L (6.4-8.9) g/dL Albumin 2.6 L (3.5-5.7) g/dL Globulin 3.2 (2.4-3.5) g/dL Albumin/Globulin Ratio 0.8 L (1.1-2.2) Lipase 28 (11-82) Units/L 09/06/18 09/06/18 Range/Units 15:06 15:06 WBC (4.3-11.1) K/mcL RBC (3.82-4.97) M/mcL Hgb (11.5-15.4) g/dL Hct (35.3-44.9) % MCV (83.0-100.0) fL MCH (28.0-33.3) pg MCHC (31.6-35.5) g/dL RDW (11.5-14.5) % Plt Count (140-400) K/mcL MPV (9.4-12.4) fL Immature Gran % (0-4) % Seg Neutrophils % % Lymphocytes % % Monocytes % % Eosinophils % % Basophils % % Neutrophils # (1.6-8.9) K/mcL Lymphocytes # (0.6-4.6) K/mcL Monocytes # (0.0-1.3) K/mcL Eosinophils # (0.0-0.6) K/mcL Basophils # (0.0-0.2) K/mcL Platelet Estimate (Normal) PT 16.4 H (9.4-12.1) Seconds INR 1.4 Sodium (136-145) mEq/L Potassium (3.5-5.1) mEq/L Chloride (98-107) mEq/L Carbon Dioxide (23-29) mEq/L BUN (8-23) mg/dL Creatinine (0.60-1.20) mg/dL Est GFR ( Amer) (> 60) Est GFR (Non-Af Amer) (> 60) BUN/Creatinine Ratio (6-26) Glucose (70-105) mg/dL Calculated Osmolality (280-300) Calcium (8.6-10.3) mg/dL Total Bilirubin (0.3-1.0) mg/dL Direct Bilirubin (0.0-0.2) mg/dL Indirect Bilirubin (0.0-1.2) mg/dL AST (13-39) Units/L ALT (7-52) Units/L Alkaline Phosphatase (34-104) Units/L Ammonia (16-53) mcmol/L Troponin I (< 0.04) ng/mL B-Natriuretic Peptide 673 H (Less than 100) pg/mL Serum Total Protein (6.4-8.9) g/dL Albumin (3.5-5.7) g/dL Globulin (2.4-3.5) g/dL Albumin/Globulin Ratio (1.1-2.2) Lipase (11-82) Units/L Critical Care Time Critical Care Time: Yes Total Critical Care Time: 40 Attestation: Critical care performed: Time is exclusive of separately billable procedures. Time includes: direct patient care, patient reassessment, coordination of patient care, interpretation of data (laboratory data, radiology data, and respiratory data), review of patient's medical records, medical consultation and documentation of patient care. Procedures included in critical care time: Procedures excluded from critical care time: Attestation Statement - Attestation Attestation: I examined this patient and my medical decision-making was reviewed with the Resident Physician. I agree with the documented findings, disposition and treatment plan as described except to the extent set forth below. Patient resisted ED with chief complaint of shortness of breath. Patient describes a gurgling sensation when she is trying to breathe. Strep pleural effusions secondary to her end-stage liver disease. Patient is currently on a transplant list at the [facility]. Patient has not been taking her scheduled doses of lactulose. Family member raise some concerns of altered mental status, but she is not present at the bedside on my evaluation. Patient is oriented 3 for me. Plan. Altered mental status workup. EKG reviewed with the resident. Patient is received IV Lasix for fluid overload. She has also received lactulose for elevated ammonia level. She has a pleural effusion on the right. She is admitted to medicine. Chest X-Ray 09/06/18 14:46 IMPRESSION: Atelectasis and mild to moderate pleural effusion at the right lung base, increased. D/ / Jeffrey Marcus MD / Jeffrey Marcus MD Interpreting Provider: Jeffrey Marcus MD Head CT 09/06/18 15:24 IMPRESSION: No acute intracranial abnormality. D/ / Doug Dennis MD / Doug Dennis MD Interpreting Provider: Doug Dennis MD
[2018-09-06] MEDS ORDERED: 0.9 % Sodium Chloride 500 ML ONE (15:46)
[2018-09-06 15:56] LABS: Alanine Aminotransferase 23 Units/L (7-52); Albumin 2.6 g/dL (3.5-5.7); Albumin/Globulin Ratio 0.8 (1.1-2.2); Alkaline Phosphatase 76 Units/L (34-104); Aspartate Amino Transferase 46 Units/L (13-39); BUN/Creatinine Ratio 21 (6-26); Bilirubin,Direct 0.6 mg/dL (0.0-0.2); Bilirubin,Indirect 1.3 mg/dL (0.0-1.2); Bilirubin,Total 1.9 mg/dL (0.3-1.0); Blood Urea Nitrogen 14 mg/dL (8-23); Calcium 8.7 mg/dL (8.6-10.3); Carbon Dioxide 26 mEq/L (23-29); Chloride 108 mEq/L (98-107); Globulin 3.2 g/dL (2.4-3.5); Glucose 142 mg/dL (70-105); Lipase 28 Units/L (11-82); Osmolality,Calculated 293 (280-300); Potassium 4.5 mEq/L (3.5-5.1); Sodium 140 mEq/L (136-145); Total Protein 5.8 g/dL (6.4-8.9); Troponin I < 0.03 ng/mL (< 0.04); eGFR For African Americans > 60 (> 60); eGFR For Non-African Americans > 60 (> 60)
[2018-09-06] MEDS ORDERED: Lactulose Oral Soln 20 GM/30 ML UDC PO STA (16:07)
--- NOTE | 2018-09-06 16:26 | Emergency Department Note ---
Disposition Clinical Impression: Increased ammonia level, Pleural effusion, Elevated brain natriuretic peptide (BNP) level Cirrhosis Qualifiers: Hepatic cirrhosis type: unspecified hepatic cirrhosis Ascites presence: unspecified Qualified Code(s): K74.60 - Unspecified cirrhosis of liver Disposition: Admitted As Inpatient Condition: Fair Referrals: Lakisha Cunha CNP [Primary Care Provider] - Forms: ED Satisfaction Letter Time of Disposition: 16:51 General Adult HPI - General Chief complaint: ED Shortness of Breath/Dyspnea Stated complaint: ELLIS Time Seen by Provider: 09/06/18 14:35 Source: patient, family Limitations: no limitations Nursing Notes Reviewed: Yes Vital Signs Reviewed: Yes - History of Present Illness HPI Narrative: Patient is a 63-year-old female with past medical history of hepatitis B and C, cirrhosis, COPD with history of requiring a paracentesis and thoracentesis for dyspnea presents to the ED for evaluation of shortness of breath and per patient's daughter at bedside altered mental status. Patient's daughter states that the patient is acting as if she is on drugs. Patient states that she has not taking her lactulose as prescribed. She denies any focal neurological deficits. She states that she feels short of breath, without chest pain. States that this is usually how she feels when she has to have fluid drained off her lungs or her abdomen. Pain Scale: 0 - Related Data Home Medications Medication Instructions Recorded Confirmed Albuterol Sulfate [Proair Hfa] 2 puff IH Q4H PRN 06/29/16 04/21/18 Budesonide/Formoterol 160/4.5 2 puff IH BIDR 04/30/17 04/21/18 [Symbicort 160/4.5] Spironolactone [Aldactone] 150 mg PO DAILY 07/04/17 04/21/18 Acetaminophen [Tylenol] 650 mg PO Q6HR PRN 04/21/18 04/21/18 Lactulose 10 gm PO BID 04/21/18 04/21/18 Previous Rx's Medication Instructions Recorded Furosemide [Lasix] 40 mg PO DAILY #30 tab 04/25/18 Ipratropium/Albuterol Neb [Duoneb] 3 ml IH Q6HR PRN #30 inhsol 04/25/18 Allergies Allergy/AdvReac Type Severity Reaction Status Date / Time doxycycline AdvReac Nausea Verified 04/21/18 16:17 Penicillins AdvReac See Verified 04/21/18 16:17 Comments All systems ED: reviewed and negative except as stated. Review of Systems: As Per HPI Constitutional: Denies: fever, chills Cardiovascular: Denies: chest pain, palpitations, dyspnea on exertion Respiratory: Reports: dyspnea. Denies: cough, wheezes Gastrointestinal: Denies: abdominal pain, nausea, vomiting, diarrhea Musculoskeletal: Denies: back pain, neck pain Integumentary: Denies: rash Neurological: Reports: confusion. Denies: headache, weakness, numbness, paresthesias Past Medical History - Past Medical History Attestation: Yes The following information was validated with the patient. Medical history: Reports: arthritis, cirrhosis, COPD, hepatitis, liver disease, other Surgical history: Reports: cholecystectomy Psychiatric history: Reports: no psych history - Social History Smoking Status: Current every day smoker Smokeless Tobacco Status: No Alcohol use: Reports: none Drug use: Reports: none Physical Exam - General Limitations: no limitations General appearance: alert, in no apparent distress - Head Head exam: atraumatic, normocephalic, normal inspection - Eye Eye exam: Present: normal appearance, PERRL, EOMI - ENT ENT exam: normal exam, normal oropharynx, mucous membranes moist - Neck Neck exam: Present: normal inspection, full ROM, trachea midline - Chest Chest inspection: Present: normal inspection, symmetric chest wall rise - Respiratory Respiratory exam: Present: other (rales in bilateral bases and diminished. ). Absent: respiratory distress - Cardiovascular Cardiovascular exam: Present: regular rate, normal rhythm, normal heart sounds, +S1, +S2 - Extremities Exam Extremities exam: Present: normal inspection, full ROM. Absent: tenderness, p edal edema - Back Exam Back exam: Present: normal inspection, full ROM. Absent: tenderness - Neurological Exam Neurological exam: Present: alert, oriented X3 - Expanded Neurological Exam Patient oriented to: Present: person, place, time Speech: Present: fluid speech Cranial nerves: EOM function (II, III, IV, ): Normal, facial sensation (V): Normal, facial palsy (VII): Normal, gag reflex (IX): Normal, spinal accessory function (XI): Normal, tongue deviation (XII): Normal Cerebellar function: finger to nose: Normal, heel to patel: Normal Cerebellar function: normal gait Motor strength - LUE: 5/5 Motor strength - RUE: 5/5 Motor strength - LLE: 5/5 Motor strength - RLE: 5/5 Sensory exam upper extremity: light touch: Normal Sensory exam lower extremity: light touch: Normal Coma Scale Eye Opening: Spontaneous Coma Scale Motor Response: Obeys Commands Coma Scale Verbal Response: Oriented Coma Scale Total: 15 - Psychiatric Psychiatric exam: Present: normal affect, normal mood - Skin Skin exam: Present: warm, dry, intact, normal color Course Course Narrative: Patient will undergo ago evaluation for her dyspnea with complete cardiac workup including enzymes, chest x-ray and EKG. She will also undergo evaluation for fluid buildup secondary to her cirrhosis and edition we will also add on pneumonia as well as LFTs. Patient is not compliant with her lactulose treatment at home which may be the reason why her daughter states she feels that she has altered mental status. The patient is established with GI as well as pulmonary here and a [facility]. She is on the liver transplant list with [facility]. - Reevaluation(s) Reevaluation #1: Patient has thrombocytopenia by mouth 44 and which is consistent with platelet counts in the past. INR is 1.4. Kidney function is normal. Patient has elevated bilirubins however her enzymes of the liver are within normal limits. Her ammonia is elevated at 140 which is the highest it has been according to her record. Her chest x-rays concerning for right-sided pleural effusion that is mild to moderate. The patient was given lactulose while in the ED for elevated ammonia. Reemphasized importance of being compliant with her home medications. Discussed the patient's case with Dr. Motta they have accepted the patient. Time: 16:48 Vital Signs Temperature 98.1 F 09/06/18 14:22 Pulse Rate 68 09/06/18 14:22 Respiratory Rate 20 09/06/18 14:22 Blood Pressure 93/66 09/06/18 14:22 O2 Sat by Pulse Oximetry 99 09/06/18 14:22 Temperature 98.1 F 09/06/18 14:22 Pulse Rate 65 09/06/18 16:23 Respiratory Rate 20 09/06/18 14:22 Blood Pressure 94/64 09/06/18 16:23 O2 Sat by Pulse Oximetry 99 09/06/18 15:17 Oxygen Delivery Oxygen Delivery Room Air Medical Decision Making - Medical Records Medical records reviewed: Yes I reviewed the patient's medical records. - Lab Data Lab results reviewed: Yes I reviewed the patient's lab results. Result diagrams: 09/06/18 15:06 09/06/18 15:06 Lab Results 09/06/18 09/06/18 09/06/18 Range/Units 15:04 15:06 15:06 WBC 3.0 L (4.3-11.1) K/mcL RBC 4.22 (3.82-4.97) M/mcL Hgb 13.9 (11.5-15.4) g/dL Hct 42.1 (35.3-44.9) % MCV 99.8 (83.0-100.0) fL MCH 32.9 (28.0-33.3) pg MCHC 33.0 (31.6-35.5) g/dL RDW 14.7 H (11.5-14.5) % Plt Count 44 L (140-400) K/mcL MPV 11.0 (9.4-12.4) fL Immature Gran % 0.0 (0-4) % Seg Neutrophils % 63.7 % Lymphocytes % 27.9 % Monocytes % 5.1 % Eosinophils % 3.0 % Basophils % 0.3 % Neutrophils # 1.9 (1.6-8.9) K/mcL Lymphocytes # 0.8 (0.6-4.6) K/mcL Monocytes # 0.2 (0.0-1.3) K/mcL Eosinophils # 0.1 (0.0-0.6) K/mcL Basophils # 0.0 (0.0-0.2) K/mcL Platelet Estimate Decreased L (Normal) PT (9.4-12.1) Seconds INR Sodium 140 (136-145) mEq/L Potassium 4.5 (3.5-5.1) mEq/L Chloride 108 H (98-107) mEq/L Carbon Dioxide 26 (23-29) mEq/L BUN 14 (8-23) mg/dL Creatinine 0.66 (0.60-1.20) mg/dL Est GFR ( Amer) > 60 (> 60) Est GFR (Non-Af Amer) > 60 (> 60) BUN/Creatinine Ratio 21 (6-26) Glucose 142 H (70-105) mg/dL Calculated Osmolality 293 (280-300) Calcium 8.7 (8.6-10.3) mg/dL Total Bilirubin 1.9 H (0.3-1.0) mg/dL Direct Bilirubin 0.6 H (0.0-0.2) mg/dL Indirect Bilirubin 1.3 H (0.0-1.2) mg/dL AST 46 H (13-39) Units/L ALT 23 (7-52) Units/L Alkaline Phosphatase 76 (34-104) Units/L Ammonia 140 H (16-53) mcmol/L Troponin I < 0.03 (< 0.04) ng/mL B-Natriuretic Peptide (Less than 100) pg/mL Serum Total Protein 5.8 L (6.4-8.9) g/dL Albumin 2.6 L (3.5-5.7) g/dL Globulin 3.2 (2.4-3.5) g/dL Albumin/Globulin Ratio 0.8 L (1.1-2.2) Lipase 28 (11-82) Units/L 09/06/18 09/06/18 Range/Units 15:06 15:06 WBC (4.3-11.1) K/mcL RBC (3.82-4.97) M/mcL Hgb (11.5-15.4) g/dL Hct (35.3-44.9) % MCV (83.0-100.0) fL MCH (28.0-33.3) pg MCHC (31.6-35.5) g/dL RDW (11.5-14.5) % Plt Count (140-400) K/mcL MPV (9.4-12.4) fL Immature Gran % (0-4) % Seg Neutrophils % % Lymphocytes % % Monocytes % % Eosinophils % % Basophils % % Neutrophils # (1.6-8.9) K/mcL Lymphocytes # (0.6-4.6) K/mcL Monocytes # (0.0-1.3) K/mcL Eosinophils # (0.0-0.6) K/mcL Basophils # (0.0-0.2) K/mcL Platelet Estimate (Normal) PT 16.4 H (9.4-12.1) Seconds INR 1.4 Sodium (136-145) mEq/L Potassium (3.5-5.1) mEq/L Chloride (98-107) mEq/L Carbon Dioxide (23-29) mEq/L BUN (8-23) mg/dL Creatinine (0.60-1.20) mg/dL Est GFR ( Amer) (> 60) Est GFR (Non-Af Amer) (> 60) BUN/Creatinine Ratio (6-26) Glucose (70-105) mg/dL Calculated Osmolality (280-300) Calcium (8.6-10.3) mg/dL Total Bilirubin (0.3-1.0) mg/dL Direct Bilirubin (0.0-0.2) mg/dL Indirect Bilirubin (0.0-1.2) mg/dL AST (13-39) Units/L ALT (7-52) Units/L Alkaline Phosphatase (34-104) Units/L Ammonia (16-53) mcmol/L Troponin I (< 0.04) ng/mL B-Natriuretic Peptide 673 H (Less than 100) pg/mL Serum Total Protein (6.4-8.9) g/dL Albumin (3.5-5.7) g/dL Globulin (2.4-3.5) g/dL Albumin/Globulin Ratio (1.1-2.2) Lipase (11-82) Units/L - Radiology Data Radiology results reviewed: Yes I reviewed the patient's radiology results. Chest X-Ray 09/06/18 14:46 IMPRESSION: Atelectasis and mild to moderate pleural effusion at the right lung base, increased. D/ / Jeffrey Marcus MD / Jeffrey Marcus MD Interpreting Provider: Jeffrey Marcus MD Head CT 09/06/18 15:24 IMPRESSION: No acute intracranial abnormality. D/ / Doug Dennis MD / Doug Dennis MD Interpreting Provider: Doug Dennis MD - EKG Data EKG #1 EKG attestation: Yes I reviewed and interpreted this EKG. EKG results narrative: EKG done at 14:30 shows sinus rhythm at a rate of 69 bpm. Normal axis. Intervals within normal limits. No signs of ST elevation, ST depression or Q waves present.
[2018-09-06] MEDS ORDERED: Furosemide 40 MG/4 ML VIAL IVP ONE (16:32)
[2018-09-06] MEDS ORDERED: Naloxone 0.4 MG/ML INJ IVP PRN (17:26)
[2018-09-06] MEDS ORDERED: Ipratropium/Albuterol Neb 3 ML IH PRN (17:32)
--- NOTE | 2018-09-06 17:37 | Internal Med History&Physical ---
<GatitoArden - Last Filed: 09/06/18 18:29> Date of Encounter: 09/06/18 Time of Encounter: 16:50 Internal Medicine - H&P: HPI Chief complaint: ELLIS Admitted From: Emergency Dept History of present illness: Ms. Sousa is a 63 year old female with PMH of COPD, IVDU, cirrhosis, arthritis, HTN, liver disease, and hepatitis B and C with a PSH of TIPS (06/18) that presents today for ELLIS x 3 days. Patient was accompanied by her daughter. She states that for the past week, she has noticed her mom become very lethargic and dazed. She notes that she has not been confused only that she has been very dazed and somnolent. Daughter also states that patient has not been compliant with her lactulose. She is supposed to be taking it 3 times a day however has only been taking it once a day. Patient says that she has been compliant with her Lasix and Aldactone however. Daughter also states that she has noticed increased lower extremity swelling within the past week. She is also noted that her abdomen has become more swollen. She denies any yellowing of the skin or eyes. Patient denies any melena or hematochezia. Does admit to an intermittent chronic cough. Denies any hemoptysis. Denies any other bleeding. Denies any fever or chills. Denies any wheezing. Denies abdominal pain, nausea, or vomiting. Denies any history of alcoholism. Last IV drug use was over 20 years ago. When she presented to the ER patient was afebrile. She was hypotensive at 93/66 however heart rate was normal. Labs showed thrombocytopenia around her baseline level. She had an INR within normal limits. Bilirubin was elevated at 1.9. Liver enzymes were relatively stable. She had an elevated ammonia 140. Troponins were negative 1. Elevated BMP of 673. And a lipase within normal limits. Chest x-ray showed atelectasis with mild to moderate pleural effusion at the right lower lobe. Past Med Surg Social Fam HX - Past Medical History Medical history: arthritis, cirrhosis, COPD, hepatitis, liver disease, other Additional medical history: splenomegaly, hx paracentesis, hx thoracentesis Psychiatric history: no psych history - Past Surgical History Surgical History: cholecystectomy Additional surgical history: bilateral TKR. tonsils/adenoids removed. CTR. colonoscopy/egd - Social History Smoking Status: Current every day smoker Smokeless Tobacco Status: No Alcohol use: none Drug use: none - Family History Father Family Member Ethnicity: Non- Living Status: Hx Family Respiratory Disorders: Yes (copd) Mother Family Member Ethnicity: Non- Living Status: Internal Medicine - H&P: Meds Albuterol Sulfate [Proair Hfa] 2 puff IH Q4H PRN 06/29/16 [History] Budesonide/Formoterol 160/4.5 [Symbicort 160/4.5] 2 puff IH BIDR 04/30/17 [History] Spironolactone [Aldactone] 150 mg PO DAILY 07/04/17 [History] Acetaminophen [Tylenol] 650 mg PO Q6HR PRN 04/21/18 [History] Lactulose 10 gm PO BID 04/21/18 [History] Furosemide [Lasix] 40 mg PO DAILY #30 tab 04/25/18 [Rx] Ipratropium/Albuterol Neb [Duoneb] 3 ml IH Q6HR PRN #30 inhsol 04/25/18 [Rx] Allergy/AdvReac Type Severity Reaction Status Date / Time doxycycline AdvReac Nausea Verified 04/21/18 16:17 Penicillins AdvReac See Verified 04/21/18 16:17 Comments All Systems PM: A 10-system review of systems was performed and is negative for pertinent findings except as documented above in the HPI. - Constitutional Constitutional: lethargy, weakness, weight gain, no chills, no fever(s) - EENT Nose, mouth and throat: no bleeding gums, no epistaxis - Cardiovascular Cardiovascular ROS IM: dyspnea, edema, no chest pain, no lightheadedness - Respiratory Respiratory: cough, no hemoptysis, no wheezing, no excessive phlegm production - Gastrointestinal Gastrointestinal: no abdominal pain, no coffee ground emesis, no diarrhea, no fecal incontinence, no hematemesis, no hematochezia, no loose stools, no melena, no nausea, no vomiting - Genitourinary Genitourinary: no dysuria - Musculoskeletal Musculoskeletal ROS IM: back pain, myalgias - Integumentary Integumentary IM: no jaundice - Neurological Neurological ROS: no confusion, no dizziness - Psychiatric Psychiatric: as per HPI - Hematologic/Lymphatic Hematologic/Lymphatic: no easy bleeding, no easy bruising - Constitutional Vitals: Temp Pulse Resp BP Pulse Ox 98.1 F 69 18 112/77 100 09/06/18 14:22 09/06/18 17:32 09/06/18 17:00 09/06/18 17:32 09/06/18 17:32 Exam: GENERAL APPEARANCE: Well developed, well nourished, alert and cooperative, and appears to be in no acute distress. HEAD: normocephalic. EYES: PERRL, EOMI. Fundi normal, vision is grossly intact. No scleral icterus. EARS: hearing grossly intact. NOSE: No nasal discharge. THROAT: Oral cavity and pharynx normal. No inflammation, swelling, exudate, or lesions. NECK: Neck supple, non-tender without lymphadenopathy, masses or thyromegaly. CARDIAC: Normal S1 and S2. No S3, S4 or murmurs. Rhythm is regular. There is no cyanosis or pallor. Extremities are warm and well perfused. Capillary refill is less than 2 seconds. No carotid bruits. LUNGS: Crackles noted in the posterior R lower lung base. ABDOMEN: Positive bowel sounds. Soft, distended, nontender. No guarding or rebound. No masses. Positive shifting fluid. MUSKULOSKELETAL: Adequately aligned spine. ROM intact spine and extremities. No joint erythema or tenderness. Normal muscular development. Normal gait. EXTREMITIES: No significant deformity or joint abnormality. Peripheral pulses intact. No varicosities. LOWER EXTREMITY: Examination of both feet reveals all toes to be normal in size and symmetry, normal range of motion, normal sensation with distal capillary filling of less than 2 seconds without tenderness, discoloration, nodules, weakness or deformity; +2 b/l pitting edema of both ankles. NEUROLOGICAL: no gross focal weakness, no slurring of speech. SKIN: Skin normal color, texture and turgor with no lesions or eruptions. No jaundice. No sites of bleeding noted. PSYCHIATRIC: The mental examination revealed the patient was oriented to person, place, and time. Internal Med - H&P Results - Labs CBC & Chem 7: 09/06/18 15:06 09/06/18 15:06 Labs: Short CBC 09/06/18 Range/Units 15:06 WBC 3.0 L (4.3-11.1) K/mcL Hgb 13.9 (11.5-15.4) g/dL Hct 42.1 (35.3-44.9) % Plt Count 44 L (140-400) K/mcL Neutrophils # 1.9 (1.6-8.9) K/mcL BMP 09/06/18 15:06 Sodium 140 Potassium 4.5 Chloride 108 H Carbon Dioxide 26 BUN 14 Creatinine 0.66 Glucose 142 H Calcium 8.7 Cardiac Enzymes 09/06/18 Range/Units 15:06 Troponin I < 0.03 (< 0.04) ng/mL Liver Function 09/06/18 Range/Units 15:06 Total Bilirubin 1.9 H (0.3-1.0) mg/dL Direct Bilirubin 0.6 H (0.0-0.2) mg/dL AST 46 H (13-39) Units/L ALT 23 (7-52) Units/L Alkaline Phosphatase 76 (34-104) Units/L Albumin 2.6 L (3.5-5.7) g/dL - Impressions ITS Impressions Chest X-Ray 09/06/18 14:46 IMPRESSION: Atelectasis and mild to moderate pleural effusion at the right lung base, increased. D/ / Jeffrey Marcus MD / Jeffrey Marcus MD Interpreting Provider: Jeffrey Marcus MD Head CT 09/06/18 15:24 IMPRESSION: No acute intracranial abnormality. D/ / Doug Dennis MD / Doug Dennis MD Interpreting Provider: Doug Dennis MD - Assessment and Plan (1) Dyspnea Current Visit: Yes Status: Acute Assessment and plan: Presents more like a hepatic hydrothorax. Patient recently underwent a thoracentesis of the R side due to a hepatic hydrothorax on 06/19/18. Unlikely to be an infectious etiology: no fever, no acute exacerbation of cough, no wheezing. She had abdominal distension and positive fluid shift on exam likely due to ascites. BNP elevated at 673. Trop was negative. Last echocardiogram on 04/28 showed a normal EF of 65-70%, so unlikely cardiac in nature. CXR showed atelectasis with mild-moderate pleural effusion of the RLL. Plan: - Lasix 40 mg IV daily. - Resume home Aldactone 150 mg PO daily. - Monitor I/O's. - Consult to GI. Qualifiers: Dyspnea type: shortness of breath Qualified Code(s): R06.02 - Shortness of breath; R06.00 - Dyspnea, unspecified; R06.01 - Orthopnea (2) Cirrhosis of liver Current Visit: Yes Status: Chronic Assessment and plan: Patient has known history of hepatits B and C. History of IVDU (clean over 20 years). No history of alcoholism. Total bilirubin elevated at 1.9. Liver enzymes WNL. No recent history of bleeding based on patient's account. Hemoglobin stable. INR WNL. Thrombocytopenia at baseline. Elevated ammonia of 140. MELD-Na score of 13, which correlates with a < 2% 90-day mortality risk. Plan: - Resume home lactulose. - Recheck INR and hemoglobin in the AM. - Recheck sodium level in the AM. - Recheck liver enzymes and bilirubin in the AM. - Consult to GI. Qualifiers: Hepatic cirrhosis type: unspecified hepatic cirrhosis Ascites presence: unspecified Qualified Code(s): K74.60 - Unspecified cirrhosis of liver (3) Hepatic encephalopathy Current Visit: No Status: Acute Assessment and plan: Elevated ammonia level of 140. Patient was symptomatic for the past 3 days. On examination, she was alert and oriented x 3. Did not appear to be dazed but a bit lethargic. She admitted to non-compliance with her lactulose. Plan: - Resume home lactulose. - Continue to monitor. (4) COPD (chronic obstructive pulmonary disease) Current Visit: No Status: Chronic Assessment and plan: O2 saturation stable on RA. Plan: - Resume home duonebs PRN. - Resume home albuterol PRN. - Resume home symbicort scheduled. Qualifiers: COPD type: unspecified COPD Qualified Code(s): J44.9 - Chronic obstructive pulmonary disease, unspecified (5) History of hepatitis Current Visit: Yes Status: Acute Assessment and plan: History of IVDU. Diagnosed with chronic hepatitis B and C. Plan: - See plan for cirrhosis. (6) Hypertension Current Visit: Yes Status: Acute Assessment and plan: BP hypotensive at 93/66. Plan: - Will be resuming aldactone and be placed on increased lasix. Monitor BP c losely. May need to hold meds if becomes more hypotensive and symptomatic. Qualifiers: Hypertension type: unspecified Qualified Code(s): I10 - Essential (primary) hypertension (7) History of intravenous drug abuse Current Visit: Yes Status: Acute Assessment and plan: Has been clean for over 20 years. - Time Spent With Patient Total time spent is greater than 50% in coordination of care (as documented) at patient's floor/unit and/or counseling patient: <Cong Keller - Last Filed: 09/06/18 18:54> Date of Encounter: 09/06/18 Internal Medicine - H&P: HPI History of present illness: Ms. Sousa is a 63 year old female All Systems PM: A 10-system review of systems was performed and is negative for pertinent findings except as documented above in the HPI. - Constitutional Vitals: Temp Pulse Resp BP Pulse Ox 98.1 F 75 18 112/77 100 09/06/18 14:22 09/06/18 18:00 09/06/18 17:00 09/06/18 17:32 09/06/18 18:00 Internal Med - H&P Results - Labs CBC & Chem 7: 09/06/18 15:06 09/06/18 15:06 Labs: Short CBC 09/06/18 Range/Units 15:06 WBC 3.0 L (4.3-11.1) K/mcL Hgb 13.9 (11.5-15.4) g/dL Hct 42.1 (35.3-44.9) % Plt Count 44 L (140-400) K/mcL Neutrophils # 1.9 (1.6-8.9) K/mcL BMP 09/06/18 15:06 Sodium 140 Potassium 4.5 Chloride 108 H Carbon Dioxide 26 BUN 14 Creatinine 0.66 Glucose 142 H Calcium 8.7 Cardiac Enzymes 09/06/18 Range/Units 15:06 Troponin I < 0.03 (< 0.04) ng/mL Liver Function 09/06/18 Range/Units 15:06 Total Bilirubin 1.9 H (0.3-1.0) mg/dL Direct Bilirubin 0.6 H (0.0-0.2) mg/dL AST 46 H (13-39) Units/L ALT 23 (7-52) Units/L Alkaline Phosphatase 76 (34-104) Units/L Albumin 2.6 L (3.5-5.7) g/dL - Impressions ITS Impressions Chest X-Ray 09/06/18 14:46 IMPRESSION: Atelectasis and mild to moderate pleural effusion at the right lung base, increased. D/ / Jeffrey Marcus MD / Jeffrey Marcus MD Interpreting Provider: Jeffrey Marcus MD Head CT 09/06/18 15:24 IMPRESSION: No acute intracranial abnormality. D/ / Dogu Dennis MD / Doug Dennis MD Interpreting Provider: Doug Dennis MD - Time Spent With Patient Total time spent is greater than 50% in coordination of care (as documented) at patient's floor/unit and/or counseling patient: - Attending Attestation I examined this patient and my medical decision-making was reviewed with the Resident Physician on 09/06/18. I agree with the documented findings, disposition and treatment plan as described except to the extent set forth below. Please see event note of this date.
--- NOTE | 2018-09-06 18:30 | Event Note ---
Date of Encounter: 09/06/18 Time of Encounter: 17:45 I examined this patient and my medical decision-making was reviewed with the Resident Physician on 09/06/18. I agree with the documented findings, disposition and treatment plan as described except to the extent set forth below. Please see H&P of this date for further information. Ms Sousa is 63y/o female with hx of cirrhosis due to hep B and C presented to ED with confusion and swelling. She was evaluated and found to be volume overloaded and have elevated ammonia level (only taking Lactulose once daily due to taste). Denies CP. Some dyspnea with movement. No fever or chills. No cough. Exam: Alert but somnolent. Mucus membranes dry Heart distant and regular Lungs with bilateral rales Abd soft with fluid wave Edema present I/P 1. Hepatic encephalopathy - Lactulose given. (chronic hepatic failure without coma) 2. Volume overload related to cirrhosis - diuresis as BP allows. Will need thora and maybe para tomorrow 3. Hep B and C 4. Thrombocytopenia Further diagnoses and plan as per H&P
[2018-09-06] MEDS: Budesonide/Formoterol 160/4.5 1 PUFF INH IH SCH (20:04)
[2018-09-06] MEDS: Lactulose Oral Soln 20 GM/30 ML UDC PO SCH (20:51)
[2018-09-07 05:29] LABS: Hematocrit 39.8 % (35.3-44.9); Hemoglobin 13.3 g/dL (11.5-15.4); Immature Platelets 5.7 % (1.1-6.1); Mean Corpuscular HGB Conc 33.4 g/dL (31.6-35.5); Mean Corpuscular Hemoglobin 32.4 pg (28.0-33.3); Mean Corpuscular Volume 96.8 fL (83.0-100.0); Mean Platelet Volume 11.7 fL (9.4-12.4); Red Blood Count 4.11 M/mcL (3.82-4.97); Red Cell Distribution Width 14.7 % (11.5-14.5); White Blood Count 4.1 K/mcL (4.3-11.1)
[2018-09-07 05:35] LABS: INR 1.5; Prothrombin Time 17.3 Seconds (9.4-12.1)
[2018-09-07 05:38] LABS: Activated Partial Thrombo Time 35.6 Seconds (26.0-36.0)
[2018-09-07 05:48] LABS: Alanine Aminotransferase 23 Units/L (7-52); Albumin 2.4 g/dL (3.5-5.7); Albumin/Globulin Ratio 0.7 (1.1-2.2); Alkaline Phosphatase 72 Units/L (34-104); Aspartate Amino Transferase 47 Units/L (13-39); BUN/Creatinine Ratio 21 (6-26); Bilirubin,Total 1.7 mg/dL (0.3-1.0); Blood Urea Nitrogen 13 mg/dL (8-23); Calcium 8.8 mg/dL (8.6-10.3); Carbon Dioxide 26 mEq/L (23-29); Chloride 112 mEq/L (98-107); Globulin 3.3 g/dL (2.4-3.5); Glucose 86 mg/dL (70-105); Osmolality,Calculated 297 (280-300); Potassium 3.9 mEq/L (3.5-5.1); Sodium 144 mEq/L (136-145); Total Protein 5.7 g/dL (6.4-8.9); eGFR For African Americans > 60 (> 60); eGFR For Non-African Americans > 60 (> 60)
--- NOTE | 2018-09-07 07:23 | Internal Med Progress Note ---
Hospitalist Progress Note - Encounter Date of Encounter: 09/07/18 Time of Encounter: 09:20 - Subjective Interval History: The patient is seen and examined at bedside. She says that she is feeling better than she was yesterday, however she remains uncomfortable at this time. She says that her abdomen is not feeling significantly firm which has previously when she has required paracentesis, however she is still somewhat short of breath. She does not feel as confused as lethargic as she had yesterday but does still have some residual confusion. She did not have any significant problems overnight. She said that she is having bowel movements and she is urinating frequently. She has no acute concerns today. - Exam Vitals: Temp Pulse Resp BP Pulse Ox 98.2 F 80 16 91/59 98 09/07/18 07:14 09/07/18 07:14 09/07/18 07:14 09/07/18 07:14 09/07/18 07:14 Exam: Gen: Vitals noted. No acute distress. Eyes: anicteric sclerae, moist conjunctivae; no lid-lag; Pupils equal and reactive to light HENT: Atraumatic; oropharynx clear with moist mucous membranes and no mucosal ulcerations; normal hard and soft palate Neck: Trachea midline; supple, no thyromegaly or lymphadenopathy Cardiac: RRR, no murmur, +S1/S2 Pulmonary: Breath sounds diminished on the right with faint crackles heard in the bases bilaterally Abdomen: soft, mild tenderness to palpation with some hepatosplenomegaly noted that is nontender. There is no fluid wave. Dull to percussion. MSK: ROM intact, no joint swelling noted Extremities: 1-2+ lower extremity edema is noted bilaterally Skin: Normal temperature, turgor and texture; no rash, ulcers or subcutaneous nodules Neuro: moves all extremities, no focal deficits. Asterixis is noted on exam. Psych: Appropriate mood and behavior. 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 Patient does have history of pleural effusions and ascites requiring thoracentesis and paracentesis for drainage in the past She does have shortness of breath and some abdominal distention on examination Chest x-ray demonstrates atelectasis with mild to moderate pleural effusion on the right lower lobe Patient was started on home dose of Aldactone Lasix 40 mg IVP initially without issue Patient did have some hypotension this morning and I had some concerns that maybe she cannot tolerate 40mg Lasix surgery for 20 mg Lasix She tolerated this fine, I will give 40 mg Lasix this afternoon because of increased fluid that she did receive Return to 40 mg daily tomorrow (2) Hepatic encephalopathy Current Visit: Yes Status: Acute Assessment and Plan: Hepatic encephalopathy, patient presented with ammonia 140 Seems to be improving over the course of her current visit She is much more alert than she was yesterday, appears to have a better understanding of where she is at There is some asterixis on exam, however patient able to answer questions clearly and appropriately We will continue current treatment with lactulose and rifaximin Recheck ammonia in the morning (3) Pleural effusion Current Visit: Yes Status: Acute Assessment and Plan: Pleural effusion associated with hepatic cirrhosis Evidence on chest x-ray, patient also has hypoxia Interventional radiology was consulted for possible thoracentesis however there was not enough fluid for drainage We will continue to diurese at this time with Lasix and spironolactone Continue further imaging with CT of the chest tomorrow and ABG if needed (4) Hypotension Current Visit: No Status: Acute Assessment and Plan: Hypotension, possibly chronic Patient does have systolic blood pressure in the 90s We will monitor this closely, however it is likely that this is chronic (5) Thrombocytopenia Current Visit: No Status: Chronic Assessment and Plan: Thrombocytopenia, platelet count 30's Patient was initially plan for procedure with interventional radiology Received 2 units of platelets however did not undergo procedure (6) COPD (chronic obstructive pulmonary disease) Current Visit: No Status: Chronic Assessment and Plan: Chronic, continue supportive therapy (7) S/P TIPS (transjugular intrahepatic portosystemic shunt) Current Visit: No Status: Acute - Time Spent with Patient Total time spent is greater than 50% in coordination of care (as documented) at patient's floor/unit and/or counseling patient: Internal Medicine: Result - Labs CBC & Chem 7: 09/07/18 13:15 09/07/18 04:51 Labs: Short CBC 09/06/18 09/07/18 Range/Units 15:06 04:51 WBC 3.0 L 4.1 L (4.3-11.1) K/mcL Hgb 13.9 13.3 (11.5-15.4) g/dL Hct 42.1 39.8 (35.3-44.9) % Plt Count 44 L 39 L (140-400) K/mcL Neutrophils # 1.9 (1.6-8.9) K/mcL BMP 09/06/18 09/07/18 15:06 04:51 Sodium 140 144 Potassium 4.5 3.9 Chloride 108 H 112 H Carbon Dioxide 26 26 BUN 14 13 Creatinine 0.66 0.62 Glucose 142 H 86 Calcium 8.7 8.8 Cardiac Enzymes 09/06/18 Range/Units 15:06 Troponin I < 0.03 (< 0.04) ng/mL Liver Function 09/06/18 09/07/18 Range/Units 15:06 04:51 Total Bilirubin 1.9 H 1.7 H (0.3-1.0) mg/dL Direct Bilirubin 0.6 H (0.0-0.2) mg/dL AST 46 H 47 H (13-39) Units/L ALT 23 23 (7-52) Units/L Alkaline Phosphatase 76 72 (34-104) Units/L Albumin 2.6 L 2.4 L (3.5-5.7) g/dL - ABG Interpretation ABG results: PT/INR, D-dimer PT 17.3 Seconds (9.4-12.1) H 09/07/18 04:51 - Impressions Impressions Chest X-Ray 09/06/18 14:46 IMPRESSION: Atelectasis and mild to moderate pleural effusion at the right lung base, increased. D/ / Jeffrey Marcus MD / Jeffrey Marcus MD Interpreting Provider: Jeffrey Marcus MD Head CT 09/06/18 15:24 IMPRESSION: No acute intracranial abnormality. D/ / Doug Dennis MD / Doug Dennis MD Interpreting Provider: Doug Dennis MD Consult Discharge Plan - Plan Referrals: Lakisha Cunha, [employer] [Primary Care Provider] - (1) Cirrhosis of liver Qualifiers: Hepatic cirrhosis type: unspecified hepatic cirrhosis Ascites presence: unspecified Qualified Code(s): K74.60 - Unspecified cirrhosis of liver (4) Hypotension Qualifiers: Hypotension type: hypotension due to hypovolemia Qualified Code(s): I95.89 - Other hypotension; E86.1 - Hypovolemia (6) COPD (chronic obstructive pulmonary disease) Qualifiers: COPD type: unspecified COPD Qualified Code(s): J44.9 - Chronic obstructive pulmonary disease, unspecified
[2018-09-07] MEDS: Budesonide/Formoterol 160/4.5 1 PUFF INH IH SCH ×2 (07:45→20:09)
[2018-09-07] MEDS ORDERED: Furosemide 20 MG/2 ML VIAL IVP SCH (09:00)
[2018-09-07] MEDS ORDERED: Furosemide 40 MG/4 ML VIAL IVP SCH (09:00)
[2018-09-07] MEDS: Lactulose Oral Soln 20 GM/30 ML UDC PO SCH ×2 (09:27→20:39)
[2018-09-07] MEDS ORDERED: 0.9 % Sodium Chloride 250 ML ONE (10:07)
[2018-09-07] MEDS ORDERED: Acetaminophen 325 MG TABLET PO PRN (11:03)
--- NOTE | 2018-09-07 12:39 | Gastroenterology Consult Note ---
Date of Encounter: 09/07/18 Time of Encounter: 10:15 - Assessment and plan (1) Cirrhosis of liver Current Visit: Yes Status: Chronic Assessment and plan: MELD-Na 13 and Child-Barkley class B. Check AFP. RUQ US 07/08/2018 with no evidence of significant ascites within the abdomen. Titrate Lactuolose for 2-4 BM daily. Start Rifaximin 550 mg BID. Lifestyle Changes: 1. Total abstinence from alcohol including social drinking. 2. No smoking. 3. Gradual loss of weight. 4. Drink at least 3 cups of coffee due to its antioxidant effects in the liver, it reduces risk of HCC and advance fibrosis. 5. If needed, use less than 2 g/day of Tylenol (in divided doses). 6. Vaccination for Hep A, B, Pneumococcus if not already received and yearly influenza vaccination by PCP. 7. Avoid NSAIDS as can cause kidney damage. 8. Avoid benzodiazepines and other sedatives such as anti-histamines, narcotics etc. as can cause encephalopathy or confusion. 9. Take a late carbohydrate meal supplement as it reduces glucose production from protein breakdown and thus improves nutrition. 10. In cirrhosis, statins are safe to use and also improve portal hypertension and decrease risk of HCC. 11. Screening: Hepatocellular cancer screening: US of liver and AFP every 6 months Qualifiers: Hepatic cirrhosis type: unspecified hepatic cirrhosis Ascites presence: unspecified Qualified Code(s): K74.60 - Unspecified cirrhosis of liver (2) Hepatic encephalopathy Current Visit: No Status: Acute Assessment and plan: As above. (3) Dyspnea Current Visit: Yes Status: Acute Assessment and plan: Recommend consulting Pulmonology for possible thoracentesis. Qualifiers: Dyspnea type: shortness of breath Qualified Code(s): R06.02 - Shortness of breath; R06.00 - Dyspnea, unspecified; R06.01 - Orthopnea - Time Spent With Patient Total time spent is greater than 50% in coordination of care (as documented) at patient's floor/unit and/or counseling patient: GI History of Present Illness - Data of Consult Patient: known to practice within the last 3 years Consult date: 09/07/18 Requesting Physician: Cong Keller DO - Consult Narrative Reason for consult: Cirrhosis, hepatic hydrothorax History of present illness: Ms. Sousa is a 63 year old female with PMHx of COPD, IVDU, cirrhosis, arthritis, HTN, liver disease, and hepatitis B and C with a PSH of TIPS (06/18) who was brought to the hospital by her daughter due to lethargy and dazed. Daughter reported the patient had not been compliant with her Lactulose. She denies fever, chills, chest pain, abdominal pain, nausea, vomiting, melena, or sia tochezia. Ammonia 140 on admission. Chest x-ray showed atelectasis with mild to moderate pleural effusion at the right lower lobe. Patient recently underwent a thoracentesis of the R side due to a hepatic hydrothorax on 06/19/18. Procedures: Colonoscopy 01/01/2018 Dr. Tolbert: Single ulcer in sigmoid colon which was improved, internal hemorrhoids. Colonoscopy 12/06/2017 Dr. Tolbert: Poor prep, to AVM which were treated with cautery, single ulcer in the descending colon. EGD 12/05/2017 Dr. Quigley small esophageal varices, portal hypertensive gastropathy. Colonoscopy 07/05/2015 Dr. Quigley: 15 mm sessile serrated adenoma, two 6 mm hyperplastic polyps. EGD 07/05/2015 Dr. Quigley, benign nodule in the esophagus, grade 1 varices, gastric polyp, duodenal ulcer, gastritis, duodenitis. NSAIDs: None Anticoagulation: None Past Med Surg Social Fam HX - Past Medical History Medical history: arthritis, cirrhosis, COPD, hepatitis, liver disease, other Additional medical history: splenomegaly, hx paracentesis, hx thoracentesis Psychiatric history: no psych history - Past Surgical History Surgical History: Additional surgical history: bilateral TKR. tonsils/adenoids removed. CTR. colonoscopy/egd. shunt placed in liver - Social History Smoking Status: Current every day smoker Packs per day: 1/2 pack per day Smokeless Tobacco Status: No Alcohol use: none Drug use: none - Family History Father Family Member Ethnicity: Non- Living Status: Hx Family Respiratory Disorders: Yes (copd) Mother Family Member Ethnicity: Non- Living Status: - Gastrointestinal Gastrointestinal: Present: as per HPI - Constitutional Constitutional: as per HPI - EENT Eyes: as per HPI Ears: Present: as per HPI Nose, mouth and throat: Present: as per HPI - Cardiovascular Cardiovascular ROS: Present: as per HPI - Respiratory Respiratory IM: Present: as per HPI - Genitourinary Genitourinary: Absent: change in color, Urinary frequency - Neurological ROS Neurological GI: Present: as per HPI - Hematologic/Lymphatic Hematologic/Lymphatic pediatric: Present: as per HPI - Musculoskeletal Musculoskeletal ROS GI: Present: as per HPI - Integumentary Integumentary GI: Present: as per HPI - Psychiatric ROS Psychiatric GI: Present: as per HPI - Endocrine Endocrine IM: Present: as per HPI - Constitutional Vitals: Temp Pulse Resp BP Pulse Ox 98.7 F 86 16 93/59 96 09/07/18 11:15 09/07/18 11:15 09/07/18 11:15 09/07/18 11:15 09/07/18 11:15 General appearance: Present: cooperative, A&O X 3, no acute distress, answers questions appropriately - Head Head exam: Present: atraumatic, normocephalic - Eye Eye exam: Present: normal appearance, sclera anicteric - ENT ENT exam: Present: mucous membranes moist - Neck Neck exam general surgery: Present: normal inspection, trachea midline - Respiratory Respiratory exam: Present: CTAB - Cardiovascular Cardiovascular exam: Present: RRR, +S1, +S2 - GI/Abdominal GI/Abdominal exam: Present: soft, no peritoneal signs. Absent: distended, firm, guarding, tenderness - Rectal Rectal exam: Present: deferred - Extremities Exam Extremities exam: Present: warm - Neurological Exam Neurological exam: Present: no focal deficits - Psychiatric Psychiatric exam: Present: normal affect, normal mood - Skin Skin exam: Present: dry, intact, normal color, warm Results - Labs CBC & Chem 7: 09/07/18 04:51 09/07/18 04:51 Labs: Last Result 09/07/18 04:51 Calcium 8.8 Entire Visit 09/07/18 09/07/18 09/07/18 04:51 04:51 04:51 Hgb 13.3 Hct 39.8 PT 17.3 H Total Bilirubin 1.7 H AST 47 H ALT 23 - ABG ABG results: PT/INR, D-dimer PT 17.3 Seconds (9.4-12.1) H 09/07/18 04:51 - Impressions Impressions Chest X-Ray 09/06/18 14:46 IMPRESSION: Atelectasis and mild to moderate pleural effusion at the right lung base, increased. D/ / Jeffrey Marcus MD / Jeffrey Marcus MD Interpreting Provider: Jeffrey Marcus MD Head CT 09/06/18 15:24 IMPRESSION: No acute intracranial abnormality. D/ / Doug Dennis MD / Doug Dennis MD Interpreting Provider: Doug Dennis MD Consult Discharge Plan - Plan Referrals: Lakisha Cunha CNP [Primary Care Provider] -
[2018-09-07] MEDS ORDERED: Furosemide 40 MG/4 ML VIAL IVP ONE (17:00)
[2018-09-08] MEDS: Ibuprofen 600 MG TABLET PO PRN ×2 (06:29→16:44)
[2018-09-08] MEDS: Budesonide/Formoterol 160/4.5 1 PUFF INH IH SCH ×2 (07:29→19:30)
[2018-09-08] MEDS: Lactulose Oral Soln 20 GM/30 ML UDC PO SCH (08:52)
[2018-09-08] MEDS ORDERED: Furosemide 40 MG/4 ML VIAL IVP SCH (09:00)
--- NOTE | 2018-09-08 09:01 | Internal Med Progress Note ---
<Narinder Patrick - Last Filed: 09/08/18 21:20> Hospitalist Progress Note - Encounter Date of Encounter: 09/08/18 Time of Encounter: 09:30 - Subjective Interval History: Patient states that she feels better today. Her last bowel movement was this morning. Still some shortness of breath, however she was not wearing her nasal cannula. PE general: elderly f no acute distress eyes: PERRL ENT: hard palate without lesions cardio: 2/6 murmur best heard over aortic valve. respiratory: expiratory rhoncus b/l anteriorly. possibly transmitted upper airway sound. GI: obese. normoactive bowel sounds. periumbilical mass. psych: oriented to person, place, and time. - Exam Vitals: Temp Pulse Resp BP Pulse Ox 98.1 F 70 16 93/62 94 09/08/18 06:55 09/08/18 06:55 09/08/18 07:31 09/08/18 06:55 09/08/18 07:31 Exam: entered above DVT Prophylaxis: Hepatic Encephalopathy -2/2 decompensated liver cirrhosis 2/2 Hep B/C -non-compliant with home lactulose -AMS on arrival -ammonia 140 on arrival -metal status improved -continue lactulose 10gm po bid -continue rifaximin 550mg po bid -f/u with G.I. in 1 week Pleural Effusion -likely 2/2 decompensated liver cirrhosis -dyspnea refractory to home oxygen -09/07/18 chest and abd. U/S's showed no pleural fluid or ascites -change furosemide 40 mg IV daily to 40mg po daily. -continue spironolactone 150 mg po daily -as history of fluid overload, will continue diuresis Hypotension -likely 2/2 hepatic failure. also consider pleural effusion. -93/66 on arrival. most systolic readings in the 90's throughout stay. -as remained stable even with increased dose of diuretics will consider this her chronic baseline and safe to discharge. Cardiac Murmur -3/6 systolic murmur heard best over aortic valve -last echo 04/23/18 showed mild tricuspid regurg and trace mitral regurg. no aortic or pulmonic stenosis. -potentially new within the past year as no murmur heard on visit 04/30/18. -f/u outpatient basis COPD -continue home O2 2L therapy -continue home therapy of albuterol sulfate, budesonide/formoterol, ipratropium/albuterol - Time Spent with Patient Total time spent is greater than 50% in coordination of care (as documented) at patient's floor/unit and/or counseling patient: Internal Medicine: Result - Labs CBC & Chem 7: 09/07/18 13:15 09/08/18 16:10 Labs: Short CBC 09/07/18 Range/Units 13:15 Plt Count 47 L (140-400) K/mcL - ABG Interpretation ABG results: PT/INR, D-dimer PT 17.3 Seconds (9.4-12.1) H 09/07/18 04:51 - Impressions Impressions Chest Ultrasound 09/07/18 07:25 IMPRESSION: 1. No right pleural effusion seen with ultrasound so no thoracentesis performed. D/ / Buddy Ernandez MD / Buddy Ernandez MD Interpreting Provider: Buddy Ernandez MD Abdomen/Pelvis/Transvag US 09/07/18 07:49 IMPRESSION: 1. No ascites seen so no paracentesis performed. D/ / Buddy Ernandez MD / Buddy Ernandez MD Interpreting Provider: Buddy Ernandez MD Consult Discharge Plan - Plan Referrals: Lakisha Cunha, [employer] [Primary Care Provider] - (Web request entered. Office will call with date and time of appointment.) Prescriptions: Furosemide [Lasix] 40 mg PO DAILY #30 tablet Rifaximin [Xifaxan] 550 mg PO BID 30 Days #60 tablet <Cong Keller - Last Filed: 09/10/18 14:04> Hospitalist Progress Note - Encounter Date of Encounter: 09/08/18 - Exam Vitals: Temp Pulse Resp BP Pulse Ox 98.2 F 82 18 100/64 97 09/08/18 19:31 09/08/18 19:31 09/08/18 19:33 09/08/18 19:31 09/08/18 19:33 - Time Spent with Patient Total time spent is greater than 50% in coordination of care (as documented) at patient's floor/unit and/or counseling patient: Internal Medicine: Result - Labs CBC & Chem 7: 09/07/18 13:15 09/08/18 16:10 - ABG Interpretation ABG results: PT/INR, D-dimer PT 16.1 Seconds (9.4-12.1) H 09/08/18 16:10 - Attending Attestation I examined this patient and my medical decision-making was reviewed with the Resident Physician on 09/08/18. I agree with the documented findings, disposition and treatment plan as described except to the extent set forth below. Ms Sousa is currently admitted for acute volume overload and cirrhosis. She remains moderate to high risk Ms Sousa feels oK. Still with swelling. More alert. Exam Normocephalic Mucus membranes dry Heart reg No wheeze Abd distended. Edema Moves all extremity No rash I/P 1. Hepatic encephalopathy - continue Lactulose 2. Cirrhosis 3. Volume overload
--- NOTE | 2018-09-08 13:33 | Electrocardiograph Report ---
[facility] Test Date: 2018-09-06 Pat Name: Cong Sousa Department: 104 Room: 3A23 Gender: F Rectifying Attendant: : 1955 Requested By: Devon Woodruff Order Number: [id number] Reading MD: Emmanuel Blount Measurements Intervals Jansen Rate: 69 P: 4 DC: 167 QRS: 25 QRSD: 89 T: 5 QT: 425 QTc: 443 Interpretive Statements SINUS RHYTHM Electronically Signed On 09-08-2018 13:31:34 EDT by Emmanuel lBount
--- NOTE | 2018-09-08 14:36 | Discharge Summary ---
<Cong Keller - Last Filed: 09/08/18 16:46> Orders not resulted at time of discharge: Pending orders 09/07/18 08:41 Platelets [BBK] Stat Type and Screen [BBK] Stat 09/07/18 13:15 AFP Tumor Marker Non- Routine 09/08/18 16:10 Comprehensive Metabolic Panel AM 0400 Date of Encounter: 09/08/18 Hospital course: Ms. Sousa is a 63 year old female - Time Spent with Patient Total time spent providing and/or coordinating discharge services: - Discharge Medications Prescriptions: New Furosemide [Lasix] 40 mg PO DAILY #30 tablet Rifaximin [Xifaxan] 550 mg PO BID 30 Days #60 tablet Continued Albuterol Sulfate [Proair Hfa] 2 puff IH Q4H PRN PRN Reason: Shortness Of Breath Budesonide/Formoterol 160/4.5 [Symbicort 160/4.5] 2 puff IH BIDR Spironolactone [Aldactone] 150 mg PO DAILY Lactulose 10 gm PO BID Acetaminophen [Tylenol] 650 mg PO Q6HR PRN PRN Reason: Pain Ipratropium/Albuterol Neb [Duoneb] 3 ml IH Q6HR PRN #30 inhsol PRN Reason: Shortness Of Breath/Wheezing Discontinued Furosemide [Lasix] 20 mg PO DAILY Home Medications: Albuterol Sulfate [Proair Hfa] 2 puff IH Q4H PRN 06/29/16 [History] Budesonide/Formoterol 160/4.5 [Symbicort 160/4.5] 2 puff IH BIDR 04/30/17 [History] Spironolactone [Aldactone] 150 mg PO DAILY 07/04/17 [History] Acetaminophen [Tylenol] 650 mg PO Q6HR PRN 04/21/18 [History] Lactulose 10 gm PO BID 04/21/18 [History] Ipratropium/Albuterol Neb [Duoneb] 3 ml IH Q6HR PRN #30 inhsol 04/25/18 [Rx] Furosemide [Lasix] 40 mg PO DAILY #30 tablet 09/08/18 [Rx] Rifaximin [Xifaxan] 550 mg PO BID 30 Days #60 tablet 09/08/18 [Rx] Allergies/Adverse Reactions: Allergy/AdvReac Type Severity Reaction Status Date / Time doxycycline AdvReac Nausea Verified 04/21/18 16:17 Penicillins AdvReac See Verified 04/21/18 16:17 Comments Date of admission: 09/06/18 17:34 Primary care physician: Lakisha Cunha CNP Consults: 09/06/18 17:46 Consult to Gastroenterology [CONS] Stat Consulting Provider: Gastroenterology Nadia Reason for Consult: 63 F with hx of liver cirrhosis presenting for ELLIS. Likely hepatic hydrothorax R side. Non-compliant w/ lactulose. Call Completed: No - Constitutional Vitals: Temp Pulse Resp BP Pulse Ox 98.0 F 74 16 96/62 96 09/08/18 16:18 09/08/18 16:18 09/08/18 16:18 09/08/18 16:18 09/08/18 16:18 - Patient Status Disposition: Home, Self-Care Condition: Fair - Discharge Instructions Follow Up With: Lakisha Cunha CNP [Primary Care Provider] - (Web request entered. Office will call with date and time of appointment.) Forms: Jury Excuse, Inpatient Work/School Release - Attending Attestation I examined this patient and my medical decision-making was reviewed with the Resident Physician on 09/08/18. I agree with the documented findings, disposition and treatment plan as described except to the extent set forth below. Ms Sousa has been admitted for acute hepatic encephalopathy and volume overload. She has improved with adjustment of meds and giving Lactulose and Rifaximin. She is returning to baseline. She is now afebrile and ready for discharge home. Alert, comfortable, mucus membranes dry, Heart reg, No wheeze, Abd nontender Plan d/c home today. D/C time 34min <Narinder Patrick - Last Filed: 09/08/18 21:22> - NOTES TO OUTPATIENT PROVIDER Notes to Outpatient Provider: 3/6 diastolic murmur appreciated on exam. follow- up advised if unaware of this. Orders not resulted at time of discharge: Pending orders 09/07/18 08:41 Platelets [BBK] Stat Type and Screen [BBK] Stat 09/07/18 13:15 AFP Tumor Marker Non- Routine 09/08/18 04:00 Ammonia AM 0400 Comprehensive Metabolic Panel AM 0400 Prothrombin Time INR [COAG] AM 0400 Date of Encounter: 09/08/18 Time of Encounter: 09:30 - Discharge Diagnosis (1) Hepatic encephalopathy Priority: Primary Status: Acute (2) Pleural effusion associated with hepatic disorder Priority: Secondary Status: Acute (3) Hypotension Priority: Secondary Status: Chronic (4) Cardiac murmur, unspecified Priority: Secondary Status: Acute (5) COPD (chronic obstructive pulmonary disease) Priority: Secondary Status: Chronic Qualifiers: COPD type: unspecified COPD Qualified Code(s): J44.9 - Chronic obstructive pulmonary disease, unspecified Hospital course: Ms. Sousa is a 63 year old female with hx of cirrhosis 2/2 Hep B/C, COPD, splenomegaly who presented to the ED on 09/06/18 complaining of dyspnea and mental status was reportedly altered at the time. Admitted with the diagnoses of hepatic encephalopathy 2/2 liver cirrhosis 2/2 Hep B/C. initial ammonia level was 140. This was treated with an initial dose of 30g lactulose which was de-escalated to 10g bid. She was also treated with rifaximin 550mg once daily beginning on 09/07/18. CXR ordered 2/ dyspnea revealed mild to moderate pleural effusion at R lung base. Effusion thought to be 2/2 cirrhosis. Furosemide 40mg IV was given. Chest U/S showed no fluid on 09/07/18 so no thoracentesis was performed. Abdominal U/S the same day showed no ascites. Spironolactone was given as well. Mental status improved with therapy and she was prepared for discharge on home meds. Changed furosemide to 40 po daily and added rifaximin. - Time Spent with Patient Total time spent providing and/or coordinating discharge services: Date of admission: 09/06/18 17:34 Primary care physician: Lakisha Cunha CNP Consults: 09/06/18 17:46 Consult to Gastroenterology [CONS] Stat Consulting Provider: Gastroenterology Nadia Reason for Consult: 63 F with hx of liver cirrhosis presenting for ELLIS. Likely hepatic hydrothorax R side. Non-compliant w/ lactulose. Call Completed: No - Constitutional Vitals: Temp Pulse Resp BP Pulse Ox 98.2 F 59 17 101/65 99 09/08/18 10:45 09/08/18 10:45 09/08/18 10:45 09/08/18 10:45 09/08/18 10:45 Exam: exam as performed in progress note 09/08/18 - Diet and Activity Activity: wear oxygen at all times Diet: advance to your usual diet
[2018-09-08 16:40] LABS: INR 1.4; Prothrombin Time 16.1 Seconds (9.4-12.1)
[2018-09-08 16:54] LABS: Alanine Aminotransferase 24 Units/L (7-52); Albumin 2.6 g/dL (3.5-5.7); Albumin/Globulin Ratio 0.8 (1.1-2.2); Alkaline Phosphatase 74 Units/L (34-104); Aspartate Amino Transferase 49 Units/L (13-39); BUN/Creatinine Ratio 23 (6-26); Bilirubin,Total 1.6 mg/dL (0.3-1.0); Blood Urea Nitrogen 19 mg/dL (8-23); Calcium 9.2 mg/dL (8.6-10.3); Carbon Dioxide 28 mEq/L (23-29); Chloride 109 mEq/L (98-107); Globulin 3.4 g/dL (2.4-3.5); Glucose 119 mg/dL (70-105); Osmolality,Calculated 295 (280-300); Potassium 4.3 mEq/L (3.5-5.1); Sodium 141 mEq/L (136-145); eGFR For African Americans > 60 (> 60); eGFR For Non-African Americans > 60 (> 60)
[2018-09-08 19:34] VITALS: BP 100/64
== END 2018-09-08 20:22 | disposition home or self-care (01) | DRG 279 ==
LOC: EMEROOARM 14:17 → SUATTDRO 17:34 → 3ANU 17:34
PROVIDERS: ADMIT Internal Medicine Nephrology; ATTEND Internal Medicine

== ENCOUNTER 2018-12-09 15:34 | Observation (INO) ==
[2018-12-09 16:38] LABS: Hematocrit 37.8 % (35.3-44.9); Hemoglobin 12.5 g/dL (11.5-15.4); Mean Corpuscular HGB Conc 33.1 g/dL (31.6-35.5); Mean Corpuscular Hemoglobin 33.1 pg (28.0-33.3); Mean Platelet Volume 11.3 fL (9.4-12.4); Red Blood Count 3.78 M/mcL (3.82-4.97); Red Cell Distribution Width 16.5 % (11.5-14.5); White Blood Count 7.5 K/mcL (4.3-11.1)
[2018-12-09 16:39] LABS: Platelet Count 33 K/mcL (140-400)
[2018-12-09 16:46] LABS: INR 1.9; Prothrombin Time 21.9 Seconds (9.4-12.1)
[2018-12-09 16:49] LABS: Activated Partial Thrombo Time 37.1 Seconds (26.0-36.0)
[2018-12-09 16:56] LABS: BUN/Creatinine Ratio 27 (6-26); Blood Urea Nitrogen 23 mg/dL (8-23); Calcium 8.8 mg/dL (8.6-10.3); Carbon Dioxide 28 mEq/L (23-29); Chloride 106 mEq/L (98-107); Glucose 96 mg/dL (70-105); Osmolality,Calculated 288 (280-300); Potassium 4.1 mEq/L (3.5-5.1); Sodium 137 mEq/L (136-145); Troponin I < 0.03 ng/mL (< 0.04); eGFR For African Americans > 60 (> 60); eGFR For Non-African Americans > 60 (> 60)
[2018-12-09] MEDS ORDERED: Aspirin 325 MG TABLET PO ONE (17:31)
[2018-12-09 17:53] LABS: Bilirubin,Urine Small (Negative); Blood,Urine Negative (Negative); Clarity,Urine Cloudy (Clear); Color,Urine Orange (Yellow); Glucose,Urine (UA) Normal (Normal); Ketones,Urine Negative (Negative); Leukocyte Esterase,Urine Small (Negative); Nitrite,Urine Negative (Negative); PH,Urine 5.5 pH Units (5.0-8.0); Protein,Urine Negative (Neg-Trace); Specific Gravity,Urine 1.025 (1.010-1.025)
[2018-12-09 17:57] LABS: Bacteria,Urine Few per hpf (None-Few); Squamous Epithelial Cell,Urine Many per lpf (None-Few)
[2018-12-09] MEDS ORDERED: Ondansetron 4 MG/2 ML VIAL IVP PRN (18:10)
[2018-12-09] MEDS ORDERED: Ipratropium/Albuterol Neb 3 ML IH PRN (18:22)
[2018-12-09] MEDS: Budesonide/Formoterol 160/4.5 1 PUFF INH IH SCH (19:55)
[2018-12-09] MEDS: Lactulose Oral Soln 20 GM/30 ML UDC PO SCH (21:45)
[2018-12-09] MEDS: cefTRIAXone 1,000 MG in Water for inj. (sterile) 10 ML IVP SCH (21:46)
[2018-12-10 01:57] LABS: Basophils % 0.2 %
[2018-12-10 01:59] LABS: Eosinophils # 0.1 K/mcL (0.0-0.6); Eosinophils % 1.5 %; Hematocrit 36.4 % (35.3-44.9); Hemoglobin 12.2 g/dL (11.5-15.4); Immature Granulocytes % 0.2 % (0-4); Immature Platelets 5.3 % (1.1-6.1); Lymphocytes # 0.6 K/mcL (0.6-4.6); Lymphocytes % 10.8 %; Mean Corpuscular HGB Conc 33.5 g/dL (31.6-35.5); Mean Corpuscular Hemoglobin 33.4 pg (28.0-33.3); Mean Corpuscular Volume 99.7 fL (83.0-100.0); Mean Platelet Volume 11.8 fL (9.4-12.4); Monocytes # 0.3 K/mcL (0.0-1.3); Monocytes % 6.6 %; Neutrophils # 4.2 K/mcL (1.6-8.9); Platelet Count 32 K/mcL (140-400); Red Blood Count 3.65 M/mcL (3.82-4.97); Red Cell Distribution Width 16.4 % (11.5-14.5); Segmented Neutrophils % 80.7 %; White Blood Count 5.2 K/mcL (4.3-11.1)
[2018-12-10 02:05] LABS: Prothrombin Time 22.7 Seconds (9.4-12.1)
[2018-12-10 02:20] LABS: Alanine Aminotransferase 20 Units/L (7-52); Albumin 2.3 g/dL (3.5-5.7); Albumin/Globulin Ratio 0.8 (1.1-2.2); Alkaline Phosphatase 60 Units/L (34-104); Aspartate Amino Transferase 47 Units/L (13-39); BUN/Creatinine Ratio 31 (6-26); Bilirubin,Direct 0.8 mg/dL (0.0-0.2); Bilirubin,Indirect 1.2 mg/dL (0.0-1.2); Blood Urea Nitrogen 23 mg/dL (8-23); Calcium 8.6 mg/dL (8.6-10.3); Carbon Dioxide 27 mEq/L (23-29); Chloride 108 mEq/L (98-107); Glucose 149 mg/dL (70-105); Magnesium 1.7 mg/dL (1.6-2.6); Osmolality,Calculated 292 (280-300); Phosphorous 2.8 mg/dL (2.7-4.5); Potassium 4.1 mEq/L (3.5-5.1); Sodium 138 mEq/L (136-145); Total Protein 5.3 g/dL (6.4-8.9); eGFR For African Americans > 60 (> 60); eGFR For Non-African Americans > 60 (> 60)
[2018-12-10] MEDS: Albumin 25% 12.5gm/50mL 12.5 GM/50 ML IV.SOLN IVPB SCH ×4 (02:22→23:06)
[2018-12-10] MEDS: Lactulose Oral Soln 20 GM/30 ML UDC PO SCH ×2 (09:17→20:17)
[2018-12-10] MEDS: cefTRIAXone 1,000 MG in Water for inj. (sterile) 10 ML IVP SCH (09:17)
[2018-12-10] MEDS: Budesonide/Formoterol 160/4.5 1 PUFF INH IH SCH ×2 (10:47→20:01)
[2018-12-10] MEDS ORDERED: Vancomycin 1,750 MG in 0.9 % Sodium Chloride 250 ML IVPB SCH (19:00)
[2018-12-11] MEDS: Piperacillin/Tazobactam 3.375 GM in 0.9 % Sodium Chloride Mini Bag 100 ML IVPB SCH ×3 (00:44→21:25)
[2018-12-11 04:35] LABS: Red Cell Distribution Width 16.3 % (11.5-14.5)
[2018-12-11 04:37] LABS: Basophils % 0.5 %; Eosinophils # 0.1 K/mcL (0.0-0.6); Eosinophils % 2.1 %; Hematocrit 34.3 % (35.3-44.9); Hemoglobin 11.2 g/dL (11.5-15.4); Immature Granulocytes % 0.7 % (0-4); Immature Platelets 4.5 % (1.1-6.1); Lymphocytes # 0.8 K/mcL (0.6-4.6); Lymphocytes % 18.6 %; Mean Corpuscular HGB Conc 32.7 g/dL (31.6-35.5); Mean Corpuscular Hemoglobin 32.9 pg (28.0-33.3); Mean Corpuscular Volume 100.9 fL (83.0-100.0); Mean Platelet Volume 11.7 fL (9.4-12.4); Monocytes # 0.5 K/mcL (0.0-1.3); Monocytes % 10.8 %; Segmented Neutrophils % 67.3 %; White Blood Count 4.4 K/mcL (4.3-11.1)
[2018-12-11 04:44] LABS: Platelet Count 32 K/mcL (140-400)
[2018-12-11 04:54] LABS: Alanine Aminotransferase 18 Units/L (7-52); Albumin 2.7 g/dL (3.5-5.7); Albumin/Globulin Ratio 0.9 (1.1-2.2); Alkaline Phosphatase 67 Units/L (34-104); Aspartate Amino Transferase 46 Units/L (13-39); BUN/Creatinine Ratio 25 (6-26); Bilirubin,Direct 0.5 mg/dL (0.0-0.2); Bilirubin,Total 1.5 mg/dL (0.3-1.0); Blood Urea Nitrogen 15 mg/dL (8-23); Calcium 8.6 mg/dL (8.6-10.3); Carbon Dioxide 24 mEq/L (23-29); Chloride 107 mEq/L (98-107); Globulin 2.9 g/dL (2.4-3.5); Glucose 102 mg/dL (70-105); Osmolality,Calculated 281 (280-300); Sodium 135 mEq/L (136-145); Total Protein 5.6 g/dL (6.4-8.9); eGFR For African Americans > 60 (> 60); eGFR For Non-African Americans > 60 (> 60)
[2018-12-11 06:08] LABS: Platelet Estimate Decreased (Normal); Reactive Lymphocytes Present (Not Present)
[2018-12-11] MEDS: Lactulose Oral Soln 20 GM/30 ML UDC PO SCH ×3 (09:51→20:37)
[2018-12-11] MEDS: Budesonide/Formoterol 160/4.5 1 PUFF INH IH SCH ×2 (10:17→20:01)
[2018-12-11] MEDS ORDERED: Ketorolac 15 MG/ML VIAL IVP ONE (10:30)
[2018-12-11] MEDS: Albumin 25% 12.5gm/50mL 12.5 GM/50 ML IV.SOLN IVPB SCH ×2 (12:01→20:36)
[2018-12-11] MEDS ORDERED: Acetaminophen 325 MG TABLET PO PRN (12:52)
[2018-12-12] MEDS: Albumin 25% 12.5gm/50mL 12.5 GM/50 ML IV.SOLN IVPB SCH ×3 (03:16→20:28)
[2018-12-12] MEDS: Piperacillin/Tazobactam 3.375 GM in 0.9 % Sodium Chloride Mini Bag 100 ML IVPB SCH ×3 (04:11→20:29)
[2018-12-12 06:48] LABS: Hemoglobin 11.2 g/dL (11.5-15.4)
[2018-12-12 06:50] LABS: Hematocrit 33.7 % (35.3-44.9); Immature Platelets 4.6 % (1.1-6.1); Mean Corpuscular HGB Conc 33.2 g/dL (31.6-35.5); Mean Corpuscular Hemoglobin 33.3 pg (28.0-33.3); Mean Corpuscular Volume 100.3 fL (83.0-100.0); Mean Platelet Volume 11.5 fL (9.4-12.4); Red Blood Count 3.36 M/mcL (3.82-4.97); Red Cell Distribution Width 16.3 % (11.5-14.5); White Blood Count 4.2 K/mcL (4.3-11.1)
[2018-12-12 06:56] LABS: INR 1.5; Prothrombin Time 17.1 Seconds (9.4-12.1)
[2018-12-12 07:10] LABS: BUN/Creatinine Ratio 23 (6-26); Blood Urea Nitrogen 14 mg/dL (8-23); Calcium 8.9 mg/dL (8.6-10.3); Carbon Dioxide 25 mEq/L (23-29); Chloride 109 mEq/L (98-107); Glucose 106 mg/dL (70-105); Osmolality,Calculated 287 (280-300); Potassium 4.2 mEq/L (3.5-5.1); Sodium 138 mEq/L (136-145); eGFR For African Americans > 60 (> 60); eGFR For Non-African Americans > 60 (> 60)
[2018-12-12 07:11] LABS: Albumin 2.8 g/dL (3.5-5.7); Bilirubin,Direct 0.5 mg/dL (0.0-0.2); Bilirubin,Indirect 1.1 mg/dL (0.0-1.2); Bilirubin,Total 1.6 mg/dL (0.3-1.0); Globulin 2.8 g/dL (2.4-3.5); Total Protein 5.6 g/dL (6.4-8.9)
[2018-12-12] MEDS: Budesonide/Formoterol 160/4.5 1 PUFF INH IH SCH ×2 (09:39→20:36)
[2018-12-12] MEDS: Furosemide 40 MG TABLET PO SCH (10:22)
[2018-12-12] MEDS: Lactulose Oral Soln 20 GM/30 ML UDC PO SCH ×3 (10:23→20:28)
[2018-12-13 02:52] LABS: Red Blood Count 3.53 M/mcL (3.82-4.97)
[2018-12-13 02:54] LABS: Hematocrit 35.3 % (35.3-44.9); Hemoglobin 11.8 g/dL (11.5-15.4); Immature Platelets 4.4 % (1.1-6.1); Mean Corpuscular HGB Conc 33.4 g/dL (31.6-35.5); Mean Corpuscular Hemoglobin 33.4 pg (28.0-33.3); Red Cell Distribution Width 16.1 % (11.5-14.5); White Blood Count 4.2 K/mcL (4.3-11.1)
[2018-12-13] MEDS: Albumin 25% 12.5gm/50mL 12.5 GM/50 ML IV.SOLN IVPB SCH (03:04)
[2018-12-13 03:08] LABS: BUN/Creatinine Ratio 25 (6-26); Blood Urea Nitrogen 18 mg/dL (8-23); Calcium 9.2 mg/dL (8.6-10.3); Carbon Dioxide 25 mEq/L (23-29); Chloride 103 mEq/L (98-107); Glucose 131 mg/dL (70-105); Osmolality,Calculated 284 (280-300); Sodium 135 mEq/L (136-145); eGFR For African Americans > 60 (> 60); eGFR For Non-African Americans > 60 (> 60)
[2018-12-13] MEDS: Piperacillin/Tazobactam 3.375 GM in 0.9 % Sodium Chloride Mini Bag 100 ML IVPB SCH (03:34)
[2018-12-13] MEDS: Budesonide/Formoterol 160/4.5 1 PUFF INH IH SCH (07:38)
[2018-12-13 07:53] VITALS: BP 99/62
[2018-12-13] MEDS: Furosemide 40 MG TABLET PO SCH (08:32)
[2018-12-13] MEDS: Lactulose Oral Soln 20 GM/30 ML UDC PO SCH (08:34)
[2018-12-13] MEDS ORDERED: Aminoglycoside Consult 1 EACH MC ONE (13:31)
== END 2018-12-13 13:32 ==
LOC: SUATTDRO → EMEROOARM 15:34 → 3BNU 15:34 → SUATTDRO 18:43 → 3BNU 19:42
PROVIDERS: ADMIT Internal Medicine; ATTEND Internal Medicine

== ENCOUNTER 2019-05-17 09:58 | Observation (INO) ==
[~2019-05-17 09:58] MED LIST changes: -Aminoglycoside Consult 1 EACH MC ONE; +Total Joint Mixture (50 ml) IR ONE
[2019-05-17] MEDS: Ringers Solution, Lactated 1,000 ML IVC SCH (11:53)
[2019-05-17] MEDS ORDERED: Naloxone 0.4 MG/ML INJ IVP PRN (17:46)
[2019-05-17 18:13] LABS: Hemoglobin 12.5 g/dL (11.5-15.4)
[2019-05-17 18:15] LABS: Basophils % 0.3 %; Eosinophils # 0.1 K/mcL (0.0-0.6); Eosinophils % 3.8 %; Immature Platelets 1.7 % (1.1-6.1); Lymphocytes # 0.8 K/mcL (0.6-4.6); Lymphocytes % 28.4 %; Mean Corpuscular HGB Conc 33.8 g/dL (31.6-35.5); Mean Corpuscular Hemoglobin 33.9 pg (28.0-33.3); Mean Corpuscular Volume 100.3 fL (83.0-100.0); Mean Platelet Volume 10.3 fL (9.4-12.4); Monocytes # 0.3 K/mcL (0.0-1.3); Neutrophils # 1.7 K/mcL (1.6-8.9); Red Blood Count 3.69 M/mcL (3.82-4.97); Red Cell Distribution Width 14.8 % (11.5-14.5); Segmented Neutrophils % 58.5 %; White Blood Count 2.9 K/mcL (4.3-11.1)
[2019-05-17 18:16] LABS: Platelet Count 51 K/mcL (140-400)
[2019-05-17] MEDS ORDERED: *HR* OxyCODONE Oral Soln 5 MG/5 ML UD.LIQ PO PRN (18:26)
[2019-05-17 18:34] LABS: Alanine Aminotransferase 11 Units/L (7-52); Albumin/Globulin Ratio 0.6 (1.1-2.2); Alkaline Phosphatase 78 Units/L (34-104); Aspartate Amino Transferase 30 Units/L (13-39); BUN/Creatinine Ratio 22 (6-26); Bilirubin,Total 3.1 mg/dL (0.3-1.0); Blood Urea Nitrogen 15 mg/dL (8-23); Calcium 8.4 mg/dL (8.6-10.3); Carbon Dioxide 26 mEq/L (23-29); Chloride 110 mEq/L (98-107); Globulin 3.4 g/dL (2.4-3.5); Glucose 150 mg/dL (70-105); Osmolality,Calculated 290 (280-300); Sodium 138 mEq/L (136-145); Total Protein 5.4 g/dL (6.4-8.9); eGFR For African Americans > 60 (> 60); eGFR For Non-African Americans > 60 (> 60)
[2019-05-17] MEDS ORDERED: Lactulose Oral Soln 20 GM/30 ML UDC PO SCH (18:39)
[2019-05-17] MEDS: Lactulose Oral Soln 20 GM/30 ML UDC PO SCH (20:20)
[2019-05-17 23:47] LABS: Amphetamine Screen,Urine Negative ng/mL (Cutoff=1000); Barbiturate Screen,Urine Negative ng/mL (Cutoff=200); Benzodiazepines Screen,Urine Negative ng/mL (Cutoff=200); Cannabinoid Screen,Urine Negative ng/mL (Cutoff = 50); Cocaine Screen,Urine Negative ng/mL (Cutoff= 300); Opiate Screen,Urine Positive ng/mL (Cutoff=300); Phencyclidine Screen,Urine Negative ng/mL (Cutoff=25)
[2019-05-18] MEDS: Lactulose Oral Soln 20 GM/30 ML UDC PO SCH ×5 (01:20→18:06)
[2019-05-18 05:53] LABS: Hemoglobin 12.3 g/dL (11.5-15.4); Red Cell Distribution Width 14.7 % (11.5-14.5)
[2019-05-18 05:55] LABS: Hematocrit 37.7 % (35.3-44.9); Immature Platelets 2.9 % (1.1-6.1); Mean Corpuscular HGB Conc 32.6 g/dL (31.6-35.5); Mean Corpuscular Hemoglobin 32.6 pg (28.0-33.3); Mean Platelet Volume 10.7 fL (9.4-12.4); Red Blood Count 3.77 M/mcL (3.82-4.97); White Blood Count 3.5 K/mcL (4.3-11.1)
[2019-05-18 06:14] LABS: Alanine Aminotransferase 10 Units/L (7-52); Albumin 2.1 g/dL (3.5-5.7); Albumin/Globulin Ratio 0.6 (1.1-2.2); Alkaline Phosphatase 84 Units/L (34-104); Aspartate Amino Transferase 30 Units/L (13-39); BUN/Creatinine Ratio 22 (6-26); Bilirubin,Direct 0.8 mg/dL (0.0-0.2); Bilirubin,Indirect 1.8 mg/dL (0.0-1.0); Bilirubin,Total 2.6 mg/dL (0.3-1.0); Blood Urea Nitrogen 14 mg/dL (8-23); Calcium 8.7 mg/dL (8.6-10.3); Carbon Dioxide 27 mEq/L (23-29); Chloride 110 mEq/L (98-107); Globulin 3.4 g/dL (2.4-3.5); Glucose 107 mg/dL (70-105); Osmolality,Calculated 291 (280-300); Sodium 140 mEq/L (136-145); Total Protein 5.5 g/dL (6.4-8.9); eGFR For African Americans > 60 (> 60); eGFR For Non-African Americans > 60 (> 60)
[2019-05-18] MEDS: Ringers Solution, Lactated 1,000 ML IVC SCH (18:07)
[2019-05-18 19:55] VITALS: BP 124/85
[2019-05-18] MEDS ORDERED: Budesonide/Formoterol 160/4.5 1 PUFF INH IH SCH (21:00)
[2019-05-19] MEDS ORDERED: Furosemide 40 MG TABLET PO SCH (09:00)
== END 2019-05-18 21:36 | disposition short-term general hospital (02) ==
LOC: SAMDAY 09:58 → 3ANU 09:58 → 3NENU 11:52
PROVIDERS: ADMIT Orthopaedic Surgery; ATTEND Orthopaedic Surgery

== ENCOUNTER 2019-07-16 11:44 | Inpatient (IN) ==
[2019-07-16 12:44] LABS: Hematocrit 28.6 % (35.3-44.9); Immature Platelets 3.8 % (1.1-6.1); Mean Corpuscular HGB Conc 31.5 g/dL (31.6-35.5); Mean Corpuscular Hemoglobin 31.9 pg (28.0-33.3); Mean Corpuscular Volume 101.4 fL (83.0-100.0); Mean Platelet Volume 10.7 fL (9.4-12.4); Red Blood Count 2.82 M/mcL (3.82-4.97); Red Cell Distribution Width 14.9 % (11.5-14.5); White Blood Count 3.7 K/mcL (4.3-11.1)
[2019-07-16 12:48] LABS: VBG HCO3 28 mEq/L (21-27); VBG PCO2 33 mmHg (41-51); VBG PH 7.54 pH Units (7.32-7.42); VBG PO2 141 mmHg (25-50)
[2019-07-16 13:04] LABS: Alanine Aminotransferase 19 Units/L (7-52); Albumin 2.2 g/dL (3.5-5.7); Albumin/Globulin Ratio 0.6 (1.1-2.2); Alkaline Phosphatase 95 Units/L (34-104); Aspartate Amino Transferase 43 Units/L (13-39); BUN/Creatinine Ratio 18 (6-26); Bilirubin,Total 1.2 mg/dL (0.3-1.0); Blood Urea Nitrogen 15 mg/dL (8-23); Calcium 8.3 mg/dL (8.6-10.3); Carbon Dioxide 27 mEq/L (23-29); Chloride 101 mEq/L (98-107); Globulin 3.7 g/dL (2.4-3.5); Glucose 110 mg/dL (70-105); Osmolality,Calculated 275 (280-300); Potassium 4.3 mEq/L (3.5-5.1); Sodium 132 mEq/L (136-145); Total Protein 5.9 g/dL (6.4-8.9); eGFR For African Americans > 60 (> 60); eGFR For Non-African Americans > 60 (> 60)
[2019-07-16 13:05] LABS: Troponin I < 0.03 ng/mL (< 0.04)
[2019-07-16 14:06] LABS: Bilirubin,Urine Negative (Negative); Blood,Urine Negative (Negative); Clarity,Urine Clear (Clear); Color,Urine Yellow (Yellow); Glucose,Urine (UA) Normal (Normal); Ketones,Urine Negative (Negative); Leukocyte Esterase,Urine Negative (Negative); Nitrite,Urine Negative (Negative); Protein,Urine Negative (Neg-Trace); Specific Gravity,Urine 1.017 (1.010-1.025)
[2019-07-16] MEDS ORDERED: Naloxone 0.4 MG/ML INJ IVP PRN (14:07)
[2019-07-16 14:33] LABS: INR 1.5; Prothrombin Time 16.7 Seconds (9.4-12.1)
[2019-07-16 14:36] LABS: Activated Partial Thrombo Time 36.9 Seconds (26.0-36.0)
[2019-07-17 09:01] LABS: Mean Corpuscular Volume 100.7 fL (83.0-100.0)
[2019-07-17 09:04] LABS: Basophils % 0.3 %; Eosinophils # 0.1 K/mcL (0.0-0.6); Eosinophils % 1.8 %; Hematocrit 30.4 % (35.3-44.9); Hemoglobin 9.5 g/dL (11.5-15.4); Immature Granulocytes % 0.3 % (0-4); Immature Platelets 4.8 % (1.1-6.1); Lymphocytes # 0.9 K/mcL (0.6-4.6); Lymphocytes % 23.7 %; Mean Corpuscular HGB Conc 31.3 g/dL (31.6-35.5); Mean Corpuscular Hemoglobin 31.5 pg (28.0-33.3); Mean Platelet Volume 11.2 fL (9.4-12.4); Monocytes # 0.4 K/mcL (0.0-1.3); Monocytes % 10.6 %; Neutrophils # 2.5 K/mcL (1.6-8.9); Red Blood Count 3.02 M/mcL (3.82-4.97); Segmented Neutrophils % 63.3 %; White Blood Count 3.9 K/mcL (4.3-11.1)
[2019-07-17 09:08] LABS: Platelet Count 78 K/mcL (140-400); Platelet Estimate Decreased (Normal)
[2019-07-17 09:09] LABS: BUN/Creatinine Ratio 24 (6-26); Blood Urea Nitrogen 17 mg/dL (8-23); Calcium 8.6 mg/dL (8.6-10.3); Carbon Dioxide 26 mEq/L (23-29); Chloride 100 mEq/L (98-107); Glucose 84 mg/dL (70-105); Osmolality,Calculated 275 (280-300); Potassium 4.6 mEq/L (3.5-5.1); Sodium 132 mEq/L (136-145); eGFR For African Americans > 60 (> 60); eGFR For Non-African Americans > 60 (> 60)
[2019-07-17] MEDS: *HR* OxyCODONE/APAP 5/325 TABLET PO PRN ×2 (11:29→17:43)
[2019-07-17] MEDS ORDERED: Furosemide 40 MG TABLET PO SCH (12:58)
[2019-07-17] MEDS ORDERED: Tenofovir Disoproxil Fumarate 300 MG TABLET PO SCH (13:00)
[2019-07-17] MEDS ORDERED: Furosemide 20 MG TABLET PO SCH (13:00)
[2019-07-17] MEDS: Lactulose Oral Soln 20 GM/30 ML UDC PO SCH ×3 (14:41→21:17)
[2019-07-17] MEDS ORDERED: Cefepime HCl 1,000 MG in Water for inj. (sterile) 10 ML IVP SCH ×2 (18:40→18:42)
[2019-07-17] MEDS ORDERED: Ascorbic Acid 500 MG TABLET PO SCH (21:00)
[2019-07-17] MEDS ORDERED: Budesonide/Formoterol 160/4.5 1 PUFF INH IH SCH (22:00)
[2019-07-18 02:14] VITALS: BP 101/68
[2019-07-18] MEDS ORDERED: Zinc Sulfate 220 MG CAPSULE PO SCH (09:00)
[2019-07-18] MEDS ORDERED: *HR* Enoxaparin 40 MG/0.4 ML SYRINGE SQ SCH (09:00)
[2019-07-18] MEDS ORDERED: Cholecalciferol (D-3) 1,000 UNIT (25MCG) TABLET PO SCH (09:00)
[2019-07-18] MEDS ORDERED: Sennosides/Docusate Sodium TABLET PO SCH (09:00)
== END 2019-07-18 03:30 | disposition critical access hospital (66) | DRG 279 ==
LOC: EMEROOARM 11:44 → 3ANU 11:44
PROVIDERS: ADMIT Family Medicine; ATTEND Family Medicine

== ENCOUNTER 2019-10-11 11:35 | Inpatient (IN) ==
[2019-10-11 12:19] LABS: Basophils % 0.4 %
[2019-10-11 12:21] LABS: Eosinophils # 0.1 K/mcL (0.0-0.6); Eosinophils % 1.8 %; Hematocrit 37.4 % (35.3-44.9); Immature Platelets 3.5 % (1.1-6.1); Lymphocytes # 0.9 K/mcL (0.6-4.6); Lymphocytes % 31.9 %; Mean Corpuscular HGB Conc 32.1 g/dL (31.6-35.5); Mean Corpuscular Volume 90.3 fL (83.0-100.0); Monocytes # 0.2 K/mcL (0.0-1.3); Neutrophils # 1.6 K/mcL (1.6-8.9); Red Blood Count 4.14 M/mcL (3.82-4.97); Red Cell Distribution Width 20.9 % (11.5-14.5); Segmented Neutrophils % 58.9 %; White Blood Count 2.7 K/mcL (4.3-11.1)
[2019-10-11 12:23] LABS: Platelet Count 31 K/mcL (140-400)
[2019-10-11 12:25] LABS: Prothrombin Time 22.6 Seconds (9.4-12.1)
[2019-10-11 12:54] LABS: Alanine Aminotransferase 26 Units/L (7-52); Albumin 2.5 g/dL (3.5-5.7); Albumin/Globulin Ratio 0.6 (1.1-2.2); Alkaline Phosphatase 98 Units/L (34-104); Aspartate Amino Transferase 59 Units/L (13-39); BUN/Creatinine Ratio 31 (6-26); Bilirubin,Direct 0.6 mg/dL (0.0-0.2); Bilirubin,Indirect 1.3 mg/dL (0.0-1.0); Bilirubin,Total 1.9 mg/dL (0.3-1.0); Blood Urea Nitrogen 22 mg/dL (8-23); Calcium 8.3 mg/dL (8.6-10.3); Carbon Dioxide 25 mEq/L (23-29); Chloride 97 mEq/L (98-107); Globulin 3.9 g/dL (2.4-3.5); Glucose 152 mg/dL (70-105); Osmolality,Calculated 268 (280-300); Sodium 126 mEq/L (136-145); Total Protein 6.4 g/dL (6.4-8.9); Troponin I < 0.03 ng/mL (< 0.04); eGFR For African Americans > 60 (> 60); eGFR For Non-African Americans > 60 (> 60)
[2019-10-11] MEDS: Lactulose Oral Soln 20 GM/30 ML UDC PO SCH (21:02)
[2019-10-11] MEDS: Spironolactone 25 MG TABLET PO SCH (21:02)
[2019-10-11] MEDS: Ondansetron ODT 4 MG TAB.RAPDIS SL PRN (23:02)
[2019-10-12 01:33] LABS: Bilirubin,Urine Negative (Negative); Blood,Urine Large (Negative); Clarity,Urine Turbid (Clear); Color,Urine Red (Yellow); Glucose,Urine (UA) Normal (Normal); Ketones,Urine Negative (Negative); Leukocyte Esterase,Urine Negative (Negative); Nitrite,Urine Negative (Negative); Protein,Urine 100 mg/dL (Neg-Trace); Specific Gravity,Urine >= 1.030 (1.010-1.025); Urobilinogen,Urine Normal (Normal)
[2019-10-12] MEDS: Budesonide/Formoterol 160/4.5 1 PUFF INH IH SCH ×2 (08:13→20:03)
[2019-10-12 08:42] LABS: Basophils % 0.5 %; Eosinophils % 2.8 %; Hematocrit 36.1 % (35.3-44.9); Hemoglobin 11.5 g/dL (11.5-15.4); Mean Corpuscular HGB Conc 31.9 g/dL (31.6-35.5)
[2019-10-12 08:44] LABS: Eosinophils # 0.1 K/mcL (0.0-0.6); Immature Granulocytes % 0.5 % (0-4); Immature Platelets 4.6 % (1.1-6.1); Lymphocytes # 0.9 K/mcL (0.6-4.6); Lymphocytes % 42.7 %; Mean Corpuscular Hemoglobin 28.2 pg (28.0-33.3); Mean Corpuscular Volume 88.5 fL (83.0-100.0); Monocytes # 0.3 K/mcL (0.0-1.3); Monocytes % 14.2 %; Neutrophils # 0.9 K/mcL (1.6-8.9); Red Blood Count 4.08 M/mcL (3.82-4.97); Red Cell Distribution Width 20.6 % (11.5-14.5); Segmented Neutrophils % 39.3 %; White Blood Count 2.2 K/mcL (4.3-11.1)
[2019-10-12 08:45] LABS: INR 1.6; Prothrombin Time 18.7 Seconds (9.4-12.1)
[2019-10-12 08:47] LABS: Platelet Count 23 K/mcL (140-400)
[2019-10-12] MEDS: Lactulose Oral Soln 20 GM/30 ML UDC PO SCH ×5 (08:57→20:39)
[2019-10-12] MEDS: Furosemide 40 MG/4 ML VIAL IVP SCH ×3 (08:58→20:38)
[2019-10-12] MEDS: Ascorbic Acid 500 MG TABLET PO SCH ×2 (08:58→10:56)
[2019-10-12] MEDS: Spironolactone 25 MG TABLET PO SCH ×3 (08:58→20:39)
[2019-10-12] MEDS: Tenofovir Disoproxil Fumarate 300 MG TABLET PO SCH ×2 (08:58→10:56)
[2019-10-12 09:01] LABS: Alanine Aminotransferase 24 Units/L (7-52); Albumin 2.3 g/dL (3.5-5.7); Albumin/Globulin Ratio 0.6 (1.1-2.2); Alkaline Phosphatase 90 Units/L (34-104); Aspartate Amino Transferase 58 Units/L (13-39); BUN/Creatinine Ratio 29 (6-26); Bilirubin,Total 1.9 mg/dL (0.3-1.0); Blood Urea Nitrogen 19 mg/dL (8-23); Calcium 8.7 mg/dL (8.6-10.3); Carbon Dioxide 29 mEq/L (23-29); Chloride 99 mEq/L (98-107); Globulin 3.6 g/dL (2.4-3.5); Glucose 87 mg/dL (70-105); Lactate Dehydrogenase 139 Units/L (140-271); Osmolality,Calculated 270 (280-300); Potassium 4.7 mEq/L (3.5-5.1); Sodium 129 mEq/L (136-145); Total Protein 5.9 g/dL (6.4-8.9); eGFR For African Americans > 60 (> 60); eGFR For Non-African Americans > 60 (> 60)
[2019-10-12 09:13] LABS: Anisocytosis 1+ (Not Present); Platelet Estimate Decreased (Normal)
[2019-10-12] MEDS ORDERED: Budesonide/Formoterol 160/4.5 1 PUFF INH IH SCH (13:15)
[2019-10-12] MEDS: Dexamethasone 4 MG/ML VIAL IVP SCH (13:39)
[2019-10-12] MEDS: Ondansetron ODT 4 MG TAB.RAPDIS SL PRN (13:51)
[2019-10-13] MEDS: *HR* OxyCODONE Immed Rel 5 MG TABLET PO PRN (01:08)
[2019-10-13 04:19] LABS: Hemoglobin 11.1 g/dL (11.5-15.4); Red Cell Distribution Width 19.5 % (11.5-14.5); White Blood Count 2.1 K/mcL (4.3-11.1)
[2019-10-13 04:20] LABS: Hematocrit 33.4 % (35.3-44.9); Immature Platelets 5.5 % (1.1-6.1); Mean Corpuscular HGB Conc 33.2 g/dL (31.6-35.5); Mean Corpuscular Hemoglobin 28.1 pg (28.0-33.3); Mean Corpuscular Volume 84.6 fL (83.0-100.0); Red Blood Count 3.95 M/mcL (3.82-4.97)
[2019-10-13 04:25] LABS: Platelet Count 20 K/mcL (140-400)
[2019-10-13 04:38] LABS: Alanine Aminotransferase 25 Units/L (7-52); Albumin 2.3 g/dL (3.5-5.7); Albumin/Globulin Ratio 0.6 (1.1-2.2); Alkaline Phosphatase 89 Units/L (34-104); Aspartate Amino Transferase 55 Units/L (13-39); BUN/Creatinine Ratio 24 (6-26); Bilirubin,Total 1.3 mg/dL (0.3-1.0); Blood Urea Nitrogen 19 mg/dL (8-23); Calcium 8.6 mg/dL (8.6-10.3); Carbon Dioxide 28 mEq/L (23-29); Chloride 95 mEq/L (98-107); Globulin 3.6 g/dL (2.4-3.5); Glucose 140 mg/dL (70-105); Magnesium 1.7 mg/dL (1.6-2.6); Osmolality,Calculated 269 (280-300); Phosphorous 1.9 mg/dL (2.7-4.5); Potassium 4.3 mEq/L (3.5-5.1); Sodium 127 mEq/L (136-145); Total Protein 5.9 g/dL (6.4-8.9); eGFR For African Americans > 60 (> 60); eGFR For Non-African Americans > 60 (> 60)
[2019-10-13] MEDS: Budesonide/Formoterol 160/4.5 1 PUFF INH IH SCH ×2 (07:48→20:05)
[2019-10-13] MEDS: Furosemide 40 MG/4 ML VIAL IVP SCH ×2 (08:31→21:20)
[2019-10-13] MEDS: Dexamethasone 4 MG/ML VIAL IVP SCH (08:31)
[2019-10-13] MEDS: Tenofovir Disoproxil Fumarate 300 MG TABLET PO SCH (08:32)
[2019-10-13] MEDS: Lactulose Oral Soln 20 GM/30 ML UDC PO SCH ×4 (08:32→21:20)
[2019-10-13] MEDS: Ascorbic Acid 500 MG TABLET PO SCH (08:32)
[2019-10-13] MEDS: Spironolactone 25 MG TABLET PO SCH ×2 (08:32→21:19)
[2019-10-14] MEDS: *HR* OxyCODONE Immed Rel 5 MG TABLET PO PRN ×2 (00:59→06:50)
[2019-10-14] MEDS: Budesonide/Formoterol 160/4.5 1 PUFF INH IH SCH ×2 (08:16→19:43)
[2019-10-14 09:11] LABS: Basophils % 0.1 %; Hematocrit 33.5 % (35.3-44.9); Hemoglobin 11.3 g/dL (11.5-15.4); Immature Granulocytes % 1.1 % (0-4); Lymphocytes # 0.8 K/mcL (0.6-4.6); Lymphocytes % 10.9 %; Mean Corpuscular HGB Conc 33.7 g/dL (31.6-35.5); Mean Corpuscular Hemoglobin 28.3 pg (28.0-33.3); Mean Corpuscular Volume 83.8 fL (83.0-100.0); Monocytes # 0.8 K/mcL (0.0-1.3); Monocytes % 11.3 %; Neutrophils # 5.7 K/mcL (1.6-8.9); Nucleated Red Blood Cells 0.4 /100 WBC (0); Red Cell Distribution Width 19.8 % (11.5-14.5); Segmented Neutrophils % 76.6 %; White Blood Count 7.4 K/mcL (4.3-11.1)
[2019-10-14] MEDS: Spironolactone 25 MG TABLET PO SCH ×2 (09:12→20:14)
[2019-10-14 09:13] LABS: Platelet Count 32 K/mcL (140-400)
[2019-10-14] MEDS: Dexamethasone 4 MG/ML VIAL IVP SCH (09:13)
[2019-10-14] MEDS: Furosemide 40 MG/4 ML VIAL IVP SCH ×2 (09:14→20:14)
[2019-10-14 09:15] LABS: BUN/Creatinine Ratio 19 (6-26); Blood Urea Nitrogen 15 mg/dL (8-23); Calcium 8.6 mg/dL (8.6-10.3); Carbon Dioxide 34 mEq/L (23-29); Chloride 92 mEq/L (98-107); Glucose 122 mg/dL (70-105); Osmolality,Calculated 266 (280-300); Potassium 4.7 mEq/L (3.5-5.1); Sodium 127 mEq/L (136-145); eGFR For African Americans > 60 (> 60); eGFR For Non-African Americans > 60 (> 60)
[2019-10-14] MEDS: Ascorbic Acid 500 MG TABLET PO SCH (09:38)
[2019-10-14] MEDS: Lactulose Oral Soln 20 GM/30 ML UDC PO SCH ×4 (09:38→20:13)
[2019-10-14] MEDS: Tenofovir Disoproxil Fumarate 300 MG TABLET PO SCH (10:12)
[2019-10-15] MEDS: *HR* OxyCODONE Immed Rel 5 MG TABLET PO PRN (02:52)
[2019-10-15 05:55] LABS: Basophils % 0.6 %; Eosinophils % 0.1 %
[2019-10-15 05:57] LABS: Basophils # 0.1 K/mcL (0.0-0.2); Hematocrit 32.1 % (35.3-44.9); Hemoglobin 10.7 g/dL (11.5-15.4); Immature Granulocytes % 3.9 % (0-4); Immature Platelets 7.4 % (1.1-6.1); Lymphocytes # 1.1 K/mcL (0.6-4.6); Lymphocytes % 10.8 %; Mean Corpuscular HGB Conc 33.3 g/dL (31.6-35.5); Mean Corpuscular Hemoglobin 28.8 pg (28.0-33.3); Mean Corpuscular Volume 86.5 fL (83.0-100.0); Mean Platelet Volume 9.1 fL (9.4-12.4); Monocytes # 1.4 K/mcL (0.0-1.3); Monocytes % 14.2 %; Nucleated Red Blood Cells 0.6 /100 WBC (0); Red Blood Count 3.71 M/mcL (3.82-4.97); Red Cell Distribution Width 19.9 % (11.5-14.5); Segmented Neutrophils % 70.4 %; White Blood Count 9.9 K/mcL (4.3-11.1)
[2019-10-15 05:59] LABS: Platelet Count 33 K/mcL (140-400)
[2019-10-15 06:12] LABS: BUN/Creatinine Ratio 28 (6-26); Blood Urea Nitrogen 22 mg/dL (8-23); Calcium 8.5 mg/dL (8.6-10.3); Carbon Dioxide 31 mEq/L (23-29); Chloride 92 mEq/L (98-107); Glucose 160 mg/dL (70-105); Osmolality,Calculated 271 (280-300); Potassium 4.2 mEq/L (3.5-5.1); Sodium 127 mEq/L (136-145); eGFR For African Americans > 60 (> 60); eGFR For Non-African Americans > 60 (> 60)
[2019-10-15] MEDS: Budesonide/Formoterol 160/4.5 1 PUFF INH IH SCH (07:52)
[2019-10-15] MEDS: Spironolactone 25 MG TABLET PO SCH (08:42)
[2019-10-15] MEDS: Dexamethasone 4 MG/ML VIAL IVP SCH (08:43)
[2019-10-15] MEDS: Lactulose Oral Soln 20 GM/30 ML UDC PO SCH ×3 (08:44→17:16)
[2019-10-15] MEDS: Furosemide 40 MG/4 ML VIAL IVP SCH (08:44)
[2019-10-15] MEDS: Ascorbic Acid 500 MG TABLET PO SCH (08:45)
[2019-10-15] MEDS: Tenofovir Disoproxil Fumarate 300 MG TABLET PO SCH (08:46)
[2019-10-15 16:32] VITALS: BP 117/53
== END 2019-10-15 18:02 | DRG 279 ==
LOC: EMEROOARM 11:35 → 2NENU 11:35
PROVIDERS: ADMIT Family Medicine; ATTEND Family Medicine